=== PATIENT | male | born 1955 | race Caucasian/White ===

== ENCOUNTER → 2016-10-31 | Outpatient (CLI) | payer BC ==
--- NOTE | 2016-10-31 18:45 | MR ---
MRI of the brain with and without contrast EXAM DATE: 10/31/2016 HISTORY: Headaches. TECHNIQUE: T1-weighted sagittal, T2, FLAIR, and diffusion axial, postcontrast T1 axial and coronal vi ews of the brain are submitted. CONTRAST: 15 mL MultiHance FINDINGS: There is no evidence of acute ischemia. The ventricles, basal cisterns, and sulci overlying the co nvexities are consistent with the patient's age. There is no mass effect or enhancing mass. Craniocervical junction maintained. Sella turcica has a normal appearance. No evidence of cerebellopo ntine angle mass. Changes of chronic sinusitis noted. Prominent pacchionian granulations are seen superiorly. WHITE MATTER: There are 7 focal areas of abnormal signal within the white matter seen within the right frontal and parietal lobe with the largest in the right parietal lobe measuring 5 mm. A single focus of abnormal signal in the left parietal white matter is seen. No callosal lesions. No enhancing lesions. No lesions perpendicular to the ventricular system. IMPRESSION: 1. No acute intracranial process. 2. Very mild nonspecific white matter changes. Differential include hypertension, migraine headaches or remote microvascular ischemia. Demyelinating disease not entirely excluded.
== END | disposition home or self-care (01) ==
LOC: RADMRIMAIN 16:56
PROVIDERS: ATTEND Psychiatry & Neurology Neurology
DX: R90.82 White matter disease, unspecified (principal); S09.90XA Unspecified injury of head, initial encounter; A69.20 Lyme disease, unspecified; D33.2 Benign neoplasm of brain, unspecified
CPT/HCPCS: 70553; A9577

== ENCOUNTER 2017-09-12 08:53 | Emergency (ER) | payer BC, OTHER ==
[2017-09-12 09:04] VITALS: RESP 18; TEMP 97.9
--- NOTE | 2017-09-12 09:43 | ED ---
General Adult HPI - General Chief complaint: Extremity Injury, Lower Stated complaint: Swollen Right Leg Time Seen by Provider: 09/12/17 09:14 Source: patient, RN notes reviewed Mode of arrival: ambulatory Limitations: no limitations - History of Present Illness Initial comments: Patient 61-year-old male presenting to the emergency room today with a chief complaint of pain and swelling to the right calf. Patient states that he noticed this starting 2 days ago. Since some redness that he saw yesterday which somewhat improved today. Patient does admit [facility] but when he called seldom about it he was advised come to the hospital have ultrasound to rule out DVT. Patient denies any history of DVT. Denies any injury or trauma. States worse the pain is down to the medial posterior aspect just above the right ankle. Denies any other complaints at this time. Patient denies any recent fever, chills, shortness of breath, chest pain, back pain, abdominal pain, numbness or tingling, dysuria or hematuria, constipation or diarrhea, headaches or visual changes, or any other complaints. - Related Data Home Medications Medication Instructions Recorded Confirmed Ascorbic Acid [Vitamin C] 1 tab PO DAILY 01/06/14 09/12/17 Cholecalciferol (Vitamin D3) 2,000 unit PO BID 01/06/14 09/12/17 [Decara] Fish Oil/Dha/Epa [Fish Oil 1,200 1 tab PO BID 01/06/14 09/12/17 mg Fish Oil] Multivitamins, Thera [Multivitamin] 1 tab PO BID 01/06/14 09/12/17 Vitamin B Complex 1 tab PO BID 01/06/14 09/12/17 Magnesium 200 mg PO DAILY 05/03/15 09/12/17 Ubidecarenone [Co Q-10] 100 mg PO DAILY 09/12/17 09/12/17 Allergies Allergy/AdvReac Type Severity Reaction Status Date / Time No Known Allergies Allergy Verified 09/12/17 09:12 Review of Systems ROS Statement: Those systems with pertinent positive or pertinent negative responses have been documented in the HPI. ROS Other: All systems not noted in ROS Statement are negative. Past Medical History Past Medical History: Sleep Apnea/CPAP/BIPAP Additional Past Medical History / Comment(s): hx. gout, hx. colon polyps, uses CPAP History of Any Multi-Drug Resistant Organisms: None Reported Past Surgical History: Appendectomy Additional Past Surgical History / Comment(s): EGD, colonoscopy Past Anesthesia/Blood Transfusion Reactions: No Reported Reaction Past Psychological History: Depression Smoking Status: Never smoker Past Alcohol Use History: None Reported Past Drug Use History: None Reported - Past Family History Mother Family Medical History: CVA/TIA Additional Family Medical History / Comment(s): mom of massive cva 2012 General Exam - General Exam Comments Initial Comments: General: The patient is awake and alert, in no distress, and does not appear acutely ill. Eye: Pupils are equal, round and reactive to light, extra-ocular movements are intact. No nystagmus. There is normal conjunctiva bilaterally. No signs of icterus. Ears, nose, mouth and throat: There are moist mucous membranes and no oral lesions. Neck: The neck is supple, there is no tenderness or JVD. Cardiovascular: There is a regular rate and rhythm. No murmur, rub or gallop is appreciated. Respiratory: Lungs are clear to auscultation, respirations are non-labored, breath sounds are equal. No wheezes, stridor, rales, or rhonchi. Musculoskeletal: Full range of motion. No bony tenderness on exam. Mild swelling to the right calf. Strength 5/5. Sensation intact. Pulses equal bilaterally 2+. Neurological: A&O x 3. CN II-XII intact, There are no obvious motor or sensory deficits. Coordination appears grossly intact. Speech is normal. Skin: Skin is warm and dry and no rashes or lesions are noted. Psychiatric: Cooperative, appropriate mood & affect, normal judgment. Limitations: no limitations Course Vital Signs 09/12/17 09:02 Temperature 97.9 F Pulse Rate 87 Respiratory 18 Rate Blood Pressure 184/77 O2 Sat by Pulse 97 Oximetry Medical Decision Making - Medical Decision Making Patient's blood work at this time has been reviewed. A PT INR still pending at this time. Patient does not want to wait for the results. The flow to did not have enough blood needed to be redrawn. Patient does have an appointment with his doctor [facility] the [facility] later today. They can be discharged. Patient advised that he should follow back up about the numbers. - Lab Data Result diagrams: 09/12/17 10:55 09/12/17 10:55 Lab Results 09/12/17 09/12/17 Range/Units 10:55 10:55 WBC 5.2 (3.8-10.6) k/uL RBC 5.10 (4.30-5.90) m/uL Hgb 15.2 (13.0-17.5) gm/dL Hct 43.6 (39.0-53.0) % MCV 85.4 (80.0-100.0) fL MCH 29.8 (25.0-35.0) pg MCHC 34.8 (31.0-37.0) g/dL RDW 14.5 (11.5-15.5) % Plt Count 177 (150-450) k/uL Neutrophils % 58 % Lymphocytes % 23 % Monocytes % 9 % Eosinophils % 8 % Basophils % 0 % Neutrophils # 3.0 (1.3-7.7) k/uL Lymphocytes # 1.2 (1.0-4.8) k/uL Monocytes # 0.5 (0-1.0) k/uL Eosinophils # 0.4 (0-0.7) k/uL Basophils # 0.0 (0-0.2) k/uL Sodium 142 (137-145) mmol/L Potassium 4.4 (3.5-5.1) mmol/L Chloride 105 (98-107) mmol/L Carbon Dioxide 26 (22-30) mmol/L Anion Gap 11 mmol/L BUN 23 H (9-20) mg/dL Creatinine 0.67 (0.66-1.25) mg/dL Est GFR (CKD-EPI)AfAm >90 (>60 ml/min/1.73 sqM) Est GFR (CKD-EPI)NonAf >90 (>60 ml/min/1.73 sqM) Glucose 101 H (74-99) mg/dL Calcium 9.4 (8.4-10.2) mg/dL Total Bilirubin 0.7 (0.2-1.3) mg/dL AST 54 (17-59) U/L ALT 53 (21-72) U/L Alkaline Phosphatase 71 (38-126) U/L Total Protein 6.8 (6.3-8.2) g/dL Albumin 4.0 (3.5-5.0) g/dL Disposition Clinical Impression: Leg pain Disposition: HOME SELF-CARE Condition: Good Instructions: Leg Pain (ED) Additional Instructions: [facility] Please discuss your lab work. Please return to emergency room for any other concerns. Referrals: Ortega Roberts MD [STAFF PHYSICIAN] - 1-2 days Time of Disposition: 12:04
--- NOTE | 2017-09-12 10:08 | US ---
EXAMINATION TYPE: US venous doppler duplex LE RT DATE OF EXAM: 09/12/2017 9:21 AM COMPARISON: NONE CLINICAL HISTORY: Pain. Right leg swelling and discoloration SIDE PERFORMED: Right TECHNIQUE: The lower extremity deep venous system is examined utilizing real time linear array sonog malika with graded compression, doppler sonography and color-flow sonography. VESSELS IMAGED: External Iliac Vein (EIV) Common Femoral Vein Deep Femoral Vein Greater Saphenous Vein * Femoral Vein Popliteal Vein Small Saphenous Vein * Proximal Calf Veins (* superficial vessels) Right Leg: Negative for DVT IMPRESSION: 1. Right lower extremity ultrasound negative for deep venous thrombosis.
[2017-09-12 11:07] LABS: Basophils % (A) 0 %; Eosinophils # (A) 0.4 k/uL (0-0.7); Eosinophils % (A) 8 %; HCT 43.6 % (39.0-53.0); HGB 15.2 gm/dL (13.0-17.5); Lymphocytes # (A) 1.2 k/uL (1.0-4.8); Lymphocytes % (A) 23 %; MCH 29.8 pg (25.0-35.0); MCHC 34.8 g/dL (31.0-37.0); MCV 85.4 fL (80.0-100.0); Mean Platelet Volume 7.2; Monocytes # (A) 0.5 k/uL (0-1.0); Monocytes % (A) 9 %; Neutrophils % (A) 58 %; Platelet Count 177 k/uL (150-450); RDW 14.5 % (11.5-15.5); WBC 5.2 k/uL (3.8-10.6)
[2017-09-12 11:17] LABS: ALT 53 U/L (21-72); AST 54 U/L (17-59); Alkaline Phosphatase 71 U/L (38-126); Anion Gap 11 mmol/L; Blood Urea Nitrogen 23 mg/dL (9-20); Calcium 9.4 mg/dL (8.4-10.2); Carbon Dioxide 26 mmol/L (22-30); Chloride 105 mmol/L (98-107); Glucose 101 mg/dL (74-99); Potassium 4.4 mmol/L (3.5-5.1); Sodium 142 mmol/L (137-145); Total Bilirubin 0.7 mg/dL (0.2-1.3); Total Protein 6.8 g/dL (6.3-8.2)
[2017-09-12 12:26] LABS: INR 1.1 (<1.2); Prothrombin Time 10.7 sec (9.0-12.0)
[2017-09-12 12:33] VITALS: BP 154/90; PULSE 68
== END 2017-09-12 12:25 | disposition home or self-care (01) ==
LOC: EC 08:53
DX: M79.661 Pain in right lower leg (principal); M79.89 Other specified soft tissue disorders; G47.30 Sleep apnea, unspecified; Z79.899 Other long term (current) drug therapy; Z99.89 Dependence on other enabling machines and devices
CPT/HCPCS: 36415; 80053; 85025; 85610; 85730; 99284

== ENCOUNTER → 2018-02-18 | Outpatient (CLI) | payer OTHER ==
[2018-02-17 15:09] VITALS: BMI 41.5
[2018-02-18 13:27] VITALS: BP 149/69; PULSE 67; RESP 20
--- NOTE | 2018-02-18 14:18 | P.PAINCN ---
History of Present Illness - Reason for Consult Consult date: 02/18/18 - History of Present Illness This is an initial consultation visit for this 62 years old male with a chronic history of severe low back pain, he was started 2 years ago, denies any initiating factor, and he reported that he had lumbar epidural steroid injection done 2 years ago a different institution, and he had a good result after the injection, recently started complaining of severe low back pain with radiation to the lower extremity bilaterally, associated with numbness and tingling sensation, he denies any motor or sensory deficits, denies any change in bowel movement or urination, no fever or night sweats, tried physical therapy without any significant improvement, and currently is on NSAIDs without any significant improvement Past Medical History Past Medical History: Hypertension, Sleep Apnea/CPAP/BIPAP Additional Past Medical History / Comment(s): chronic back pain, hx. gout, hx. colon polyps, uses CPAP History of Any Multi-Drug Resistant Organisms: None Reported Past Surgical History: Appendectomy Additional Past Surgical History / Comment(s): EGD, colonoscopy Past Anesthesia/Blood Transfusion Reactions: No Reported Reaction Additional Past Anesthesia/Blood Transfusion Reaction / Comm: unknown family hx Past Psychological History: No Psychological Hx Reported Smoking Status: Never smoker Past Alcohol Use History: None Reported Past Drug Use History: None Reported - Past Family History Mother Family Medical History: CVA/TIA Additional Family Medical History / Comment(s): mom of massive cva 2012 Medications and Allergies Home Medications Medication Instructions Recorded Confirmed Type Ascorbic Acid [Vitamin C] 500 mg PO DAILY 01/06/14 02/17/18 History Cholecalciferol (Vitamin D3) 2,000 unit PO BID 01/06/14 02/17/18 History [Decara] Fish Oil/Dha/Epa [Fish Oil 1,200 1 tab PO BID 01/06/14 02/17/18 History mg Fish Oil] Multivitamins, Thera [Multivitamin] 1 tab PO BID 01/06/14 02/17/18 History Vitamin B Complex 1 tab PO BID 01/06/14 02/17/18 History Magnesium 200 mg PO DAILY 05/03/15 02/17/18 History Ubidecarenone [Co Q-10] 100 mg PO DAILY 09/12/17 02/17/18 History Hydrochlorothiazide 12.5 mg PO DAILY 02/18/18 02/18/18 History Losartan Potassium 50 mg PO DAILY 02/18/18 02/18/18 History Naproxen [Naprosyn] 500 mg pe PO DIRECTED PRN 02/18/18 02/18/18 History Allergies Allergy/AdvReac Type Severity Reaction Status Date / Time No Known Allergies Allergy Verified 02/18/18 13:15 Physical Exam Vitals: Vital Signs Pulse Resp BP Pulse Ox 02/18/18 13:19 67 20 149/69 96 Intake and Output 02/17/18 02/18/18 02/18/18 22:59 06:59 14:59 Other: Weight 163.293 kg Social history :not smoker , NO ETOH , NO Illegal drugs use . Review of Systems : 1- Constitutional : no chills , no fever , no night sweats , 2- Ears : no ear discharge , no change in hearing 3-Nose, Mouth ,Throat ; no bleeding gums, no sore throat , no epistaxis , 4-Cardiovascular : Denies chest pain, , no orthopnea , no palpitation 5-Respiratory : Denies cough , no dyspnea , no hemoptysis 6-Gastrointestinal :, no change in bowel habits , no coffee- ground emesis . 7-Genitourinary : No hematuria , no discharge , no incontinence, 8-Musculoskeletal : gait dysfunction(ambulate using cane ) , report low back pain , 9- Neurological : no ataxia , no tremor , no sezure , 10-Psychatric , no suicidal ideation no hallucination 11- Endocrine : no cold intolerence , no polyuria , no polydypsia , 12-Hematologic : no easy bleeding , no easy brusing , 13-Allergic / immunology : no angioedema , no wheezing ,no allergic rhinitis 14-Integumentary : no brttle nails , no change hair / nails , no foot/leg ulcers . Physical Examinations : 1-Constitutional : Cooperative , not in acute distress . 2-HEENT : nech ; supple , no Lymphadenopathy , no Thyromegaly , :eyes , no icterus, no photophobia . ENT : , normal oropharynx , no Thrush 3- Respiratory : Chest clear to auscultations Bilaterally , no wheezing . 4- Cardiovascular : regular rate and rhythem , S1 , S2 , no S3 , no S4. 5- Gastrointestinal: abdomen soft no tenderness , no organomegally . 6- Genitourinary : Defferred . 7-Integumentary : No cellulitis , no ulcers , normal skin turgor , no cyanotic . 8- neurologic : Cranial nerve II to XII intact , no focal neurological deffecit 9-psychatric : alert , oriented X 3 , appropriate affect , intact judgment and insight . 10-Lymphatic : no Lymphadenopathy. 11- musculoskeltal: abnormal gait (ambulate using cane ) . Lumber spine moter stegnth lower extremities ,thigh and legs 5/5 Right side , 5/5 Left side deep tendon reflexes : normal Knee Jerk , normal ankle Jerk positive lumber facet Loading Test Range of motion of the lumbar spine Flexion 30 degrees, extension 10 degrees strait leg raising test , positive at 30 degree side ,Positive at 60 on the right side Fabere test positive RT and positive LT . Sever tenderness over the Sacroiliac joint on the R and L sides Results Comments: MRI of the lumbar spine done at the shoulder. MRI 01/27/2016= L2-3 bulging disc and facet arthropathy L3 4 bulging disc and facet arthropathy L4 5 anterolisthesis and bulging disc and severe facet arthropathy L5-S1 mild retrolisthesis and central disc protrusion Assessment and Plan Plan: Assessment and plan= chronic severe low back pain secondary to lumbar degenerative disc disease and lumbar spondylosis with lumbar facet arthropathy Scheduled patient to have lumbar epidural steroid injections under fluoroscopy guidance 2 If patient continues to have pain after the epidural steroid injection then we have to schedule patient for diagnostic medial branch block lumbar area , L2 to S1 , treatment plan discussed with the patient and he agreed with proceeding Time with Patient: Greater than 30 PQRS Measure Charge Sheet Measure #130: Documentation of Current Meds in Medical Chart: Patient's medications documented in chart Measure #226: Tobacco Use: Screen & Cessation Intervention: Pt not a tobacco user Measure #111: Pneumonia Vaccination: Pneumococcal vaccine NOT administered or previously given Measure #47: Advance Care Plan: Advance care planning discussed & documented, pt chose/unable to give Measure #412: Opioid Treatment Agreement: No documentation of signed opioid treatment agreement Measure #408: Opioid Therapy Follow-up Evaluation: Patient had NO f/u eval minimum every 3 months during opioid therapy Measure #317: Preventitive Care & Scrn High Bld Press & F/U: Pre-hypertensive or hypertensive BP documented, pt will f/u with PCP Measure #128: Body Mass Index (BMI) Screening & Follow-up: BMI documented ABOVE normal parameters - f/u documented Measure #131: Pain Assessment & Follow-up: Pain positive & plan documented, Follow-up scheduled Measure #431: Unhealthy Alcohol Use Preventative Care & Scrn: Patient not identified as an unhealthy alcohol user PQRS Narrative: Smoking Status Never smoker Do You Want the Pneumonia No Vaccine AT THIS TIME? Blood Pressure 149/69 Pain Intensity [Lower Back] 8 Scale Used Numeric (1 - 10) Hx Alcohol Use (MH) No Home Medications: Ambulatory Orders Ascorbic Acid [Vitamin C] 500 mg PO DAILY 01/06/14 Cholecalciferol (Vitamin D3) [Decara] 2,000 unit PO BID 01/06/14 Fish Oil/Dha/Epa [Fish Oil 1,200 mg Fish Oil] 1 tab PO BID 01/06/14 Multivitamins, Thera [Multivitamin] 1 tab PO BID 01/06/14 Vitamin B Complex 1 tab PO BID 01/06/14 Magnesium 200 mg PO DAILY 05/03/15 Ubidecarenone [Co Q-10] 100 mg PO DAILY 09/12/17 Hydrochlorothiazide 12.5 mg PO DAILY 02/18/18 Losartan Potassium 50 mg PO DAILY 02/18/18 Naproxen [Naprosyn] 500 mg pe PO DIRECTED PRN 02/18/18
== END ==
LOC: PNWHC3 12:48
PROVIDERS: ATTEND Specialist
DX: G89.29 Other chronic pain (principal); M51.36 Other intervertebral disc degeneration, lumbar region; M47.816 Spondylosis without myelopathy or radiculopathy, lumbar region; M46.96 Unspecified inflammatory spondylopathy, lumbar region; Z79.899 Other long term (current) drug therapy; Z79.2 Long term (current) use of antibiotics
CPT/HCPCS: 99211

== ENCOUNTER 2018-02-23 07:26 | Day surgery (SDC) | payer OTHER ==
[2018-02-19 12:01] VITALS: BMI 41.5
[~2018-02-23 07:26] MED LIST: LACTATED RINGERS 1,000 ML IV SCH
[2018-02-23 07:50] VITALS: RESP 18; TEMP 97.6
[2018-02-23] MEDS ORDERED: LIDOCAINE 1% 20 ML VIAL (10MG/ML) FOR IV START INTRADERMA ONE (07:52)
[2018-02-23] MEDS ORDERED: LACTATED RINGERS 1,000 ML IV ONE (07:52)
--- NOTE | 2018-02-23 09:23 | P.PCN ---
Date of Procedure: 02/23/18 Surgeon: Melody Zheng Pathology: none sent Condition: stable Disposition: PACU Description of Procedure: PREOPERATIVE DIAGNOSIS: 1-Lumbar radiculopathy 2- Lumber Degenerative Disc Diseases. 3- POSTOPERATIVE DIAGNOSIS: 1-Lumbar radiculopathy. 2-Lumber Degenerative Disc Diseases PROCEDURE 1. Lumbar epidural steroid injection under fluoroscopic guidance at the L5-S1 level in the right paramedian approach. 2. Lumbar epidurogram. ANESTHESIA: Local with 1% lidocaine; IV sedation with Versed --2-mg ,and 100 mcg fentanyl EBL: Minimal PROCEDURE INDICATION: The patient with low back pain and radiculitis symptoms unresponsive to conservative treatment. Fluoroscopy was used to optimize visualization of the needle placement and to maximize safety. PROCEDURE DESCRIPTION / TECHNIQUE: The patient was seen and identified in the preoperative area. Risks, benefits , complications including but not limited to infections ,bleeding ,allergic reaction to the medications ,nerve damage and not complete pain relief , and alternatives were discussed with the patient. The patient agreed to proceed with the procedure and signed the consent. IV was started, and vital signs were stable. Patient was taken to the OR and time out was completed. The patient was placed in the prone position on procedure table and a pillow was placed under the abdomen to reduce lumbar lordosis. The lumbosacral area was prepped and draped in the usual sterile fashion with ChloraPrep.Patient was closely monitored during the procedure. Conscious sedation was used during the procedure to decrease patients anxiety. Vital signs were monitered during the entire procedure. Using anterior-posterior fluoroscopy, the L5-S1 interlaminar space was identified and the skin over this site was marked and then infiltrated with 1% lidocaine subcutaneously. Subsequently, a 18-gauge 6" Tuohy epidural needle was inserted and advanced toward the epidural space using the Loss of resistance to air technique and guided by AP and lateral fluoroscopy. The epidural space was found at about 11 cm from skin. The correct needle position in the epidural space was verified with the injection of 1 mL of the water soluble contrast dye Omnipaque 180 contrast and observing an excellent epidurogram with the epidural spread of the dye, after negative aspiration for blood and CSF and in the absence of paresthesias. Again after negative aspiration, a 8 ml mixture containing 80 mg of Kenalog and 5 ml of preservative free Normal Saline , and 2 ml of preservative free ropivacaine 0.5% solution was injected and a washout of epidurogram was seen. Needle was withdrawn intact, skin was cleansed , and bandages were applied. patient tolerated procedure well and was transferred to PACU in stable condition. COMPLICATIONS: None
[2018-02-23] MEDS ORDERED: IV FLUID CONTINUATION 1,000 ML IV ONE (09:25)
--- NOTE | 2018-02-23 09:26 | FL ---
EXAMINATION TYPE: FL guided pain mgmt statistic DATE OF EXAM: 02/23/2018 HISTORY: Flouroscopy time 13 seconds of fluoroscopy provided. IMPRESSION: 1. Fluoroscopy time.
[2018-02-23 09:56] VITALS: BP 106/70; PULSE 61
== END 2018-02-23 10:17 | disposition home or self-care (01) ==
LOC: ORPAIN 07:26
PROVIDERS: ATTEND Anesthesiology
DX: M51.16 Intervertebral disc disorders with radiculopathy, lumbar region (principal); I10 Essential (primary) hypertension; E66.01 Morbid (severe) obesity due to excess calories; Z68.41 Body mass index [BMI] 40.0-44.9, adult; G47.30 Sleep apnea, unspecified
CPT/HCPCS: 62323; J2250; J3301; J3010; 99152

== ENCOUNTER 2018-03-09 07:44 | Day surgery (SDC) | payer OTHER ==
[2018-03-03 09:58] VITALS: BMI 41.5
[2018-03-09 08:32] VITALS: TEMP 98.6
[2018-03-09] MEDS ORDERED: LIDOCAINE 1% 20 ML VIAL (10MG/ML) FOR IV START INTRADERMA ONE (08:42)
--- NOTE | 2018-03-09 09:21 | P.PCN ---
Date of Procedure: 03/09/18 Description of Procedure: Surgeon: Melody Zheng Pathology: none sent Condition: stable Disposition: PACU Description of Procedure: PREOPERATIVE DIAGNOSIS: 1-Lumbar radiculopathy 2- Lumber Degenerative Disc Diseases. 3- POSTOPERATIVE DIAGNOSIS: 1-Lumbar radiculopathy. 2-Lumber Degenerative Disc Diseases PROCEDURE 1. Lumbar epidural steroid injection under fluoroscopic guidance at the L5-S1 level in the right paramedian approach. 2. Lumbar epidurogram. ANESTHESIA: Local with 1% lidocaine; IV sedation with Versed --2-mg ,and 100 mcg fentanyl EBL: Minimal PROCEDURE INDICATION: The patient with low back pain and radiculitis symptoms unresponsive to conservative treatment. Fluoroscopy was used to optimize visualization of the needle placement and to maximize safety. PROCEDURE DESCRIPTION / TECHNIQUE: The patient was seen and identified in the preoperative area. Risks, benefits , complications including but not limited to infections ,bleeding ,allergic reaction to the medications ,nerve damage and not complete pain relief , and alternatives were discussed with the patient. The patient agreed to proceed with the procedure and signed the consent. IV was started, and vital signs were stable. Patient was taken to the OR and time out was completed. The patient was placed in the prone position on procedure table and a pillow was placed under the abdomen to reduce lumbar lordosis. The lumbosacral area was prepped and draped in the usual sterile fashion with ChloraPrep.Patient was closely monitored during the procedure. Conscious sedation was used during the procedure to decrease patients anxiety. Vital signs were monitered during the entire procedure. Using anterior-posterior fluoroscopy, the L5-S1 interlaminar space was identified and the skin over this site was marked and then infiltrated with 1% lidocaine subcutaneously. Subsequently, a 18-gauge 6" Tuohy epidural needle was inserted and advanced toward the epidural space using the Loss of resistance to air technique and guided by AP and lateral fluoroscopy. The epidural space was found at about 10.5 cm from skin. The correct needle position in the epidural space was verified with the injection of 1 mL of the water soluble contrast dye Omnipaque 180 contrast and observing an excellent epidurogram with the epidural spread of the dye, after negative aspiration for blood and CSF and in the absence of paresthesias. Again after negative aspiration, a 8 ml mixture containing 40 mg of Kenalog and 5 ml of preservative free Normal Saline , and 2 ml of preservative free ropivacaine 0.5% solution was injected and a washout of epidurogram was seen. Needle was withdrawn intact, skin was cleansed , and bandages were applied. patient tolerated procedure well and was transferred to PACU in stable condition. COMPLICATIONS: None
[2018-03-09] MEDS ORDERED: IV FLUID CONTINUATION 1,000 ML IV ONE ×2 (09:27)
[2018-03-09 09:33] VITALS: RESP 18
--- NOTE | 2018-03-09 09:40 | FL ---
Fluoroscopy INDICATION: Pain FINDINGS: Fluoroscopy time: 9 seconds. Images obtained: 2. IMPRESSIONS: 1. Documentation of fluoroscopy.
[2018-03-09 09:47] VITALS: BP 119/61; PULSE 61
== END 2018-03-09 10:09 | disposition home or self-care (01) ==
LOC: ORPAIN 07:44
PROVIDERS: ATTEND Anesthesiology
DX: G89.29 Other chronic pain (principal); M51.36 Other intervertebral disc degeneration, lumbar region; M51.16 Intervertebral disc disorders with radiculopathy, lumbar region; M51.17 Intervertebral disc disorders with radiculopathy, lumbosacral region; M47.26 Other spondylosis with radiculopathy, lumbar region; I10 Essential (primary) hypertension; G47.30 Sleep apnea, unspecified; M10.9 Gout, unspecified; Z99.89 Dependence on other enabling machines and devices; Z79.899 Other long term (current) drug therapy; Z86.010 Personal history of colon polyps
CPT/HCPCS: 62323; J2250; J3301; J3010; Q9966

== ENCOUNTER → 2018-04-01 | Outpatient (CLI) | payer OTHER ==
[2018-04-01 12:48] VITALS: BP 159/82; PULSE 83; RESP 18
--- NOTE | 2018-04-01 13:08 | P.PN ---
Subjective Progress Note Date: 04/01/18 This is a 62-year-old gentleman with history of lower back pain with radiation to the lower extremities when he walks for long distances. He has lumbar spondylosis without myelopathy and lumbar stenosis. He states that his right thigh goes numb when he walks for long time. He had 2 lumbar epidural steroid injection previously which gave him only short period of pain relief. Objective - Vital Signs Vital signs: Vital Signs Temp Pulse 83 04/01/18 12:40 Resp 18 04/01/18 12:40 BP 159/82 04/01/18 12:40 Pulse Ox 96 04/01/18 12:40 Intake & Output 03/31/18 04/01/18 04/01/18 18:59 06:59 18:59 Weight 172.365 kg - Constitutional General appearance: Present: morbidly obese - EENT Eyes: Present: PERRLA - Respiratory Respiratory: bilateral: CTA - Cardiovascular Rhythm: regular - Peripheral pulses dorsalis pedis Peripheral Pulses Comment(s): He has decreased dorsalis pedis pulse on the right foot compared to the left side. - Neurologic Neurologic Comment(s): He has normal muscle strength in the lower extremities however he has no deep tendon reflexes. Neurologic: Present: CNII-XII intact Assessment and Plan Plan: This is a 60-year-old morbidly obese gentleman with chronic lower back pain with occasional radiation to the lower extremities with prolonged activity. The patient had decreased dorsalis pedis pulse in the right foot compared to the left one and that's why I'm going to refer him to see a vascular surgeon to rule out vascular claudication. I will also schedule him to have lumbar bilateral diagnostic medial branch block under fluoroscopic guidance.If he gets more than 50% of pain relief that we can schedule him to have lumbar medial branch RFA in the future.
== END | disposition home or self-care (01) ==
LOC: PNWHC3 12:13
PROVIDERS: ATTEND Anesthesiology
DX: G89.29 Other chronic pain (principal); M54.5 Low back pain; M48.061 Spinal stenosis, lumbar region without neurogenic claudication; M47.816 Spondylosis without myelopathy or radiculopathy, lumbar region; E66.01 Morbid (severe) obesity due to excess calories; Z68.41 Body mass index [BMI] 40.0-44.9, adult
CPT/HCPCS: 99211

== ENCOUNTER 2018-05-06 07:25 | Day surgery (SDC) | payer OTHER ==
[2018-04-30 10:05] VITALS: BMI 43.9
[~2018-05-06 07:25] MED LIST changes: +LIDOCAINE 1% 20 ML VIAL (10MG/ML) FOR IV START INTRADERMA PRN
[2018-05-06] MEDS ORDERED: LACTATED RINGERS 1,000 ML IV ONE (07:34)
[2018-05-06 07:47] VITALS: RESP 16; TEMP 97.8
[2018-05-06 07:49] LABS: Glucose,Whole Blood 109 mg/dL (75-99)
[2018-05-06] MEDS ORDERED: PROPOFOL 10 MG/ML 20 ML VIAL IV ONE (08:01)
--- NOTE | 2018-05-06 08:15 | P.GSHP ---
History of Present Illness H&P Date: 05/06/18 CHIEF COMPLAINT: GERD and colon screen HISTORY OF PRESENT ILLNESS: The patient is a 62-year-old male who presents with gastroesophageal reflux disease and need for colon screen. Upper and lower endoscopy were offered for further evaluation and management. PAST MEDICAL HISTORY: Please see list. PAST SURGICAL HISTORY: Please see list. MEDICATIONS: Please see list. ALLERGIES: Please see list. SOCIAL HISTORY: No illicit drug use FAMILY HISTORY: No reports of Crohn disease or ulcerative colitis. REVIEW OF ORGAN SYSTEMS: CONSTITUTIONAL: No reports of fevers or chills. GI: Denies any blood in stools or constipation. PHYSICAL EXAM: VITAL SIGNS: Stable GENERAL: Well-developed pleasant in no acute distress. HEENT: No scleral icterus. Extraocular movements grossly intact. Moist buccal mucosa. NECK: Supple without lymphadenopathy. CHEST: Unlabored respirations. Equal bilateral excursions. CARDIOVASCULAR: Regular rate and rhythm. Distal 2+ pulses. ABDOMEN: Soft, nondistended. MUSCULOSKELETAL: No clubbing, cyanosis, or edema. ASSESSMENT: 1. Gastroesophageal reflux disease 2. Colon screen. PLAN: 1. Recommend proceeding with an upper and lower endoscopy Past Medical History Past Medical History: Hypertension, Sleep Apnea/CPAP/BIPAP Additional Past Medical History / Comment(s): chronic back pain-pinched nerve, hx. gout, hx. colon polyps, uses CPAP,steroid injection Mar 2018 History of Any Multi-Drug Resistant Organisms: None Reported Past Surgical History: Appendectomy Additional Past Surgical History / Comment(s): EGD, colonoscopy,pain clinic procedures Past Anesthesia/Blood Transfusion Reactions: No Reported Reaction Smoking Status: Never smoker - Past Family History Mother Family Medical History: CVA/TIA Additional Family Medical History / Comment(s): mom of massive cva 2012 Medications and Allergies Home Medications Medication Instructions Recorded Confirmed Type Ascorbic Acid [Vitamin C] 500 mg PO DAILY 01/06/14 04/30/18 History Cholecalciferol (Vitamin D3) 2,000 unit PO BID 01/06/14 04/30/18 History [Decara] Multivitamins, Thera [Multivitamin] 1 tab PO BID 01/06/14 04/30/18 History Vitamin B Complex 1 tab PO BID 01/06/14 04/30/18 History Ubidecarenone [Co Q-10] 100 mg PO DAILY 09/12/17 04/30/18 History Hydrochlorothiazide 12.5 mg PO DAILY 02/18/18 05/06/18 History Meloxicam [Mobic] 7.5 mg PO DAILY 04/30/18 05/06/18 History Losartan Potassium 50 mg PO DAILY 05/06/18 05/06/18 History Allergies Allergy/AdvReac Type Severity Reaction Status Date / Time No Known Allergies Allergy Verified 05/06/18 07:40 Surgical - Exam Vital Signs Temp Pulse Resp BP Pulse Ox 97.8 F 66 16 157/79 99 05/06/18 07:43 05/06/18 07:43 05/06/18 07:43 05/06/18 07:43 05/06/18 07:43 Results - Labs Abnormal Lab Results - Last 24 Hours (Table) 05/06/18 Range/Units 07:45 POC Glucose (mg/dL) 109 H (75-99) mg/dL
--- NOTE | 2018-05-06 08:39 | P.PCN ---
Date of Procedure: 05/06/18 Description of Procedure: PREOPERATIVE DIAGNOSIS: History of malignant colon polyp POSTOPERATIVE DIAGNOSIS: History of malignant colon polyp Multiple tubular adenomas throughout the colon. Sigmoid diverticulosis with focal diverticulitis OPERATION: Colonoscopy to the ileocecal valve and appendiceal orifice. Colonoscopy with multiple cold forceps biopsies. SURGEON: Karena Winters MD. ANESTHESIA: MAC. INDICATIONS: The patient is a 62-year-old male who presents for colonoscopy screening. Last colonoscopy was 5 years ago. enefits and risks were described and informed consent was obtained. DESCRIPTION OF PROCEDURE: The patient had undergone Gatorade, MiraLAX and Dulcolax prep. He had been brought into the operating room and laid in the left lateral decubitus position. After adequate intravenous sedation, the rectum was examined with 2% lidocaine jelly. No external hemorrhoids were encountered. The rectal tone was within normal limits. No lesions were palpated in the rectal vault. An Olympus colonoscope was advanced until the ileocecal valve and appendiceal orifice were clearly viewed. The prep was fair with visualization of the mucosal folds. The scope was removed with visualization of each mucosal fold. Scattered diverticulosis with mild focal diverticulitis was encountered between 20-30 cm. Multiple colonic polyps were found and cold forcep biopsy. Retroflexion of the scope demonstrated no internal hemorrhoids without active bleeding or inflammation. The colon was desufflated. The patient had tolerated the procedure well. Withdrawal time was over 6 minutes. FINDINGS: No internal hemorrhoids No external hemorrhoids No arteriovenous malformations. Removal of 4 polyps: - Cold forceps biopsy at 30 cm x 2 from the anal verge, 4 mm polyp. - Cold forceps biopsy at 40 cm from the anal verge, 5 mm polyp. - Cold forceps biopsy at hepatic flexure, 4 mm polyp. - Cold forceps biopsy at the cecum, 3 mm polyp. Scattered diverticulosis with mild focal diverticulitis was encountered between 20-30 cm. RECOMMENDATIONS: Given severity of tubular adenomas, recommend repeat colonoscopy 3 years, 2020
--- NOTE | 2018-05-06 08:41 | P.PCN ---
Date of Procedure: 05/06/18 Description of Procedure: PREOPERATIVE DIAGNOSIS: Gastroesophageal reflux disease. Morbid obesity. POSTOPERATIVE DIAGNOSIS: Morbid obesity. Gastritis. Gastroesophageal reflux disease. Diaphragmatic hiatal hernia, sliding type OPERATION: Esophagogastroduodenoscopy with biopsies along antrum. SURGEON: Karena Winters MD ANESTHESIA: MAC. INDICATIONS: The patient is a 62-year-old male who presents with a history of reflux disease. Benefits and risks of the procedure were described. Informed consent was obtained. DESCRIPTION: The patient was brought into the endoscopy suite and laid in the left lateral decubitus position. An Olympus gastroscope was passed along the posterior oropharynx down to the distal esophagus where the squamocolumnar junction was encountered at 45 cm from the incisors. The stomach was entered and no bile reflux was found. Additional findings are listed below. Biopsies with cold forceps were obtained of the antrum. The first through third portion of the duodenum was examined and unremarkable. Retroflexion of the scope confirmed Hill grade 2 lower esophageal valve. The squamocolumnar junction demonstrated LA grade A erosive esophagitis. The stomach was desufflated. The patient tolerated the procedure well. FINDINGS: Squamocolumnar junction 44 cm from the incisors. Diaphragmatic hiatus at 45 cm. Hiatal hernia, 1 cm Hill grade 2 lower esophageal valve. LA grade A erosive esophagitis. No active duodenitis. Chronic gastritis RECOMMENDATIONS: Upper endoscopy as needed. Plan - Discharge Summary New Discharge Prescriptions: No Action Multivitamins, Thera [Multivitamin] 1 tab PO BID Cholecalciferol (Vitamin D3) [Decara] 2,000 unit PO BID Ascorbic Acid [Vitamin C] 500 mg PO DAILY Vitamin B Complex 1 tab PO BID Ubidecarenone [Co Q-10] 100 mg PO DAILY Hydrochlorothiazide 12.5 mg PO DAILY Meloxicam [Mobic] 7.5 mg PO DAILY Losartan Potassium 50 mg PO DAILY Discharge Medication List Ascorbic Acid [Vitamin C] 500 mg PO DAILY 01/06/14 [History] Cholecalciferol (Vitamin D3) [Decara] 2,000 unit PO BID 01/06/14 [History] Multivitamins, Thera [Multivitamin] 1 tab PO BID 01/06/14 [History] Vitamin B Complex 1 tab PO BID 01/06/14 [History] Ubidecarenone [Co Q-10] 100 mg PO DAILY 09/12/17 [History] Hydrochlorothiazide 12.5 mg PO DAILY 02/18/18 [History] Meloxicam [Mobic] 7.5 mg PO DAILY 04/30/18 [History] Losartan Potassium 50 mg PO DAILY 05/06/18 [History] Follow up Appointment(s)/Referral(s): Karena Winters MD [STAFF PHYSICIAN] - As Needed Patient Instructions/Handouts: Colorectal Polyps (DC) Activity/Diet/Wound Care/Special Instructions: Repeat colonoscopy, 3 years, 2020 Discharge Disposition: HOME SELF-CARE
[2018-05-06 08:49] VITALS: PULSE 63
[2018-05-06 09:02] VITALS: BP 112/69
== END 2018-05-06 09:24 | disposition home or self-care (01) ==
LOC: ORWHC2ENDO 07:25
PROVIDERS: ATTEND Surgery Plastic and Reconstructive Surgery
DX: Z12.11 Encounter for screening for malignant neoplasm of colon (principal); D12.0 Benign neoplasm of cecum; K63.5 Polyp of colon; K29.50 Unspecified chronic gastritis without bleeding; K21.0 Gastro-esophageal reflux disease with esophagitis; K22.10 Ulcer of esophagus without bleeding; K44.9 Diaphragmatic hernia without obstruction or gangrene; K57.30 Diverticulosis of large intestine without perforation or abscess without bleeding; K57.32 Diverticulitis of large intestine without perforation or abscess without bleeding; Z86.010 Personal history of colon polyps; E66.01 Morbid (severe) obesity due to excess calories; Z68.41 Body mass index [BMI] 40.0-44.9, adult; I10 Essential (primary) hypertension; G58.9 Mononeuropathy, unspecified; G89.29 Other chronic pain; M10.9 Gout, unspecified; F32.9 Major depressive disorder, single episode, unspecified; G47.33 Obstructive sleep apnea (adult) (pediatric); Z99.89 Dependence on other enabling machines and devices; Z79.1 Long term (current) use of non-steroidal anti-inflammatories (NSAID); Z79.899 Other long term (current) drug therapy
CPT/HCPCS: 88305; 45380; 43239; J2704

== ENCOUNTER 2018-05-06 20:55 | Inpatient (IN) | payer OTHER ==
--- NOTE | 2018-05-06 21:25 | ED ---
SOB HPI - General Chief Complaint: Shortness of Breath Stated Complaint: CARROLL, post op Time Seen by Provider: 05/06/18 21:10 Source: patient Mode of arrival: wheelchair Limitations: physical limitation - History of Present Illness Initial Comments: This patient is 62-year-old man presenting to have evaluation for constellation of symptoms that includes cough, shortness of breath, chills, that all came on about 6 PM tonight while he was sitting watching television. The patient relates that he did have a colonoscopy this morning at 0730, but states that he was told that went well and he was not having any symptoms following that. MD Complaint: shortness of breath, cough Onset/Timin -: hour(s) Severity: moderate Consistency: constant Improves With: nothing Worsens With: nothing Associated Symptoms: fever, cough, other (Right leg swelling) Treatments Prior to Arrival: none - Related Data Home Oxygen Therapy: No Home Medications Medication Instructions Recorded Confirmed Ascorbic Acid [Vitamin C] 500 mg PO DAILY 01/06/14 05/06/18 Cholecalciferol (Vitamin D3) 2,000 unit PO BID 01/06/14 05/06/18 [Decara] Multivitamins, Thera [Multivitamin] 1 tab PO BID 01/06/14 05/06/18 Vitamin B Complex 1 tab PO BID 01/06/14 05/06/18 Ubidecarenone [Co Q-10] 100 mg PO DAILY 09/12/17 05/06/18 Hydrochlorothiazide 12.5 mg PO DAILY 02/18/18 05/06/18 Meloxicam [Mobic] 7.5 mg PO DAILY 04/30/18 05/06/18 Losartan Potassium 50 mg PO DAILY 05/06/18 05/06/18 Allergies Allergy/AdvReac Type Severity Reaction Status Date / Time No Known Allergies Allergy Verified 05/06/18 21:06 Review of Systems ROS Statement: Those systems with pertinent positive or pertinent negative responses have been documented in the HPI. ROS Other: All systems not noted in ROS Statement are negative. Constitutional: Reports: chills, weakness. Denies: fever Respiratory: Reports: cough, dyspnea. Denies: hemoptysis Cardiovascular: Reports: palpitations, edema (Complains of right leg edema for weeks). Denies: chest pain, orthopnea, syncope Gastrointestinal: Denies: abdominal pain, nausea, vomiting, diarrhea, constipation Genitourinary: Denies: dysuria, hematuria Musculoskeletal: Reports: back pain (Chronic, seeing pain management) Skin: Denies: rash, lesions Neurological: Denies: headache, weakness, numbness, paresthesias Past Medical History Past Medical History: Hypertension, Sleep Apnea/CPAP/BIPAP Additional Past Medical History / Comment(s): back pain, hx. gout, hx. colon polyps, uses CPAP History of Any Multi-Drug Resistant Organisms: None Reported Past Surgical History: Appendectomy Additional Past Surgical History / Comment(s): EGD, colonoscopy, pain clinic procedure Past Anesthesia/Blood Transfusion Reactions: No Reported Reaction Past Psychological History: Depression Smoking Status: Never smoker Past Alcohol Use History: None Reported Past Drug Use History: None Reported - Past Family History Mother Family Medical History: CVA/TIA Additional Family Medical History / Comment(s): mom of massive cva 2012 General Exam Limitations: physical limitation General appearance: alert, in no apparent distress, obese Head exam: Present: atraumatic, normocephalic Eye exam: Present: normal appearance. Absent: scleral icterus, conjunctival injection ENT exam: Present: mucous membranes dry Respiratory exam: Present: respiratory distress (Mild tachypnea). Absent: wheezes, rales, rhonchi, stridor, accessory muscle use, decreased breath sounds , prolonged expiratory Cardiovascular Exam: Present: normal rhythm, tachycardia, normal heart sounds. Absent: systolic murmur, diastolic murmur, rubs, gallop GI/Abdominal exam: Present: soft, normal bowel sounds. Absent: distended, tenderness, guarding, rebound, rigid, hernia Extremities exam: Present: normal inspection, normal capillary refill. Absent: pedal edema, calf tenderness Back exam: Present: normal inspection. Absent: CVA tenderness (R), CVA tenderness (L) Neurological exam: Present: alert Skin exam: Present: warm, dry, intact, normal color. Absent: rash Course Vital Signs 05/06/18 05/06/18 05/06/18 21:02 21:50 22:10 Temperature 100.3 F H Pulse Rate 113 H 114 H 122 H Respiratory 23 18 19 Rate Blood Pressure 134/62 120/61 120/84 O2 Sat by Pulse 97 96 95 Oximetry 05/06/18 05/06/18 05/06/18 22:16 22:50 23:10 Temperature Pulse Rate 141 H Respiratory 19 18 Rate Blood Pressure 120/84 126/23 124/77 O2 Sat by Pulse 94 L 100 97 Oximetry 05/06/18 05/06/18 05/06/18 23:20 23:30 23:40 Temperature Pulse Rate Respiratory Rate Blood Pressure 106/30 118/56 134/68 O2 Sat by Pulse 95 94 L 94 L Oximetry 05/06/18 05/07/18 05/07/18 23:50 00:00 00:10 Temperature Pulse Rate Respiratory Rate Blood Pressure 126/83 126/83 118/77 O2 Sat by Pulse 94 L 93 L 97 Oximetry 05/07/18 05/07/18 05/07/18 01:00 01:21 01:25 Temperature 99.0 F Pulse Rate 57 L 103 H Respiratory 18 17 Rate Blood Pressure 155/74 119/84 O2 Sat by Pulse 97 96 96 Oximetry - Reevaluation(s) Reevaluation #1: 05/06/18 22:12 Sepsis bolus based on ideal body weight. Medical Decision Making - Lab Data Result diagrams: 05/06/18 21:20 05/06/18 21:20 Lab Results 05/06/18 05/06/18 05/06/18 Range/Units 21:20 21:20 21:20 WBC 11.5 H (3.8-10.6) k/uL RBC 5.27 (4.30-5.90) m/uL Hgb 15.0 (13.0-17.5) gm/dL Hct 45.1 (39.0-53.0) % MCV 85.5 (80.0-100.0) fL MCH 28.4 (25.0-35.0) pg MCHC 33.3 (31.0-37.0) g/dL RDW 14.6 (11.5-15.5) % Plt Count 179 (150-450) k/uL Neutrophils % 90 % Lymphocytes % 3 % Monocytes % 4 % Eosinophils % 1 % Basophils % 0 % Neutrophils # 10.4 H (1.3-7.7) k/uL Lymphocytes # 0.4 L (1.0-4.8) k/uL Monocytes # 0.5 (0-1.0) k/uL Eosinophils # 0.2 (0-0.7) k/uL Basophils # 0.0 (0-0.2) k/uL PT (9.0-12.0) sec INR (<1.2) APTT (22.0-30.0) sec D-Dimer (<0.60) mg/L FEU Sodium 139 (137-145) mmol/L Potassium 4.3 (3.5-5.1) mmol/L Chloride 102 (98-107) mmol/L Carbon Dioxide 26 (22-30) mmol/L Anion Gap 11 mmol/L BUN 19 (9-20) mg/dL Creatinine 0.84 (0.66-1.25) mg/dL Est GFR (CKD-EPI)AfAm >90 (>60 ml/min/1.73 sqM) Est GFR (CKD-EPI)NonAf >90 (>60 ml/min/1.73 sqM) Glucose 145 H (74-99) mg/dL Lactic Ac Sepsis Rflx Plasma Lactic Acid Last (0.7-2.0) mmol/L Calcium 9.4 (8.4-10.2) mg/dL Total Bilirubin 1.1 (0.2-1.3) mg/dL AST 45 (17-59) U/L ALT 43 (21-72) U/L Alkaline Phosphatase 60 (38-126) U/L Total Creatine Kinase 124 (55-170) U/L CK-MB (CK-2) 1.3 (0.0-2.4) ng/mL CK-MB (CK-2) Rel Index 1.0 Troponin I <0.012 (0.000-0.034) ng/mL Total Protein 7.6 (6.3-8.2) g/dL Albumin 4.5 (3.5-5.0) g/dL 05/06/18 05/06/18 05/06/18 Range/Units 21:20 21:20 22:08 WBC (3.8-10.6) k/uL RBC (4.30-5.90) m/uL Hgb (13.0-17.5) gm/dL Hct (39.0-53.0) % MCV (80.0-100.0) fL MCH (25.0-35.0) pg MCHC (31.0-37.0) g/dL RDW (11.5-15.5) % Plt Count (150-450) k/uL Neutrophils % % Lymphocytes % % Monocytes % % Eosinophils % % Basophils % % Neutrophils # (1.3-7.7) k/uL Lymphocytes # (1.0-4.8) k/uL Monocytes # (0-1.0) k/uL Eosinophils # (0-0.7) k/uL Basophils # (0-0.2) k/uL PT 10.8 (9.0-12.0) sec INR 1.0 (<1.2) APTT 23.2 (22.0-30.0) sec D-Dimer 0.72 H (<0.60) mg/L FEU Sodium (137-145) mmol/L Potassium (3.5-5.1) mmol/L Chloride (98-107) mmol/L Carbon Dioxide (22-30) mmol/L Anion Gap mmol/L BUN (9-20) mg/dL Creatinine (0.66-1.25) mg/dL Est GFR (CKD-EPI)AfAm (>60 ml/min/1.73 sqM) Est GFR (CKD-EPI)NonAf (>60 ml/min/1.73 sqM) Glucose (74-99) mg/dL Lactic Ac Sepsis Rflx Y Plasma Lactic Acid Last 3.4 H* (0.7-2.0) mmol/L Calcium (8.4-10.2) mg/dL Total Bilirubin (0.2-1.3) mg/dL AST (17-59) U/L ALT (21-72) U/L Alkaline Phosphatase (38-126) U/L Total Creatine Kinase (55-170) U/L CK-MB (CK-2) (0.0-2.4) ng/mL CK-MB (CK-2) Rel Index Troponin I (0.000-0.034) ng/mL Total Protein (6.3-8.2) g/dL Albumin (3.5-5.0) g/dL - EKG Data -: EKG Interpreted by Nm EKG shows normal: sinus rhythm (With multiple PVCs.), axis (Normal), intervals ( Normal), QRS complexes (Q waves in lead 3.), ST-T waves (Normal) Rate: tachycardia (Rate 118 bpm) Disposition Clinical Impression: Pneumonia, Lactic acidosis Disposition: ADMITTED IP TO THIS HOSP Condition: Fair Is patient prescribed a controlled substance at d/c from ED?: No
[2018-05-06] MEDS ORDERED: LEVOFLOXACIN 750MG-D5W PMX 750 MG in DEXTROSE/WATER 1 150ML.BAG IVPB STA (21:34)
[2018-05-06] MEDS ORDERED: SODIUM CHLORIDE 0.9% 500 ML 500 ML IV STA (21:34)
[2018-05-06 21:52] LABS: Basophils % (A) 0 %; Eosinophils # (A) 0.2 k/uL (0-0.7); Eosinophils % (A) 1 %; HCT 45.1 % (39.0-53.0); Lymphocytes # (A) 0.4 k/uL (1.0-4.8); Lymphocytes % (A) 3 %; MCH 28.4 pg (25.0-35.0); MCHC 33.3 g/dL (31.0-37.0); MCV 85.5 fL (80.0-100.0); Mean Platelet Volume 6.7; Monocytes # (A) 0.5 k/uL (0-1.0); Monocytes % (A) 4 %; Neutrophils # (A) 10.4 k/uL (1.3-7.7); Neutrophils % (A) 90 %; Platelet Count 179 k/uL (150-450); RBC 5.27 m/uL (4.30-5.90); RDW 14.6 % (11.5-15.5); WBC 11.5 k/uL (3.8-10.6)
[2018-05-06] MEDS ORDERED: MORPHINE SULFATE 4 MG/ML SYRINGE IV STA (21:52)
--- NOTE | 2018-05-06 21:56 | XR ---
EXAMINATION TYPE: XR chest 2V DATE OF EXAM: 05/06/2018 COMPARISON: NONE HISTORY: Difficulty breathing and weakness TECHNIQUE: Frontal and lateral views of the chest are obtained. FINDINGS: There is no heart failure nor confluent pneumonic infiltrate. There is coarsening of the l juju markings. Bony thorax is intact. There is no pleural effusion. IMPRESSION: Increased interstitial markings could relate to interstitial pneumonia. No heart failure seen. No pulmonary consolidation.
[2018-05-06 22:03] LABS: Albumin 4.5 g/dL (3.5-5.0); Anion Gap 11 mmol/L; Calcium 9.4 mg/dL (8.4-10.2); Carbon Dioxide 26 mmol/L (22-30); Chloride 102 mmol/L (98-107); Glucose 145 mg/dL (74-99); Sodium 139 mmol/L (137-145); Total Bilirubin 1.1 mg/dL (0.2-1.3); Total Protein 7.6 g/dL (6.3-8.2)
[2018-05-06 22:04] LABS: Creatine Kinase 124 U/L (55-170)
[2018-05-06 22:05] LABS: Partial Thromboplastin Time 23.2 sec (22.0-30.0); Prothrombin Time 10.8 sec (9.0-12.0)
[2018-05-06 22:07] LABS: ALT 43 U/L (21-72); AST 45 U/L (17-59); Alkaline Phosphatase 60 U/L (38-126); Blood Urea Nitrogen 19 mg/dL (9-20); Potassium 4.3 mmol/L (3.5-5.1)
[2018-05-06] MEDS ORDERED: SODIUM CHLORIDE 0.9% 3,000 ML IV ONE (22:10)
[2018-05-06 22:14] LABS: D-Dimer 0.72 mg/L FEU (<0.60)
[2018-05-06 22:18] LABS: Creatine Kinase MB 1.3 ng/mL (0.0-2.4); Troponin I <0.012 ng/mL (0.000-0.034)
--- NOTE | 2018-05-06 23:13 | US ---
EXAMINATION TYPE: US venous doppler duplex LE RT DATE OF EXAM: 05/06/2018 10:48 PM COMPARISON: NONE CLINICAL HISTORY: R leg swelling. Right leg pain and swelling. Patient unable to tolerate compression mid to distal Femoral Vein SIDE PERFORMED: Left TECHNIQUE: The lower extremity deep venous system is examined utilizing real time linear array sonog malika with graded compression, doppler sonography and color-flow sonography. VESSELS IMAGED: External Iliac Vein (EIV) Common Femoral Vein Deep Femoral Vein Greater Saphenous Vein * Femoral Vein Popliteal Vein Small Saphenous Vein Proximal Calf Veins (* superficial vessels) IMPRESSION: *no evidence of deep venous thrombosis in the right leg. Normal augmentation.
--- NOTE | 2018-05-07 00:54 | CT ---
EXAMINATION TYPE: CT chest angio for PE DATE OF EXAM: 05/07/2018 COMPARISON: None HISTORY: chest pain and SOB CT DLP: 882.3 mGycm Automated exposure control for dose reduction was used. CONTRAST: CT Chest for pulmonary embolism performed with with IV Contrast, patient injected with 90mL mL of Iso joshua 370. FINDINGS: There are 3-D post processed images. The lungs are clear of consolidation. There is coarsening of the pulmonary interstitial markings. Hea rt is slightly enlarged. There is no pericardial effusion. There is no pleural effusion. There is small hiatal hernia. I see no filling defects in the pulmonary arteries. There is no mediastinal adenopathy. There are no hilar masses. The bony thorax is intact. There is spurring in the thoracic spine. IMPRESSION: No evidence of pulmonary embolism. Cardiomegaly. Interstitial infiltrates in both lungs.
[2018-05-07] MEDS ORDERED: ALBUTEROL NEBULIZED 2.5 MG/3 ML INHALATION PRN (00:56)
[2018-05-07] MEDS ORDERED: PNEUMONIA PROTOCOL UTILIZED 1 EACH MISC PO PRN (00:56)
[2018-05-07] MEDS ORDERED: LEVOFLOXACIN 750MG-D5W PMX 750 MG in DEXTROSE/WATER 1 150ML.BAG IVPB STA (00:56)
[2018-05-07] MEDS: SODIUM CHLORIDE 0.9% 1,000 ML IV SCH ×3 (02:45→20:15)
[2018-05-07] MEDS: CHOLECALCIFEROL 1,000 UNIT TAB PO SCH ×2 (08:17→20:14)
[2018-05-07] MEDS: HYDROCHLOROTHIAZIDE 12.5 MG CAP PO SCH ×2 (08:18→08:37)
[2018-05-07] MEDS: LOSARTAN 50 MG TAB PO SCH ×2 (08:18→08:37)
[2018-05-07] MEDS: MULTIVITAMINS, THERA 1 EACH TAB PO SCH ×2 (08:18→20:14)
[2018-05-07] MEDS: MELOXICAM 7.5 MG TAB PO SCH (08:18)
[2018-05-07] MEDS: ASCORBIC ACID 500 MG TAB PO SCH (08:20)
[2018-05-07] MEDS: Ubidecarenone [Co Q-10] 100 MG PO SCH (08:20)
[2018-05-07 08:42] LABS: Appearance,Urine Clear (Clear); Bilirubin,Urine Negative (Negative); Blood,Urine Negative (Negative); Color,Urine Yellow; Glucose,Urine (UA) Negative (Negative); Ketones,Urine Negative (Negative); Leukocyte Esterase,Urine Negative (Negative); Nitrite,Urine Negative (Negative); PH, Urine 5.5 (5.0-8.0); Protein,Urine Negative (Negative); Specific Gravity,Urine 1.021 (1.001-1.035); Urobilinogen,Urine <2.0 mg/dL (<2.0)
[2018-05-07] MEDS ORDERED: NON-FORMULARY DRUG (Vitamin B Complex [Vitamin B Complex] 1 TAB) PO SCH (09:00)
[2018-05-07] MEDS ORDERED: VANCOMYCIN IV PER PHARMACY 1 EACH MISC MISCELLANE PRN (11:43)
[2018-05-07] MEDS: ENOXAPARIN 40 MG/0.4 ML SYRINGE SQ SCH (12:10)
[2018-05-07] MEDS: ACETAMINOPHEN TAB 325 MG TAB PO PRN ×2 (12:10→23:25)
[2018-05-07] MEDS: VANCOMYCIN 2,500 MG in SODIUM CHLORIDE 0.9% 500 ML 500 ML IVPB SCH ×2 (12:42→20:14)
--- NOTE | 2018-05-07 15:05 | US ---
EXAMINATION TYPE: US venous doppler duplex LE LT DATE OF EXAM: 05/07/2018 2:48 PM COMPARISON: NONE CLINICAL HISTORY: cellulitis, sore, red, swollen. SIDE PERFORMED: Left TECHNIQUE: The lower extremity deep venous system is examined utilizing real time linear array sonog malika with graded compression, doppler sonography and color-flow sonography. VESSELS IMAGED: External Iliac Vein (EIV)-not seen due to large abdomen Common Femoral Vein Deep Femoral Vein Greater Saphenous Vein * Femoral Vein Popliteal Vein Small Saphenous Vein * Proximal Calf Veins (* superficial vessels) Patient of very large body habitus. Technically difficult study. Left Leg: Negative for DVT as visualized, unable to do compressions from groin to distal femoral vei n due to patient pain. Grayscale, color doppler, spectral doppler imaging performed of the deep veins of the left lower extr emity. There is normal flow, compressibility, vascular waveforms. IMPRESSION: No gross evidence of sonographic evidence of deep venous thrombosis of the left lower ex tremity however focal compression wasn't able to be performed secondary to patient pain.
--- NOTE | 2018-05-07 22:17 | HP ---
HISTORY AND PHYSICAL DATE OF ADMISSION: 05/07/2018 DATE OF SERVICE: 05/07/2018 PRESENTING COMPLAINT: Chills. 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 Patient underwent colonoscopy and EGD by Dr. Winters yesterday and then went home. When he went home, he started feeling cold and chills, put on double pants and sweaters. He had a dry cough and started developing fevers. Denied any urinary symptoms. He presented to the ER. Patient has chronic swelling of the right lower extremity; did undergo ultrasound that was negative for DVT. He also noticed some swelling of the left lower extremity and there is some redness. Patient was started on vancomycin, given IV Levaquin and admitted for the same. He is having fever and chills. REVIEW OF SYSTEMS: CONSTITUTIONAL: Weak, tired, fever, chills. HEENT: None. RESPIRATORY: Cough. CARDIOVASCULAR: None. GASTROINTESTINAL: As above. GENITOURINARY: None. MUSCULOSKELETAL: Chronic low back pain. DERMATOLOGICAL: Some redness of the left lower extremity. HEMATOLOGICAL: None. LYMPHATICS: None. PSYCHIATRY: Depression, controlled. NEUROLOGICAL: None. PAST MEDICAL HISTORY: 1. Hypertension. 2. Obstructive sleep apnea. 3. Chronic low back pain. 4. Depression. 5. Chronic right lower extremity edema. 6. Gout. PAST SURGICAL HISTORY: 1. Appendectomy. 2. EGD. 3. Colonoscopy. 4. Pain clinic procedures. SOCIAL HISTORY: Lives alone. Does not smoke or drink alcohol. FAMILY HISTORY: Mother of a stroke. HOME MEDICATIONS: 1. Vitamin B complex 1 tablet p.o. b.i.d. 2. Co-Q-10 100 mg p.o. daily. 3. Multivitamin 1 tablet p.o. b.i.d. 4. Mobic 7.5 p.o. daily. 5. Losartan 50 mg p.o. daily. 6. Hydrochlorothiazide 12.5 p.o. daily. 7. Vitamin D3 2000 units p.o. b.i.d. 8. Vitamin C 500 mg p.o. daily. ALLERGIES: NONE. PHYSICAL EXAMINATION: VITAL SIGNS ON PRESENTATION: Temperature 100.3, pulse up to 120, respiration 23, blood pressure 134/62, pulse ox 97% on room air. GENERAL APPEARANCE: Well built; BMI 45.2. Lying in bed, awake, tired. EYES: Pupils equal. Conjunctivae normal. HEENT: External appearance of nose and ears normal. Oral cavity normal. NECK: JVD not raised. Mass not palpable. RESPIRATORY: Effort increased. LUNGS: Distant breath sounds. CARDIOVASCULAR: First and second sounds normal. Some redness of the left lower extremity below the knee, some edema. ABDOMEN: Distended, soft. Liver and spleen not palpable. LYMPHATICS: No lymph node palpable in neck, axillae or groin. PSYCHIATRY: Alert and oriented x3. Mood and affect normal. EXTREMITIES: Swelling of both lower extremities. Some redness of the left lower extremity. INVESTIGATIONS: White count 11.5, hemoglobin 15, potassium 4.3. Lactic acid 3.4. UA negative. Venous Doppler of both lower extremities negative. EKG tracing, personally reviewed by me, shows sinus tachycardia and PVCs. Chest x-ray film, personally reviewed by me, shows bilateral infiltrates. ASSESSMENT: 1. Bilateral pneumonia. Suspect gram-negative organism causing sepsis. 2. Acute left lower extremity cellulitis. 3. Essential hypertension. 4. Obstructive sleep apnea. 5. Chronic low back pain, probably from arthritis. 6. Depression not otherwise specified. 7. Morbid obesity with body mass index of 45.2. PLAN: Patient did receive IV Levaquin and vancomycin in the ER. I will switch the patient to IV Zosyn. He is also getting Zithromax. Home medications are resumed. Patient is also getting IV fluids. Care was discussed with the patient. Questions were answered. Will also send off blood cultures. MMODL / IJN: [id number] /
[2018-05-07] MEDS: PIPERACILLIN-TAZOBACTAM 3.375 GM in SODIUM CHLORIDE 0.9% 100 ML IVPB SCH (23:25)
[2018-05-08] MEDS: PIPERACILLIN-TAZOBACTAM 3.375 GM in SODIUM CHLORIDE 0.9% 100 ML IVPB SCH ×3 (04:47→23:31)
[2018-05-08] MEDS: ENOXAPARIN 40 MG/0.4 ML SYRINGE SQ SCH (08:05)
[2018-05-08] MEDS: CHOLECALCIFEROL 1,000 UNIT TAB PO SCH ×2 (08:07→20:31)
[2018-05-08] MEDS: HYDROCHLOROTHIAZIDE 12.5 MG CAP PO SCH (08:08)
[2018-05-08] MEDS: AZITHROMYCIN 500 MG TAB PO SCH (08:08)
[2018-05-08] MEDS: ASCORBIC ACID 500 MG TAB PO SCH (08:08)
[2018-05-08] MEDS: MULTIVITAMINS, THERA 1 EACH TAB PO SCH ×2 (08:08→21:39)
[2018-05-08] MEDS: MELOXICAM 7.5 MG TAB PO SCH (08:08)
[2018-05-08] MEDS: LOSARTAN 50 MG TAB PO SCH (08:08)
[2018-05-08] MEDS: Ubidecarenone [Co Q-10] 100 MG PO SCH (08:09)
[2018-05-08] MEDS: SODIUM CHLORIDE 0.9% 1,000 ML IV SCH (08:15)
[2018-05-08 08:47] LABS: Basophils % (A) 0 %; Eosinophils % (A) 0 %; HCT 40.1 % (39.0-53.0); HGB 13.1 gm/dL (13.0-17.5); Lymphocytes # (A) 0.5 k/uL (1.0-4.8); Lymphocytes % (A) 5 %; MCH 28.5 pg (25.0-35.0); MCHC 32.8 g/dL (31.0-37.0); MCV 86.8 fL (80.0-100.0); Mean Platelet Volume 6.8; Monocytes # (A) 0.4 k/uL (0-1.0); Monocytes % (A) 4 %; Neutrophils # (A) 8.4 k/uL (1.3-7.7); Neutrophils % (A) 90 %; Platelet Count 131 k/uL (150-450); RBC 4.62 m/uL (4.30-5.90); RDW 14.9 % (11.5-15.5); WBC 9.4 k/uL (3.8-10.6)
[2018-05-08 08:57] LABS: Anion Gap 8 mmol/L; Blood Urea Nitrogen 12 mg/dL (9-20); Calcium 8.8 mg/dL (8.4-10.2); Carbon Dioxide 27 mmol/L (22-30); Chloride 106 mmol/L (98-107); Glucose 129 mg/dL (74-99); Potassium 3.7 mmol/L (3.5-5.1); Sodium 141 mmol/L (137-145)
[2018-05-08] MEDS: VANCOMYCIN 2,500 MG in SODIUM CHLORIDE 0.9% 500 ML 500 ML IVPB SCH ×2 (09:38→20:25)
--- NOTE | 2018-05-09 00:35 | PN ---
PROGRESS NOTE DATE OF SERVICE: 05/08/2018 PRESENTING COMPLAINT: Tired. INTERVAL HISTORY: This is a patient who had a colonoscopy and EGD by Dr. Winters, went home, started having chills, fever, rigors. Patient also found to have bilateral pneumonia and also recently was found to have cellulitis left lower extremity. The patient started on broad-spectrum antibiotics. Patient seen by me this morning. Patient greatly improved. Minimal cough, redness and pain in the left lower extremity still gone down. DVT was ruled out. Did tolerate a diet. REVIEW OF SYSTEMS: Done for constitutional, cardiovascular, GI, pulmonary, dermatological; relevant findings as above. CURRENT MEDICATIONS: Reviewed that include IV vancomycin, IV Zosyn, Zithromax. PHYSICAL EXAMINATION: VITAL SIGNS: T-max last night was 101.9, this morning fever has come down. Afebrile, pulse 77, respiratory 18, blood pressure 114/62, pulse ox 97% on 2 L. GENERAL APPEARANCE: Sitting up in a chair, looking much better. EYES: Pupils equal. Conjunctivae normal. NECK JVD not raised. Mass not palpable. RESPIRATORY: Effort normal. LUNGS: Decreased breath sounds. CARDIOVASCULAR: 1st and 2nd sounds normal. Some lower extremity edema. ABDOMEN: Distended, soft. Liver and spleen not palpable. PSYCHIATRY: Alert and oriented times three. Mood and affect normal. EXTREMITIES: Left lower extremity decreased redness. INVESTIGATIONS: White count 9.4, hemoglobin 13.1, platelets 131, potassium 3.7. BUN and creatinine is normal. Blood cultures negative till now. Urine culture negative. ASSESSMENT: 1. Bilateral pneumonia suspect gram-negative organism causing sepsis on admission with good clinical response. 2. Acute left lower extremity cellulitis also responding. 3. Essential hypertension. 4. Obstructive sleep apnea. 5. Chronic low back pain probably from arthritis. 6. Depression, not otherwise specified. 7. Morbid obesity BMI 45.2. Discussed with the patient. The patient has clinically responded well. Continue current medication and treatment plan. We will at this point, we will discontinue the Zithromax. Keep the patient on vancomycin and Zosyn. Overall doing better. We will use an Ovidio wrap on the lower extremity. Blood cultures are negative for right now. MMODL / IJN: [id number] /
[2018-05-09] MEDS: PIPERACILLIN-TAZOBACTAM 3.375 GM in SODIUM CHLORIDE 0.9% 100 ML IVPB SCH ×3 (05:58→22:36)
[2018-05-09] MEDS ORDERED: VANCOMYCIN TROUGH DUE 1 EACH MISC MISCELLANE ONE (08:00)
[2018-05-09 09:00] LABS: Basophils % (A) 0 %; Eosinophils # (A) 0.2 k/uL (0-0.7); Eosinophils % (A) 3 %; HCT 38.4 % (39.0-53.0); HGB 12.5 gm/dL (13.0-17.5); Lymphocytes # (A) 0.6 k/uL (1.0-4.8); Lymphocytes % (A) 11 %; MCHC 32.6 g/dL (31.0-37.0); MCV 85.9 fL (80.0-100.0); Mean Platelet Volume 6.8; Monocytes # (A) 0.3 k/uL (0-1.0); Monocytes % (A) 6 %; Neutrophils # (A) 4.3 k/uL (1.3-7.7); Neutrophils % (A) 78 %; Platelet Count 143 k/uL (150-450); RBC 4.47 m/uL (4.30-5.90); RDW 14.8 % (11.5-15.5); WBC 5.6 k/uL (3.8-10.6)
[2018-05-09 09:14] LABS: Anion Gap 10 mmol/L; Blood Urea Nitrogen 9 mg/dL (9-20); Calcium 8.8 mg/dL (8.4-10.2); Carbon Dioxide 26 mmol/L (22-30); Chloride 106 mmol/L (98-107); Glucose 119 mg/dL (74-99); Sodium 142 mmol/L (137-145)
[2018-05-09] MEDS: MULTIVITAMINS, THERA 1 EACH TAB PO SCH ×2 (09:20→22:38)
[2018-05-09] MEDS: AZITHROMYCIN 500 MG TAB PO SCH (09:21)
[2018-05-09] MEDS: ASCORBIC ACID 500 MG TAB PO SCH (09:21)
[2018-05-09] MEDS: HYDROCHLOROTHIAZIDE 12.5 MG CAP PO SCH (09:21)
[2018-05-09] MEDS: MELOXICAM 7.5 MG TAB PO SCH (09:21)
[2018-05-09] MEDS: LOSARTAN 50 MG TAB PO SCH (09:21)
[2018-05-09] MEDS: ENOXAPARIN 40 MG/0.4 ML SYRINGE SQ SCH (09:22)
[2018-05-09] MEDS: VANCOMYCIN 2,500 MG in SODIUM CHLORIDE 0.9% 500 ML 500 ML IVPB SCH ×2 (09:22→17:41)
[2018-05-09] MEDS: CHOLECALCIFEROL 1,000 UNIT TAB PO SCH ×2 (09:22→22:38)
[2018-05-09] MEDS: Ubidecarenone [Co Q-10] 100 MG PO SCH (09:23)
--- NOTE | 2018-05-09 13:46 | P.PN ---
Subjective Progress Note Date: 05/09/18 Principal diagnosis: Bilateral pneumonia and left lower extremity cellulitis Mr. Hung is a 62-year-old male with a past medical history of hypertension, obstructive sleep apnea, chronic low back pain, depression, morbid obesity admitted to the hospital with a chief complaint of being tired for the past couple of days. Patient had a chest x-ray and found to have bilateral pneumonia and also was having a left lower extremity cellulitis and is being treated with broad-spectrum antibiotics currently. Today the patient is sitting up in a chair by the bedside appears to be no acute distress. Patient states that his left lower extremity redness and swelling improved much compared to couple of days back. Patient still has minimal cough and denies having any difficulty in breathing. Patient denies having any chest pain or palpitations. No abdominal pain nausea vomiting or diarrhea. No dysuria or hematuria. No active events reported as per nursing staff. Patient's medications have been reviewed. Objective - Vital Signs Vital signs: Vital Signs Temp 98.5 F 05/09/18 05:44 Pulse 78 05/09/18 05:44 Resp 22 05/09/18 05:44 BP 118/62 05/09/18 05:44 Pulse Ox 98 05/09/18 05:44 Intake & Output 05/08/18 05/09/18 05/09/18 18:59 06:59 18:59 Other: Voiding Method Toilet # Voids 3 6 # Bowel Movements 1 - Exam Gen. appearance-sitting up in a chair by the bedside in no acute distress HEENT-pupils round and reactive. No pallor or icterus. Neck-no JVD no thyromegaly Respiratory-coarse breath sounds in bilateral lung garcia. No wheezes or crackles. Cardiovascular S1 and S2 heard. No additional sounds. Abdomen-soft, distended. No tenderness. Organomegaly difficult to appreciate due to huge body habitus. Extremities-left lower extremity positive for erythema and and warmth. Mild tenderness on deep palpation. Neurological-no focal neurological deficits. Alert awake oriented 3. - Labs CBC & Chem 7: 05/09/18 07:58 05/09/18 07:58 Labs: Abnormal Lab Results - Last 24 Hours (Table) 05/09/18 05/09/18 Range/Units 07:58 07:58 Hgb 12.5 L (13.0-17.5) gm/dL Hct 38.4 L (39.0-53.0) % Plt Count 143 L (150-450) k/uL Lymphocytes # 0.6 L (1.0-4.8) k/uL Glucose 119 H (74-99) mg/dL Microbiology - Last 24 Hours (Table) 05/07/18 01:36 Blood Culture - Preliminary Blood No Growth after 48 hours 05/06/18 21:20 Blood Culture - Preliminary Blood No Growth after 48 hours 05/07/18 08:00 Urine Culture - Final Urine,Clean Catch Assessment and Plan Assessment: ASSESSMENT Sepsis secondary to Bilateral pneumonia suspected gram-negative organisms Left lower extremity cellulitis Essential hypertension Chronic low back pain Obstructive sleep apnea Morbid obesity with BMI of 45.2 Depression not otherwise specified Plan: Patient is responding to vancomycin and Zosyn which will be continued. Overall he is doing much better. Continue with Ovidio wrap for his lower extremity swelling. Blood cultures negative. Anticipate discharge in the next 24 hours.
[2018-05-10] MEDS: PIPERACILLIN-TAZOBACTAM 3.375 GM in SODIUM CHLORIDE 0.9% 100 ML IVPB SCH ×2 (03:15→14:21)
[2018-05-10] MEDS: VANCOMYCIN 2,500 MG in SODIUM CHLORIDE 0.9% 500 ML 500 ML IVPB SCH ×2 (03:15→10:05)
[2018-05-10 07:54] VITALS: BP 125/72; PULSE 70; RESP 16; TEMP 97.2
[2018-05-10 08:22] LABS: Basophils % (A) 0 %; Eosinophils # (A) 0.2 k/uL (0-0.7); Eosinophils % (A) 4 %; HCT 36.2 % (39.0-53.0); HGB 12.1 gm/dL (13.0-17.5); Lymphocytes # (A) 0.6 k/uL (1.0-4.8); Lymphocytes % (A) 11 %; MCH 28.7 pg (25.0-35.0); MCHC 33.4 g/dL (31.0-37.0); Mean Platelet Volume 7.2; Monocytes # (A) 0.3 k/uL (0-1.0); Monocytes % (A) 6 %; Neutrophils # (A) 3.9 k/uL (1.3-7.7); Neutrophils % (A) 76 %; Platelet Count 143 k/uL (150-450); RBC 4.21 m/uL (4.30-5.90); RDW 14.7 % (11.5-15.5); WBC 5.1 k/uL (3.8-10.6)
[2018-05-10 08:35] LABS: Anion Gap 6 mmol/L; Blood Urea Nitrogen 8 mg/dL (9-20); Calcium 8.8 mg/dL (8.4-10.2); Carbon Dioxide 28 mmol/L (22-30); Chloride 107 mmol/L (98-107); Glucose 117 mg/dL (74-99); Potassium 3.9 mmol/L (3.5-5.1); Sodium 141 mmol/L (137-145)
[2018-05-10] MEDS: ENOXAPARIN 40 MG/0.4 ML SYRINGE SQ SCH (10:06)
[2018-05-10] MEDS: ASCORBIC ACID 500 MG TAB PO SCH (10:06)
[2018-05-10] MEDS: AZITHROMYCIN 500 MG TAB PO SCH (10:06)
[2018-05-10] MEDS: CHOLECALCIFEROL 1,000 UNIT TAB PO SCH (10:06)
[2018-05-10] MEDS: LOSARTAN 50 MG TAB PO SCH (10:06)
[2018-05-10] MEDS: MULTIVITAMINS, THERA 1 EACH TAB PO SCH (10:06)
[2018-05-10] MEDS: MELOXICAM 7.5 MG TAB PO SCH (10:07)
[2018-05-10] MEDS: HYDROCHLOROTHIAZIDE 12.5 MG CAP PO SCH (10:15)
--- NOTE | 2018-05-10 11:56 | P.DS ---
Providers Date of admission: 05/07/18 00:57 Expected date of discharge: 05/10/18 Attending physician: Jace Nascimento [facility] Course: Mr. Hung is a 62-year-old male with a past medical history of hypertension, obstructive sleep apnea, chronic low back pain, depression, morbid obesity admitted to the hospital with a chief complaint of being tired for the past couple of days. Patient underwent colonoscopy and EGD by Dr. Winters couple of days back and sent home. At home patient started to have chills and cold along with dry cough and started to have fever. Patient also has chronic swelling of the right lower extremity and he noticed some increased swelling and redness. In the ER patient was found to have a temperature and elevated white count so was started on Levaquin and vancomycin and admitted. Patient had a lower extremity Doppler of the left lower extremity that was negative for DVT. He had a CT for PE that was negative for PE but was showing bilateral interstitial infiltrates. During the hospital stay patient was given azithromycin. He was also given IV vancomycin and Zosyn for his lower estimates cellulitis. Patient showed significant improvement in and his symptoms of lower extremity redness and pain. Today patient is sitting up in a chair beside bedside appears to be no acute distress. He insists that he wants to go home as he is feeling much better. On review of systems-patient denies having any fevers chills or rigors. No cough or difficulty in breathing. No abdominal pain nausea vomiting or diarrhea. No dysuria or hematuria. No chest pain or palpitations. Patient's vitals. Vital Signs - 24 hr 05/09/18 05/09/18 05/10/18 14:55 23:00 00:00 Temperature 97.5 F L 96.7 F L Pulse Rate [ 70 65 70 Pulse Oximetery ] Respiratory 16 24 16 Rate Blood Pressure 110/68 137/68 [Right Arm] O2 Sat by Pulse 96 99 Oximetry 05/10/18 07:20 Temperature 97.2 F L Pulse Rate [ 70 Pulse Oximetery ] Respiratory 16 Rate Blood Pressure 125/72 [Right Arm] O2 Sat by Pulse 96 Oximetry On physical examination Gen. appearance-sitting up in a chair by the bedside in no acute distress HEENT-pupils round and reactive. No pallor or icterus. Neck-no JVD no thyromegaly Respiratory-coarse breath sounds in bilateral lung garcia. No wheezes or crackles. Cardiovascular S1 and S2 heard. No additional sounds. Abdomen-soft, distended. No tenderness. Organomegaly difficult to appreciate due to huge body habitus. Extremities-left lower extremity positive for erythema and and warmth. Mild tenderness on deep palpation. Neurological-no focal neurological deficits. Alert awake oriented 3. Laboratory Last Values WBC 5.1 k/uL (3.8-10.6) 05/10/18 07:45 RBC 4.21 m/uL (4.30-5.90) L 05/10/18 07:45 Hgb 12.1 gm/dL (13.0-17.5) L 05/10/18 07:45 Hct 36.2 % (39.0-53.0) L 05/10/18 07:45 MCV 86.0 fL (80.0-100.0) 05/10/18 07:45 MCH 28.7 pg (25.0-35.0) 05/10/18 07:45 MCHC 33.4 g/dL (31.0-37.0) 05/10/18 07:45 RDW 14.7 % (11.5-15.5) 05/10/18 07:45 Plt Count 143 k/uL (150-450) L 05/10/18 07:45 Neutrophils % 76 % 05/10/18 07:45 Lymphocytes % 11 % 05/10/18 07:45 Monocytes % 6 % 05/10/18 07:45 Eosinophils % 4 % 05/10/18 07:45 Basophils % 0 % 05/10/18 07:45 Neutrophils # 3.9 k/uL (1.3-7.7) 05/10/18 07:45 Lymphocytes # 0.6 k/uL (1.0-4.8) L 05/10/18 07:45 Monocytes # 0.3 k/uL (0-1.0) 05/10/18 07:45 Eosinophils # 0.2 k/uL (0-0.7) 05/10/18 07:45 Basophils # 0.0 k/uL (0-0.2) 05/10/18 07:45 PT 10.8 sec (9.0-12.0) 05/06/18 21:20 INR 1.0 (<1.2) 05/06/18 21:20 APTT 23.2 sec (22.0-30.0) 05/06/18 21:20 D-Dimer 0.72 mg/L FEU (<0.60) H 05/06/18 21:20 Sodium 141 mmol/L (137-145) 05/10/18 07:45 Potassium 3.9 mmol/L (3.5-5.1) 05/10/18 07:45 Chloride 107 mmol/L (98-107) 05/10/18 07:45 Carbon Dioxide 28 mmol/L (22-30) 05/10/18 07:45 Anion Gap 6 mmol/L 05/10/18 07:45 BUN 8 mg/dL (9-20) L 05/10/18 07:45 Creatinine 0.80 mg/dL (0.66-1.25) 05/10/18 07:45 Est GFR (CKD-EPI)AfAm >90 (>60 ml/min/1.73 sqM) 05/10/18 07:45 Est GFR (CKD-EPI)NonAf >90 (>60 ml/min/1.73 sqM) 05/10/18 07:45 Glucose 117 mg/dL (74-99) H 05/10/18 07:45 Lactic Ac Sepsis Rflx Y 05/06/18 22:08 Plasma Lactic Acid Last 2.4 mmol/L (0.7-2.0) H* 05/07/18 01:36 Calcium 8.8 mg/dL (8.4-10.2) 05/10/18 07:45 Total Bilirubin 1.1 mg/dL (0.2-1.3) 05/06/18 21:20 AST 45 U/L (17-59) 05/06/18 21:20 ALT 43 U/L (21-72) 05/06/18 21:20 Alkaline Phosphatase 60 U/L (38-126) 05/06/18 21:20 Total Creatine Kinase 124 U/L (55-170) 05/06/18 21:20 CK-MB (CK-2) 1.3 ng/mL (0.0-2.4) 05/06/18 21:20 CK-MB (CK-2) Rel Index 1.0 05/06/18 21:20 Troponin I <0.012 ng/mL (0.000-0.034) 05/06/18 21:20 Total Protein 7.6 g/dL (6.3-8.2) 05/06/18 21:20 Albumin 4.5 g/dL (3.5-5.0) 05/06/18 21:20 Urine Color Yellow 05/07/18 08:00 Urine Appearance Clear (Clear) 05/07/18 08:00 Urine pH 5.5 (5.0-8.0) 05/07/18 08:00 Ur Specific [place] 1.021 (1.001-1.035) 05/07/18 08:00 Urine Protein Negative (Negative) 05/07/18 08:00 Urine Glucose (UA) Negative (Negative) 05/07/18 08:00 Urine Ketones Negative (Negative) 05/07/18 08:00 Urine Blood Negative (Negative) 05/07/18 08:00 Urine Nitrite Negative (Negative) 05/07/18 08:00 Urine Bilirubin Negative (Negative) 05/07/18 08:00 Urine Urobilinogen <2.0 mg/dL (<2.0) 05/07/18 08:00 Ur Leukocyte Esterase Negative (Negative) 05/07/18 08:00 Vancomycin Trough 9.8 ug/mL 05/09/18 07:58 DISCHARGE DIAGNOSIS Sepsis secondary to Bilateral pneumonia suspected gram-negative organisms Left lower extremity cellulitis Essential hypertension Chronic low back pain Obstructive sleep apnea Morbid obesity with BMI of 45.2 Depression not otherwise specified Plan: Patient responded well to IV antibiotics and his lower left lower extremity cellulitis improved. Patient has a follow-up visit with vascular surgery Dr. Valdez for chronic lower extremity swelling. Patient is being discharged on antibiotics- ceftin for 5 days - for his left lower extremity cellulitis. More than 30 minutes spent towards the discharge of the patient. Patient Condition at Discharge: Fair Plan - Discharge Summary New Discharge Prescriptions: New Cefuroxime Axetil [Ceftin] 500 mg PO BID #10 tab No Action Multivitamins, Thera [Multivitamin] 1 tab PO BID Cholecalciferol (Vitamin D3) [Decara] 2,000 unit PO BID Ascorbic Acid [Vitamin C] 500 mg PO DAILY Vitamin B Complex 1 tab PO BID Ubidecarenone [Co Q-10] 100 mg PO DAILY Hydrochlorothiazide 12.5 mg PO DAILY Meloxicam [Mobic] 7.5 mg PO DAILY Losartan Potassium 50 mg PO DAILY Discharge Medication List Ascorbic Acid [Vitamin C] 500 mg PO DAILY 01/06/14 [History] Cholecalciferol (Vitamin D3) [Decara] 2,000 unit PO BID 01/06/14 [History] Multivitamins, Thera [Multivitamin] 1 tab PO BID 01/06/14 [History] Vitamin B Complex 1 tab PO BID 01/06/14 [History] Ubidecarenone [Co Q-10] 100 mg PO DAILY 09/12/17 [History] Hydrochlorothiazide 12.5 mg PO DAILY 02/18/18 [History] Meloxicam [Mobic] 7.5 mg PO DAILY 04/30/18 [History] Losartan Potassium 50 mg PO DAILY 05/06/18 [History] Cefuroxime Axetil [Ceftin] 500 mg PO BID #10 tab 05/10/18 [Rx] Follow up Appointment(s)/Referral(s): Ortega Roberts MD [Primary Care Provider] - 1-2 days Discharge Disposition: HOME SELF-CARE
[2018-05-11] MEDS ORDERED: VANCOMYCIN TROUGH DUE 1 EACH MISC MISCELLANE ONE (07:00)
== END 2018-05-10 15:28 | disposition home or self-care (01) | DRG 871 ==
LOC: EC 20:55 → 4MS4W 05-07 00:57
PROVIDERS: ADMIT Hospitalist; ATTEND Hospitalist
DX: A41.50 Gram-negative sepsis, unspecified (principal); J15.6 Pneumonia due to other Gram-negative bacteria; E87.2 Acidosis; L03.116 Cellulitis of left lower limb; Z68.42 Body mass index [BMI] 45.0-49.9, adult; E66.01 Morbid (severe) obesity due to excess calories; F32.9 Major depressive disorder, single episode, unspecified; G47.33 Obstructive sleep apnea (adult) (pediatric); G89.29 Other chronic pain; I10 Essential (primary) hypertension; M19.90 Unspecified osteoarthritis, unspecified site; Z82.3 Family history of stroke; Z86.010 Personal history of colon polyps; Z79.1 Long term (current) use of non-steroidal anti-inflammatories (NSAID); Z79.899 Other long term (current) drug therapy
CPT/HCPCS: 36415; 71046; 71275; 80048; 80053; 80202; 81003; 82550; 82553; 83605; 84484; 85025; 85379; 85610; 85730; 87040; 87086; 93005; 96360; 96361; 96365; 96366; 96374; 99285

== ENCOUNTER → 2018-09-02 | Outpatient (CLI) | payer OTHER ==
--- NOTE | 2018-09-02 15:44 | P.HPBAR ---
Bariatric H&P - History & Physicial H&P Date: 09/02/18 History & Physicial: Visit/CC: Patient initial contact: Initial weight: 167.149 kg Initial weight in pounds: Height: Initial BMI: Last weight: Current weight: Current weight in pounds: Current BMI: [place] body weight (based on NIH guidelines): Excess body weight loss: The patient is a 62 year-old M who presents for Bariatric Assessment. DATE OF SERVICE: 09/02/2018 REASON FOR CONSULTATION: Bariatric evaluation. HISTORY OF PRESENT ILLNESS: Navjot Kunz is a 62-year-old male who comes with lifelong morbid obesity. He reports gastroesophageal reflux controlled with diet. He has undergone medical supervised weight loss and has lost over 20 pounds in 4 months since his hospitalization. He has family history of morbid obesity. As a result of his obesity, he has developed sleep apnea, gastroesophageal reflux disease, hypertensive heart disease. He has family history of malignancy. He has been able to lose weight on his own over 50+ pounds. At height of 6 feet 6 inches, his ideal body weight is 214 pounds. He comes in 368 pounds. His body mass index is 45.2. She is 154 pounds overweight. PAST MEDICAL HISTORY: 1. Morbid obesity due to excess calories 2. Body mass index of 45.2 3. Osteoarthritis of the knees. 4. Osteoarthritis of the lower back. 5. Hypertensive heart disease. 6. Gastroesophageal reflux disease 7. Hyperlipidemia 8. Obstructive sleep apnea 9. Gout 10. Colon polyps 11. Depression 12. Sciatica PAST SURGICAL HISTORY: 1. Colonoscopy 2. EGD 3. Appendectomy HOME MEDICATIONS: ALLERGIES: Medications and Allergies Home Medications Medication Instructions Recorded Confirmed Type Ascorbic Acid [Vitamin C] 500 mg PO DAILY 01/06/14 09/10/18 History Cholecalciferol (Vitamin D3) 2,000 unit PO BID 01/06/14 09/10/18 History [Decara] Multivitamins, Thera [Multivitamin] 1 tab PO BID 01/06/14 09/10/18 History Vitamin B Complex 1 tab PO BID 01/06/14 09/10/18 History Ubidecarenone [Co Q-10] 100 mg PO DAILY 09/12/17 09/10/18 History Hydrochlorothiazide 12.5 mg PO DAILY 09/19/18 04/11/19 History Meloxicam [Mobic] 15 mg PO DAILY 04/30/18 09/10/18 History Losartan Potassium 50 mg PO DAILY 05/06/18 09/10/18 History Allergies Allergy/AdvReac Type Severity Reaction Status Date / Time No Known Allergies Allergy Verified 09/10/18 16:15 SOCIAL HISTORY: No past tobacco use. FAMILY HISTORY: No family history of ulcerative colitis disease or Crohn's disease. Family history of morbid obesity. No lupus in the family. No reports of stomach or esophageal cancer. REVIEW OF ORGAN SYSTEMS: CONSTITUTIONAL: At height of 6 feet 6 inches, his ideal body weight is 214 pounds. He comes in 368 pounds. His body mass index is 45.2. She is 154 pounds overweight. HEENT: Denies any active troubles with vision or hearing. ENDOCRINE: No diabetes. No hypothyroidism. CARDIOVASCULAR: Past reports of palpitations or heart attacks or chest pain. RESPIRATORY: Has daytime somnolence. GASTROINTESTINAL: Denies any bright red blood per rectum. No diarrhea. No constipation. Has GERD. MUSCULOSKELETAL: Has lower back pain and joint pain. Has osteoarthritis of the knees. History of bilateral lower extremity edema. NEURO: No headaches. No seizure disorders. PSYCH: Has depression. No suicidal ideation. RHEUMATOLOGIC: No lupus. No rheumatoid arthritis. HEMATOLOGIC: Denies any abnormal bleeding or bruising. No personal history of DVTs. SKIN: No rash. No skin cancer. PHYSICAL EXAM: VITAL SIGNS: Height 6 foot 6 inches, weight 368 pounds. BMI 42.6 GENERAL: Well-developed in no acute distress. HEENT: No scleral icterus. Extraocular movements grossly intact. Hears conversational speech. No nasal drainage. Wears glasses. NECK: Supple without lymphadenopathy. CHEST: Nonlabored respirations with equal bilateral excursions. CARDIOVASCULAR: Regular rate and regular rhythm. Distal 2+ pulses. ABDOMEN: Obese, soft, nontender, nondistended. MUSCULOSKELETAL: No clubbing, cyanosis. Gross strength 5/5 distal lower extremities. NEURO: No focal or lateralizing signs. Cranial nerves 2 through 12 grossly within normal limits. PSYCH: Appropriate affect. Alert and oriented to person, place and time. SKIN: Good skin turgor. Well perfused. ASSESSMENT: 1. Morbid obesity due to excess calories 2. Body mass index of 45.2 3. Osteoarthritis of the knees. 4. Osteoarthritis of the lower back. 5. Hypertensive heart disease. 6. Gastroesophageal reflux disease 7. Hyperlipidemia 8. Obstructive sleep apnea 9. Gout 10. Colon polyps 11. Depression 12. Sciatica PLAN: 1. Surgical options including a band, gastric bypass, sleeve gastrectomy were described in detail. Alternatives such as gastric balloon including duodenal switch were described. He is looking into the gastric bypass. 2. The [place] bariatric surgical collaborative data and outcomes calculator were described with surgical options. 3. Recommend a bariatric metabolic panel to evaluate for micro- including macronutrient deficiencies. 4. For history of daytime somnolence, recommend evaluation and treatment for sleep apnea. 5. Dietary surveillance and counseling was reviewed. Increased protein intake over 65 grams daily advised. Recommend my Fitness plan diet and exercise naren. 6. Will need cardiac risk assessment. 7. Recommend medical risk assessment. 8. Psych assessment per insurance guidelines. 9. Recommend upper endoscopy. 10. Recommend 12-lead EKG. 11. Recommend ultrasound of gallbladder for gallstones 12. Follow through per insurance requirements to be reviewed. Thank you for this consultation. Laboratory Last Values WBC 7.0 k/uL (3.8-10.6) 09/02/18 16:25 RBC 5.30 m/uL (4.30-5.90) 09/02/18 16:25 Hgb 15.1 gm/dL (13.0-17.5) 09/02/18 16:25 Hct 43.3 % (39.0-53.0) 09/02/18 16:25 MCV 81.7 fL (80.0-100.0) 09/02/18 16:25 MCH 28.5 pg (25.0-35.0) 09/02/18 16:25 MCHC 35.0 g/dL (31.0-37.0) 09/02/18 16:25 RDW 15.0 % (11.5-15.5) 09/02/18 16:25 Plt Count 196 k/uL (150-450) 09/02/18 16:25 PT 11.2 sec (9.0-12.0) 09/02/18 16:25 INR 1.1 (<1.2) 09/02/18 16:25 APTT 24.1 sec (22.0-30.0) 09/02/18 16:25 Sodium 139 mmol/L (135-145) 09/02/18 16:25 Potassium 4.3 mmol/L (3.5-5.5) 09/02/18 16:25 Chloride 100 mmol/L (96-109) 09/02/18 16:25 Carbon Dioxide 29.8 mmol/L (21.6-31.8) 09/02/18 16:25 Anion Gap 9.20 mmol/L (4.00-12.00) 09/02/18 16:25 BUN 16.0 mg/dL (9.0-27.0) 09/02/18 16:25 Creatinine 0.9 mg/dL (0.6-1.5) 09/02/18 16:25 Est GFR (CKD-EPI)AfAm 105.7 (60.0-200.0) 09/02/18 16:25 Est GFR (CKD-EPI)NonAf 91.2 (60.0-200.0) 09/02/18 16:25 BUN/Creatinine Ratio 17.78 Ratio (12.00-20.00) 09/02/18 16:25 Glucose 103 mg/dL (70-110) 09/02/18 16:[address] Glu mg/dL 114 09/02/18 16:25 Hemoglobin A1c 5.6 % (4.0-6.0) 09/02/18 16:25 Calcium 10.6 mg/dL (8.7-10.3) H 09/02/18 16:25 Phosphorus 3.9 mg/dL (2.4-5.1) 09/02/18 16:25 Magnesium 2.0 mg/dL (1.5-2.4) 09/02/18 16:25 Iron 68 ug/dL (65-175) 09/02/18 16:25 TIBC 355 ug/dL (228-460) 09/02/18 16:25 Iron Saturation 19.15 (15.00-50.00) 09/02/18 16:25 Ferritin 87.6 ng/mL (22.0-322.0) 09/02/18 16:25 Total Bilirubin 1.1 mg/dL (0.3-1.2) 09/02/18 16:25 AST 47 U/L (14-35) H 09/02/18 16:25 ALT 61 U/L (10-49) H 09/02/18 16:25 Alkaline Phosphatase 60 U/L (41-126) 09/02/18 16:25 Total Protein 7.7 g/dL (6.2-8.2) 09/02/18 16:25 Albumin 4.90 g/dL (3.80-4.90) 09/02/18 16:25 Globulin 2.8 g/dL (1.6-3.3) 09/02/18 16:25 Albumin/Globulin Ratio 1.75 g/dL (1.60-3.17) 09/02/18 16:25 Prealbumin 25.0 mg/dL (18.0-42.0) 09/02/18 16:25 Triglycerides 162.0 mg/dL (0.0-149.0) H 09/02/18 16:25 Cholesterol 137 mg/dL (0-200) 09/02/18 16:25 LDL Cholesterol, Calc 69.6 mg/dL (0.0-131.0) 09/02/18 16:25 VLDL Cholesterol, Calc 32.40 mg/dL (5.00-40.00) 09/02/18 16:25 HDL Cholesterol 35.0 mg/dL (40.0-60.0) L 09/02/18 16:25 Cholesterol/HDL Ratio 3.91 09/02/18 16:25 Vitamin A 57 ug/dL (38-106) 09/02/18 16:25 Vitamin B1 157 ug/L (38-122) H 09/02/18 16:25 Vitamin B12 1422.0 pg/mL (200.0-944.0) H 09/02/18 16:25 Vitamin D 25-Hydroxy 56.9 ng/mL (30.0-100.0) 09/02/18 16:25 Folate 22.3 ng/mL 09/02/18 16:25 TSH 3.350 uIU/mL (0.350-5.500) 09/02/18 16:25 PTH Intact 18.5 pg/mL (14.0-72.0) 09/02/18 16:25 Copper 1188 ug/L (665-1480) 09/02/18 16:25 Selenium 139 mcg/L (63-160) 09/02/18 16:25 Zinc 68 ug/dL (60-130) 09/02/18 16:25 EKG EKG PERFORMED 09/02/18 16:25 Past Medical History Past Medical History: Hypertension, Sleep Apnea/CPAP/BIPAP Additional Past Medical History / Comment(s): back pain, hx. gout, hx. colon p olyps, uses CPAP, bilateral leg swelling, sciatica Right, patient states he has pinched nerves in L4-L5 History of Any Multi-Drug Resistant Organisms: None Reported Past Surgical History: Appendectomy Additional Past Surgical History / Comment(s): EGD, colonoscopy, pain clinic procedure for pinched nerves in back Past Anesthesia/Blood Transfusion Reactions: No Reported Reaction Past Psychological History: Depression Smoking Status: Never smoker Past Alcohol Use History: None Reported Past Drug Use History: None Reported - Past Family History Mother Family Medical History: CVA/TIA Additional Family Medical History / Comment(s): mom of massive cva 2012 Results - Labs 09/02/18 16:25 09/02/18 16:25 Bariatric Checklist Checklist: Plan: Checklist: EGD: 1. Hiatal hernia: 2. H. Pylori: HgbA1c: Vitamin D: Smoking: Never smoker Primary care physician referral: ghulam Psychiatry clearance: Cardiology clearance: Sleep study: Diet journal: VTE risk score: VTE risk level: Rehab needs at discharge:
[2018-09-02 15:52] VITALS: BP 165/77; PULSE 67; TEMP 98.6
[2018-09-02 16:55] LABS: HCT 43.3 % (39.0-53.0); HGB 15.1 gm/dL (13.0-17.5); MCH 28.5 pg (25.0-35.0); MCV 81.7 fL (80.0-100.0); Mean Platelet Volume 6.9; Platelet Count 196 k/uL (150-450)
[2018-09-02 17:00] LABS: INR 1.1 (<1.2); Partial Thromboplastin Time 24.1 sec (22.0-30.0); Prothrombin Time 11.2 sec (9.0-12.0)
[2018-09-03 01:01] LABS: Hemoglobin A1C 5.6 % (4.0-6.0)
[2018-09-03 01:40] LABS: Parathyroid Hormone Intact 18.5 pg/mL (14.0-72.0)
[2018-09-03 01:50] LABS: Iron Saturation 19.15 (15.00-50.00)
[2018-09-03 01:57] LABS: Albumin 4.9 g/dL (3.80-4.90); Albumin/Globulin Ratio 1.75 (1.60-3.17); Anion Gap 9.2 mmol/L (4.00-12.00); Calcium 10.6 mg/dL (8.7-10.3); Carbon Dioxide 29.8 mmol/L (21.6-31.8); Globulin 2.8 g/dL (1.6-3.3); LDL Cholesterol,Calculated 69.6 mg/dL (0.0-131.0); Phosphorus 3.9 mg/dL (2.4-5.1); Potassium 4.3 mmol/L (3.5-5.5); Total Bilirubin 1.1 mg/dL (0.3-1.2); Total Protein 7.7 g/dL (6.2-8.2); VLDL Calculation 32.4 mg/dL (5.00-40.00)
[2018-09-03 01:59] LABS: Vitamin D 25 Hydroxy 56.9 ng/mL (30.0-100.0)
[2018-09-03 02:03] LABS: Folate, Serum 22.3 ng/mL
[2018-09-03 13:43] LABS: Zinc, Serum 68 ug/dL (60-130)
[2018-09-04 06:32] LABS: Vit B1(Thiamine) 157 ug/L (38-122)
[2018-09-04 06:46] LABS: Vitamin A 57 ug/dL (38-106)
[2018-09-05 12:12] LABS: Selenium 139 mcg/L (63-160)
== END | disposition home or self-care (01) ==
LOC: BARWHC3 13:50
PROVIDERS: ATTEND Surgery Plastic and Reconstructive Surgery
DX: E66.01 Morbid (severe) obesity due to excess calories (principal); M17.0 Bilateral primary osteoarthritis of knee; M47.816 Spondylosis without myelopathy or radiculopathy, lumbar region; I11.9 Hypertensive heart disease without heart failure; K21.9 Gastro-esophageal reflux disease without esophagitis; E78.5 Hyperlipidemia, unspecified; G47.33 Obstructive sleep apnea (adult) (pediatric); M10.9 Gout, unspecified; K63.5 Polyp of colon; F32.9 Major depressive disorder, single episode, unspecified; M54.30 Sciatica, unspecified side; E21.1 Secondary hyperparathyroidism, not elsewhere classified; E89.1 Postprocedural hypoinsulinemia; D50.9 Iron deficiency anemia, unspecified; K90.9 Intestinal malabsorption, unspecified; E55.9 Vitamin D deficiency, unspecified; K76.9 Liver disease, unspecified; N19 Unspecified kidney failure; K50.90 Crohn's disease, unspecified, without complications; Z68.42 Body mass index [BMI] 45.0-49.9, adult; Z90.49 Acquired absence of other specified parts of digestive tract; Z79.899 Other long term (current) drug therapy
CPT/HCPCS: 84255; 84134; 84425; 80061; 80053; 82607; 82728; 82525; 82746; 83540; 83550; 83735; 84100; 84443; 84590; 84630; 85027; 85610; 85730; 82306; 83970; 83036; 93005; 36415; G0463; 99211

== ENCOUNTER → 2018-09-16 | Outpatient (CLI) | payer OTHER ==
--- NOTE | 2018-09-16 14:45 | US ---
EXAMINATION TYPE: US gallbladder DATE OF EXAM: 09/16/2018 COMPARISON: NONE CLINICAL HISTORY: R10.11 right upper quadrant abdominal pain. GERD, pt morbidly obese, scheduled to h ave gastric surgery EXAM MEASUREMENTS: Liver Length: 19.6 cm Gallbladder Wall: 0.3 cm CBD: 0.5 cm Right Kidney: 12.7 x 6.7 x 6.6 cm Pancreas: Limited due to bowel gas. Visualized portions within normal limits. Proximal body wnl, head and tail obscured by overlying bowel gas Liver: Enlarged, difficult to penetrate . Findings are compatible with mild to moderate fatty infil tration. Gallbladder: wnl Evidence for sonographic Singleton's sign: No CBD: wnl Right Kidney: wnl IMPRESSION: 1. Moderate fatty infiltration liver. 2. Limited exam due to bowel gas
== END | disposition home or self-care (01) ==
LOC: RADUSWWP 06:31
PROVIDERS: ATTEND Surgery Plastic and Reconstructive Surgery
DX: K76.0 Fatty (change of) liver, not elsewhere classified (principal); R14.3 Flatulence
CPT/HCPCS: 76705

== ENCOUNTER → 2018-11-02 | Outpatient (CLI) | payer OTHER ==
[2018-11-02 13:11] VITALS: BMI 48.2
== END ==
LOC: BARWHC3 08:12
PROVIDERS: ATTEND Surgery Plastic and Reconstructive Surgery
DX: E66.01 Morbid (severe) obesity due to excess calories (principal); Z68.42 Body mass index [BMI] 45.0-49.9, adult; Z71.3 Dietary counseling and surveillance
CPT/HCPCS: 97804

== ENCOUNTER → 2018-11-18 | Outpatient (CLI) | payer OTHER ==
[2018-11-18 14:19] VITALS: BP 144/85; PULSE 70; RESP 18
--- NOTE | 2018-11-18 14:39 | P.PN ---
Subjective Progress Note Date: 11/18/18 This is a pleasant 62-year-old gentleman with history of chronic lower back pain with radiation to the knees bilaterally occasionally. He also occasionally feels numbness in the right side however this is not a constant complaint. The patient had lumbar epidural steroid injection which did not give him enough pain relief last time we saw him at the end of 2018. Since then he had varicose vein surgery on the right leg which helped him with the leg pain. His low back pain gets worse after he cut his grass and with any prolonged activities. Today, pt denies new-onset weakness, bowel/bladder incontinence, or any other signs or symptoms of cauda equina syndrome. There are no signs of acute intoxication, and no indications of medication diversion or overuse. In addition to above, 13-point review of systems is also negative for chest pain, shortness of breath, changes in vision, changes in hearing, new onset weakness, abdominal pain, diarrhea, extreme fatigue, malaise, fever, skin changes, homicidal or suicidal ideation, or bowel or bladder incontinence. Vital Signs: Reviewed in EMR Gen: AAOx3, NAD HEENT: PERRLA,hearing grossly normal Pulm: resp unlabored Heart: Regular Neck: supple, trachea midline Neuro exam of the lower extremities: Decreased but symmetrical knee reflexes and absent ankle reflexes. Decreased muscle strength for knee flexion to 4 out of 5 and normal muscle strength for knee extension 5 out of 5 and normal ankle flexion and extension. Increased pain in the back area with right hip flexion. Positive tenderness in the lumbar paravertebral musculature bilaterally and also in the trapezius muscle on the left side and in the cervical paravertebral musculature. Neuro: CN II-XII grossly intact, Imaging: Reviewed in EMR/chart Assessment: Lumbar spondylosis without myelopathy Lumbar radiculopathy Morbid obesity No history of anticoagulation or diabetes Plan: 1. Explanation: Opioid and psychological risk scores were reviewed. Diagnoses, prognoses, and multiple treatment options including but not limited to physical therapy, interventional therapies, adjuvant medical therapies, narcotic medication therapies, and surgery were discussed with the patient and all questions were answered to the patient's satisfaction. 2. Opioid agreement: Signed with the patient and the patient is warned not to use opioids while driving or before driving and not to combine opioids with benzodiazepines or alcohol. 3. Counseling: The patient was counseled extensively on SMOKING CESSATION, BODY MASS INDEX, EXERCISE. Specifically, the patient was instructed regarding the importance of smoking cessation, obesity, and exercise in the context of both chronic pain and overall health. 4. Procedures: Scheduled for diagnostic lumbar medial branch block bilaterally and the trigger point injection in the left shoulder and left neck musculature 5. Consultations: None 6. Investigations: None 7. Medications: None 8. Disposition: Return to the above-mentioned procedure as soon as possible Objective - Vital Signs Vital signs: Vital Signs Temp Pulse 70 11/18/18 14:11 Resp 18 11/18/18 14:11 BP 144/85 11/18/18 14:11 Pulse Ox 97 11/18/18 14:11 Intake & Output 11/17/18 11/18/18 11/18/18 18:59 06:59 18:59 Weight 171.458 kg
== END | disposition home or self-care (01) ==
LOC: PNWHC3 13:34
PROVIDERS: ATTEND Anesthesiology
DX: M47.26 Other spondylosis with radiculopathy, lumbar region (principal); E66.01 Morbid (severe) obesity due to excess calories
CPT/HCPCS: 99211

== ENCOUNTER 2018-11-30 06:04 | Day surgery (SDC) | payer OTHER ==
[~2018-11-30 06:04] MED LIST changes: -LIDOCAINE 1% 20 ML VIAL (10MG/ML) FOR IV START INTRADERMA PRN
[2018-11-30] MEDS ORDERED: LIDOCAINE 1% 20 ML VIAL (10MG/ML) FOR IV START INTRADERMA ONE (06:28)
[2018-11-30 06:38] VITALS: PULSE 68; TEMP 98.2
[2018-11-30] MEDS ORDERED: IV FLUID CONTINUATION 1,000 ML IV ONE (07:38)
--- NOTE | 2018-11-30 07:38 | P.PCN ---
Date of Procedure: 11/30/18 Procedure(s) Performed: PREOPERATIVE DIAGNOSIS : 1- Lumbar spondylosis with Facet Arthropathy without myelopathy . 2-myofascial pain syndrome left side trapezius muscle POSTOPERATIVE DIAGNOSIS: 1- Lumbar spondylosis with Facet Arthropathy without myelopathy . 2- myofascial pain syndrome left side trapezius muscle PROCEDURE: 1-Diagnostic bilateral L3 -4 , L4 -5 , and L5-S1 medial branch block under fluoroscopy. 2-trigger point injection left side trapezius muscle ( 2 trigger point injected ) ANESTHESIA: moderate sedation with intravenous Versed 2 mg and Fentanyl 50 mcg. EBL: Minimal COMPLICATION: None. IV FLUIDS: 100 mL of normal saline. PROCEDURE INDICATION: Chronic low back pain secondary to Facet arthropathy unresponsive to conservative treatment. PROCEDURE DESCRIPTION: the patient was seen and identified in the preop holding area , risks and benefits and possible complications of the procedure and alternative were discussed with the patient, and the patient agreed to proceed with the procedure and signed the consent IV was started and vital signs monitored during the procedure and fluoroscopy was used to maximize the benefit and accuracy of the needle placement, and sedation was given to decrease patient anxiety, patient was taken to the procedure room and placed in prone position vital signs monitored in the back prepped with chlorhexidine X3 then under strict sterile technique using a right oblique fluoroscopy ,the junction of the transverse process and the superior articulating process of the right L3- 4 , L4- 5, and L5-S1 vertebra which corresponding to the fluoroscopy image of the eye of the Durga dog on the block side for the medial branches and subsequently , after local infiltration of skin and subcu tissuies with Ropivacaine 0.5 % , one mL at each level ,then 22-gauge 5 inches long Quincke-type needles , 3 needle was used , each one of them placed at the junction of the base of the transverse process and the superior articular process at the appropriate level, and the needle was advanced until the periosteum contacted, needle placement confirmed with AP oblique and lateral view and after appropriate needle placement confirmed, and after negative aspiration for heme and CSF and there was no paresthesia 1-1/2 mL of Ropivacaine 0.5% mixed with 20 mg Depo-Medrol , then half mL injected at each level after negative aspiration the needle subsequently removed and the same procedure repeated for the left side at left side at L3-4, L4- 5 and L5-S1 levels. then the trigger point injections done in sterile technique ,the left side neck ,and shoulder area prepped with chlorhexidine 3, then using 25-gauge needle each of the trigger point injected with ropivacaine 0.5% 2 ml injected at each trigger point , the injection done after negative aspiration, and there was no paresthesia during the injection At the end of the procedure and the needles removed and a bandage applied after the skin was cleaned the cleaning solution patient taken to recovery room in stable condition and monitors in the recovery room for 20-30 minutes and discharged home in stable condition after discharge criteria met and patient will follow up with the pain clinic in 2-4 weeks
[2018-11-30 07:59] VITALS: BP 114/68; RESP 18
--- NOTE | 2018-11-30 08:05 | FL ---
EXAMINATION TYPE: FL guided pain mgmt statistic DATE OF EXAM: 11/30/2018 HISTORY: Flouroscopy time 13 seconds of fluoroscopy provided. IMPRESSION: 1. Fluoroscopy time.
== END 2018-11-30 08:19 | disposition home or self-care (01) ==
LOC: ORPAIN 06:04
PROVIDERS: ATTEND Anesthesiology
DX: M47.816 Spondylosis without myelopathy or radiculopathy, lumbar region (principal); M51.36 Other intervertebral disc degeneration, lumbar region; M79.18 Myalgia, other site; I10 Essential (primary) hypertension
CPT/HCPCS: 20552; 64493; 64494; 64495; J2250; J1030; J3010; 99152

== ENCOUNTER 2018-12-14 06:04 | Day surgery (SDC) | payer OTHER ==
[2018-12-11 10:30] VITALS: BMI 44.7
[2018-12-14 06:28] VITALS: RESP 16; TEMP 98.2
[2018-12-14] MEDS ORDERED: LIDOCAINE 1% 20 ML VIAL (10MG/ML) FOR IV START INTRADERMA ONE (06:35)
[2018-12-14] MEDS ORDERED: IV FLUID CONTINUATION 1,000 ML IV ONE (07:23)
--- NOTE | 2018-12-14 07:29 | P.PCN ---
Date of Procedure: 12/14/18 Procedure(s) Performed: PREOPERATIVE DIAGNOSIS : Lumbar spondylosis with Facet Arthropathy without myelopathy POSTOPERATIVE DIAGNOSIS: same PROCEDURE: Diagnostic lumbar medial branch block with fluoroscopy at L3, L4, L5 bilateral ANESTHESIA: Local anesthetic; Versed 1 mg Surgeon: Patric Vigil MD PROCEDURE INDICATION: Lumbar back pain without radiculopathy, not responsive to conservative management. PROCEDURE DESCRIPTION: the patient was seen and identified in the preop holding area , risks and benefits and possible complications of the procedure and alternatives were discussed with the patient, and the patient agreed to proceed with the procedure and signed the consent . IV was started and vital signs monitored during the procedure and fluoroscopy was used to maximize the benefit and accuracy of the needle placement, and sedation was given to decrease patient anxiety, patient was taken to the procedure room and placed in prone position vital signs monitored and the back was prepped. Under strict sterile technique using AP fluoroscopy the bilateral sacral ala were identified and using oblique fluoroscopy ,the junction of the transverse process and the superior articulating process of the L4, L5 vertebra which corresponds to the fluoroscopy image of the eye of the Durga dog for the medial branches were identified. Subsequently, after local infiltration of skin with lidocaine 1% 0.2 mL at each level ,then one 22-gauge 5" Quincke-type needle was placed at the junction of the base of the transverse process and the superior articular process at the appropriate level as well as the sacral ala, and the needle was advanced until the periosteum contacted, needle placement confirmed with oblique fluoroscopy, 0.2 mL of Isovue 200 per level was injected which revealed no vascular uptake and after negative aspiration, 0.5 mL of ropivacaine 0.5% was injected at each level and the needle subsequently removed . At the end of the procedure and the needles removed and a bandage applied after the skin was cleaned. The patient was taken to recovery room in stable condition and monitors in the recovery room for 20-30 minutes and discharged home in stable condition after discharge criteria met and patient will follow up in clinic in 2 weeks EBL: Minimal COMPLICATION: None.
[2018-12-14 07:41] VITALS: BP 115/71; PULSE 60
--- NOTE | 2018-12-14 09:08 | FL ---
Fluoroscopy INDICATION: Pain FINDINGS: Fluoroscopy time: 14 seconds. Images obtained: 3. IMPRESSIONS: 1. Documentation of fluoroscopy.
== END 2018-12-14 07:53 | disposition home or self-care (01) ==
LOC: ORPAIN 06:04
PROVIDERS: ATTEND Anesthesiology
DX: M47.816 Spondylosis without myelopathy or radiculopathy, lumbar region (principal); I10 Essential (primary) hypertension; M79.18 Myalgia, other site
CPT/HCPCS: 99152

== ENCOUNTER → 2018-12-16 | Outpatient (CLI) | payer OTHER ==
[2018-12-16 14:19] VITALS: BP 171/88; PULSE 71; RESP 22
--- NOTE | 2018-12-16 16:44 | P.PAINPG ---
Subjective Progress Note Date: 12/16/18 This is a follow-up visit for this 63 years old male with a chronic history of severe low back pain, diagnosed with lumbar spondylosis with lumbar facet arthropathy, and lumbar degenerative disc disease, recently we have done diagnostic medial branch block lumbar area at L3 4, L4 5, L5-S1, patient had more than 50% improvement of his low back pain after the diagnostic medial branch block, he denies any motor or sensory deficits, he reports that the pain intensity interfere with the quality of life, he denies any fever or night sweats, and no change in bowel movement or urination Objective - Vital Signs Vital signs: Vital Signs Temp Pulse 71 12/16/18 14:08 Resp 22 12/16/18 14:08 BP 171/88 12/16/18 14:08 Pulse Ox 96 12/16/18 14:08 Intake & Output 12/15/18 12/16/18 12/16/18 18:59 06:59 18:59 Weight 175.54 kg - Exam Physical Examinations : -Constitutiona : Cooperative , not in acute distress . -HEENT : nech : supple , no Lymphadenopathy , normal thyroid size . eyes : no ptosis , no icterus, no photophobia . - neurologic : Cranial nerve II to XII intact , no focal neurological deffecit . -psychatric : alert , oriented X 3 , appropriate affect , intact judgment and insight . -Lymphatic : no Lymphadenopathy . - musculoskeltal : Lumber spine moter stegnth lower extremities ,thigh and legs 5/5 Right side , 5/5 Left side deep tendon reflexes : normal Knee Jerk , normal ankle Jerk positive lumber facet Loading Test Range of motion of the lumbar spine Flexion 30 degrees, extension 10 degrees strait leg raising test , positive at 45 degree Fabere test positive RT and positive LT . MRI of the lumbar spine done at [facility] diagnostic= multilevel lumbar degenerative disc disease and multilevel severe lumbar facet arthropathy Assessment and Plan Plan: Assessment and plan=1-severe and chronic low back pain secondary to lumbar spondylosis and lumbar facet arthropathy, and lumbar degenerative disc disease Patient had a positive result after the diagnostic medial branch block lumbar area, he will be good candidate for radiofrequency ablation of the medial branch lumbar area, at L3 4 , L4 -5 , L5-S1 we will do the right side first and left-sided later on Time with Patient: Less than 30 PQRS Measure Charge Sheet Measure #130: Documentation of Current Meds in Medical Chart: Patient's medications documented in chart Measure #226: Tobacco Use: Screen & Cessation Intervention: Pt not a tobacco user Measure #111: Pneumonia Vaccination: Pneumococcal vaccine NOT administered or previously given Measure #47: Advance Care Plan: Advance care planning discussed & documented, pt chose/unable to give Measure #412: Opioid Treatment Agreement: No documentation of signed opioid treatment agreement Measure #408: Opioid Therapy Follow-up Evaluation: Patient had NO f/u eval minimum every 3 months during opioid therapy Measure #317: Preventitive Care & Scrn High Bld Press & F/U: Pre-hypertensive or hypertensive BP documented, pt will f/u with PCP Measure #128: Body Mass Index (BMI) Screening & Follow-up: BMI documented ABOVE normal parameters - f/u documented Measure #131: Pain Assessment & Follow-up: Pain positive & plan documented, Follow-up scheduled Measure #431: Unhealthy Alcohol Use Preventative Care & Scrn: Patient not identified as an unhealthy alcohol user PQRS Narrative: Smoking Status Never smoker Blood Pressure 171/88 Pain Intensity [Bilateral Back 4 ] Hx Alcohol Use (MH) No Home Medications: Ambulatory Orders Cholecalciferol (Vitamin D3) [Decara] 2,000 unit PO BID 01/06/14 Multivitamins, Thera [Multivitamin] 1 tab PO BID 01/06/14 Ubidecarenone [Co Q-10] 100 mg PO DAILY 09/12/17 Hydrochlorothiazide 12.5 mg PO DAILY 02/18/18 Meloxicam [Mobic] 15 mg PO DAILY 04/30/18 Losartan Potassium 50 mg PO DAILY 05/06/18 Cyanocobalamin (Vitamin B-12) [Vitamin B-12] 1,000 mcg PO DAILY 11/24/18 Gilbert-3 Fatty Acids/Fish Oil [Fish Oil 1,000 mg Softgel] 1 each PO DAILY 11/24/18 Controlled Substance Measures - Controlled Substance Measures Is patient prescribed a controlled substance at discharge?: No
== END | disposition home or self-care (01) ==
LOC: PNWHC3 13:12
PROVIDERS: ATTEND Specialist
DX: G89.29 Other chronic pain (principal); M51.36 Other intervertebral disc degeneration, lumbar region; M47.816 Spondylosis without myelopathy or radiculopathy, lumbar region; M46.96 Unspecified inflammatory spondylopathy, lumbar region; Z79.1 Long term (current) use of non-steroidal anti-inflammatories (NSAID); Z79.899 Other long term (current) drug therapy
CPT/HCPCS: 99211

== ENCOUNTER 2019-01-12 06:19 | Day surgery (SDC) | payer OTHER ==
[2019-01-06 16:05] VITALS: BMI 43.7
[2019-01-12 07:04] VITALS: RESP 18; TEMP 98.2
[2019-01-12] MEDS ORDERED: LIDOCAINE 1% 20 ML VIAL (10MG/ML) FOR IV START INTRADERMA ONE (07:04)
--- NOTE | 2019-01-12 07:50 | P.PCN ---
Date of Procedure: 01/12/19 Procedure(s) Performed: PREOPERATIVE DIAGNOSIS: 1-Lumbar Spondylosis with Facet Arthropathy without myelopathy. POSTOPERATIVE DIAGNOSIS: 1- Lumbar Spondylosis with Facet Arthropathy without myelopathy. PROCEDURES : Right Radiofrequency thermocoagulation, L3-L4, L4-L5, and L5-S1 medial branch, with fluoroscopic guidance (fluoroscopy images available in the radiology department) ANESTHESIA: Moderate sedation with intravenous versed 2 mg and fentaneyl 100 mcg, and local infiltration with Ropivacaine 0.5 % . EBL: Minimal PROCEDURE INDICATION: The patient with low back pain secondary to lumbar facet arthropathy who had more than 50% relief of her pain with previous diagnostic lumbar medial branch block with bupivacaine. PROCEDURE DESCRIPTION / TECHNIQUE: The patient was seen and identified in the preoperative area. Risks, benefits, complications, including but not limited to risk of infection ,bleeding , allergic reactions to the medications and no complete pain releife , and alternatives were discussed with the patient, the patient agreed to proceed with the procedure and signed the consent. IV was started. Vital signs remained stable throughout the procedure. Patient was taken to the OR and time out was completed. The patient was placed in the prone position on the procedure table. The lumber area was prepped and draped in the usual sterile fashion. . Vital signs were closely monitored during the procedure .IV sedation was used during the procedure to decrease patients anxiety. Using AP and then oblique fluoroscopy, the ``eye of the Durga dog corresponding to the connection between the superior and transverse articular processes of right L3, L4, and L5 were identified, marked, and localized with 1% lidocaine. Subsequently, a 18 [id number] radiofrequency cannula with a 10- mm active tip was advanced guided by fluoroscopy to each of the``eyes of the Durga dog at right L3, L4, and L5. Each site then underwent sensory testing at 50 Hz and 0 to 1 volt and motor testing at 2.5 Hz and 0 to 3 volt with local stimulation, but no radicular symptoms down the legs. Thereafter the right L3-4, L4-5, and L5-S1 sites underwent radiofrequency thermocoagulation at 80 degrees celsius for 90 seconds after injecting 0.5 ml of PF Ropivacaine 1ml, then after the thermocoagulation done , 1 ml of the block solution containing Depo-Medrol 80 mg and 3 ml of Ropivacaine 0.5% was injected at the right L3-4 , L4-5 , and L5-S1, levels after negative aspiration of CSF and blood and with no paresthesias. Cannulas were retracted while injecting lidocaine 1% until the needle is out. At the end of the procedure, the skin was cleansed and bandages were applied. COMPLICATIONS: No acute complications. DISPOSITION / PLANS: The patient was placed in a supine position and transferred to the recovery area in a stable condition for observation and was discharged from the recovery room after meeting discharge criteria. Home discharge instructions given to the patient by the staff. The patient was reexamined prior to discharge. The patient will schedule a follow up in the clinic in 2-4 weeks.
[2019-01-12] MEDS ORDERED: IV FLUID CONTINUATION 1,000 ML IV ONE (07:54)
[2019-01-12 08:13] VITALS: BP 111/70; PULSE 72
--- NOTE | 2019-01-12 08:51 | FL ---
Fluoroscopy HISTORY: Pain 21 seconds fluoroscopy time supplied to the referring clinician. 3 intraoperative C-arm images docum ent the procedure. See dictated report from anesthesia.
== END 2019-01-12 08:28 | disposition home or self-care (01) ==
LOC: ORPAIN 06:19
PROVIDERS: ATTEND Specialist
DX: M47.816 Spondylosis without myelopathy or radiculopathy, lumbar region (principal); I10 Essential (primary) hypertension; G47.30 Sleep apnea, unspecified
CPT/HCPCS: 64635; 64636 ×2; J2250; J1030; J3010; 99152

== ENCOUNTER → 2019-01-20 | Outpatient (CLI) | payer OTHER ==
[2019-01-20 14:42] VITALS: BP 134/79; PULSE 72; RESP 16; TEMP 98; BMI 47.0
--- NOTE | 2019-01-20 15:22 | P.PN ---
Subjective Progress Note Date: 01/20/19 DATE OF CONSULTATION: 01/20/2019 CHIEF COMPLAINT: Morbid obesity HISTORY OF PRESENT ILLNESS: Mr. Navjot Kunz is a pleasant 63-year-old gentleman who presents with lifelong history of morbid obesity. He first presented to the bariatric center over 5 years ago seeking weight loss options. He reports at one point being 560 pounds. On his own he has been able to lose approximately 110 pounds over 10 years. He had gone down in weight to between 335 to 350 pounds. He undergoes pain clinic treatments. No abdominal pain. No fevers or chills. He reports history of diabetes. He has heartburn. He does report trouble with fatty food. He does have his gallbladder and reports bloating after eating. He denies any family history of irritable bowel syndrome. He denies a history of Crohn disease. He does have a family history of colonic polyps and personal history of colon polyps. As a result of his obesity, he has developed diabetes, sleep apnea, and hypertension. At his height of 6 feet 4 inches, his ideal body weight is 204 pounds. His highest lifetime weight was 560 pounds, BMI 68.3. Today he comes in 385 pounds from PAST MEDICAL HISTORY: 1. Diabetes type 2, non-insulin dependent, diet controlled 2. Obstructive sleep apnea. 3. Morbid obesity due to excess calories, BMI 68.3 initial 4. History of polyps 6. Sciatica 7. Osteoarthritis knees 8. Osteoarthritis hips 9. Osteoarthritis lower back PAST SURGICAL HISTORY: 1. Appendectomy. 2. Colonoscopy 3. Upper endoscopy Home medications: Home Medications Medication Instructions Recorded Confirmed Cholecalciferol (Vitamin D3) 2,000 unit PO BID 01/06/14 02/15/19 [Decara] Multivitamins, Thera [Multivitamin] 1 tab PO BID 01/06/14 02/15/19 Ubidecarenone [Co Q-10] 100 mg PO DAILY 09/12/17 02/15/19 Losartan Potassium 50 mg PO DAILY 05/06/18 02/15/19 Cyanocobalamin (Vitamin B-12) 1,000 mcg PO DAILY 11/24/18 02/15/19 [Vitamin B-12] ALLERGIES: Allergies Allergy/AdvReac Type Severity Reaction Status Date / Time strawberry AdvReac Itching Verified 02/15/19 11:12 SOCIAL HISTORY: Lifelong nontobacco user. Denies any alcohol use. FAMILY HISTORY: Pertinent for colon polyps. Denies any esophageal or stomach cancer. REVIEW OF SYSTEMS: CONSTITUTIONAL: Lifetime weight loss of 110 pounds. Denies any fevers or chills. At his height of 6 feet 4 inches, his ideal body weight is 204 pounds. His highest lifetime weight was 560 pounds, BMI 68.3. HEENT: Denies any troubles with hearing. Wears glasses. ENDOCRINE: Denies any history of thyroid disorders. His diabetes is controlled with diet. RESPIRATORY: Denies any asthma. Hast history of obstructive sleep apnea. Has past pneumonia. CARDIOVASCULAR: Denies any heart attack or chest pain. GI: Has fatty food intolerance including gastroesophageal reflux disease with vegetables. Denies any blood in stools. MUSCULOSKELETAL: Has occasional osteoarthritis of the lower back and joint. NEURO: No reports of headaches or seizure disorders. PSYCH: No reports of depression or suicidal ideation. HEMATOLOGIC: Denies any easy bruising or bleeding. GENITOURINARY: Denies any blood in urine or increased urinary frequency. SKIN: No current skin cancer. No rash. ALLERGY/IMMUNOLOGY: No immunoglobulin therapy. No immune deficiencies. BREAST: Denies current breast lumps, pain or nipple discharge. PHYSICAL EXAM: VITAL SIGNS: 6 feet 4 inches, 369 pounds. Body mass index of 47.0 Vital Signs Temp 98 F 01/20/19 14:38 Pulse 72 01/20/19 14:38 Resp 16 01/20/19 14:38 BP 134/79 01/20/19 14:38 Pulse Ox VITALS: Reviewed CONSTITUTIONAL: Well developed and in no acute distress. EYES: Conjuctivae without sclera icterus. Pupils are equally round and reactive to light. Extraocular movements grossly intact. HEAD, EARS, NOSE, THROAT: Moist buccal mucosa. Head is atraumatic, normocephalic. Hears conversational speech. No nasal drainage. Good dentition. NECK: Supple. No JV distention. No thyroidomegaly. RESPIRATORY: Non-labored respirations and equal bilateral excursions. No gross wheezes. CARDIOVASCULAR: Regular rate and rhythm. Extremities without moderate edema. Palpable 2+ radial pulses. ABDOMEN: Soft. Non-tender. Nondistended. LYMPH: No neck lymphadenopathy. No axillary lymphadenopathy. MUSCULOSKELETAL: Range of motion bilateral upper extremities within normal limits. Nail and fingers with good capillary refill. SKIN: Warm and well perfused with good skin turgor. NEUROLOGIC: Cranial nerves I through XII grossly intact. Sensation upper and extremities intact. No focal or lateralizing signs. PSYCH: Appropriate affect. Alert and oriented to person, place and time. Displays appropriate insight. LABS: Calcium elevated 10.6, AST and ALT is elevated, Hgb A1c 5.6 and normal. Triglycerides elevated. Thiamine is elevated. EKG: Premature atrial contractions otherwise normal COLON FINDINGS: No internal hemorrhoids No external hemorrhoids No arteriovenous malformations. Removal of 4 polyps: - Cold forceps biopsy at 30 cm x 2 from the anal verge, 4 mm polyp. - Cold forceps biopsy at 40 cm from the anal verge, 5 mm polyp. - Cold forceps biopsy at hepatic flexure, 4 mm polyp. - Cold forceps biopsy at the cecum, 3 mm polyp. Scattered diverticulosis with mild focal diverticulitis was encountered between 20-30 cm. EGD FINDINGS: Squamocolumnar junction 44 cm from the incisors. Diaphragmatic hiatus at 45 cm. Hiatal hernia, 1 cm Hill grade 2 lower esophageal valve. LA grade A erosive esophagitis. No active duodenitis. Chronic gastritis Final Pathologic Diagnosis A. COLON, CECUM, BIOPSY: Tubular adenoma. B. COLON, HEPATIC FLEXURE, BIOPSY: Serrated polyp consistent with sessile serrated adenoma. C. COLON, 40 CM, BIOPSY: Mature colonic mucosa without histopathologic changes. D. COLON, 30 CM, BIOPSY: Hyperplastic polyp. E. GASTRIC ANTRUM, BIOPSY: Mild chronic gastritis. Helicobacter pylori organisms are not identified on routine H+E sections. ASSESSMENT: 1. Morbid obesity due to excess calories, BMI 68.3 to 47.0 2. Gastroesophageal reflux disease. 3. Colon polyps 4. Family history of colon polyps. 5. Diabetes type 2, non-insulin dependent, diet controlled 6. Obstructive sleep apnea. 7. Osteoarthritis knees 8. Osteoarthritis hips 9. Osteoarthritis lower back 10. Sciatica PLAN: 1. Bariatric options between a sleeve, band and a Ana Cristina-en-Y gastric bypass were reviewed in detail. The patient elected for a gastric bypass. Robotic assisted approach described. 2. The [place] [facility] Data was also reviewed with benefits and risks as described. 3. An 8 page second-generation bariatric consent form was reviewed in detail including potential of bleeding, infection, leaks, adequate weight loss, nutritional deficiencies which the patient demonstrated understanding of the risks. 4. A 2 week high-protein low caloric 800 kcal diet described to address hepatomegaly. 5. Preoperative labs including complete metabolic panel and CBC with type and screen recommended. 6. DVT prophylaxis per [place] [facility]. 7. Antibiotic prophylaxis. 8. Inpatient hospitalization anticipated for more than 2 nights. 9. All questions and concerns were addressed with the patient. Objective - Vital Signs Vital signs: Vital Signs Temp 98 F 01/20/19 14:38 Pulse 72 01/20/19 14:38 Resp 16 01/20/19 14:38 BP 134/79 01/20/19 14:38 Pulse Ox Intake & Output 01/19/19 01/20/19 01/20/19 18:59 06:59 18:59 Weight 175.087 kg
== END | disposition home or self-care (01) ==
LOC: BARWHC3 14:18
PROVIDERS: ATTEND Surgery Plastic and Reconstructive Surgery
DX: E66.01 Morbid (severe) obesity due to excess calories (principal); K21.9 Gastro-esophageal reflux disease without esophagitis; K63.5 Polyp of colon; E11.9 Type 2 diabetes mellitus without complications; G47.33 Obstructive sleep apnea (adult) (pediatric); M17.0 Bilateral primary osteoarthritis of knee; M16.0 Bilateral primary osteoarthritis of hip; M47.816 Spondylosis without myelopathy or radiculopathy, lumbar region; M54.30 Sciatica, unspecified side; Z68.42 Body mass index [BMI] 45.0-49.9, adult; Z90.49 Acquired absence of other specified parts of digestive tract; Z79.899 Other long term (current) drug therapy
CPT/HCPCS: 99211

== ENCOUNTER 2019-01-26 06:22 | Day surgery (SDC) | payer OTHER ==
[2019-01-20 09:03] VITALS: BMI 43.4
[2019-01-26 06:55] VITALS: RESP 16; TEMP 97.6
[2019-01-26] MEDS ORDERED: LIDOCAINE 1% 20 ML VIAL (10MG/ML) FOR IV START INTRADERMA ONE (07:05)
[2019-01-26] MEDS ORDERED: IV FLUID CONTINUATION 1,000 ML IV ONE (08:03)
--- NOTE | 2019-01-26 08:06 | P.PCN ---
Date of Procedure: 01/26/19 Procedure(s) Performed: OPERATION: Radiofrequency ablation of the medial branch lumbar area at left side, L3 medial branch, L4 medial branch, and dorsal rami of 5 levels under fluoroscopic guidance. PREOPERATIVE DIAGNOSES: 1. Lumbar facet arthropathy. 2. Lumbar degenerative disc disease. POSTOPERATIVE DIAGNOSES: 1. Lumbar facet arthropathy. 2. Lumbar degenerative disc disease. COMPLICATIONS: None. PHYSICIAN: Aye Valdez MD ANESTHESIA: moderate sedation 2mg of versed and 200 mcg of fentanyl with local infiltration. CONDITION: Stable. INDICATION FOR THE PROCEDURE: This is 63-year-old male with a history of low back pain. Procedure, risks and benefits discussed with the patient who agreed with proceeding. Patient taken to the operating room, placed in prone position. All standard monitors applied to the patient. Then after induction of anesthesia, back prepped with Betadine 3 times. Then under fluoroscopic guidance we used 1% lidocaine 5 mL for skin and subcutaneous tissue infiltrations, Then after that, 20-gauge radiofrequency active-tip needles, 3 needles used, each one of them placed at the junction of the base of the transverse process and the superior articulating process of the left side at, L3-4, L4-5 and L5-S1 levels. Needle placement confirmed with AP and oblique and lateral views. Then after appropriate needle placement confirmed, we checked for the motor stimulation at 2.5 v, which was positive for localized contractions in the lumbar area and th ere were no contractions in the lower extremities. Then 1 cc of .5% ropivicaine was injected into each needle. Then after that, the radiofrequency done at 80 degrees Centigrade for 90 seconds at each level. The needles were subsequently removed. Patient tolerated the procedure well without any complication and will follow up with the pain clinic in few weeks.
--- NOTE | 2019-01-26 08:21 | FL ---
EXAMINATION TYPE: FL guided pain mgmt statistic DATE OF EXAM: 01/26/2019 CLINICAL HISTORY: Low back pain. TECHNIQUE: Fluoroscopy. COMPARISON: None. FINDINGS: Fluoroscopic guidance was provided during pain relief procedure performed by Dr. Valdez . A total of 39 seconds of fluoroscopic time was utilized during the procedure and four spot images a re acquired. Images acquired shows needle localization at several levels involving the lower lumbar spine. IMPRESSION: As Above.
[2019-01-26 08:23] VITALS: BP 151/97; PULSE 57
== END 2019-01-26 08:47 | disposition home or self-care (01) ==
LOC: ORPAIN 06:22
PROVIDERS: ATTEND Student in an Organized Health Care Education/Training Program
DX: M51.36 Other intervertebral disc degeneration, lumbar region (principal)
CPT/HCPCS: 64635; 64636 ×2; J2250; J2001; J3010; 99152; 99153

== ENCOUNTER → 2019-02-13 | Outpatient (CLI) | payer OTHER ==
[2019-02-13 08:28] LABS: Basophils # (A) 0.1 k/uL (0-0.2); Basophils % (A) 1 %; Eosinophils # (A) 0.2 k/uL (0-0.7); Eosinophils % (A) 4 %; HCT 42.6 % (39.0-53.0); Lymphocytes # (A) 0.8 k/uL (1.0-4.8); Lymphocytes % (A) 15 %; MCH 29.3 pg (25.0-35.0); MCHC 35.3 g/dL (31.0-37.0); MCV 82.8 fL (80.0-100.0); Mean Platelet Volume 7.5; Monocytes # (A) 0.4 k/uL (0-1.0); Monocytes % (A) 7 %; Neutrophils # (A) 3.8 k/uL (1.3-7.7); Neutrophils % (A) 71 %; Platelet Count 166 k/uL (150-450); RBC 5.14 m/uL (4.30-5.90); RDW 15.1 % (11.5-15.5); WBC 5.3 k/uL (3.8-10.6)
[2019-02-13 08:41] LABS: ALT 61 U/L (21-72); AST 49 U/L (17-59); African American GFR (CKD) >90 (>60 ml/min/1.73 sqM); Albumin 4.7 g/dL (3.5-5.0); Alkaline Phosphatase 63 U/L (38-126); Anion Gap 10 mmol/L; Blood Urea Nitrogen 16 mg/dL (9-20); Calcium 9.6 mg/dL (8.4-10.2); Carbon Dioxide 28 mmol/L (22-30); Chloride 103 mmol/L (98-107); Glucose 109 mg/dL (74-99); Potassium 4.4 mmol/L (3.5-5.1); Sodium 141 mmol/L (137-145); Total Bilirubin 1.3 mg/dL (0.2-1.3); Total Protein 8.1 g/dL (6.3-8.2)
== END | disposition home or self-care (01) ==
LOC: LABPAT 08:01
PROVIDERS: ATTEND Surgery Plastic and Reconstructive Surgery
DX: Z01.812 Encounter for preprocedural laboratory examination (principal)
CPT/HCPCS: 80053; 85025

== ENCOUNTER 2019-02-22 06:05 | Inpatient (IN) | payer OTHER ==
--- NOTE | 2019-02-22 01:59 | P.GSHP ---
History of Present Illness H&P Date: 02/22/19 DATE OF CONSULTATION: 02/22/2019 CHIEF COMPLAINT: Morbid obesity HISTORY OF PRESENT ILLNESS: Mr. Navjot Kunz is a pleasant 63-year-old gentleman who presents with lifelong history of morbid obesity. He first presented to the bariatric center over 5 years ago seeking weight loss options. He reports at one point being 560 pounds. On his own he has been able to lose approximately 110 pounds over 10 years. He had gone down in weight to between 335 to 350 pounds. He undergoes pain clinic treatments. No abdominal pain. No fevers or chills. He reports history of diabetes. He has heartburn. He does report trouble with fatty food. He does have his gallbladder and reports bloating after eating. He denies any family history of irritable bowel syndrome. He denies a history of Crohn disease. He does have a family history of colonic polyps and personal history of colon polyps. As a result of his obesity, he has developed diabetes, sleep apnea, and hypertension. At his height of 6 feet 4 inches, his ideal body weight is 204 pounds. His highest lifetime weight was 560 pounds, BMI 68.3. Today he comes in 385 pounds. His BMI is 43.5. He is 165 pounds overweight. PAST MEDICAL HISTORY: 1. Diabetes type 2, non-insulin dependent, diet controlled 2. Obstructive sleep apnea. 3. Morbid obesity due to excess calories, BMI 68.3 initial 4. History of polyps 6. Sciatica 7. Osteoarthritis knees 8. Osteoarthritis hips 9. Osteoarthritis lower back PAST SURGICAL HISTORY: 1. Appendectomy. 2. Colonoscopy 3. Upper endoscopy Home medications: Home Medications Medication Instructions Recorded Confirmed Cholecalciferol (Vitamin D3) 2,000 unit PO BID 01/06/14 02/15/19 [Decara] Multivitamins, Thera [Multivitamin] 1 tab PO BID 01/06/14 02/15/19 Ubidecarenone [Co Q-10] 100 mg PO DAILY 09/12/17 02/15/19 Losartan Potassium 50 mg PO DAILY 05/06/18 02/15/19 Cyanocobalamin (Vitamin B-12) 1,000 mcg PO DAILY 11/24/18 02/15/19 [Vitamin B-12] ALLERGIES: Allergies Allergy/AdvReac Type Severity Reaction Status Date / Time strawberry AdvReac Itching Verified 02/15/19 11:12 SOCIAL HISTORY: Lifelong nontobacco user. Denies any alcohol use. FAMILY HISTORY: Pertinent for colon polyps. Denies any esophageal or stomach cancer. REVIEW OF SYSTEMS: CONSTITUTIONAL: Lifetime weight loss of 110 pounds. Denies any fevers or chills. At his height of 6 feet 4 inches, his ideal body weight is 204 pounds. His highest lifetime weight was 560 pounds, BMI 68.3. HEENT: Denies any troubles with hearing. Wears glasses. ENDOCRINE: Denies any history of thyroid disorders. His diabetes is controlled with diet. RESPIRATORY: Denies any asthma. Hast history of obstructive sleep apnea. Has past pneumonia. CARDIOVASCULAR: Denies any heart attack or chest pain. GI: Has fatty food intolerance including gastroesophageal reflux disease with vegetables. Denies any blood in stools. MUSCULOSKELETAL: Has occasional osteoarthritis of the lower back and joint. NEURO: No reports of headaches or seizure disorders. PSYCH: No reports of depression or suicidal ideation. HEMATOLOGIC: Denies any easy bruising or bleeding. GENITOURINARY: Denies any blood in urine or increased urinary frequency. SKIN: No current skin cancer. No rash. ALLERGY/IMMUNOLOGY: No immunoglobulin therapy. No immune deficiencies. BREAST: Denies current breast lumps, pain or nipple discharge. PHYSICAL EXAM: VITAL SIGNS: 6 feet 4 inches, 369 pounds. Body mass index of 47.0 Vital Signs Temp 98 F 01/20/19 14:38 Pulse 72 01/20/19 14:38 Resp 16 01/20/19 14:38 BP 134/79 01/20/19 14:38 Pulse Ox VITALS: Reviewed CONSTITUTIONAL: Well developed and in no acute distress. EYES: Conjuctivae without sclera icterus. Pupils are equally round and reactive to light. Extraocular movements grossly intact. HEAD, EARS, NOSE, THROAT: Moist buccal mucosa. Head is atraumatic, normocephalic. Hears conversational speech. No nasal drainage. Good dentition. NECK: Supple. No JV distention. No thyroidomegaly. RESPIRATORY: Non-labored respirations and equal bilateral excursions. No gross wheezes. CARDIOVASCULAR: Regular rate and rhythm. Extremities without moderate edema. Palpable 2+ radial pulses. ABDOMEN: Soft. Non-tender. Nondistended. LYMPH: No neck lymphadenopathy. No axillary lymphadenopathy. MUSCULOSKELETAL: Range of motion bilateral upper extremities within normal limits. Nail and fingers with good capillary refill. SKIN: Warm and well perfused with good skin turgor. NEUROLOGIC: Cranial nerves I through XII grossly intact. Sensation upper and extremities intact. No focal or lateralizing signs. PSYCH: Appropriate affect. Alert and oriented to person, place and time. Displays appropriate insight. ASSESSMENT: 1. Morbid obesity due to excess calories, BMI 68.3 to 47.0 2. Gastroesophageal reflux disease. 3. Colon polyps 4. Family history of colon polyps. 5. Diabetes type 2, non-insulin dependent, diet controlled 6. Obstructive sleep apnea. 7. Osteoarthritis knees 8. Osteoarthritis hips 9. Osteoarthritis lower back 10. Sciatica PLAN: 1. Bariatric options between a sleeve, band and a Ana Cristina-en-Y gastric bypass were reviewed in detail. The patient elected for a gastric bypass. Robotic assisted approach described. 2. The [place] [facility] Data was also reviewed with benefits and risks as described. 3. An 8 page second-generation bariatric consent form was reviewed in detail including potential of bleeding, infection, leaks, adequate weight loss, nutritional deficiencies which the patient demonstrated understanding of the risks. 4. A 2 week high-protein low caloric 800 kcal diet described to address hep atomegaly. 5. Preoperative labs including complete metabolic panel and CBC with type and screen recommended. 6. DVT prophylaxis per [place] [facility]. 7. Antibiotic prophylaxis. 8. Inpatient hospitalization anticipated for more than 2 nights. 9. All questions and concerns were addressed with the patient. Past Medical History Past Medical History: Hypertension, Sleep Apnea/CPAP/BIPAP Additional Past Medical History / Comment(s): back pain, hx. gout, hx. colon polyps, uses CPAP, bilateral leg swelling, sciatica Right, patient states he has pinched nerves in L4-L5 History of Any Multi-Drug Resistant Organisms: None Reported Past Surgical History: Appendectomy Additional Past Surgical History / Comment(s): EGD, colonoscopy, pain clinic procedure for pinched nerves in back Past Anesthesia/Blood Transfusion Reactions: No Reported Reaction Smoking Status: Never smoker - Past Family History Mother Family Medical History: CVA/TIA Additional Family Medical History / Comment(s): mom of massive cva 2012 Medications and Allergies Home Medications Medication Instructions Recorded Confirmed Type Cholecalciferol (Vitamin D3) 2,000 unit PO BID 01/06/14 02/15/19 History [Decara] Multivitamins, Thera [Multivitamin] 1 tab PO BID 01/06/14 02/15/19 History Ubidecarenone [Co Q-10] 100 mg PO DAILY 09/12/17 02/15/19 History Losartan Potassium 50 mg PO DAILY 05/06/18 02/15/19 History Cyanocobalamin (Vitamin B-12) 1,000 mcg PO DAILY 11/24/18 02/15/19 History [Vitamin B-12] Allergies Allergy/AdvReac Type Severity Reaction Status Date / Time strawberry AdvReac Itching Verified 02/15/19 11:12
[~2019-02-22 06:05] MED LIST changes: +CHLORHEXIDINE GLUCONATE 15 ML CUP MUCOUS MEM ONE; +ENOXAPARIN 40 MG/0.4 ML SYRINGE SQ ONE; -LACTATED RINGERS 1,000 ML IV SCH; +PANTOPRAZOLE 40 MG/10 ML VIAL IV ONE
[2019-02-22] MEDS ORDERED: DEXAMETHASONE SOD PHOSPHATE 10 MG/ML 1 ML VIAL IV ONE (06:13)
[2019-02-22] MEDS ORDERED: fentaNYL (PF) 50 MCG/ML 2 ML AMP IV PRN (06:13)
[2019-02-22] MEDS ORDERED: MIDAZOLAM 2 MG/2 ML VIAL IV PRN (06:13)
[2019-02-22] MEDS ORDERED: LIDOCAINE 1% 20 ML VIAL (10MG/ML) FOR IV START INTRADERMA PRN (06:13)
[2019-02-22] MEDS: LACTATED RINGERS 1,000 ML IV SCH ×2 (06:40→13:21)
[2019-02-22] MEDS ORDERED: ONDANSETRON 4 MG/2 ML VIAL IVP ONE (07:00)
--- NOTE | 2019-02-22 07:45 | P.HPADDEND ---
H&P Addendum H&P Addendum Date: 02/22/19 Notified by the Hospital ta equipment to perform gastric bypasses is not available. Patient offered alternative of gastric sleeve. Patient chose to proceed with sleeve gastrectomy rather than be rescheduled for gastric bypass. Benefits and risks of sleeve gastrectomy described including possible increased risk for reflux disease also described. Patient still wished to proceed with sleeve gastrectomy.
[2019-02-22] MEDS ORDERED: GLYCOPYRROLATE 0.2 MG/ML 2 ML VIAL ONE (07:59)
[2019-02-22] MEDS ORDERED: HYDROmorphone (PF) 1 MG/ML ONE (07:59)
[2019-02-22] MEDS ORDERED: PROPOFOL 10 MG/ML 20 ML VIAL IV ONE (07:59)
[2019-02-22] MEDS ORDERED: SUCCINYLCHOLINE CHLORIDE 100 MG/5 ML SYR IV ONE (07:59)
[2019-02-22] MEDS ORDERED: MIDAZOLAM 2 MG/2 ML VIAL ONE (07:59)
[2019-02-22] MEDS ORDERED: LIDOCAINE 1% INJ 10MG/ML (20 ML MDV) ONE (07:59)
[2019-02-22] MEDS ORDERED: ROCURONIUM BROMIDE 10 MG/ML 10 ML VIAL IV ONE (07:59)
[2019-02-22] MEDS ORDERED: NEOSTIGMINE 1 MG/ML 10 ML VIAL ONE (07:59)
[2019-02-22] MEDS ORDERED: fentaNYL (PF) 50 MCG/ML 2 ML AMP ONE (07:59)
[2019-02-22] MEDS: ceFAZolin 3 GM in SODIUM CHLORIDE 0.9% 100 ML IVPB ONE ×2 (08:04→08:05)
[2019-02-22] MEDS ORDERED: LIDOCAINE 1%-EPI 1:100,000 30 ML VIAL SQ ONE (08:34)
[2019-02-22] MEDS ORDERED: LACTATED RINGERS 1,000 ML IV ONE (08:47)
--- NOTE | 2019-02-22 10:28 | P.OP ---
Date of Procedure: 02/22/19 Description of Procedure: SURGEON: MARYURI BAGLEY MD PREOPERATIVE DIAGNOSES: 1. Morbid obesity. 2. Body mass index of 47.6 to 41.1 3. Osteoarthritis of the knees. 4. Osteoarthritis of the hips. 5. Osteoarthritis of the lower back. 6. Obstructive sleep apnea. 7. Hypertensive heart disease. 8. Osteoarthritis of the ankles. 9. Gastroesophageal reflux disease. 10. Post-operative chronic bone pain POSTOPERATIVE DIAGNOSES: 1. Morbid obesity. 2. Body mass index of 47.6 to 41.1 3. Osteoarthritis of the knees. 4. Osteoarthritis of the hips. 5. Osteoarthritis of the lower back. 6. Obstructive sleep apnea. 7. Hypertensive heart disease. 8. Osteoarthritis of the ankles. 9. Gastroesophageal reflux disease. 10. Post-operative chronic bone pain OPERATION: 1. Robotic assisted daVinci Xi laparoscopic sleeve gastrectomy with 40-Northern Irish bougie, multiport. 2. Intraoperative esophagogastroduodenoscopy. ANESTHESIA: Gen. local anesthetic ESTIMATED BLOOD LOSS: 5 mL SPECIMENS REMOVED: Sleeve gastrectomy COMPLICATIONS: None. INDICATIONS: Mr. Navjot Kunz is a pleasant 63-year-old gentleman who presents with lifelong history of morbid obesity. He had completed medical including cardiac and psychological clearances. He completed medical supervised weight loss. Initially, patient presented for gastric bypass however secondary to limited tools to proceed with gastric bypass, patient had elected for sleeve gastrectomy. At his height of 6 feet 4 inches, his ideal body weight is 204 pounds. His highest lifetime weight was 560 pounds, BMI 68.3. Today he comes in 364 pounds from 385 pounds 1 month ago. He has lost 21 pounds in 1 month. His BMI is 43.5. He is 160 pounds overweight. All surgical options for morbid obesity had been described using the [place] bariatric surgery collaborative comorbidity resolution including complication risk score. A second-generation bariatric consent form was described in detail including the possibility of protein malnutrition, leaks, gastric stricture, venous thrombosis, gastroesophageal reflux disease, need for further surgery for which he demonstrated understanding. Benefits and risks of the procedure were described at length. Informed consent was obtained. DESCRIPTION: The patient was brought into the operating room theater. Preoperatively he had received Lovenox subcutaneously for DVT prophylaxis. Additionally he had Peridex oral solution as an oral decontaminant. After general induction, the abdomen was prepped and draped in standard sterile fashion. An Ioban draping was placed along the abdomen. Stevenson catheter was placed. A robotic da Michael Xi system was prepped and primed. At 15 cm from the xiphoid, proposed port sites were marked with indelible marker along the anterior axillary line bilaterally, mid axillary line bilaterally with each ports were marked 10 to 15 cm from each other. The clerical dentist assistant port was marked along the left lateral abdominal wall. The robotic stapler port was marked for the right midclavicular line. A 5 mm 0 degrees laparoscopic trocar entry was performed along the left upper quadrant. The abdomen was insufflated to 15 mmHg pressure he tolerated well. Diagnostic laparoscopy demonstrated no injury to bowel, viscera, or mesentery. The liver surface was unremarkable without evidence of hepatomegaly or fatty liver disease. No injury had occurred to the small bowel or viscera. Along the hiatus no recurrent hiatal hernia was found. A 8 mm port was placed along the right upper abdominal wall after exchanging the 5 mm port. A separate 8 mm port was placed along the left lateral abdominal wall. Please note that the ports were placed at least 20 cm away from the target anatomy. Care was taken to check each robotic arms were safely away from collision with the bed or the patient. At the epigastrium, a medium sized Magnolia liver retractor was placed under direct visualization with the Iron Manager Culinary placed under the right shoulder of the patient. Next, 12-mm robot stapler port was placed along the right upper quadrant. The camera 8-mm port was maintained along the epigastrium. The patient was repositioned in reverse Trendelenburg position at 20-degrees after lowering the bed. The robot was docked along the left side of the patient. Using a grasper for arm 4, a veseel sealer for arm 3, including grasper for arm 1, the robotic system was docked and primed as described. Instruments were interchanged by the clerical dentist assistant for stapler loads. The camera was placed at 30-degrees down. I had sat at the console. The pylorus was identified and 6 cm proximally along the greater curvature of the stomach, the short gastrics were mobilized upwards to the angle of His using a vessel sealer. Hemostasis was excellent during this portion of the procedure. Next, the upper pole of the stomach was adherent to the left carlos, which was gently dissected free using atraumatic grasper. The nursing strawhat sizer placed a 40-Northern Irish blunted tip bougie into the stomach. Robotic stapler green loads 60 mm x 2 followed by blue 60 mm x 4 were used to create the sleeve. Initial firing was across the antrum of the stomach towards the angle of His. The staple line was completely hemostatic and linear without corkscrewing. Hemostasis was excellent. The space from the angularis incisura of the sleeve was approximately 4 cm. I then went to the head of the bed to perform the intraoperative esophagogastroduodenoscopy leak test. The upper pole of the stomach was bathed using normal saline solution. The scope was withdrawn with careful inspection along the staple line for which no leaks were found along the entire length. Additionally, the sleeve was completely hemostatic without any encroachment along the angularis incisura. Its topology was a soft "J". No stricture was encountered upon placement of the scope. The GI tract was desufflated. The patient tolerated this portion of the procedure well. The scope was completely withdrawn. The robot was undocked. I then rescrubbed into case, whereby the irrigation fluid was aspirated from the abdominal cavity. Tisseel fibrin sealant was placed along the entire staple length. Once dried the Magnolia liver retractor was removed. Attention was now brought to removal of the specimen. The distal end of the sleeve gastrectomy specimen was brought out through the 12 mm port at the left upper quadrant. The specimen was gently removed en total, corresponding to 30cm x 5 cm sleeve gastrectomy specimen. No contamination had occurred during this process. All instruments and pneumoperitoneum including irrigation fluid was removed from the abdominal cavity. The 12 mm port site was irrigated with warm normal saline solution and diluted hydron peroxide. The 12-mm port site was reapproximated using 0 Vicryl and Yordy-Jaime of the left upper quadrant. The final incisions were closed using subcuticular interrupted suture of 4-0 Monocryl. Dermabond was applied to the skin once the skin had been cleansed. OptiFoam dressing was placed along the stomach extraction site. At the end of the procedure, needle, sponge, and instrument count was verified correct by the surgical supervisor. The patient was taken to the postanesthesia care unit in stable condition. He had tolerated the procedure well. Intraoperative films and findings were reviewed with the patient's family. FINDINGS: 1. Negative intraoperative esophagogastrojejunoscopy leak test. 2. No large hiatus hernia. 3. Total of 6 staplers used including 2 - 60 mm green and 4 - 60 mm blue robot michele used to create the gastric sleeve. 4. Sleeve gastrectomy 30 x 5 cm 5. Console time 43 minutes
[2019-02-22] MEDS ORDERED: NALOXONE 0.4 MG/ML 1 ML VIAL IV PRN (10:29)
[2019-02-22] MEDS ORDERED: HYDROmorphone 1 MG/ML 1 ML SYRINGE IVP PRN (10:29)
[2019-02-22] MEDS ORDERED: HYOSCYAMINE ORAL DROPS 1.875 MG/15 ML BOTTLE PO PRN (10:29)
[2019-02-22] MEDS ORDERED: diphenhydrAMINE 50 MG/ML 1 ML VIAL IVP PRN (10:29)
[2019-02-22] MEDS ORDERED: HYDROcodone/APAP 15 ML SOLUTION PO PRN (10:29)
[2019-02-22] MEDS: HYDROmorphone 1 MG/ML 1 ML SYRINGE IVP ONE ×4 (10:30→11:54)
[2019-02-22] MEDS ORDERED: PROMETHAZINE INJ 25 MG/ML 1 ML VIAL IVPB ONE ×2 (11:24)
[2019-02-22] MEDS: ALBUTEROL NEBULIZED 2.5 MG/3 ML INHALATION SCH ×3 (12:51→19:55)
[2019-02-22] MEDS: METOCLOPRAMIDE 5 MG/ML 2 ML VIAL IVP SCH ×3 (13:16→23:26)
[2019-02-22] MEDS: DEXAMETHASONE SOD PHOSPHATE 4 MG/ML 1 ML VIAL IV SCH ×3 (13:16→23:26)
[2019-02-22] MEDS: ONDANSETRON 4 MG/2 ML VIAL IVP SCH ×3 (13:16→23:24)
[2019-02-22] MEDS: SIMETHICONE 40 MG/0.6 ML DROPS 2,000 MG/30 ML BOTTLE PO SCH ×3 (13:17→23:31)
[2019-02-22] MEDS: 0.9% NACL WITH KCL 20 MEQ/L 1,000 ML IV SCH ×2 (13:28→21:36)
[2019-02-22] MEDS: ceFAZolin 3 GM in SODIUM CHLORIDE 0.9% 100 ML IVPB SCH ×2 (15:36→23:32)
--- NOTE | 2019-02-22 19:32 | FL ---
SINGLE CONTRAST UPPER GI EXAMINATION: CLINICAL HISTORY: 63-year-old male rule out leak/obstruction status post sleeve gastrectomy. TECHNIQUE: Single contrast exam performed with 50 ml Isovue-370 contrast. Total fluoroscopy time: 1 minute 1 second. Coronal images: 23. FINDINGS: The patient swallowed oral contrast without difficulty or delay. Esophageal peristalsis and motility are within normal limits. There is good flow of contrast from esophagus into the stomach with post s urgical changes of sleeve gastrectomy demonstrated. There is no evidence of contrast extravasation to suggest leak. Satisfactory passage of contrast into the duodenum. Trace post surgical free air below the right hemidiaphragm. IMPRESSION: No evidence of leak or significant obstruction status post sleeve gastrectomy. Trace postsurgical grayson e air on right.
[2019-02-22] MEDS ORDERED: TAMSULOSIN 0.4 MG CAP.ER.24H PO STA (20:48)
[2019-02-23 02:44] VITALS: PULSE 52
[2019-02-23] MEDS: 0.9% NACL WITH KCL 20 MEQ/L 1,000 ML IV SCH ×2 (04:00→08:28)
[2019-02-23] MEDS: DEXAMETHASONE SOD PHOSPHATE 4 MG/ML 1 ML VIAL IV SCH (05:36)
[2019-02-23] MEDS: SIMETHICONE 40 MG/0.6 ML DROPS 2,000 MG/30 ML BOTTLE PO SCH (05:37)
[2019-02-23] MEDS: ENOXAPARIN 40 MG/0.4 ML SYRINGE SQ SCH ×2 (05:37→08:34)
[2019-02-23] MEDS: METOCLOPRAMIDE 5 MG/ML 2 ML VIAL IVP SCH (05:37)
[2019-02-23] MEDS: ONDANSETRON 4 MG/2 ML VIAL IVP SCH (05:40)
[2019-02-23 07:30] LABS: Basophils % (A) 0 %; Eosinophils % (A) 0 %; HCT 43.9 % (39.0-53.0); HGB 14.5 gm/dL (13.0-17.5); Lymphocytes # (A) 0.5 k/uL (1.0-4.8); Lymphocytes % (A) 5 %; MCH 27.9 pg (25.0-35.0); MCHC 32.9 g/dL (31.0-37.0); MCV 84.8 fL (80.0-100.0); Mean Platelet Volume 6.7; Monocytes # (A) 0.4 k/uL (0-1.0); Monocytes % (A) 5 %; Neutrophils # (A) 7.6 k/uL (1.3-7.7); Neutrophils % (A) 89 %; Platelet Count 190 k/uL (150-450); RBC 5.18 m/uL (4.30-5.90); RDW 15.3 % (11.5-15.5); WBC 8.5 k/uL (3.8-10.6)
[2019-02-23] MEDS: ALBUTEROL NEBULIZED 2.5 MG/3 ML INHALATION SCH (07:36)
[2019-02-23 07:46] LABS: African American GFR (CKD) >90 (>60 ml/min/1.73 sqM); Anion Gap 13 mmol/L; Blood Urea Nitrogen 11 mg/dL (9-20); Calcium 9.3 mg/dL (8.4-10.2); Carbon Dioxide 22 mmol/L (22-30); Chloride 106 mmol/L (98-107); Magnesium 2.1 mg/dL (1.6-2.3); Phosphorus 3.3 mg/dL (2.5-4.5); Potassium 4.6 mmol/L (3.5-5.1); Sodium 141 mmol/L (137-145)
--- NOTE | 2019-02-23 08:23 | P.DS ---
Providers Date of admission: 02/22/19 06:05 Expected date of discharge: 02/23/19 Attending physician: Karena Winters Primary care physician: Ortega Roberts - Discharge Diagnosis(es) (1) Morbid obesity with BMI of 45.0-49.9, adult Status: Acute (2) Hypertensive heart disease Status: Acute (3) Chronic pain Status: Acute (4) Sciatica Status: Acute (5) Obstructive sleep apnea hypopnea, moderate Status: Acute Hospital Course: Vital Signs Temp 97.6 F 02/23/19 01:29 Pulse 52 L 02/23/19 01:29 Resp 18 02/23/19 01:29 BP 149/81 02/23/19 01:29 Pulse Ox 97 02/23/19 07:36 Intake & Output 02/22/19 02/23/19 02/23/19 18:59 06:59 18:59 Intake Total 1520 1720 Output Total 105 800 Balance 1415 920 Intake: IV 1400 Intake, IV Titration 1600 Amount 0.9% NaCl with KCl 20 Meq 1500 /l 1,000 ml @ 150 mls/hr IV .[id number] [facility] Rx#: [id number] ceFAZolin 3 gm In Sodium 100 Chloride 0.9% 100 ml @ 200 mls/hr IVPB Q8HR [facility] Rx#:[id number] Oral 120 120 Output: Urine 100 800 Estimated Blood Loss 5 Other: Voiding Method Toilet # Voids 2 Laboratory Last Values WBC 8.5 k/uL (3.8-10.6) 02/23/19 06:31 RBC 5.18 m/uL (4.30-5.90) 02/23/19 06:31 Hgb 14.5 gm/dL (13.0-17.5) 02/23/19 06:31 Hct 43.9 % (39.0-53.0) 02/23/19 06:31 MCV 84.8 fL (80.0-100.0) 02/23/19 06:31 MCH 27.9 pg (25.0-35.0) 02/23/19 06:31 MCHC 32.9 g/dL (31.0-37.0) 02/23/19 06:31 RDW 15.3 % (11.5-15.5) 02/23/19 06:31 Plt Count 190 k/uL (150-450) 02/23/19 06:31 Neutrophils % 89 % 02/23/19 06:31 Lymphocytes % 5 % 02/23/19 06:31 Monocytes % 5 % 02/23/19 06:31 Eosinophils % 0 % 02/23/19 06:31 Basophils % 0 % 02/23/19 06:31 Neutrophils # 7.6 k/uL (1.3-7.7) 02/23/19 06:31 Lymphocytes # 0.5 k/uL (1.0-4.8) L 02/23/19 06:31 Monocytes # 0.4 k/uL (0-1.0) 02/23/19 06:31 Eosinophils # 0.0 k/uL (0-0.7) 02/23/19 06:31 Basophils # 0.0 k/uL (0-0.2) 02/23/19 06:31 Sodium 141 mmol/L (137-145) 02/23/19 06:31 Potassium 4.6 mmol/L (3.5-5.1) 02/23/19 06:31 Chloride 106 mmol/L (98-107) 02/23/19 06:31 Carbon Dioxide 22 mmol/L (22-30) 02/23/19 06:31 Anion Gap 13 mmol/L 02/23/19 06:31 BUN 11 mg/dL (9-20) 02/23/19 06:31 Creatinine 0.72 mg/dL (0.66-1.25) 02/23/19 06:31 Est GFR (CKD-EPI)AfAm >90 (>60 ml/min/1.73 sqM) 02/23/19 06:31 Est GFR (CKD-EPI)NonAf >90 (>60 ml/min/1.73 sqM) 02/23/19 06:31 Calcium 9.3 mg/dL (8.4-10.2) 02/23/19 06:31 Phosphorus 3.3 mg/dL (2.5-4.5) 02/23/19 06:31 Magnesium 2.1 mg/dL (1.6-2.3) 02/23/19 06:31 Blood Type O Positive 02/13/19 08:05 Blood Type Confirm O Positive 02/22/19 06:40 Blood Type Recheck No Previous Record 02/13/19 08:05 Bld Type Recheck Status CABO Indicated 02/13/19 08:05 Antibody Screen NEGATIVE 02/13/19 08:05 Spec Expiration Date 02/24/2019230402/13/19 08:05 POSTOPERATIVE DIAGNOSES: 1. Morbid obesity due to excess calories, BMI 68.3 to 43.5 2. Gastroesophageal reflux disease. 3. Colon polyps 4. Family history of colon polyps. 5. Diabetes type 2, non-insulin dependent, diet controlled 6. Obstructive sleep apnea. 7. Osteoarthritis knees 8. Osteoarthritis hips 9. Osteoarthritis lower back 10. Sciatica COURSE: Mr. Navjot Kunz is a pleasant 63-year-old gentleman who presents with lifelong history of morbid obesity. He had completed medical including cardiac and psychological clearances. He completed medical supervised weight loss. Initially, patient presented for gastric bypass however secondary to limited tools to proceed with gastric bypass, patient had elected for sleeve gastrectomy. Post procedure, he had done well. No reports of nausea and vomiting. He tolerated all of his diet. He was voiding well. Esophagram demonstrated no leaks or obstruction. Bariatric discharge instructions were reviewed in detail. Patient demonstrated understanding of the bariatric perioperative care including immediate follow-up within 3 days post discharge. Patient was stable for discharge. CHIEF COMPLAINT: Morbid obesity HISTORY OF PRESENT ILLNESS: The patient is a 63-year-old male postop day 1 status post robotic sleeve gastrectomy. ROS: No reports of nausea and vomiting. No fevers or chills. No new chest pain. No productive sputum PHYSICAL EXAM: VITAL SIGNS: Reviewed CONSTITUTIONAL: Well developed and in no acute distress. EYES: Conjuctivae without sclera icterus. Extraocular movements grossly intact. HEAD, EARS, NOSE, THROAT: Moist buccal mucosa. Head is atraumatic, normocephalic. Hears conversational speech. No nasal drainage. NECK: Supple. No thyroidomegaly. RESPIRATORY: Non-labored respirations and equal bilateral excursions. CARDIOVASCULAR: Palpable 2+ radial pulses. Regular rate. Regular rhythm. ABDOMEN: Incisions clean dry and intact. Soft. No peritonitis. Minimal tenderness left upper quadrant. Abdominal binder present. MUSCULOSKELETAL: No gross deformity of the lower extremities noted. No clubbing. No cyanosis. SKIN: Good skin turgor. Well perfused. NEUROLOGIC: Cranial nerves I through XII grossly intact. No focal or lateralizing signs. PSYCH: Appropriate affect. Alert and oriented to person, place and time. CLINCAL LABS: White blood cell count normal ASSESSMENT: 1. Status post sleeve gastrectomy PLAN: 1. Discharged today Patient Condition at Discharge: Good Plan - Discharge Summary Discharge Rx Participant: Yes New Discharge Prescriptions: New Bisacodyl [Dulcolax] 5 mg PO DAILY PRN #10 tablet. PRN Reason: Constipation Simethicone 40 mg/0.6 ml Drops [Mylicon Drops] 40 mg PO PCHS PRN #30 ml PRN Reason: Gas Acetaminophen Tab [Tylenol Tab] 500 mg PO Q6H PRN #30 tablet PRN Reason: Pain Ondansetron Odt [Zofran Odt] 4 mg PO Q8HR PRN #9 tab PRN Reason: Nausea Omeprazole 40 mg PO DAILY #30 capsule.dr [place] Losartan Potassium 50 mg PO DAILY Discontinued Multivitamins, Thera [Multivitamin] 1 tab PO BID Cholecalciferol (Vitamin D3) [Decara] 2,000 unit PO BID Ubidecarenone [Co Q-10] 100 mg PO DAILY Cyanocobalamin (Vitamin B-12) [Vitamin B-12] 1,000 mcg PO DAILY Discharge Medication List Losartan Potassium 50 mg PO DAILY 05/06/18 [History] Acetaminophen Tab [Tylenol Tab] 500 mg PO Q6H PRN #30 tablet 02/23/19 [Rx] Bisacodyl [Dulcolax] 5 mg PO DAILY PRN #10 tablet. 02/23/19 [Rx] Omeprazole 40 mg PO DAILY #30 capsule. 02/23/19 [Rx] Ondansetron Odt [Zofran Odt] 4 mg PO Q8HR PRN #9 tab 02/23/19 [Rx] Simethicone 40 mg/0.6 ml Drops [Mylicon Drops] 40 mg PO PCHS PRN #30 ml 02/23/19 [Rx] Follow up Appointment(s)/Referral(s): [facility] [place], [place] [NON-STAFF] - 02/25/19 10:00 am Patient Instructions/Handouts: Abdominal Binder (DC), Nutrition after Bariatric Surgery (GEN), Laparoscopic Sleeve Gastrectomy (DC) Activity/Diet/Wound Care/Special Instructions: NO lifting over 4 pounds in 4 weeks, March 24. September shower. No bathtub soaks. Dressings to be removed by your doctor in the office. Notify bariatric center for temp over 101.0, increased pain, drainage from incisions. No straws or carbonated beverages. Liquid diet only. Sugar content should be less than 6 g to avoid dumping syndrome. Take MOM for constipation. CRUSH, OPEN, OR CUT TABLETS LARGER THAN A SIZE OF A TIC TAC Discharge Disposition: HOME SELF-CARE
[2019-02-23] MEDS ORDERED: TAMSULOSIN 0.4 MG CAP.ER.24H PO SCH (08:30)
[2019-02-23 08:45] VITALS: BP 148/76; RESP 16; TEMP 97.8
[2019-02-23] MEDS ORDERED: PANTOPRAZOLE 40 MG/10 ML VIAL IV SCH (09:00)
[2019-02-23] MEDS ORDERED: LOSARTAN 50 MG TAB PO SCH (09:00)
[2019-02-23 10:50] VITALS: BMI 42.1
[2019-02-23] MEDS ORDERED: 0.9% NACL WITH KCL 20 MEQ/L 1,000 ML IV SCH (14:00)
[2019-02-24] MEDS ORDERED: BISACODYL 5 MG TABLET.DR PO PRN (08:00)
== END 2019-02-23 10:36 | disposition home or self-care (01) | DRG 621 ==
LOC: 2ORMAIN 06:05 → EDSTATUS 07:30 → 4SSUR 12:38
PROVIDERS: ADMIT Surgery Plastic and Reconstructive Surgery; ATTEND Surgery Plastic and Reconstructive Surgery
PROC: 0DJ08ZZ Inspection of Upper Intestinal Tract, Via Natural or Artificial Opening Endoscopic (ICD-10-PCS; 2019-02-22)
PROC: 8E0W4CZ Robotic Assisted Procedure of Trunk Region, Percutaneous Endoscopic Approach (ICD-10-PCS; 2019-02-22)
PROC: 0DB64Z3 Excision of Stomach, Percutaneous Endoscopic Approach, Vertical (ICD-10-PCS; principal; 2019-02-22 07:45)
DX: E66.01 Morbid (severe) obesity due to excess calories (principal); Z68.41 Body mass index [BMI] 40.0-44.9, adult; I11.9 Hypertensive heart disease without heart failure; E11.9 Type 2 diabetes mellitus without complications; G47.33 Obstructive sleep apnea (adult) (pediatric); G89.29 Other chronic pain; K21.9 Gastro-esophageal reflux disease without esophagitis; M16.0 Bilateral primary osteoarthritis of hip; M17.0 Bilateral primary osteoarthritis of knee; M47.9 Spondylosis, unspecified; M54.30 Sciatica, unspecified side; M19.072 Primary osteoarthritis, left ankle and foot; M19.071 Primary osteoarthritis, right ankle and foot; M10.9 Gout, unspecified; E78.5 Hyperlipidemia, unspecified; Z86.010 Personal history of colon polyps; Z79.899 Other long term (current) drug therapy; Z90.49 Acquired absence of other specified parts of digestive tract; Z82.3 Family history of stroke; Z83.71 Family history of colonic polyps
CPT/HCPCS: 74210; 80051; 82310; 82565; 83735; 84100; 84520; 85025; 86850; 86900; 86901; 88307; 94640; 94760

== ENCOUNTER → 2019-02-25 | Outpatient (CLI) | payer OTHER ==
[2019-02-25 10:41] VITALS: BP 114/61; PULSE 62; RESP 16; TEMP 98.1; BMI 44.4
--- NOTE | 2019-02-25 11:05 | P.PN ---
Subjective Progress Note Date: 02/25/19 DATE OF SERVICE: 02/25/2019 CHIEF COMPLAINT: Morbid obesity HISTORY OF PRESENT ILLNESS: Mr. Navjot Kunz is a pleasant 63-year-old status post sleeve gastrectomy 02/22/19. He is POD 3. He is doing well. His blood pressure is doing very well. No fevers or chills. No nausea or vomiting. Pain is controlled. At his height of 6 feet 4 inches, his ideal body weight is 204 pounds. His highest lifetime weight was 560 pounds, BMI 68.3. Today he comes in 364 pounds from 385 pounds, 1 month ago. He has lost 21 pounds in 1 month. Lifetime weight loss of 196 pounds. Percent excess weight loss of 55%. PHYSICAL EXAM: VITAL SIGNS: 6 feet 4 inches, 364 pounds. Body mass index of 44.4 Vital Signs Temp 98.1 F 02/25/19 10:38 Pulse 62 02/25/19 10:38 Resp 16 02/25/19 10:38 BP 114/61 02/25/19 10:38 Pulse Ox VITALS: Reviewed CONSTITUTIONAL: Well developed and in no acute distress. EYES: Conjuctivae without sclera icterus. Pupils are equally round and reactive to light. Extraocular movements grossly intact. HEAD, EARS, NOSE, THROAT: Moist buccal mucosa. Head is atraumatic, normocephalic. Hears conversational speech. No nasal drainage. RESPIRATORY: Non-labored respirations and equal bilateral excursions. No gross wheezes. CARDIOVASCULAR: Regular rate and rhythm. Palpable 2+ radial pulses. ABDOMEN: Soft. Non-tender. Nondistended. No infection MUSCULOSKELETAL: Nail and fingers with good capillary refill. SKIN: Warm and well perfused with good skin turgor. NEUROLOGIC: Cranial nerves I through XII grossly intact. Sensation upper and extremities intact. No focal or lateralizing signs. PSYCH: Appropriate affect. Alert and oriented to person, place and time. Displays appropriate insight. ASSESSMENT: 1. Morbid obesity due to excess calories, BMI 68.3 to 44.4 2. Gastroesophageal reflux disease. 3. Colon polyps 4. Family history of colon polyps. 5. Diabetes type 2, non-insulin dependent, diet controlled 6. Obstructive sleep apnea. 7. Osteoarthritis knees 8. Osteoarthritis hips 9. Osteoarthritis lower back 10. Sciatica 11. Status post sleeve gastrectomy PLAN: 1. Follow up in 1 week 2. Fluid intake over 64 ounces daily reviewed 3. Protein intake over 90 grams daily Objective - Vital Signs Vital signs: Vital Signs Temp 98.1 F 02/25/19 10:38 Pulse 62 02/25/19 10:38 Resp 16 02/25/19 10:38 BP 114/61 02/25/19 10:38 Pulse Ox Intake & Output 02/24/19 02/25/19 02/25/19 18:59 06:59 18:59 Weight 165.561 kg
== END | disposition home or self-care (01) ==
LOC: BARWHC3 09:36
PROVIDERS: ATTEND Surgery Plastic and Reconstructive Surgery
DX: E66.01 Morbid (severe) obesity due to excess calories (principal); K21.9 Gastro-esophageal reflux disease without esophagitis; K63.5 Polyp of colon; E11.9 Type 2 diabetes mellitus without complications; G47.33 Obstructive sleep apnea (adult) (pediatric); M17.0 Bilateral primary osteoarthritis of knee; M54.30 Sciatica, unspecified side; M16.0 Bilateral primary osteoarthritis of hip; Z83.71 Family history of colonic polyps; Z79.84 Long term (current) use of oral hypoglycemic drugs; Z68.44 Body mass index [BMI] 60.0-69.9, adult; Z98.84 Bariatric surgery status
CPT/HCPCS: 99211

== ENCOUNTER → 2019-03-03 | Outpatient (CLI) | payer OTHER ==
[2019-03-03 15:16] VITALS: BP 136/71; PULSE 66; TEMP 98.1; BMI 43.0
--- NOTE | 2019-03-03 15:21 | P.PN ---
Subjective Progress Note Date: 03/03/19 DATE OF SERVICE: 03/03/2019 CHIEF COMPLAINT: Morbid obesity HISTORY OF PRESENT ILLNESS: Mr. Navjot Kunz is a pleasant 63-year-old status post sleeve gastrectomy 02/22/19. He is 2 weeks out. His blood pressure is improved. He feels good. He reports trouble with his blood pressure as it is low. He is taking Omeprazole. He is drinking over 90 ounces daily. He is taking more than 90 grams of protein. At his height of 6 feet 4 inches, his ideal body weight is 204 pounds. His highest lifetime weight was 560 pounds, BMI 68.3. Today he comes in 353 pounds from 364 pounds, 2 weeks ago. He has lost 11 pounds in 2 weeks. Lifetime weight loss of 207 pounds. Percent excess weight loss of 58%. PHYSICAL EXAM: VITAL SIGNS: 6 feet 4 inches, 353 pounds. Body mass index of 43.1 Vital Signs Temp 98.1 F 03/03/19 15:11 Pulse 66 03/03/19 15:11 Resp BP 136/71 03/03/19 15:11 Pulse Ox VITALS: Reviewed CONSTITUTIONAL: Well developed and in no acute distress. EYES: Conjuctivae without sclera icterus. Pupils are equally round and reactive to light. Extraocular movements grossly intact. HEAD, EARS, NOSE, THROAT: Moist buccal mucosa. Head is atraumatic, normocephalic. Hears conversational speech. No nasal drainage. RESPIRATORY: Non-labored respirations and equal bilateral excursions. No gross wheezes. CARDIOVASCULAR: Regular rate and rhythm. Palpable 2+ radial pulses. ABDOMEN: Soft. Non-tender. Nondistended. No infection. Incisions are granulating. MUSCULOSKELETAL: Nail and fingers with good capillary refill. SKIN: Warm and well perfused with good skin turgor. NEUROLOGIC: Cranial nerves I through XII grossly intact. Sensation upper and extremities intact. No focal or lateralizing signs. PSYCH: Appropriate affect. Alert and oriented to person, place and time. Displays appropriate insight. ASSESSMENT: 1. Morbid obesity due to excess calories, BMI 68.3 to 43.1 2. Gastroesophageal reflux disease. 3. Colon polyps 4. Family history of colon polyps. 5. Diabetes type 2, non-insulin dependent, diet controlled 6. Obstructive sleep apnea. 7. Osteoarthritis knees 8. Osteoarthritis hips 9. Osteoarthritis lower back 10. Sciatica 11. Status post sleeve gastrectomy PLAN: 1. Follow up in 1 week 2. Fluid intake over 64 ounces daily reviewed 3. Protein intake over 90 grams daily Objective - Vital Signs Vital signs: Vital Signs Temp 98.1 F 03/03/19 15:11 Pulse 66 03/03/19 15:11 Resp BP 136/71 03/03/19 15:11 Pulse Ox Intake & Output 03/02/19 03/03/19 03/03/19 18:59 06:59 18:59 Weight 160.572 kg
== END | disposition home or self-care (01) ==
LOC: BARWHC3 13:16
PROVIDERS: ATTEND Surgery Plastic and Reconstructive Surgery
DX: E66.01 Morbid (severe) obesity due to excess calories (principal); Z68.41 Body mass index [BMI] 40.0-44.9, adult; K21.9 Gastro-esophageal reflux disease without esophagitis; K63.5 Polyp of colon; E11.9 Type 2 diabetes mellitus without complications; G47.33 Obstructive sleep apnea (adult) (pediatric); M17.9 Osteoarthritis of knee, unspecified; M16.9 Osteoarthritis of hip, unspecified; M19.90 Unspecified osteoarthritis, unspecified site; M54.30 Sciatica, unspecified side; Z98.84 Bariatric surgery status
CPT/HCPCS: 97803; G0463; 99211

== ENCOUNTER → 2019-03-23 | Outpatient (CLI) | payer OTHER ==
[2019-03-23 12:04] VITALS: BP 144/74; PULSE 60; RESP 18
--- NOTE | 2019-03-23 12:30 | P.PAINPG ---
Subjective Progress Note Date: 03/23/19 This is a follow-up visit for this 63 years old male with a chronic history of severe low back pain, diagnosed with lumbar spondylosis with lumbar facet arthropathy, and lumbar degenerative disc disease, recently we have done radiofrequency ablation of the medial branch lumbar area, patient reported that his pain improved significantly since then, he continued to have some pain in the lateral aspect of the right hip, he denies any motor or sensory deficits, he reports that the pain intensity interfere with the quality of life, he denies any fever or night sweats, and no change in bowel movement or urination Objective - Vital Signs Vital signs: Vital Signs Temp Pulse 60 03/23/19 11:55 Resp 18 03/23/19 11:55 BP 144/74 03/23/19 11:55 Pulse Ox 97 03/23/19 11:55 - Exam Physical Examinations : -Constitutiona : Cooperative , not in acute distress . -HEENT : nech : supple , no Lymphadenopathy , normal thyroid size . eyes : no ptosis , no icterus, no photophobia . - neurologic : Cranial nerve II to XII intact , no focal neurological deffecit . -psychatric : alert , oriented X 3 , appropriate affect , intact judgment and insight . -Lymphatic : no Lymphadenopathy . - musculoskeltal : Lumber spine moter stegnth lower extremities ,thigh and legs 5/5 Right side , 5/5 Left side deep tendon reflexes : normal Knee Jerk , normal ankle Jerk positive tenderness over the right trochanteric bursa Assessment and Plan Plan: Assessment and plan=1-lumbar spondylosis with lumbar facet arthropathy. 2-lumbar degenerative disease. 3-right trochanteric bursitis Pain improved significantly after radiofrequency ablation of the median branch lumbar area. The patient complaining of minimal pain seco ndary to right trochanteric bursitis, patient would continue to use Tylenol 650 PRN He will follow up with the pain clinic when necessary Time with Patient: Less than 30 PQRS Measure Charge Sheet Measure #130: Documentation of Current Meds in Medical Chart: Patient's medications documented in chart Measure #226: Tobacco Use: Screen & Cessation Intervention: Pt not a tobacco user Measure #111: Pneumonia Vaccination: Pneumococcal vaccine administered or previously received Measure #47: Advance Care Plan: Advance care planning discussed & documented, pt chose/unable to give Measure #412: Opioid Treatment Agreement: No documentation of signed opioid treatment agreement Measure #408: Opioid Therapy Follow-up Evaluation: Patient had NO f/u eval minimum every 3 months during opioid therapy Measure #317: Preventitive Care & Scrn High Bld Press & F/U: Pre-hypertensive or hypertensive BP documented, pt will f/u with PCP Measure #128: Body Mass Index (BMI) Screening & Follow-up: BMI documented ABOVE normal parameters - f/u documented Measure #131: Pain Assessment & Follow-up: Pain positive & plan documented, Follow-up PRN Measure #431: Unhealthy Alcohol Use Preventative Care & Scrn: Patient not identified as an unhealthy alcohol user PQRS Narrative: Smoking Status Never smoker Blood Pressure 144/74 Pain Intensity [Lower Back] 0 Pain Intensity [Right Leg] 2 Scale Used Numeric (1 - 10) Hx Alcohol Use (MH) No Home Medications: Ambulatory Orders Acetaminophen [Tylenol] 325 mg PO DAILY PRN 03/17/19 Controlled Substance Measures - Controlled Substance Measures Is patient prescribed a controlled substance at discharge?: No
== END ==
LOC: PNWHC3 11:23
PROVIDERS: ATTEND Specialist
DX: G89.29 Other chronic pain (principal); M47.816 Spondylosis without myelopathy or radiculopathy, lumbar region; M46.96 Unspecified inflammatory spondylopathy, lumbar region; M51.36 Other intervertebral disc degeneration, lumbar region; M70.61 Trochanteric bursitis, right hip; Z79.899 Other long term (current) drug therapy
CPT/HCPCS: 99211

== ENCOUNTER → 2019-03-31 | Outpatient (CLI) | payer OTHER ==
[2019-03-31 16:35] VITALS: BP 134/82; PULSE 50; RESP 16; TEMP 97.6; BMI 41.1
--- NOTE | 2019-03-31 16:54 | P.PN ---
Subjective Progress Note Date: 03/31/19 DATE OF SERVICE: 03/31/2019 CHIEF COMPLAINT: Morbid obesity HISTORY OF PRESENT ILLNESS: Mr. Navjot Kunz is a pleasant 63-year-old status post sleeve gastrectomy 02/22/19. He is 1 month out. He has weight loss of 40 pounds. His goal is to get to 240 pounds. His protein intake is 100 grams daily. No reports of gastroesophageal reflux disease. He is off CPAP machine. His sleep apnea is resolved. He is sleeping much better. He has more energy. No reports of abdominal pain. No further back pain. He is active with stack weights. He was 406 pounds in June 2018. At his height of 6 feet 4 inches, his ideal body weight is 204 pounds. His highest lifetime weight was 560 pounds in 2002, BMI 68.3. Today he comes in 337 pounds from 353 pounds, 4 weeks ago. He has lost 16 pounds in 4 weeks. Lifetime weight loss of 223 pounds. Percent excess weight loss of 63 %. PHYSICAL EXAM: VITAL SIGNS: 6 feet 4 inches, 337 pounds. Body mass index of 43.1 Vital Signs Temp 97.6 F 03/31/19 16:32 Pulse 50 L 03/31/19 16:32 Resp 16 03/31/19 16:32 BP 134/82 03/31/19 16:32 Pulse Ox CONSTITUTIONAL: Well developed and in no acute distress. EYES: Conjuctivae without sclera icterus. Pupils are equally round and reactive to light. Extraocular movements grossly intact. HEAD, EARS, NOSE, THROAT: Moist buccal mucosa. Head is atraumatic, normocephalic. Hears conversational speech. No nasal drainage. RESPIRATORY: Non-labored respirations and equal bilateral excursions. No gross wheezes. CARDIOVASCULAR: Regular rate and rhythm. Palpable 2+ radial pulses. ABDOMEN: Soft. Non-tender. Nondistended. No infection. Incisions are granulating. MUSCULOSKELETAL: Nail and fingers with good capillary refill. SKIN: Warm and well perfused with good skin turgor. NEUROLOGIC: Cranial nerves I through XII grossly intact. Sensation upper and extremities intact. No focal or lateralizing signs. PSYCH: Appropriate affect. Alert and oriented to person, place and time. Displays appropriate insight. ASSESSMENT: 1. Morbid obesity due to excess calories, BMI 68.3 to 41.1 2. Gastroesophageal reflux disease. 3. Colon polyps 4. Family history of colon polyps. 5. Diabetes type 2, non-insulin dependent, diet controlled 6. Obstructive sleep apnea, resolved 7. Osteoarthritis knees 8. Osteoarthritis hips 9. Osteoarthritis lower back 10. Sciatica 11. Status post sleeve gastrectomy PLAN: 1. He is 1 month out and has done very well 2. Continue Omeprazole for pouch protection. 3. Recommend bariatric labs. Laboratory Last Values WBC 4.5 k/uL (3.8-10.6) 03/31/19 17:32 RBC 5.41 m/uL (4.30-5.90) 03/31/19 17:32 Hgb 15.2 gm/dL (13.0-17.5) 03/31/19 17:32 Hct 46.2 % (39.0-53.0) 03/31/19 17:32 MCV 85.3 fL (80.0-100.0) 03/31/19 17:32 MCH 28.1 pg (25.0-35.0) 03/31/19 17:32 MCHC 33.0 g/dL (31.0-37.0) 03/31/19 17:32 RDW 15.5 % (11.5-15.5) 03/31/19 17:32 Plt Count 158 k/uL (150-450) 03/31/19 17:32 PT 11.8 sec (9.0-12.0) 03/31/19 17:32 INR 1.1 (<1.2) 03/31/19 17:32 APTT 25.2 sec (22.0-30.0) 03/31/19 17:32 Sodium 140 mmol/L (135-145) 03/31/19 17:32 Potassium 4.6 mmol/L (3.5-5.5) 03/31/19 17:32 Chloride 104 mmol/L (96-109) 03/31/19 17:32 Carbon Dioxide 27.0 mmol/L (21.6-31.8) 03/31/19 17:32 Anion Gap 9.00 mmol/L (4.00-12.00) 03/31/19 17:32 BUN 24.0 mg/dL (9.0-27.0) 03/31/19 17:32 Creatinine 0.7 mg/dL (0.6-1.5) 03/31/19 17:32 Est GFR (CKD-EPI)AfAm 116.4 (60.0-200.0) 03/31/19 17:32 Est GFR (CKD-EPI)NonAf 100.4 (60.0-200.0) 03/31/19 17:32 BUN/Creatinine Ratio 34.29 Ratio (12.00-20.00) H 03/31/19 17:32 Glucose 93 mg/dL (70-110) 03/31/19 17:[address] Glu mg/dL 82 03/31/19 17:32 Hemoglobin A1c 4.5 % (4.0-6.0) 03/31/19 17:32 Calcium 10.3 mg/dL (8.7-10.3) 03/31/19 17:32 Phosphorus 2.9 mg/dL (2.4-5.1) 03/31/19 17:32 Magnesium 2.0 mg/dL (1.5-2.4) 03/31/19 17:32 Iron 60 ug/dL (65-175) L 03/31/19 17:32 TIBC 293 ug/dL (228-460) 03/31/19 17:32 % Saturation 20.48 (15.00-50.00) 03/31/19 17:32 Ferritin 140.2 ng/mL (22.0-322.0) 03/31/19 17:32 Total Bilirubin 1.4 mg/dL (0.3-1.2) H 03/31/19 17:32 AST 31 U/L (14-35) 03/31/19 17:32 ALT 36 U/L (10-49) 03/31/19 17:32 Alkaline Phosphatase 71 U/L (41-126) 03/31/19 17:32 Total Protein 7.3 g/dL (6.2-8.2) 03/31/19 17:32 Albumin 4.90 g/dL (3.80-4.90) 03/31/19 17:32 Globulin 2.4 g/dL (1.6-3.3) 03/31/19 17:32 Albumin/Globulin Ratio 2.04 g/dL (1.60-3.17) 03/31/19 17:32 Prealbumin 21.0 mg/dL (18.0-42.0) 03/31/19 17:32 Triglycerides 86.0 mg/dL (0.0-149.0) 03/31/19 17:32 Cholesterol 131 mg/dL (0-200) 03/31/19 17:32 LDL Cholesterol, Calc 75.8 mg/dL (0.0-131.0) 03/31/19 17:32 VLDL Cholesterol, Calc 17.20 mg/dL (5.00-40.00) 03/31/19 17:32 HDL Cholesterol 38.0 mg/dL (40.0-60.0) L 03/31/19 17:32 Cholesterol/HDL Ratio 3.45 03/31/19 17:32 Vitamin A 48 ug/dL (38-106) 03/31/19 17:32 Vitamin B1 52 ug/L (38-122) 03/31/19 17:32 Vitamin B12 778.0 pg/mL (200.0-944.0) 03/31/19 17:32 Vitamin D 25-Hydroxy 51.9 ng/mL (30.0-100.0) 03/31/19 17:32 Folate 10.7 ng/mL 03/31/19 17:32 TSH 1.950 uIU/mL (0.350-5.500) 03/31/19 17:32 PTH Intact 46.3 pg/mL (14.0-72.0) 03/31/19 17:32 Copper 1122 ug/L (665-1480) 03/31/19 17:32 Selenium 127 mcg/L (63-160) 03/31/19 17:32 Zinc 62 ug/dL (60-130) 03/31/19 17:32 Objective - Vital Signs Vital signs: Vital Signs Temp 97.6 F 03/31/19 16:32 Pulse 50 L 03/31/19 16:32 Resp 16 03/31/19 16:32 BP 134/82 03/31/19 16:32 Pulse Ox Intake & Output 03/30/19 03/31/19 03/31/19 18:59 06:59 18:59 Weight 153.314 kg - Labs CBC & Chem 7: 03/31/19 17:32 03/31/19 17:32
[2019-03-31 17:56] LABS: HCT 46.2 % (39.0-53.0); HGB 15.2 gm/dL (13.0-17.5); MCH 28.1 pg (25.0-35.0); MCV 85.3 fL (80.0-100.0); Mean Platelet Volume 7.3; Platelet Count 158 k/uL (150-450); RBC 5.41 m/uL (4.30-5.90); RDW 15.5 % (11.5-15.5); WBC 4.5 k/uL (3.8-10.6)
[2019-03-31 18:12] LABS: INR 1.1 (<1.2); Partial Thromboplastin Time 25.2 sec (22.0-30.0); Prothrombin Time 11.8 sec (9.0-12.0)
[2019-03-31 23:39] LABS: % Iron Saturation 20.48 (15.00-50.00); African American GFR (CKD) 116.4 (60.0-200.0); Albumin 4.9 g/dL (3.80-4.90); Albumin/Globulin Ratio 2.04 (1.60-3.17); BUN/Creat Ratio 34.29 Ratio (12.00-20.00); Calcium 10.3 mg/dL (8.7-10.3); Chol/HDL Ratio 3.45; Globulin 2.4 g/dL (1.6-3.3); LDL Cholesterol,Calculated 75.8 mg/dL (0.0-131.0); Non-African American GFR(CKD) 100.4 (60.0-200.0); Phosphorus 2.9 mg/dL (2.4-5.1); Potassium 4.6 mmol/L (3.5-5.5); Total Bilirubin 1.4 mg/dL (0.3-1.2); Total Protein 7.3 g/dL (6.2-8.2); VLDL Calculation 17.2 mg/dL (5.00-40.00)
[2019-03-31 23:47] LABS: Ferritin 140.2 ng/mL (22.0-322.0)
[2019-03-31 23:53] LABS: Folate, Serum 10.7 ng/mL
[2019-04-01 00:42] LABS: Hemoglobin A1C 4.5 % (4.0-6.0)
[2019-04-01 12:02] LABS: Zinc, Serum 62 ug/dL (60-130)
[2019-04-03 12:37] LABS: Vit B1(Thiamine) 52 ug/L (38-122)
[2019-04-03 20:01] LABS: Selenium 127 mcg/L (63-160)
[2019-04-05 07:19] LABS: Vitamin A 48 ug/dL (38-106)
== END | disposition home or self-care (01) ==
LOC: BARWHC3 15:02
PROVIDERS: ATTEND Surgery Plastic and Reconstructive Surgery
DX: E66.01 Morbid (severe) obesity due to excess calories (principal); Z68.41 Body mass index [BMI] 40.0-44.9, adult; K21.9 Gastro-esophageal reflux disease without esophagitis; K63.5 Polyp of colon; E11.9 Type 2 diabetes mellitus without complications; M54.30 Sciatica, unspecified side; M17.10 Unilateral primary osteoarthritis, unspecified knee; M16.10 Unilateral primary osteoarthritis, unspecified hip; M47.816 Spondylosis without myelopathy or radiculopathy, lumbar region; E21.1 Secondary hyperparathyroidism, not elsewhere classified; D50.9 Iron deficiency anemia, unspecified; E89.1 Postprocedural hypoinsulinemia; K90.9 Intestinal malabsorption, unspecified; E55.9 Vitamin D deficiency, unspecified; K74.1 Hepatic sclerosis; N19 Unspecified kidney failure; K50.90 Crohn's disease, unspecified, without complications; Z98.84 Bariatric surgery status
CPT/HCPCS: 84255; 84134; 84425; 80061; 80053; 82607; 82728; 82525; 82746; 83540; 83550; 83735; 84100; 84443; 84590; 84630; 85027; 85610; 85730; 82306; 83970; 83036; 97803; 36415; G0463; 99211

== ENCOUNTER → 2019-06-16 | Outpatient (CLI) | payer OTHER ==
--- NOTE | 2019-06-16 16:13 | P.PN ---
Subjective Progress Note Date: 06/16/19 DATE OF SERVICE: 06/16/2019 CHIEF COMPLAINT: Sleeve gastrectomy HISTORY OF PRESENT ILLNESS: Navjot Kunz is a pleasant 63-year-old status post sleeve gastrectomy 02/22/19. He is over 3 months out. He is down to 305 pounds. He has lost 90 pounds. Highest weight 560 pounds. He denies gastroesophageal reflux disease. He denies any abdominal pain. He is currently on an appetite suppressants. His protein intake is 98 to 125 grams. His primary doctor is weaning him off appetite suppressants. At his height of 6 feet 4 inches, his ideal body weight is 204 pounds. His highest lifetime weight was 560 pounds in 2002, BMI 68.3. Today he comes in 304 pounds from 337 pounds, 2 months ago. He has lost 33 pounds in 2 months. Lifetime weight loss of 256 pounds. Percent excess weight loss of 72 %. PHYSICAL EXAM: VITAL SIGNS: 6 feet 4 inches, 337 pounds. Body mass index of 43.1 Vital Signs Temp 98.0 F 06/16/19 16:09 Pulse 71 06/16/19 16:09 Resp BP 162/94 06/16/19 16:09 Pulse Ox CONSTITUTIONAL: Well developed and in no acute distress. EYES: Conjuctivae without sclera icterus. Pupils are equally round and reactive to light. Extraocular movements grossly intact. HEAD, EARS, NOSE, THROAT: Moist buccal mucosa. Head is atraumatic, normocephalic. Hears conversational speech. No nasal drainage. RESPIRATORY: Non-labored respirations and equal bilateral excursions. No gross wheezes. CARDIOVASCULAR: Regular rate and rhythm. Palpable 2+ radial pulses. ABDOMEN: Non-tender. Nondistended. No hernia. MUSCULOSKELETAL: Nail and fingers with good capillary refill. SKIN: Warm and well perfused with good skin turgor. NEUROLOGIC: Cranial nerves I through XII grossly intact. Sensation upper and extremities intact. No focal or lateralizing signs. PSYCH: Appropriate affect. Alert and oriented to person, place and time. Displays appropriate insight. ASSESSMENT: 1. Morbid obesity due to excess calories, BMI 68.3 to 37.1 2. Gastroesophageal reflux disease. 3. Colon polyps 4. Family history of colon polyps. 5. Diabetes type 2, non-insulin dependent, diet controlled 6. Obstructive sleep apnea, resolved 7. Osteoarthritis knees 8. Osteoarthritis hips 9. Osteoarthritis lower back 10. Sciatica 11. Status post sleeve gastrectomy 12. Panniculitis PLAN: 1. Recommend bariatric labs Needs labs 2. Recommend Nystatin powder for panniculitis
[2019-06-16 16:16] VITALS: BP 162/94; PULSE 71; TEMP 98; BMI 37.1
== END | disposition home or self-care (01) ==
LOC: BARWHC3 14:07
PROVIDERS: ATTEND Surgery Plastic and Reconstructive Surgery
DX: Z48.815 Encounter for surgical aftercare following surgery on the digestive system (principal); E66.01 Morbid (severe) obesity due to excess calories; K21.9 Gastro-esophageal reflux disease without esophagitis; K63.5 Polyp of colon; E11.9 Type 2 diabetes mellitus without complications; M17.0 Bilateral primary osteoarthritis of knee; M16.0 Bilateral primary osteoarthritis of hip; M54.30 Sciatica, unspecified side; M79.3 Panniculitis, unspecified; Z98.84 Bariatric surgery status; Z83.71 Family history of colonic polyps; Z68.37 Body mass index [BMI] 37.0-37.9, adult
CPT/HCPCS: 99211

== ENCOUNTER → 2019-06-17 | Outpatient (CLI) | payer OTHER ==
[2019-06-17 08:16] LABS: HCT 45.6 % (39.0-53.0); HGB 15.4 gm/dL (13.0-17.5); MCH 29.2 pg (25.0-35.0); MCHC 33.9 g/dL (31.0-37.0); Mean Platelet Volume 7.4; Platelet Count 175 k/uL (150-450); RDW 14.6 % (11.5-15.5); WBC 4.7 k/uL (3.8-10.6)
[2019-06-17 08:18] LABS: INR 1.2 (<1.2); Partial Thromboplastin Time 24.2 sec (22.0-30.0); Prothrombin Time 11.8 sec (9.0-12.0)
[2019-06-17 12:05] LABS: % Iron Saturation 20.62 (15.00-50.00); Albumin 4.6 g/dL (3.80-4.90); Albumin/Globulin Ratio 2.09 (1.60-3.17); Calcium 9.7 mg/dL (8.7-10.3); Chol/HDL Ratio 2.45; Globulin 2.2 g/dL (1.6-3.3); LDL Cholesterol,Calculated 59.2 mg/dL (0.0-131.0); Magnesium 2.1 mg/dL (1.5-2.4); Non-African American GFR(CKD) 90.6 (60.0-200.0); Phosphorus 3.3 mg/dL (2.4-5.1); Potassium 4.5 mmol/L (3.5-5.5); Total Bilirubin 1.1 mg/dL (0.3-1.2); Total Protein 6.8 g/dL (6.2-8.2); VLDL Calculation 11.8 mg/dL (5.00-40.00)
[2019-06-17 12:13] LABS: Ferritin 82.1 ng/mL (22.0-322.0)
[2019-06-17 12:50] LABS: Folate, Serum 18.7 ng/mL
[2019-06-17 16:07] LABS: Hemoglobin A1C 5.4 % (4.0-6.0)
[2019-06-18 14:09] LABS: Zinc, Serum 92 ug/dL (60-130)
[2019-06-20 00:05] LABS: Selenium 152 mcg/L (63-160)
[2019-06-21 08:28] LABS: Vitamin A 43 ug/dL (38-106)
[2019-06-21 13:40] LABS: Vit B1(Thiamine) 107 ug/L (38-122)
== END | disposition home or self-care (01) ==
LOC: LABWHC1 07:36
PROVIDERS: ATTEND Surgery Plastic and Reconstructive Surgery
DX: E21.1 Secondary hyperparathyroidism, not elsewhere classified (principal); E89.1 Postprocedural hypoinsulinemia; E44.0 Moderate protein-calorie malnutrition; E55.9 Vitamin D deficiency, unspecified; K74.1 Hepatic sclerosis; N19 Unspecified kidney failure; K50.90 Crohn's disease, unspecified, without complications
CPT/HCPCS: 36415; 80053; 80061; 82306; 82525; 82607; 82728; 82746; 83036; 83540; 83550; 83735; 83970; 84100; 84134; 84255; 84425; 84443; 84590; 84630; 85027; 85610; 85730

== ENCOUNTER → 2019-09-01 | Outpatient (CLI) | payer OTHER ==
[2019-09-01 13:17] VITALS: RESP 16
[2019-09-01 13:54] VITALS: BMI 37.5
[2019-09-01 14:16] VITALS: BP 127/76; PULSE 68; TEMP 98.2
--- NOTE | 2019-09-01 14:41 | P.PN ---
Subjective Progress Note Date: 09/01/19 DATE OF SERVICE: 09/01/2019 CHIEF COMPLAINT: Sleeve gastrectomy HISTORY OF PRESENT ILLNESS: Navjot Kunz is a pleasant 63-year-old status post sleeve gastrectomy 02/22/19. He is 6 months out. He denies gastroesophageal reflux disease. He denies any abdominal pain. His protein intake is between 100 to 120 g daily. He reports secondary to COVID-19 pandemic, he is in house. As a result he sad about weight gain recently. Separately, he reports intolerance to CPAP machine mask. He reports pressures are too high with his recent weight loss. He is off all medications related to blood pressure. He is only taking medications for his back. At his height of 6 feet 4 inches, his ideal body weight is 204 pounds. His highest lifetime weight was 560 pounds in 2002, BMI 68.3. Today he comes in 307 pounds from 304 pound, 2 months ago. He has gained 3 pounds in 2 months. Lifetime weight loss of 253 pounds. Percent excess weight loss of 71 %. PHYSICAL EXAM: VITAL SIGNS: 6 feet 4 inches, 307 pounds. Body mass index of 37.5 Vital Signs Temp 98.2 F 09/01/19 13:15 Pulse 68 09/01/19 13:15 Resp 16 09/01/19 13:15 BP 127/76 09/01/19 13:15 Pulse Ox CONSTITUTIONAL: Well developed and in no acute distress. EYES: Conjuctivae without sclera icterus. Pupils are equally round and reactive to light. Extraocular movements grossly intact. HEAD, EARS, NOSE, THROAT: Moist buccal mucosa. Head is atraumatic, normocephalic. Hears conversational speech. No nasal drainage. RESPIRATORY: Non-labored respirations and equal bilateral excursions. No gross wheezes. CARDIOVASCULAR: Regular rate and rhythm. Palpable 2+ radial pulses. ABDOMEN: Non-tender. Nondistended. No hernia. MUSCULOSKELETAL: Nail and fingers with good capillary refill. SKIN: Warm and well perfused with good skin turgor. NEUROLOGIC: Cranial nerves I through XII grossly intact. Sensation upper and ex tremities intact. No focal or lateralizing signs. PSYCH: Appropriate affect. Alert and oriented to person, place and time. Displays appropriate insight. LABS: Bariatric labs reviewed demonstrating low iron. Rest of bariatric labs within normal limits. ASSESSMENT: 1. Morbid obesity due to excess calories, BMI 68.3 to 37.5 2. Gastroesophageal reflux disease. 3. Colon polyps 4. Family history of colon polyps. 5. Diabetes type 2, non-insulin dependent, diet controlled 6. Obstructive sleep apnea, resolved 7. Osteoarthritis knees 8. Osteoarthritis hips 9. Osteoarthritis lower back 10. Sciatica 11. Status post sleeve gastrectomy 12. Panniculitis PLAN: 1. Recommend bariatric labs 2. He will need adjustment of his CPAP machine as he lost almost 100 pounds recently. 3. Follow-up in 3 months, November 2019 Objective - Vital Signs Vital signs: Vital Signs Temp 98.2 F 09/01/19 13:15 Pulse 68 09/01/19 13:15 Resp 16 09/01/19 13:15 BP 127/76 09/01/19 13:15 Pulse Ox Intake & Output 08/31/19 09/01/19 09/01/19 18:59 06:59 18:59 Weight 139.706 kg
== END | disposition home or self-care (01) ==
LOC: BARWHC3 12:45
PROVIDERS: ATTEND Surgery Plastic and Reconstructive Surgery
DX: Z48.815 Encounter for surgical aftercare following surgery on the digestive system (principal); E66.01 Morbid (severe) obesity due to excess calories; K21.9 Gastro-esophageal reflux disease without esophagitis; K63.5 Polyp of colon; E11.9 Type 2 diabetes mellitus without complications; M17.0 Bilateral primary osteoarthritis of knee; M16.0 Bilateral primary osteoarthritis of hip; M54.30 Sciatica, unspecified side; M79.3 Panniculitis, unspecified; Z99.89 Dependence on other enabling machines and devices; Z68.37 Body mass index [BMI] 37.0-37.9, adult; Z98.84 Bariatric surgery status; Z83.71 Family history of colonic polyps
CPT/HCPCS: 97803; G0463; 99211

== ENCOUNTER → 2019-09-02 | Outpatient (CLI) | payer OTHER ==
[2019-09-02 08:55] LABS: HCT 46.2 % (39.0-53.0); HGB 15.4 gm/dL (13.0-17.5); MCH 28.7 pg (25.0-35.0); MCHC 33.2 g/dL (31.0-37.0); MCV 86.4 fL (80.0-100.0); Mean Platelet Volume 7.8; Platelet Count 195 k/uL (150-450); RBC 5.35 m/uL (4.30-5.90); WBC 5.2 k/uL (3.8-10.6)
[2019-09-02 09:01] LABS: INR 1.1 (<1.2); Partial Thromboplastin Time 23.9 sec (22.0-30.0); Prothrombin Time 10.8 sec (9.0-12.0)
[2019-09-02 17:18] LABS: African American GFR (CKD) 110.2 (60.0-200.0); Albumin 4.6 g/dL (3.80-4.90); Albumin/Globulin Ratio 1.92 (1.60-3.17); Anion Gap 8.8 mmol/L (4.00-12.00); BUN/Creat Ratio 17.5 Ratio (12.00-20.00); Calcium 9.4 mg/dL (8.7-10.3); Carbon Dioxide 27.2 mmol/L (21.6-31.8); Chol/HDL Ratio 2.92; Globulin 2.4 g/dL (1.6-3.3); LDL Cholesterol,Calculated 82.8 mg/dL (0.0-131.0); Non-African American GFR(CKD) 95.1 (60.0-200.0); Phosphorus 3.6 mg/dL (2.4-5.1); Potassium 4.5 mmol/L (3.5-5.5); VLDL Calculation 17.2 mg/dL (5.00-40.00)
[2019-09-02 17:27] LABS: Ferritin 75.2 ng/mL (22.0-322.0)
[2019-09-02 17:29] LABS: Folate, Serum 20.8 ng/mL
[2019-09-02 19:42] LABS: Hemoglobin A1C 5.4 % (4.0-6.0)
[2019-09-03 11:04] LABS: Vit B1(Thiamine) 105 ug/L (38-122)
[2019-09-03 11:12] LABS: Vitamin A 53 ug/dL (38-106)
[2019-09-03 14:43] LABS: Zinc, Serum 86 ug/dL (60-130)
== END | disposition home or self-care (01) ==
LOC: LABWHC1 08:01
PROVIDERS: ATTEND Surgery Plastic and Reconstructive Surgery
DX: E21.1 Secondary hyperparathyroidism, not elsewhere classified (principal); D50.9 Iron deficiency anemia, unspecified; K90.9 Intestinal malabsorption, unspecified; E89.1 Postprocedural hypoinsulinemia; E55.9 Vitamin D deficiency, unspecified; K74.1 Hepatic sclerosis; K50.90 Crohn's disease, unspecified, without complications; N19 Unspecified kidney failure
CPT/HCPCS: 36415; 80053; 80061; 82306; 82525; 82607; 82728; 82746; 83036; 83540; 83550; 83735; 83970; 84100; 84134; 84255; 84425; 84443; 84590; 84630; 85027; 85610; 85730

== ENCOUNTER → 2019-09-15 | Outpatient (CLI) | payer OTHER ==
[2019-09-15 14:11] VITALS: BP 129/69; PULSE 64; RESP 16; TEMP 97.9; BMI 37.7
--- NOTE | 2019-09-15 14:13 | P.PN ---
Subjective Progress Note Date: 09/15/19 DATE OF SERVICE: 09/15/2019 CHIEF COMPLAINT: Sleeve gastrectomy HISTORY OF PRESENT ILLNESS: Navjot Kunz is a pleasant 63-year-old status post sleeve gastrectomy 02/22/19. He comes in with new complaints of new epigastric pain. In the last three days, he reports indigestion with eating roast beef. He reports upset stomach. He is not on Prilosec. He reports new mild dysphagia. He reports no alleviating factors. No vomiting but he has nausea. At his height of 6 feet 4 inches, his ideal body weight is 204 pounds. His highest lifetime weight was 560 pounds in 2002, BMI 68.3. Today he comes in 309 pounds from 307 pounds, 2 weeks ago. He has gained 2 pounds in 2 weeks. Lifetime weight loss of 251 pounds. Percent excess weight loss of 70 %. PAST MEDICAL HISTORY: 1. Diabetes type 2, non-insulin dependent, diet controlled 2. Obstructive sleep apnea. 3. Morbid obesity due to excess calories, BMI 68.3 initial 4. History of polyps 6. Sciatica 7. Osteoarthritis knees 8. Osteoarthritis hips 9. Osteoarthritis lower back PAST SURGICAL HISTORY: 1. Appendectomy. 2. Colonoscopy 3. Upper endoscopy 4. Sleeve gastrectomy Home medications: Home Medications Medication Instructions Recorded Confirmed Cholecalciferol (Vitamin D3) 2,000 unit PO BID 01/06/14 02/15/19 [Decara] Multivitamins, Thera [Multivitamin] 1 tab PO BID 01/06/14 02/15/19 Ubidecarenone [Co Q-10] 100 mg PO DAILY 09/12/17 02/15/19 Losartan Potassium 50 mg PO DAILY 05/06/18 02/15/19 Cyanocobalamin (Vitamin B-12) 1,000 mcg PO DAILY 11/24/18 02/15/19 [Vitamin B-12] ALLERGIES: Allergies Allergy/AdvReac Type Severity Reaction Status Date / Time strawberry AdvReac Itching Verified 02/15/19 11:12 SOCIAL HISTORY: Lifelong nontobacco user. Denies any alcohol use. FAMILY HISTORY: Pertinent for colon polyps. Denies any esophageal or stomach cancer. REVIEW OF SYSTEMS: CONSTITUTIONAL: At his height of 6 feet 4 inches, his ideal body weight is 204 pounds. His highest lifetime weight was 560 pounds, BMI 68.3. HEENT: Denies any troubles with hearing. Wears glasses. ENDOCRINE: Denies any history of thyroid disorders. His diabetes is controlled with diet. RESPIRATORY: Denies any asthma. Hast history of obstructive sleep apnea. Has past pneumonia. CARDIOVASCULAR: Denies any heart attack or chest pain. GI: Denies any blood in stools. Has gastroesophageal reflux disease. MUSCULOSKELETAL: Has occasional osteoarthritis of the lower back and joint. NEURO: No reports of headaches or seizure disorders. PSYCH: No reports of depression or suicidal ideation. HEMATOLOGIC: Denies any easy bruising or bleeding. GENITOURINARY: Denies any blood in urine or increased urinary frequency. SKIN: No current skin cancer. No rash. ALLERGY/IMMUNOLOGY: No immunoglobulin therapy. No immune deficiencies. BREAST: Denies current breast lumps, pain or nipple discharge. PHYSICAL EXAM: VITAL SIGNS: 6 feet 4 inches, 309 pounds. Body mass index of 37.7 Vital Signs Temp 97.9 F 09/15/19 14:08 Pulse 64 09/15/19 14:08 Resp 16 09/15/19 14:08 BP 129/69 09/15/19 14:08 Pulse Ox Intake & Output 09/15/19 09/16/19 09/16/19 18:59 06:59 18:59 Weight 140.614 kg CONSTITUTIONAL: Well developed and in no acute distress. EYES: Conjuctivae without sclera icterus. Pupils are equally round and reactive to light. Extraocular movements grossly intact. HEAD, EARS, NOSE, THROAT: Moist buccal mucosa. Head is atraumatic, normocephalic. Hears conversational speech. No nasal drainage. RESPIRATORY: Non-labored respirations and equal bilateral excursions. No gross wheezes. CARDIOVASCULAR: Regular rate and rhythm. Palpable 2+ radial pulses. ABDOMEN: Non-tender. Nondistended. No hernia. MUSCULOSKELETAL: No clubbing or cyanosis. SKIN: Warm and well perfused with good skin turgor. NEUROLOGIC: No focal or lateralizing signs. PSYCH: Appropriate affect. Alert and oriented to person, place and time. Displays appropriate insight. ASSESSMENT: 1. Morbid obesity due to excess calories, BMI 68.3 to 37.7 2. Gastroesophageal reflux disease. 3. Colon polyps 4. Family history of colon polyps. 5. Diabetes type 2, non-insulin dependent, diet controlled 6. Obstructive sleep apnea, resolved 7. Osteoarthritis knees 8. Osteoarthritis hips 9. Osteoarthritis lower back 10. Sciatica 11. Status post sleeve gastrectomy 12. Epigastric pain PLAN: 1. Recommend Omprazole 2. Recommend upper endoscopy
== END | disposition home or self-care (01) ==
LOC: BARWHC3 13:26
PROVIDERS: ATTEND Surgery Plastic and Reconstructive Surgery
DX: E66.01 Morbid (severe) obesity due to excess calories (principal); Z68.37 Body mass index [BMI] 37.0-37.9, adult; K21.9 Gastro-esophageal reflux disease without esophagitis; K63.5 Polyp of colon; E11.9 Type 2 diabetes mellitus without complications; M17.9 Osteoarthritis of knee, unspecified; M16.9 Osteoarthritis of hip, unspecified; M47.816 Spondylosis without myelopathy or radiculopathy, lumbar region; M54.30 Sciatica, unspecified side; R10.13 Epigastric pain; Z83.71 Family history of colonic polyps; F17.200 Nicotine dependence, unspecified, uncomplicated; Z98.84 Bariatric surgery status; Z98.890 Other specified postprocedural states; Z79.899 Other long term (current) drug therapy; Z91.018 Allergy to other foods
CPT/HCPCS: 99211

== ENCOUNTER → 2020-01-17 | Outpatient (CLI) | payer OTHER | END | disposition home or self-care (01) | LOC: LABWHC1 07:06 | PROVIDERS: ATTEND Specialist | DX: M43.16 Spondylolisthesis, lumbar region (principal); M48.061 Spinal stenosis, lumbar region without neurogenic claudication; M48.062 Spinal stenosis, lumbar region with neurogenic claudication; M51.26 Other intervertebral disc displacement, lumbar region; M54.16 Radiculopathy, lumbar region | CPT/HCPCS: 86900; 86901; 86850; U0003; C9803 ==

== ENCOUNTER → 2020-03-29 | Outpatient (CLI) | payer OTHER ==
--- NOTE | 2020-03-29 07:50 | CT ---
EXAMINATION TYPE: CT lumbar spine wo con DATE OF EXAM: 03/29/2020 7:16 AM COMPARISON: Lumbar spine x-ray April 24, 2014 HISTORY: Spondylolisthesis, history of lumbar fusion surgery January 20, 2020. CT DLP: 2085.5 mGycm Automated exposure control for dose reduction was used. Unenhanced CT of the lumbar spine was performed. Bone and soft tissue window settings are submitted as well as coronal and sagittal reconstructions. There are 5 lumbar type vertebra identified. Lumbar spine shows posterior interpedicular rods and scr ews transfixing the L4-S1 levels bilaterally. There is metallic disc material at these levels. There is slight grade 1 anterolisthesis of L4 on L5 seen for reference sagittal image 35 along the posterio r vertebral body margin. There is mild/moderate multilevel anterior and lateral spurring. Vertebral b ryan heights and disc space heights above L4 level are satisfactory. Spinal canal is grossly preserved . Posterior laminectomy defects and spinous process resection noted in the lower lumbar spine. Axial images at T12-L1 level show mild calcified disc bulge mildly effaces the anterior thecal sac. P atent Bilateral neural foramina. Axial images at L1-L2 level are within normal limits. Axial images at L2-L3 level show [id number] broad disc bulge effacing the anterior thecal sac a nd causing mild bilateral inferior neural foraminal narrowing. Axial images at the L3-L4 level and [id number] broad disc bulge and mild facet arthropathy bila terally with some effacement of the anterior and the posterior lateral thecal sac. There is mild-to-m oderate bilateral anterior inferior neural foraminal narrowing. Axial images at the L4-L5 level with metallic disc material. There are bilateral laminectomy defects and spinous process resection. Artifact from metallic hardware noted. No abnormal soft tissue surroun ds spinal canal likely scar tissue extending posteriorly. Neural foramina are grossly patent. Moderat e to advanced bilateral facet arthropathy is present. Axial images at the L5-S1 level show artifact from surgical hardware. Posterior resection. Moderate f acet arthropathy. Posterior scar tissue suspected. Suspect mild right and moderate left-sided neural foraminal narrowing due to marginal spurring. Mild to moderate calcified plaque of distal abdominal aorta extends into iliac branch vessels. Some p rominence of fecal material in the visualized right colon. IMPRESSION: Postsurgical change lower lumbar spine. Slight spondylolisthesis L4 on L5. Positioning of surgical hardware satisfactory. Successful posterior decompression. Mild to moderate degenerative ch anges in the mid lumbar spine as detailed above.
== END | disposition home or self-care (01) ==
LOC: RADCTMAIN 06:43
PROVIDERS: ATTEND Specialist
DX: M43.16 Spondylolisthesis, lumbar region (principal); M47.816 Spondylosis without myelopathy or radiculopathy, lumbar region; M47.817 Spondylosis without myelopathy or radiculopathy, lumbosacral region; Z98.890 Other specified postprocedural states
CPT/HCPCS: 72131

== ENCOUNTER → 2020-04-10 | Outpatient (CLI) | payer MEDICARE, OTHER ==
[2020-04-10 08:20] LABS: HCT 45.8 % (39.0-53.0); HGB 15.4 gm/dL (13.0-17.5); MCH 28.7 pg (25.0-35.0); MCHC 33.7 g/dL (31.0-37.0); MCV 85.2 fL (80.0-100.0); Mean Platelet Volume 7.4; Platelet Count 183 k/uL (150-450); RBC 5.37 m/uL (4.30-5.90); RDW 14.5 % (11.5-15.5); WBC 5.6 k/uL (3.8-10.6)
[2020-04-10 10:47] LABS: Ferritin 30.1 ng/mL (22.0-322.0)
[2020-04-10 11:18] LABS: % Iron Saturation 19.21 (15.00-50.00); African American GFR (CKD) 104.2 (60.0-200.0); Albumin 4.6 g/dL (3.80-4.90); Albumin/Globulin Ratio 1.77 (1.60-3.17); Anion Gap 6.4 mmol/L (4.00-12.00); BUN/Creat Ratio 15.56 Ratio (12.00-20.00); Calcium 9.7 mg/dL (8.7-10.3); Carbon Dioxide 32.6 mmol/L (21.6-31.8); Chol/HDL Ratio 3.21; Folate, Serum 23.3 ng/mL; Globulin 2.6 g/dL (1.6-3.3); LDL Cholesterol,Calculated 68.4 mg/dL (0.0-131.0); Magnesium 1.9 mg/dL (1.5-2.4); Non-African American GFR(CKD) 89.9 (60.0-200.0); Phosphorus 3.8 mg/dL (2.4-5.1); Potassium 4.5 mmol/L (3.5-5.5); Total Bilirubin 0.8 mg/dL (0.3-1.2); Total Protein 7.2 g/dL (6.2-8.2); VLDL Calculation 35.6 mg/dL (5.00-40.00)
[2020-04-10 14:59] LABS: Hemoglobin A1C 5.5 % (4.0-6.0)
[2020-04-10 17:48] LABS: INR 1.03 (0.90-1.11); Partial Thromboplastin Time 26.7 sec (23.5-31.0); Prothrombin Time 11.3 sec (9.9-11.9)
[2020-04-11 14:22] LABS: Zinc, Serum 76 ug/dL (60-130)
[2020-04-12 07:11] LABS: Vitamin A 79 ug/dL (38-106)
== END | disposition home or self-care (01) ==
LOC: LABWHC1 07:38
PROVIDERS: ATTEND Surgery Plastic and Reconstructive Surgery
DX: E66.01 Morbid (severe) obesity due to excess calories (principal); E89.1 Postprocedural hypoinsulinemia; D50.8 Other iron deficiency anemias; K90.89 Other intestinal malabsorption; E55.9 Vitamin D deficiency, unspecified; K74.1 Hepatic sclerosis; N19 Unspecified kidney failure; K50.90 Crohn's disease, unspecified, without complications
CPT/HCPCS: 36415; 80053; 80061; 82306; 82525; 82607; 82728; 82746; 83036; 83540; 83550; 83735; 83970; 84100; 84134; 84255; 84425; 84443; 84590; 84630; 85027; 85610; 85730

== ENCOUNTER → 2020-07-10 | Outpatient (CLI) | payer MEDICARE, OTHER ==
[2020-07-10 10:36] LABS: Amorphous Sediment,Urine Many /hpf; Appearance,Urine Turbid (Clear); Bilirubin,Urine Negative (Negative); Blood,Urine Negative (Negative); Color,Urine Yellow; Glucose,Urine (UA) Negative (Negative); Ketones,Urine Negative (Negative); Leukocyte Esterase,Urine Small (Negative); Mucus,Urine Rare /hpf; Nitrite,Urine Negative (Negative); PH, Urine 8.5 (5.0-8.0); Protein,Urine 1+ (Negative); RBC,Urine 3 /hpf (0-5); Specific Gravity,Urine 1.028 (1.001-1.035); Urobilinogen,Urine <2.0 mg/dL (<2.0); WBC,Urine 5 /hpf (0-5)
[2020-07-10 15:03] LABS: Basophils # (A) 0.03 X 10*3/uL (0.00-0.10); Basophils % (A) 0.7 %; Eosinophils # (A) 0.23 X 10*3/uL (0.04-0.35); HCT 47.7 % (39.6-50.0); Lymphocytes # (A) 0.97 X 10*3/uL (0.90-5.00); Lymphocytes % (A) 21.2 %; MCHC 33.5 g/dL (32.0-37.0); MCV 86.4 fL (80.0-97.0); Mean Platelet Volume 9.7 fL (9.5-12.2); Monocytes # (A) 0.46 X 10*3/uL (0.20-1.00); Neutrophils # (A) 2.88 X 10*3/uL (1.80-7.70); Neutrophils % (A) 62.9 %; Platelet Count 154 X 10*3/uL (140-440); RBC 5.52 X 10*6/uL (4.40-5.60); RDW 14.7 % (11.5-14.5); WBC 4.58 X 10*3/uL (4.50-10.00)
[2020-07-10 15:42] LABS: African American GFR (CKD) 91.8 (60.0-200.0); Albumin 4.8 g/dL (3.80-4.90); Albumin/Globulin Ratio 2.4 (1.60-3.17); Anion Gap 5.7 mmol/L (4.00-12.00); Calcium 9.9 mg/dL (8.7-10.3); Carbon Dioxide 30.3 mmol/L (21.6-31.8); Chol/HDL Ratio 2.92; LDL Cholesterol,Calculated 80.2 mg/dL (0.0-131.0); Non-African American GFR(CKD) 79.2 (60.0-200.0); Total Protein 6.8 g/dL (6.2-8.2); Uric Acid 5.6 mg/dL (3.7-8.7); VLDL Calculation 11.8 mg/dL (5.00-40.00)
[2020-07-10 15:50] LABS: PSA Annual Screen 0.7 ng/mL (0.0-4.0)
[2020-07-10 17:50] LABS: Hemoglobin A1C 5.5 % (4.0-6.0)
== END | disposition home or self-care (01) ==
LOC: LABWHC1 09:08
PROVIDERS: ATTEND Internal Medicine
DX: E55.9 Vitamin D deficiency, unspecified (principal); R73.03 Prediabetes; I10 Essential (primary) hypertension; M10.9 Gout, unspecified; Z12.5 Encounter for screening for malignant neoplasm of prostate
CPT/HCPCS: 80061; 80053; 84550; 85025; 81001; 82306; 83036; 36415; G0103

== ENCOUNTER 2021-03-14 08:31 | Day surgery (SDC) | payer MEDICARE, OTHER ==
[2021-03-09 10:13] VITALS: BMI 40.6
--- NOTE | 2021-03-14 08:05 | P.GSHP ---
History of Present Illness H&P Date: 03/14/21 CHIEF COMPLAINT: Colon screen HISTORY OF PRESENT ILLNESS: The patient is a 65-year-old male who presents for colon screen. Lower endoscopy was offered for further evaluation and management. PAST MEDICAL HISTORY: Please see list. PAST SURGICAL HISTORY: Please see list. MEDICATIONS: Please see list. ALLERGIES: Please see list. SOCIAL HISTORY: No illicit drug use FAMILY HISTORY: No reports of Crohn disease or ulcerative colitis. REVIEW OF ORGAN SYSTEMS: CONSTITUTIONAL: No reports of fevers or chills. PHYSICAL EXAM: VITAL SIGNS: Stable GENERAL: Well-developed pleasant in no acute distress. HEENT: No scleral icterus. Extraocular movements grossly intact. Moist buccal mucosa. NECK: Supple without lymphadenopathy. CHEST: Unlabored respirations. Equal bilateral excursions. CARDIOVASCULAR: Regular rate and rhythm. Distal 2+ pulses. ABDOMEN: Soft, nontender, nondistended. MUSCULOSKELETAL: No clubbing, cyanosis, or edema. ASSESSMENT: 1. Colon screen. PLAN: 1. Recommend proceeding with a lower endoscopy Past Medical History Past Medical History: Hearing Disorder / Deafness, Hypertension, Osteoarthritis (OA), Sleep Apnea/CPAP/BIPAP Additional Past Medical History / Comment(s): back pain, hx. gout, bilateral leg swelling, C PAP MACHENE History of Any Multi-Drug Resistant Organisms: None Reported Past Surgical History: Appendectomy, Back Surgery, Bariatric Surgery Additional Past Surgical History / Comment(s): EGD, colonoscopy, pain clinic procedure for pinched nerves in back; Gastric sleeve 02/22/19 Past Anesthesia/Blood Transfusion Reactions: No Reported Reaction Smoking Status: Never smoker - Past Family History Mother Family Medical History: CVA/TIA Additional Family Medical History / Comment(s): mom of massive cva 2012 Medications and Allergies Home Medications Medication Instructions Recorded Confirmed Type Acetaminophen [Tylenol] 325 mg PO DAILY PRN 03/17/19 03/09/21 History Ferrous Sulfate [Iron (65 MG 325 mg PO DAILY 09/16/19 03/09/21 History Elemental)] Magnesium 400 mg PO DAILY 09/16/19 03/09/21 History Multivitamins, Thera [Multivitamin 1 tab PO DAILY 09/16/19 03/09/21 History (formulary)] Evart-3 Fatty Acids [Evart-3] 1,000 mg PO DAILY 09/16/19 03/09/21 History Ubidecarenone [Co Q-10] 100 mg PO DAILY 09/16/19 03/09/21 History Vitamin E (Dl,Tocopheryl Acet) 400 unit PO DAILY 09/16/19 03/09/21 History [Vitamin E] methocarbamoL [Robaxin] 750 mg PO DAILY 09/16/19 03/09/21 History Omeprazole [PriLOSEC] 40 mg PO DAILY #90 cap 12/08/19 03/09/21 Rx Gabapentin 300 mg PO BID 03/08/20 03/09/21 History Meloxicam [Mobic] 15 mg PO DAILY 03/09/21 03/09/21 History traMADol HCL [Ultram ER] 100 mg PO Q6H PRN 03/09/21 03/09/21 History Allergies Allergy/AdvReac Type Severity Reaction Status Date / Time strawberry AdvReac Itching Verified 03/09/21 09:31
[~2021-03-14 08:31] MED LIST changes: -CHLORHEXIDINE GLUCONATE 15 ML CUP MUCOUS MEM ONE; -ENOXAPARIN 40 MG/0.4 ML SYRINGE SQ ONE; +LACTATED RINGERS 1,000 ML IV SCH; +LIDOCAINE 1% (10MG/ML) FOR IV START INTRADERMA PRN; -PANTOPRAZOLE 40 MG/10 ML VIAL IV ONE
[2021-03-14 09:21] VITALS: TEMP 97.3
[2021-03-14] MEDS ORDERED: PROPOFOL 10 MG/ML 20 ML VIAL IV ONE (09:44)
[2021-03-14 10:15] VITALS: RESP 16
--- NOTE | 2021-03-14 10:21 | P.PCN ---
Date of Procedure: 03/14/21 Description of Procedure: PREOPERATIVE DIAGNOSIS: Personal history of colon polyps Family history malignant colon polyps Colonoscopy screening POSTOPERATIVE DIAGNOSIS: Personal history of colon polyps Family history malignant colon polyps Colonoscopy screening Tubular adenoma transverse colon Sigmoid diverticulosis OPERATION: Colonoscopy to the ileocecal valve and appendiceal orifice, cecum Colonoscopy with hot snare polypectomy SURGEON: Karena Winters MD. ANESTHESIA: MAC. INDICATIONS: The patient is an 65-year-old male who presents family history of malignant colon polyps and personal history of colon polyps. Last colonoscopy 5 years. Benefits and risks were described and informed consent was obtained. DESCRIPTION OF PROCEDURE: The patient had undergone Sutab prep. The patient had been brought into the operating room and laid in the left lateral decubitus position. After adequate intravenous sedation, the rectum was examined with 2% lidocaine jelly. The prostate was unremarkable. External hemorrhoids were encountered. The rectal tone was within normal limits. No lesions were palpated in the rectal vault. An Olympus colonoscope was advanced until the cecum, ileocecal valve and appendiceal orifice were clearly viewed. The prep was fair. Sigmoid diverticulosis was encountered. Colonic polyps were found and removed. No evidence of focal colitis was found. Retroflexion of the scope demonstrated grade 2 internal hemorrhoids without active bleeding or inflammation. The colon was desufflated. The patient had tolerated the procedure well. Withdrawal time was over 6 minutes. FINDINGS: Aronchick preparation quality scale 3 (1-5) Internal hemorrhoids, grade 2 External hemorrhoids, grade 2. No arteriovenous malformations. Sigmoid diverticulosis Removal of 1 polyps: - Snare polypectomy of mid transverse colon, 5 mm tubulovillous adenoma polyp. No focal colitis. RECOMMENDATIONS: 1. Repeat colonoscopy in 3 years, 2023 2. Recommend colonoscopy prep at least 3 days for adequate assessment Plan - Discharge Summary Discharge Rx Participant: No New Discharge Prescriptions: Continue Acetaminophen [Tylenol] 325 mg PO DAILY PRN PRN Reason: Pain methocarbamoL [Robaxin] 750 mg PO DAILY Multivitamins, Thera [Multivitamin (formulary)] 1 tab PO DAILY Ubidecarenone [Co Q-10] 100 mg PO DAILY Ferrous Sulfate [Iron (65 MG Elemental)] 325 mg PO DAILY Sewickley-3 Fatty Acids [Sewickley-3] 1,000 mg PO DAILY Vitamin E (Dl,Tocopheryl Acet) [Vitamin E] 400 unit PO DAILY Magnesium 400 mg PO DAILY Omeprazole [PriLOSEC] 40 mg PO DAILY #90 cap Gabapentin 300 mg PO BID traMADol HCL [Ultram ER] 100 mg PO Q6H PRN PRN Reason: Pain Control Meloxicam [Mobic] 15 mg PO DAILY Discharge Medication List Acetaminophen [Tylenol] 325 mg PO DAILY PRN 03/17/19 [History] Ferrous Sulfate [Iron (65 MG Elemental)] 325 mg PO DAILY 09/16/19 [History] Magnesium 400 mg PO DAILY 09/16/19 [History] Multivitamins, Thera [Multivitamin (formulary)] 1 tab PO DAILY 09/16/19 [History] Sewickley-3 Fatty Acids [Sewickley-3] 1,000 mg PO DAILY 09/16/19 [History] Ubidecarenone [Co Q-10] 100 mg PO DAILY 09/16/19 [History] Vitamin E (Dl,Tocopheryl Acet) [Vitamin E] 400 unit PO DAILY 09/16/19 [History] methocarbamoL [Robaxin] 750 mg PO DAILY 09/16/19 [History] Omeprazole [PriLOSEC] 40 mg PO DAILY #90 cap 12/08/19 [Rx] Gabapentin 300 mg PO BID 03/08/20 [History] Meloxicam [Mobic] 15 mg PO DAILY 03/09/21 [History] traMADol HCL [Ultram ER] 100 mg PO Q6H PRN 03/09/21 [History] Follow up Appointment(s)/Referral(s): Karena Winters MD [STAFF PHYSICIAN] - As Needed Patient Instructions/Handouts: Colorectal Polyps (GEN) Activity/Diet/Wound Care/Special Instructions: Repeat colonoscopy 3 years, 2023. RECOMMEND 3-DAY COLON PREP Discharge Disposition: HOME SELF-CARE
[2021-03-14 10:32] VITALS: BP 111/71; PULSE 67
== END 2021-03-14 10:42 | disposition home or self-care (01) ==
LOC: ORWHC2ENDO 08:31
PROVIDERS: ATTEND Surgery Plastic and Reconstructive Surgery
DX: Z12.11 Encounter for screening for malignant neoplasm of colon (principal); K63.5 Polyp of colon; K57.30 Diverticulosis of large intestine without perforation or abscess without bleeding; K64.1 Second degree hemorrhoids; Z80.0 Family history of malignant neoplasm of digestive organs; Z86.010 Personal history of colon polyps; I10 Essential (primary) hypertension; M19.90 Unspecified osteoarthritis, unspecified site; G47.30 Sleep apnea, unspecified; M54.9 Dorsalgia, unspecified; M79.89 Other specified soft tissue disorders; H91.90 Unspecified hearing loss, unspecified ear; Z98.84 Bariatric surgery status; Z98.890 Other specified postprocedural states; Z82.3 Family history of stroke; Z79.1 Long term (current) use of non-steroidal anti-inflammatories (NSAID); Z79.899 Other long term (current) drug therapy; Z91.018 Allergy to other foods
CPT/HCPCS: 88305; 45385; J2704

== ENCOUNTER → 2021-03-17 | Outpatient (CLI) | payer OTHER ==
--- NOTE | 2021-03-17 10:12 | CT ---
EXAMINATION TYPE: CT lumbar spine wo con DATE OF EXAM: 03/17/2021 9:07 AM COMPARISON: 03/29/2020 HISTORY: low back pain CT DLP: 2972.2 mGycm Automated exposure control for dose reduction was used. Unenhanced CT of the lumbar spine was performed. Bone and soft tissue window settings are submitted as well as coronal and sagittal reconstructions. Findings: There are postsurgical changes of laminectomy and posterior and interdisc fusion at the L4-5 and L5-S 1 levels. The lumbar vertebral segments are normal in height and alignment and there is no fracture or subluxat ion. There is mild disc space narrowing at the L1-2, L2-3 and L3-4 level indicating mild degenerative disc disease secondary to disc bulge there is mild spinal stenosis L2-3 and L3-4 levels. The paraspinal soft tissues are unremarkable. Compared to the prior study reveals no significant interval change. IMPRESSION: 1. Postsurgical changes in the lower lumbar spine as described above. 2. Mild degenerative disc disease at the L1-2, L2-3 and L3-4 levels. 3. Mild spinal stenosis at the L2-3 and L3-4 levels. 4. No significant interval change since the prior study.
== END | disposition home or self-care (01) ==
LOC: RADCTMAIN 08:38
PROVIDERS: ATTEND Specialist
DX: M48.061 Spinal stenosis, lumbar region without neurogenic claudication (principal); M51.36 Other intervertebral disc degeneration, lumbar region; Z98.1 Arthrodesis status
CPT/HCPCS: 72131

== ENCOUNTER 2021-07-16 10:17 | Emergency (ER) | payer OTHER ==
[2021-07-16 10:52] VITALS: BP 145/78; PULSE 71; RESP 18; TEMP 97.1
--- NOTE | 2021-07-16 13:02 | ED ---
General Adult HPI - General Chief complaint: Extremity Injury, Lower Stated complaint: Leg pain/sent by [facility] Time Seen by Provider: 07/16/21 12:50 Source: patient Mode of arrival: wheelchair Limitations: no limitations - History of Present Illness Initial comments: This 65-year-old obese male with a past medical history of venous insufficiency, hypertension and sleep apnea presents to the emergency department right lower extremity pain 2 weeks. Patient states he saw his primary care doctor today who sent him here for possible DVT. Patient states she has been experiencing right calf pain for the last couple weeks, however the last couple of days and is started to get more tender and started to spread up his leg. Patient states he did trip in June and noticed his leg did start hurt around that time, however it has been waxing and waning since, worsening over the last 2 days which led him to see his primary care provider. Patient recently diagnosed with sciatica right leg and given steroids. Patient denies being on any blood thinners. Patient states he has had darker color pigmentation to his lower legs/shins and feet for the last year and he does see [place] doctor [place] [facility] [place] [facility] [place]. Patient denies any chest pain, shortness of breath, abdominal pain, nausea, vomiting, change in bowel or bladder, back pain, change in vision, headache, dizziness, lightheadedness. - Related Data Home Medications Medication Instructions Recorded Confirmed Acetaminophen [Tylenol] 325 mg PO DAILY PRN 03/17/19 03/14/21 Ferrous Sulfate [Iron (65 MG 325 mg PO DAILY 09/16/19 03/14/21 Elemental)] Magnesium 400 mg PO DAILY 09/16/19 03/14/21 Multivitamins, Thera [Multivitamin 1 tab PO DAILY 09/16/19 03/14/21 (formulary)] Kelso-3 Fatty Acids [Kelso-3] 1,000 mg PO DAILY 09/16/19 03/14/21 Ubidecarenone [Co Q-10] 100 mg PO DAILY 09/16/19 03/14/21 Vitamin E (Dl,Tocopheryl Acet) 400 unit PO DAILY 09/16/19 03/14/21 [Vitamin E] methocarbamoL [Robaxin] 750 mg PO DAILY 09/16/19 03/14/21 Gabapentin 300 mg PO BID 03/08/20 03/14/21 Meloxicam [Mobic] 15 mg PO DAILY 03/09/21 03/14/21 traMADol HCL [Ultram ER] 100 mg PO Q6H PRN 03/09/21 03/14/21 Previous Rx's Medication Instructions Recorded Omeprazole [PriLOSEC] 40 mg PO DAILY #90 cap 12/08/19 Cyclobenzaprine [Flexeril] 10 mg PO TID #12 tab 07/16/21 Allergies Allergy/AdvReac Type Severity Reaction Status Date / Time strawberry AdvReac Itching Verified 07/16/21 10:52 Review of Systems ROS Statement: Those systems with pertinent positive or pertinent negative responses have been documented in the HPI. ROS Other: All systems not noted in ROS Statement are negative. Past Medical History Past Medical History: Hypertension, Sleep Apnea/CPAP/BIPAP Additional Past Medical History / Comment(s): back pain, hx. gout, bilateral leg swelling, sciatica Right, patient states he has pinched nerves in L4-L5 History of Any Multi-Drug Resistant Organisms: None Reported Past Surgical History: Appendectomy, Back Surgery, Bariatric Surgery Additional Past Surgical History / Comment(s): EGD, colonoscopy, pain clinic procedure for pinched nerves in back; Gastric sleeve 02/22/19 Past Anesthesia/Blood Transfusion Reactions: No Reported Reaction Past Psychological History: Depression Smoking Status: Never smoker - Past Family History Mother Family Medical History: CVA/TIA Additional Family Medical History / Comment(s): mom of massive cva 2012 General Exam Limitations: no limitations General appearance: alert, in no apparent distress Head exam: Present: atraumatic, normocephalic, normal inspection Eye exam: Present: normal appearance, PERRL, EOMI ENT exam: Present: mucous membranes moist Neck exam: Present: full ROM Respiratory exam: Present: normal lung sounds bilaterally. Absent: respiratory distress, wheezes, rales, rhonchi, stridor Cardiovascular Exam: Present: regular rate, normal rhythm, normal heart sounds. Absent: systolic murmur, diastolic murmur, rubs, gallop, clicks GI/Abdominal exam: Present: soft, normal bowel sounds. Absent: distended, tenderness, guarding, rebound, rigid Extremities exam: Present: full ROM (No erythema or swelling to right calf or right leg noted. Pain to palpation when right calf is squeezed. Dorsalis pedis and posterior tibial arteries palpable.), normal capillary refill (Refill slightly decreased in bilateral feet. Dull touch patient states he only felt little bit, however sharp touch patient was able to feel bilateral lower extremities and feet and toes), calf tenderness (Calf tenderness of right calf. Venous insufficiency of bilateral lower extremities, brown pigmentation and decreased sensation in bilateral feet and toes. Patient states he has had this for the last year and does follow up with his primary care [place] [facility] Absent: joint swelling Back exam: Present: normal inspection, full ROM. Absent: tenderness, CVA tenderness (R), CVA tenderness (L), paraspinal tenderness, vertebral tenderness Neurological exam: Present: alert, oriented X3, CN II-XII intact Psychiatric exam: Present: normal affect, normal mood Skin exam: Present: warm, dry, intact, normal color. Absent: rash Course Vital Signs 07/16/21 10:45 Temperature 97.1 F L Pulse Rate 71 Respiratory 18 Rate Blood Pressure 145/78 O2 Sat by Pulse 97 Oximetry Medical Decision Making - Medical Decision Making This 65-year-old male presents emergency Department with right lower extremity pain 2 weeks, worsening over the last couple days. Patient with visible bilateral venous insufficiency. Pulses palpable. Ultrasound venous Doppler right lower extremity impression no ultrasound evidence for acute DVT of right lower extremity. Patient instructed to follow up with his vascular surgeon in next 24-48 hours. Strict return precautions were discussed. Patient verbally agreed to plan. Patient sent home in stable condition. Case discussed with my attending, Dr. Barrett. Disposition Clinical Impression: Right leg pain Disposition: HOME SELF-CARE Condition: Stable Instructions (If sedation given, give patient instructions): Leg Pain (ED), Venous Insufficiency (DC) Additional Instructions: Please return to the emergency department with any new, concerning, or worsening symptoms. Please follow up with your vascular surgeon next 24-48 hours. Take medication as directed. Is patient prescribed a controlled substance at d/c from ED?: No Referrals: [facility],Clinic [Primary Care Provider] - 1-2 days Time of Disposition: :22
--- NOTE | 2021-07-16 14:05 | US ---
EXAMINATION TYPE: US venous doppler duplex LE RT DATE OF EXAM: 07/16/2021 1:45 PM COMPARISON: Right lower extremity venous ultrasound May 06, 2018 CLINICAL HISTORY: pain. sciatic nerve pain, no h/o dvt, no swelling SIDE PERFORMED: Right TECHNIQUE: The lower extremity deep venous system is examined utilizing real time linear array sonog malika with graded compression, doppler sonography and color-flow sonography. VESSELS IMAGED: Common Femoral Vein Deep Femoral Vein Greater Saphenous Vein * Femoral Vein Popliteal Vein Small Saphenous Vein * Proximal Calf Veins (* superficial vessels) Right Leg: Negative for DVT Grayscale, color doppler, spectral doppler imaging performed of the deep veins of the right lower ext remity. There is normal flow, compressibility, vascular waveforms. IMPRESSION: No ultrasound evidence for acute DVT in the right lower extremity.
[2021-07-16] MEDS ORDERED: KETOROLAC 15 MG/ML 1 ML VIAL IM STA (14:18)
== END 2021-07-16 14:54 | disposition home or self-care (01) ==
LOC: EC 10:17
DX: M79.604 Pain in right leg (principal); I10 Essential (primary) hypertension; F32.A Depression, unspecified; Z90.49 Acquired absence of other specified parts of digestive tract; Z98.84 Bariatric surgery status
CPT/HCPCS: 99283; 96372; 93971; J1885

== ENCOUNTER → 2021-07-19 | Outpatient (CLI) | payer OTHER ==
--- NOTE | 2021-07-19 10:46 | CT ---
EXAMINATION TYPE: CT cervical spine wo con DATE OF EXAM: 07/19/2021 COMPARISON: CT dated 04/24/2014 HISTORY: Spinal stenosis CT DLP: 959.90 mGycm Automated exposure control for dose reduction was used. TECHNIQUE: Multiplanar CT scan of the cervical spine is obtained without contrast, axial images are obtained, sagittal and coronal reformatted images are also reviewed. FINDINGS: Artifactual images. Interval anterior insertion of C5-6 disc prosthesis with fixation of C5 and C6 ve rtebral bodies. Good vertebral alignment without significant anterolisthesis or retrolisthesis. No de finite vertebral body collapse or acute displaced fracture. Tiny multilevel opposing endplate osteoph ytosis. At C2-3 level: Posterior disc osteophyte complex, causing no significant central spinal canal stenosi s and mild bilateral neuroforaminal stenosis. At C3-4 level: Posterior disc stripe complex more inclined to the right side, causing moderate centra l spinal canal stenosis, severe right and moderate left neural foraminal stenosis. At C4-5 level: No significant central spinal canal stenosis or neuroforaminal stenosis. At C5-6 level: Posterior disc osteophyte complex, causing mild central spinal canal stenosis and catrina re bilateral neuroforaminal stenosis. At C6-7 level: Posterior disc osteophyte complex, causing mild right neural foraminal stenosis withou t significant bony spinal canal stenosis. No paraspinal lesion. Scattered arterial atherosclerotic calcifications. IMPRESSION: 1. Postsurgical changes as described above. 2. Multilevel cervical DDD with severe bilateral C5-6 neural foraminal stenosis as detailed above. Further MRI assessment can be considered if clinically required.
== END | disposition home or self-care (01) ==
LOC: RADCTMAIN 09:40
PROVIDERS: ATTEND Nurse Practitioner
DX: M48.02 Spinal stenosis, cervical region (principal); M50.322 Other cervical disc degeneration at C5-C6 level; M99.71 Connective tissue and disc stenosis of intervertebral foramina of cervical region
CPT/HCPCS: 72125

== ENCOUNTER → 2021-08-09 | Outpatient (CLI) | payer OTHER ==
--- NOTE | 2021-08-09 09:15 | CT ---
EXAMINATION TYPE: CT lumbar spine wo con DATE OF EXAM: 08/09/2021 8:46 AM COMPARISON: CT dated 03/17/2021 HISTORY: PAIN AFTER FALL, HX OF FUSION CT DLP: 3217.50 mGycm Automated exposure control for dose reduction was used. TECHNIQUE: Unenhanced CT of the lumbar spine was performed. Bone and soft tissue window settings are submitted as well as coronal and sagittal reconstructions. FINDINGS: Previous spinal canal decompression at L4 and L5 levels with L4, L5 and S1 fixation using 2 rods and 6 screws. L4-5 and L5-S1 disc spaces is also noted. No evidence of prosthesis break or displacement. Mild anterolisthesis of L4 over L5. Marked degenerative changes of the lower thoracic spine with mild er degenerative changes of the upper lumbar spine. Severe degenerative changes at L4-5 and L5-S1. Subchondral cyst formation/Schmorl's node is seen at t he inferior endplate of L4. No definite acute vertebral body collapse or acute displaced fracture. Dangelo btle nondisplaced fracture adjacent to the metallic prosthesis cannot be excluded due to artifacts. At T11-12: Small left paracentral disc osteophyte complex, causing no significant central spinal sunil l stenosis or neuroforaminal stenosis. L1-L2: Mild diffuse posterior disc bulge more inclined to the left side with mild congenital neurofor aminal stenosis. No significant central spinal canal stenosis. L2-L3: Diffuse posterior disc bulge with posterior osteophytosis and small right focal foraminal prot rusion, causing no significant central spinal canal stenosis. Associated mild congenital neuroforamin al stenosis. L3-L4: Diffuse posterior disc bulge with posterior osteophytosis and ligamentum flavum hypertrophy, c ausing severe central spinal canal stenosis and moderate to severe bilateral neuroforaminal stenosis compressing the corresponding L3 nerve root. L4-L5: Operative level with suboptimal assessment of the disc disease, spinal canal stenosis and neur oforaminal stenosis. L5-S1: Operative level with suboptimal assessment for disc disease and central spinal canal stenosis. Suspected moderate to severe bilateral neuroforaminal stenosis. Scattered arterial atherosclerotic calcifications. Previous gastric surgery with small sliding hiatal hernia. No paraspinal lesion. Degenerative changes of the sacroiliac joints. IMPRESSION: No evidence of acute traumatic bony injury of the lumbar spine. Postsurgical and degenerative changes with multilevel DDD as described above. Further MRI assessment can be considered if clinically requi red.
== END | disposition home or self-care (01) ==
LOC: RADCTMAIN 08:19
PROVIDERS: ATTEND Specialist
DX: M47.816 Spondylosis without myelopathy or radiculopathy, lumbar region (principal); M51.36 Other intervertebral disc degeneration, lumbar region
CPT/HCPCS: 72131

== ENCOUNTER → 2021-11-06 | Outpatient (CLI) | payer OTHER ==
--- NOTE | 2021-11-07 05:18 | MR ---
EXAMINATION TYPE: MR lumbar spine wo/w con DATE OF EXAM: 11/06/2021 COMPARISON: None HISTORY: Low back pain into cheikh lower extremities CONTRAST: Standard multiplanar, multisequence MRI departmental protocol images were obtained without contrast a nd with 15 mL intravenous Gadavist gadolinium contrast. The lumbar vertebrae have normal alignment. There is metal artifact from posterior fusion surgery fro m L4 to S1. The sacroiliac joints appear intact. No lumbar compression fracture. This spaces are fair ly normal. No evidence for spinal stenosis. Detail limited slightly by the metal artifact. I see no f ocal bone destruction. IMPRESSION: Posterior fusion surgery. No spinal stenosis. Small posterior disc bulging is probably present at L5- S1. Small posterior disc bulges without stenosis present at L3-4 and L2-3.
== END | disposition home or self-care (01) ==
LOC: RADMRIMAIN 12:21
PROVIDERS: ATTEND Specialist
DX: M51.26 Other intervertebral disc displacement, lumbar region (principal)
CPT/HCPCS: 72158; A9585

== ENCOUNTER → 2021-12-24 | Outpatient (CLI) | payer OTHER ==
[2021-12-24 08:19] VITALS: BP 114/67; PULSE 60; RESP 18; TEMP 98.4
--- NOTE | 2021-12-24 08:22 | P.PAINPG ---
Objective - Vital Signs Vital signs: Vital Signs Temp 98.4 F 12/24/21 08:11 Pulse 60 12/24/21 08:11 Resp 18 12/24/21 08:11 BP 114/67 12/24/21 08:11 Pulse Ox 96 12/24/21 08:11 FiO2 PQRS Measure Charge Sheet Mode of Arrival: Ambulatory, Cane Comment: A 66 yr old male with a history of severe and chronic low back pain secondary to lumbar degenerative disc diseases and lumbar spondylosis with facet arthropathy presents today for L sided hip pain. Pain level is currently at 8/10 in intensity, constant, sore in the left lower aspect of his lumbar spine with radiation of pain towards his L hips and L groin. Pain is provoked by weight bearing activity. Pain is alleviated with medications (Tylenol, Robaxin), topicals, heat, physical therapy to start on 12/26/21, use of a cane and lumbar support brace for ambulation, reclining and rest. Patient is currently on Tylenol, Robaxin. Patient denies any side effects of the medication(s), denies excessive drowsiness or sleepiness, denies suicidal ideation and reports that the current pain medication is helping to control the pain and improve activities of daily living. Patient denies any motor or sensory deficits. Patient denies any fever or night sweats, denies any change in the bowel movements or urination. Physical Examination: -Constitutional: Cooperative. Not in acute distress . - Neurologic: Cranial nerve II to XII intact. No focal neurological defic its. - Psychatric: Alert & oriented x 3. Matching mood & appropriate affect. Judgment and insight intact. - Musculoskeletal: Cervical spine: Muscle bulk/ tone/ strength in the bilateral upper extremities normal Vertebral body tenderness to palpation over Spurling test positive Distraction test positive Facet loading test positive Thoracic spine Muscle bulk / tone/ strength in the bilateral paraspinal muscles normal Vertebral body tender to palpation over Facet loading test positive Lumbar spine: Motor bulk/ tone/ strength lower extremities , thigh and legs : 5/5 Deep tendon reflexes : Normal Knee Jerk. Normal Ankle Jerk . Vertebral body tenderness to palpation over Lumbar Facet Loading Test positive Straight Leg Raise: positive at 30 degrees right side/ left side Gaenslen's Test positive Sacral spine : Severe tenderness over the Sacroiliac joint: right side / left side Range of motion: Flexion of the lumbar spine <60 degrees Range of motion: Extension of the lumbar spine <20 degrees Gaenslen's Test positive on the L Gonzalo test: positive right side / left side + L Thigh Thrust Test Sacral Thrust Test- L side Assessment and plan: Chronic low back pain secondary to lumbar degenerative disc disease , lumbar spondylosis with facet arthropathy without myelopathy Recommendation of L SI joint injection. May need a series, up to ever 3 mo , for optimal pain relief. Risks, benefits of procedure discussed and pt verbalized understanding. Denies anticoagulant use or medical history of diabe felix. All patient questions answered MAPS reviewed and it was appropriate. I have spent less than 30 minutes on patient care today. Dr Tobar was available by phone for the evaluation of this patient. The time was used to review the medical records including relevant urine studies and Prescription history (MAPs), review of the available imaging, evaluation and examination of the patient, coordination of care with the medical staff and if applicable referring physicians, as well as creation of the medical record - Pain Location Left Lower Back Non-Pharmacological Interventions: Heat, Inactivity, Position/Reposition Pharmacological Interventions: PRN Medication, Topical Medication PQRS Narrative: Smoking Status Never smoker Blood Pressure 114/67 Pain Intensity [Left Lower 8 Back] Scale Used Numeric (1 - 10) Hx Alcohol Use (MH) No Home Medications: Ambulatory Orders Acetaminophen [Tylenol] 325 mg PO DAILY PRN 03/17/19 Ferrous Sulfate [Iron (65 MG Elemental)] 325 mg PO DAILY 09/16/19 Magnesium 400 mg PO DAILY 09/16/19 Multivitamins, Thera [Multivitamin (formulary)] 1 tab PO DAILY 09/16/19 [place]-3 Fatty Acids [[place]-3] 1,000 mg PO DAILY 09/16/19 Ubidecarenone [Co Q-10] 100 mg PO DAILY 09/16/19 Vitamin E (Dl,Tocopheryl Acet) [Vitamin E] 400 unit PO DAILY 09/16/19 methocarbamoL [Robaxin-750] 750 mg PO DAILY 09/16/19 Omeprazole [PriLOSEC] 40 mg PO DAILY #90 cap 12/08/19 Gabapentin 300 mg PO BID 03/08/20 Meloxicam [Mobic] 15 mg PO DAILY 03/09/21 traMADol HCL [Ultram ER] 100 mg PO Q6H PRN 03/09/21 Cyclobenzaprine [Flexeril] 10 mg PO TID #12 tab 07/16/21 Controlled Substance Measures - Controlled Substance Measures Is patient prescribed a controlled substance at discharge?: No
== END ==
LOC: PNWHC3 07:29
PROVIDERS: ATTEND Specialist
DX: G89.29 Other chronic pain (principal); M51.36 Other intervertebral disc degeneration, lumbar region; M47.816 Spondylosis without myelopathy or radiculopathy, lumbar region; Z91.018 Allergy to other foods
CPT/HCPCS: 99211

== ENCOUNTER → 2022-02-05 | Day surgery (SDC) | payer OTHER ==
[~2022-02-05] MED LIST changes: +IOPAMIDOL M200 10 ML VIAL ONE; +LACTATED RINGERS 1,000 ML IV ONE; -LIDOCAINE 1% (10MG/ML) FOR IV START INTRADERMA PRN; +MIDAZOLAM 2 MG/2 ML VIAL ONE; +fentaNYL (PF) 50 MCG/ML 2 ML AMP ONE; +methylPREDNISolone ACETATE 80 MG/ML 1 ML VIAL ONE
[2022-02-05 12:00] VITALS: BP 111/62; PULSE 73; RESP 16; TEMP 98.4
--- NOTE | 2022-02-05 23:02 | P.PCN ---
Date of Procedure: 02/05/22 Description of Procedure: PREOPERATIVE DIAGNOSIS: Lumbar post laminectomy syndrome, and lumbar ra diculopathy. POSTOPERATIVE DIAGNOSIS: Lumbar post laminectomy syndrome, and lumbar radiculopathy. PROCEDURE: 1. Attempted caudal epidural with lysis of adhesions 1. Caudal epidural steroid injection under fluoroscopic guidance #1. 2. Caudal epidurogram. SURGEON: Rico Schmitt ANESTHESIA: Local with 1% lidocaine; IV sedation : Versed 2 MG and fentanyl 100 g Sedation supervision start time: 1252 Sedation supervision ended time: 1327 EBL: None. Specimens removed: None Complications: None Fluoroscopic image: saved to electronic medical records PROCEDURE INDICATION: Patient had a history of lumbar postlaminectomy syndrome, failed with conservative therapy. pain radiating distally returns for caudal epidural steroid injection. PROCEDURE DESCRIPTION: The patient was seen and identified in the preoperative area. Risks, benefits, complications, and alternatives were discussed with the patient. The patient agreed to proceed with the procedure and signed the consent. IV was started, and vital signs were stable. Patient was taken to the OR and time out was completed. The patient was placed in the prone position on procedure table and a pillow was placed under the abd omen to reduce lumbar lordosis. The lumbosacral area was prepped and draped in the usual sterile fashion. Critical pause was taken. Vital signs were closely monitored during the procedure. Using lateral fluoroscopy the anterior-posterior plates of the sacrum were identified and the skin and deeper tissues corresponding into sacrococcygeal ligament were anesthetized using approximately 5 mL of 1% lidocaine. Then under fluoroscopy, A 17 gauge RK epidural needle was used to advance through the sacral hiatus , unable to advance the needle . So procedure done using a 20 G Tuohy epidural needle was guided through the sacrococcygeal ligament, and into the epidural space. After negative aspiration, a 2 mL of Isovue contrast dye was injected with epidurogram. Again after negative aspiration for CSF, blood, and with no paresthesias, Depo-Medrol 80mg, with 9 ml of preservative free normal saline(total of 10ml) solution was injected with washout of epidurogram. Needle was withdrawn intact. Skin was cleansed, and bandage was applied. DISPOSITION / PLANS: The patient was placed in a supine position and transferred to the recovery area in a stable condition for observation and was discharged from the recovery room after meeting discharge criteria. Home discharge instructions given to the patient by the staff. The patient was reexamined prior to discharge. The patient will schedule a follow up in the clinic in 4 weeks.
--- NOTE | 2022-02-07 13:06 | FL ---
Fluoroscopy HISTORY: Pain 1.35 minutes fluoroscopy time supplied to the referring clinician. 4 intraoperative C-arm images doc ument the procedure. See dictated report from anesthesia.
== END ==
LOC: ORPAIN 10:42
DX: M54.16 Radiculopathy, lumbar region (principal); M96.1 Postlaminectomy syndrome, not elsewhere classified; G47.33 Obstructive sleep apnea (adult) (pediatric); M19.90 Unspecified osteoarthritis, unspecified site; Z91.018 Allergy to other foods; Z79.1 Long term (current) use of non-steroidal anti-inflammatories (NSAID); Z79.899 Other long term (current) drug therapy; Z82.3 Family history of stroke
CPT/HCPCS: 62264; 62323; J2250; J1040; J3010; Q9966

== ENCOUNTER → 2022-02-20 | Outpatient (CLI) | payer OTHER ==
[2022-02-20 15:29] VITALS: BP 150/78; PULSE 60; RESP 18; TEMP 98
--- NOTE | 2022-02-20 15:37 | P.PAINPG ---
PQRS Measure Charge Sheet Comment: A 66 yr old male with a history of severe and chronic low back pain secondary to post laminectomy syndrome x 4 mo presents today for evaluation s/p Caudal ANGEL. Pt states he experienced 0 % pain relief x 2 wks s/p procedure. Pain level is currently at 9/10 in intensity, constant, localized in the center of the lower lumbar spine, sharp, burning in character w shooting towards the LLE and L ankle. Pain is provoked by walking for periods of 10 min or more, sitting for periods of 1 hr or more. Pain is alleviated with PT x 6 wks which ended this mo, massage integrated w PT, home exercise regimen, heat, ice, medications (Tylenol + Ibuprofen), repositioning and rest. Interventional pain procedures completed include Caudal ANGEL x1, L SI injection. Patient is currently on Ibuprofen Patient denies any side effects of the medication(s), denies excessive drowsiness or sleepiness, denies suicidal ideation and reports that the current pain medication is helping to control the pain and improve activities of daily living. Patient denies any motor or sensory deficits. Patient denies any fever or night sweats, denies any change in the bowel movements or urination. Physical Examination: -Constitutional: Cooperative. Not in acute distress . - Neurologic: Cranial nerve II to XII intact. No focal neurological deficits. - Psychatric: Alert & oriented x 3. Matching mood & appropriate affect. Judgment and insight intact. - Musculoskeletal: Cervical spine: Muscle bulk/ tone/ strength in the bilateral upper extremities normal Vertebral body tenderness to palpation over Spurling test positive Distraction test positive Facet loading test positive Thoracic spine Muscle bulk / tone/ strength in the bilateral paraspinal muscles normal Vertebral body tender to palpation over Facet loading test positive Lumbar spine: Motor bulk/ tone/ strength lower extremities , thigh and legs : 5/5 Deep tendon reflexes : Normal Knee Jerk. Normal Ankle Jerk . Vertebral body tenderness to palpation over Lumbar Facet Loading Test positive on L w TTP over L L4-L5, L5-S1 facets Straight Leg Raise: positive at 30 degrees right side/ left side Gaenslen's Test positive Sacral spine : Severe tenderness over the Sacroiliac joint: right side / left side Range of motion: Flexion of the lumbar spine <60 degrees Range of motion: Extension of the lumbar spine <20 degrees Gaenslen's Test positive Nico's Test positive Gonzalo test: positive right side / left side Thigh Thrust Test Sacral Thrust Test Assessment and plan: Chronic low back pain secondary to post laminectomy syndrome Recommendation of L MBB L4-L5, L5-S1 #1. May need a series of injections, up until RFA, for optimal pain relief. Risks, benefits of procedure discussed and pt verbalized understanding. Denies anticoagulant use or medical history of diabetes. All patient questions answered MAPS reviewed and it was appropriate. Narcotic agreement signed today 02/20/22. Use, side effects and adverse reactions discussed. Safe storage discussed. [place] 7.5/325mg #60 w 1 RF I have spent less than 30 minutes on patient care today. Dr Tboar was available by phone for the evaluation of this patient. The time was used to review the medical records including relevant urine studies and Prescription history (MAPs), review of the available imaging, evaluation and examination of the patient, coordination of care with the medical staff and if applicable referring physicians, as well as creation of the medical record PQRS Narrative: Smoking Status Never smoker Hx Alcohol Use (MH) No Home Medications: Ambulatory Orders Ferrous Sulfate [Iron (65 MG Elemental)] 325 mg PO DAILY 09/16/19 Magnesium 400 mg PO DAILY 09/16/19 Multivitamins, Thera [Multivitamin (formulary)] 1 tab PO DAILY 09/16/19 [place]-3 Fatty Acids [[place]-3] 1,000 mg PO DAILY 09/16/19 Ubidecarenone [Co Q-10] 100 mg PO DAILY 09/16/19 Vitamin E (Dl,Tocopheryl Acet) [Vitamin E] 400 unit PO DAILY 09/16/19 methocarbamoL [Robaxin-750] 750 mg PO DAILY 09/16/19 Gabapentin 300 mg PO BID 03/08/20 Meloxicam [Mobic] 15 mg PO DAILY 03/09/21 Ibuprofen [Motrin] 400 mg PO Q8HR PRN 01/14/22 HYDROcodone/APAP 7.5-325MG [[place] 7.5-325] 1 tab PO Q4H PRN 3 Days #18 tab 01/24/22 Controlled Substance Measures - Controlled Substance Measures Is patient prescribed a controlled substance at discharge?: Yes When asked, does pt state using other controlled substances?: No If prescribed controlled substance>3 days was MAPS reviewed?: Yes If Rx opioid, was Start Talking consent form obtained?: Yes Was information provided regarding opioid addiction?: Yes
== END ==
LOC: PNWHC3 13:46
PROVIDERS: ATTEND Specialist
DX: M96.1 Postlaminectomy syndrome, not elsewhere classified (principal); G89.29 Other chronic pain; Z91.018 Allergy to other foods
CPT/HCPCS: 99211

== ENCOUNTER 2022-03-01 11:04 | Day surgery (SDC) | payer OTHER ==
[2022-03-01 11:47] VITALS: RESP 16; TEMP 97.4
[2022-03-01] MEDS ORDERED: ROPIVACAINE 5 MG/ML 20 ML AMPULE ONE (12:22)
[2022-03-01] MEDS ORDERED: methylPREDNISolone ACETATE 40 MG/ML 1 ML VIAL ONE (12:22)
--- NOTE | 2022-03-01 12:40 | P.PCN ---
Date of Procedure: 03/01/22 Procedure(s) Performed: PREOPERATIVE DIAGNOSIS : 1- Lumbar spondylosis with Facet Arthropathy without myelopathy . 2- Lumber degenerative disc disease POSTOPERATIVE DIAGNOSIS: 1- Lumbar spondylosis with Facet Arthropathy without myelopathy . 2- Lumber degenerative disc disease PROCEDURE: Diagnostic Left L1 , L2, and P5spxoya branch block under fluoroscopy guidance(fluoroscopy images available in the radiology Department ) ( To target the facet joint between Left L2-3 , and L3-4 ) # 1st ANESTHESIA:,Local anesthesia with ropivacaine 0.5% 3 ml only EBL: Minimal COMPLICATION: None PROCEDURE INDICATION: Chronic low back pain secondary to Facet arthropathy unresponsive to conservative treatment. PROCEDURE DESCRIPTION: the patient was seen and identified in the preop holding area , risks and benefits and possible complications of the procedure and alternative were discussed with the patient, and the patient agreed to proceed with the procedure and signed the consent and vital signs monitored during the procedure and fluoroscopy was used to maximize the benefit and accuracy of the needle placement, and sedation was given to decrease patient anxiety, patient was taken to the procedure room and placed in prone position vital signs monitored in the back prepped with chlorhexidine X3 then under strict sterile technique using a right oblique fluoroscopy ,the junction of the transverse process and the superior articulating process of the Left L1 , L2, and L3 vertebra which corresponding to the fluoroscopy image of the eye of the Durga dog on the block side for the medial branches and subsequently , after local infiltration of skin and subcu tissuies with Ropivacaine 0.5 % , one mL at each level ,then 22-gauge Quincke-type needles , 3 needle was used , each one of them placed at the junction of the base of the transverse process and the superior articular process at the appropriate level, and the needle was advanced until the periosteum contacted, needle placement confirmed with AP oblique and lateral view and after appropriate needle placement confirmed, and after negative aspiration for heme and CSF and there was no paresthesia 1-1/2 mL of R opivacaine 0.5% mixed with 40 mg Depo-Medrol , then half mL injected at each level after negative aspiration the needle subsequently removed . At the end of the procedure and the needles removed and a bandage applied after the skin was cleaned the cleaning solution patient taken to recovery room in stable condition and monitors in the recovery room for 20-30 minutes and discharged home in stable condition after discharge criteria met and patient will follow up with the pain clinic in 2-4 weeks
[2022-03-01 12:49] VITALS: BP 126/71; PULSE 69
--- NOTE | 2022-03-01 12:55 | FL ---
EXAMINATION TYPE: FL guided pain mgmt statistic DATE OF EXAM: 03/01/2022 CLINICAL HISTORY: Low back pain. TECHNIQUE: Fluoroscopy. COMPARISON: None. FINDINGS: Fluoroscopic guidance was provided during pain relief procedure performed by Dr. Tobar . A total of 6 seconds of fluoroscopic time was utilized during the procedure and two spot images ar e acquired. Images acquired shows needle localization at several levels in the lumbar spine. IMPRESSION: As Above.
== END 2022-03-01 13:02 | disposition home or self-care (01) ==
LOC: ORPAIN 11:04
PROVIDERS: ATTEND Anesthesiology
DX: M51.36 Other intervertebral disc degeneration, lumbar region (principal); M47.816 Spondylosis without myelopathy or radiculopathy, lumbar region; G89.29 Other chronic pain
CPT/HCPCS: 64493; 64494; J1030; J2795

== ENCOUNTER → 2022-03-18 | Outpatient (CLI) | payer OTHER ==
[2022-03-18 09:07] VITALS: BP 144/75; PULSE 95; RESP 18; TEMP 98.2
--- NOTE | 2022-03-18 14:46 | P.PAINPG ---
PQRS Measure Charge Sheet Comment: A 66 yr old male with a history of severe and chronic low back pain secondary to lumbar degenerative disc diseases and lumbar spondylosis with facet arthropathy without myelopathy presents today for evaluation s/p L L2-L4 MBB & medication refills. Pt states he experienced 100% pain relief x 2 hrs s/p proced ure.. Pain level is currently at 6/10 in intensity, constant, localized in L lumbar spine, achy in character w shooting towards the buttocks. Pain is provoked by . Pain is alleviated with use of walker, PT x 15 visits which ended Jan 2022, heat, ice, medications (MS, [place], Neurontin), topicals, home exercise regimen, sitting, repositioning and rest. Interventional pain procedures completed include L SI injection, L MBB L2-L4 x1 Patient is currently on [place], [place] ER, Neurontin Patient denies any side effects of the medication(s), denies excessive drowsiness or sleepiness, denies suicidal ideation and reports that the current pain medication is helping to control the pain and improve activities of daily living. Patient denies any motor or sensory deficits. Patient denies any fever or night sweats, denies any change in the bowel movements or urination. Physical Examination: -Constitutional: Cooperative. Not in acute distress . - Neurologic: Cranial nerve II to XII intact. No focal neurological deficits. - Psychatric: Alert & oriented x 3. Matching mood & appropriate affect. Judgment and insight intact. - Musculoskeletal: Cervical spine: Muscle bulk/ tone/ strength in the bilateral upper extremities normal Vertebral body tenderness to palpation over Spurling test positive Distraction test positive Facet loading test positive Thoracic spine Muscle bulk / tone/ strength in the bilateral paraspinal muscles normal Vertebral body tender to palpation over Facet loading test positive Lumbar spine: Motor bulk/ tone/ strength lower extremities , thigh and legs : 5/5 Deep tendon reflexes : Normal Knee Jerk. Normal Ankle Jerk . Vertebral body tenderness to palpation over Lumbar Facet Loading Test positive w L lateral flexion over L2-L3, L3-L4 Straight Leg Raise: positive at 30 degrees right side/ left side Gaenslen's Test positive Sacral spine : Severe tenderness over the Sacroiliac joint: right side / left side Range of motion: Flexion of the lumbar spine <60 degrees Range of motion: Extension of the lumbar spine <20 degrees Gaenslen's Test positive Nico's Test positive Gonzalo test: positive right side / left side Thigh Thrust Test Sacral Thrust Test Assessment and plan: Chronic low back pain secondary to lumbar degenerative disc disease , lumbar spondylosis with facet arthropathy without myelopathy Recommendation of L L2-L3, L4-L4 #2. May need a series of injections, up until RFA, for optimal pain relief. Risks, benefits of procedure discussed and pt verbalized understanding. Denies anticoagulant use or medical history of diabetes. Chronic and current use of high-risk medication (Opioids). The patient was counseled about risk of opioid use, psychological risk associated with opioids and was orally counseled to not overuse , divert or sell medications. Pt is to store medication in a safe location. The patient is counseled against driving while using narcotic medications and also not to use alcohol or any illicit recreational drugs. Patient verbalized understanding that the lack of compliance will result in failure to renew narcotic prescription(s) as well as possible discharge from the clinic Diagnoses, prognosis and treatment options including but not limited to physical therapy, surgical interventions, interventional therapies and medication management including narcotics and adjuvant medication were discussed. All patient questions answered MAPS reviewed and it was appropriate. Narcotic agreement signed today 03/18/22 Prescription refill for [place] 7.5/325mg #90 to be picked up 03/19/22. MS ER 15mg #60 03/20/22. I have spent less than 30 minutes on patient care today. Dr Tobar was available by phone for the evaluation of this patient. The time was used to review the medical records including relevant urine studies and Prescription history (MAPs), review of the available imaging, evaluation and examination of the patient, coordination of care with the medical staff and if applicable referring physicians, as well as creation of the medical record - Pain Location Left Lower Back Non-Pharmacological Interventions: Heat, Home Exercise, Ice, Massage, Physical Therapy, Position/Reposition, Sitting, Stretching Pharmacological Interventions: Scheduled Medication, Topical Medication PQRS Narrative: Smoking Status Never smoker Hx Alcohol Use (MH) No Home Medications: Ambulatory Orders Ferrous Sulfate [Iron (65 MG Elemental)] 325 mg PO DAILY 09/16/19 Magnesium 400 mg PO DAILY 09/16/19 Multivitamins, Thera [Multivitamin (formulary)] 1 tab PO DAILY 09/16/19 [place]-3 Fatty Acids [[place]-3] 1,000 mg PO DAILY 09/16/19 Ubidecarenone [Co Q-10] 100 mg PO DAILY 09/16/19 Vitamin E (Dl,Tocopheryl Acet) [Vitamin E] 400 unit PO DAILY 09/16/19 methocarbamoL [Robaxin-750] 750 mg PO AC-TID 09/16/19 Gabapentin 300 mg PO AC-TID 03/08/20 Meloxicam [Mobic] 15 mg PO DAILY 03/09/21 Morphine Sulfate ER [Ms Contin] 15 mg PO Q12HR 30 Days #60 tab 02/21/22 HYDROcodone/APAP 7.5-325MG [[place] 7.5-325] 1 tab PO Q8HR PRN 03/01/22 Controlled Substance Measures - Controlled Substance Measures Is patient prescribed a controlled substance at discharge?: Yes When asked, does pt state using other controlled substances?: No If prescribed controlled substance>3 days was MAPS reviewed?: Yes If Rx opioid, was Start Talking consent form obtained?: Yes Was information provided regarding opioid addiction?: Yes
== END ==
LOC: PNWHC3 08:23
PROVIDERS: ATTEND Specialist
DX: M47.816 Spondylosis without myelopathy or radiculopathy, lumbar region (principal); M51.36 Other intervertebral disc degeneration, lumbar region; G89.29 Other chronic pain; Z79.891 Long term (current) use of opiate analgesic; Z91.018 Allergy to other foods; E66.9 Obesity, unspecified; Z68.30 Body mass index [BMI] 30.0-30.9, adult
CPT/HCPCS: 99211

== ENCOUNTER 2022-04-19 07:49 | Day surgery (SDC) | payer OTHER ==
[2022-04-18 09:11] VITALS: BMI 30.9
[~2022-04-19 07:49] MED LIST changes: -IOPAMIDOL M200 10 ML VIAL ONE; -LACTATED RINGERS 1,000 ML IV ONE; +LIDOCAINE 1% (10MG/ML) FOR IV START INTRADERMA PRN; -MIDAZOLAM 2 MG/2 ML VIAL ONE; -fentaNYL (PF) 50 MCG/ML 2 ML AMP ONE; -methylPREDNISolone ACETATE 80 MG/ML 1 ML VIAL ONE
[2022-04-19 08:13] VITALS: TEMP 97.2
[2022-04-19] MEDS ORDERED: MIDAZOLAM 2 MG/2 ML VIAL ONE (08:31)
[2022-04-19] MEDS ORDERED: ROPIVACAINE 5 MG/ML 20 ML AMPULE ONE (08:31)
[2022-04-19] MEDS ORDERED: methylPREDNISolone ACETATE 40 MG/ML 1 ML VIAL ONE (08:31)
[2022-04-19] MEDS ORDERED: fentaNYL (PF) 50 MCG/ML 2 ML AMP ONE (08:31)
[2022-04-19] MEDS ORDERED: IV FLUID CONTINUATION 1,000 ML IV ONE (08:46)
--- NOTE | 2022-04-19 08:46 | P.PCN ---
Date of Procedure: 04/19/22 Procedure(s) Performed: PREOPERATIVE DIAGNOSIS : 1- Lumbar spondylosis with Facet Arthropathy without myelopathy . 2- Lumber degenerative disc disease POSTOPERATIVE DIAGNOSIS: 1- Lumbar spondylosis with Facet Arthropathy without myelopathy . 2- Lumber degenerative disc disease PROCEDURE: Diagnostic Left L1 , L2, and L1rdtxmd branch block under fluoroscopy guidance(fluoroscopy images available in the radiology Department ) ( To target the facet joint between Left L2-3 , and L3-4 ) # 2nd ANESTHESIA:, Monitored anesthesia care as per anesthesia department. EBL: Minimal COMPLICATION: None PROCEDURE INDICATION: Chronic low back pain secondary to Facet arthropathy unresponsive to conservative treatment. PROCEDURE DESCRIPTION: the patient was seen and identified in the preop holding area , risks and benefits and possible complications of the procedure and alternative were discussed with the patient, and the patient agreed to proceed with the procedure and signed the consent and vital signs monitored during the procedure and fluoroscopy was used to maximize the benefit and accuracy of the needle placement, and sedation was given to decrease patient anxiety, patient was taken to the procedure room and placed in prone position vital signs monitored in the back prepped with chlorhexidine X3 then under strict sterile technique using a right oblique fluoroscopy ,the junction of the transverse process and the superior articulating process of the Left L1 , L2 , and L3 vertebra which corresponding to the fluoroscopy image of the eye of the Durga dog on the block side for the medial branches and subsequently , after local infiltration of skin and subcu tissuies with Ropivacaine 0.5 % , one mL at each level ,then 22-gauge 5 inhes long Quincke-type needles , 3 needle was used , each one of them placed at the junction of the base of the transverse process and the superior articular process at the appropriate level, and the needle was advanced until the periosteum contacted, needle placement confirmed with AP oblique and lateral view and after appropriate needle placement confirmed, and after negative aspiration for heme and CSF and there was no paresthesia 1-1/2 mL of Ropivacaine 0.5% mixed with 20 mg Depo-Medrol , then half mL injected at each level after negative aspiration the needle subsequently removed . At the end of the procedure and the needles removed and a bandage applied after the skin was cleaned the cleaning solution patient taken to recovery room in stable condition and monitors in the recovery room for 20-30 minutes and discharged home in stable condition after discharge criteria met and patient will follow up with the pain clinic in 2-4 weeks
[2022-04-19 09:04] VITALS: BP 118/64; PULSE 74; RESP 16
--- NOTE | 2022-04-19 09:05 | FL ---
Fluoroscopy History: Lumbar Facet 5 secs fl time. done by GARETH barrett. Lumbar Facet block.
== END 2022-04-19 09:24 | disposition home or self-care (01) ==
LOC: ORPAIN 07:49
PROVIDERS: ATTEND Specialist
DX: M47.816 Spondylosis without myelopathy or radiculopathy, lumbar region (principal); M51.36 Other intervertebral disc degeneration, lumbar region; G47.33 Obstructive sleep apnea (adult) (pediatric); Z79.899 Other long term (current) drug therapy
CPT/HCPCS: 64493; 64494; J2250; J1030; J3010; J2795

== ENCOUNTER → 2022-05-01 | Outpatient (CLI) | payer OTHER ==
[2022-05-02 15:00] LABS: Serum Amphetamine Negative; Serum Barbiturates Negative; Serum Benzodiazepine Negative; Serum Cocaine Negative; Serum Methadone Negative; Serum Opiates Positive; Serum Phencyclidine Negative; Serum Propoxyphene Negative; Serum THC (Cannabis) Negative
== END | disposition home or self-care (01) ==
LOC: LABWHC1 08:44
PROVIDERS: ATTEND Physician Assistant Medical
DX: Z02.83 Encounter for blood-alcohol and blood-drug test (principal)
CPT/HCPCS: 36415; 80307

== ENCOUNTER → 2022-05-01 | Outpatient (CLI) | payer OTHER ==
[2022-05-01 08:54] VITALS: BP 141/73; PULSE 72; RESP 18; TEMP 98.7
--- NOTE | 2022-05-01 14:41 | P.PAINPG ---
PQRS Measure Charge Sheet Comment: A 66 yr old male with a history of severe and chronic low back pain secondary to lumbar DDD and spondylosis with facet arthropathy without myelopathy presents today for evaluation s/p L facet block of the medial branches L2-L3, L3-L4 #2 and medication refills. Pt states he experienced 100 % pain relief x 12 hrs s/p procedure. Pain level is currently at 6/10 in intensity, constant, localized in the mid L lumbar spine, sharp in characerr w shooting towards the L hip, L knee and L groin. Pain is provoked by lifting and sitting for periods of 30 min or more. Pain is alleviated with PT integrated w massage x 6 wks in Dec 2021, heat, ice, use of a walker for ambulation, medications, topicals, repositioning and rest. Interventional pain procedures completed include L MBB L2-L4 x2 Patient is currently on Morphine ER, [place], Neurontin, Mobic, Robaxin Patient denies any side effects of the medication(s), denies excessive drowsiness or sleepiness, denies suicidal ideation and reports that the current pain medication is helping to control the pain and improve activities of daily living. Patient denies any motor or sensory deficits. Patient denies any fever or night sweats, denies any change in the bowel movements or urination. Physical Examination: -Constitutional: Cooperative. Not in acute distress . - Neurologic: Cranial nerve II to XII intact. No focal neurological deficits. - Psychatric: Alert & oriented x 3. Matching mood & appropriate affect. Judgment and insight intact. - Musculoskeletal: Cervical spine: Muscle bulk/ tone/ strength in the bilateral upper extremities normal Vertebral body tenderness to palpation over Spurling test positive Distraction test positive Facet loading test positive Thoracic spine Muscle bulk / tone/ strength in the bilateral paraspinal muscles normal Vertebral body tender to palpation over Facet loading test positive Lumbar spine: Motor bulk/ tone/ strength lower extremities , thigh and legs : 5/5 Deep tendon reflexes : Normal Knee Jerk. Normal Ankle Jerk . Vertebral body tenderness to palpation over Lumbar Facet Loading Test positive jump reflex over L L2-L3, L3-L4 facets Straight Leg Raise: positive at 30 degrees right side/ left side Gaenslen's Test positive Sacral spine : Severe tenderness over the Sacroiliac joint: right side / left side Range of motion: Flexion of the lumbar spine <60 degrees Range of motion: Extension of the lumbar spine <20 degrees Gaenslen's Test positive Gonzalo test: positive right side / left side Thigh Thrust Test Sacral Thrust Test Assessment and plan: Chronic low back pain secondary to lumbar degenerative disc disease, spondylosis with facet arthropathy without myelopathy Recommendation of L RFA L2-L3, L3-L4. Pt exhibited sufficient pain relief w prior facet blocks of the medial branches. Risks, benefits of procedure discussed and pt verbalized understanding. Admits to anticoagulant use or medical history of diabetes. Protocol for discontinuation/ continuation of medications cherise procedure discussed. Chronic and current use of high-risk medication (Opioids). The patient was counseled about risk of opioid use, psychological risk associated with opioids and was orally counseled to not overuse , divert or sell medications. Pt is to store medication in a safe location. The patient is counseled against driving while using narcotic medications and also not to use alcohol or any illicit recreational drugs. Patient verbalized understanding that the lack of compliance will result in failure to renew narcotic prescription(s) as well as possible discharge from the clinic Diagnoses, prognosis and treatment options including but not limited to physical therapy, surgical interventions, interventional therapies and medication management including narcotics and adjuvant medication were discussed. All patient questions answered MAPS reviewed and it was appropriate. UDS collected today 05/01/22 Prescription refill for Morphine Sulfate ER # , [place] /325mg # w 1 RF. I have spent less than 30 minutes on patient care today. Dr Tobar was available by phone for the evaluation of this patient. The time was used to review the medical records including relevant urine studies and Prescription history (MAPs), review of the available imaging, evaluation and examination of the patient, coordination of care with the medical staff and if applicable referring physicians, as well as creation of the medical record PQRS Narrative: Smoking Status Never smoker Hx Alcohol Use (MH) No Home Medications: Ambulatory Orders Magnesium 400 mg PO DAILY 09/16/19 Multivitamins, Thera [Multivitamin (formulary)] 1 tab PO DAILY 09/16/19 [place]-3 Fatty Acids [[place]-3] 1,000 mg PO DAILY 09/16/19 Ubidecarenone [Co Q-10] 100 mg PO DAILY 09/16/19 methocarbamoL [Robaxin-750] 750 mg PO TID 09/16/19 Gabapentin 300 mg PO TID 03/08/20 Meloxicam [Mobic] 15 mg PO DAILY 03/09/21 Vitamin E (Dl,Tocopheryl Acet) [Vitamin E (400 Iu = 180 mg)] 400 unit PO DAILY 04/18/22 HYDROcodone/APAP 7.5-325MG [[place] 7.5-325] 1 tab PO Q8HR PRN 30 Days #90 tab 05/01/22 Morphine Sulfate ER [Ms Contin] 15 mg PO Q12HR 30 Days #60 tab 05/01/22 Controlled Substance Measures - Controlled Substance Measures Is patient prescribed a controlled substance at discharge?: Yes When asked, does pt state using other controlled substances?: Yes If prescribed controlled substance>3 days was MAPS reviewed?: Yes If Rx opioid, was Start Talking consent form obtained?: Yes Was information provided regarding opioid addiction?: Yes
== END ==
LOC: PNWHC3 07:46
PROVIDERS: ATTEND Specialist
DX: M47.816 Spondylosis without myelopathy or radiculopathy, lumbar region (principal); M51.36 Other intervertebral disc degeneration, lumbar region; G89.29 Other chronic pain; Z79.01 Long term (current) use of anticoagulants; E11.9 Type 2 diabetes mellitus without complications; Z91.018 Allergy to other foods
CPT/HCPCS: 99211

== ENCOUNTER 2022-05-31 06:36 | Day surgery (SDC) | payer OTHER ==
[~2022-05-31 06:36] MED LIST changes: -LIDOCAINE 1% (10MG/ML) FOR IV START INTRADERMA PRN
[2022-05-31 07:11] VITALS: RESP 16; TEMP 97
[2022-05-31] MEDS ORDERED: fentaNYL (PF) 50 MCG/ML 2 ML AMP ONE (07:56)
[2022-05-31] MEDS ORDERED: ROPIVACAINE 5 MG/ML 20 ML AMPULE ONE (07:56)
[2022-05-31] MEDS ORDERED: TRIAMCINOLONE ACETONIDE 40 MG/ML 1 ML VIAL ONE (07:56)
[2022-05-31] MEDS ORDERED: MIDAZOLAM 2 MG/2 ML VIAL ONE (07:56)
--- NOTE | 2022-05-31 08:22 | P.PCN ---
Date of Procedure: 05/31/22 Surgeon: Melody Zheng Pathology: none sent Condition: stable Disposition: PACU Description of Procedure: PREOPERATIVE DIAGNOSIS: Lumbar spondylosis without myelopathy, morbid obesity POSTOPERATIVE DIAGNOSIS: Lumbar spondylosis without myelopathy,morbid obesity PROCEDURES : Left Radiofrequency thermocoagulation L1,L2,L3 medial branch, with fluoroscopic guidance ANESTHESIA: IV moderate conscious sedation with versed and fentanyl and local infiltration with lidocaine 1% 5 ml Physician:Melody Zheng MD EBL: Minimal PROCEDURE INDICATION: The patient with low back pain secondary to lumbar facet arthropathy who had significant relief of pain with previous diagnostic lumbar medial branch block with Ropivacaine0.5%. PROCEDURE DESCRIPTION / TECHNIQUE: The patient was seen and identified in the preoperative area. Risks, benefits, complications, including but not limited to risk of infection ,bleeding , allergic reactions to the medications and no complete pain relief , and alternatives were discussed with the patient, the patient agreed to proceed with the procedure and signed the consent. IV was started. Vital signs remained stable throughout the procedure. Patient was taken to the OR and time out was completed. The patient was placed in the prone position on the procedure table. The lumber area was prepped and draped in the usual sterile fashion. . Vital signs were closely monitored during the procedure .IV sedation was used during the procedure to decrease patients anxiety. The target points were identified as follows: The L1, L2, and L3 medial branches were targeted at the eye of the Durga back between the transverse process and the superior to go process of the corresponding vertebra to the innervate the L2-3 and L3 4 facet joints on the left side.. skin was marked, and localized with 1% lidocaineat these points. Subsequently, an 18 [id number] radiofrequency needles with a 10-mm curved active tips were advanced guided by fluoroscopy to each of the target points mentioned above in a superior medial direction to get the active tips as parallel as possible to the medial branches tracks. AP, oblique, and lateral views of fluoroscopy were used to verify needle tips position. Each level then underwent motor testing at 2.5 Hz and 0 to 3 volt with local stimulation, but no radicular symptoms down the legs. I then injected 1 mL of lidocaine 1% in each needle before starting radiofrequency thermocoagulation at 80 degrees celsius for 90 seconds. After that I injected 1 ml of PF Ropivacaine 0.5%(3 mls) with 40 mg of Kenalog, 1 mL of this mixture was given in each needle before taking the needles out intact. At the end of the procedure, the skin was cleansed and bandages were applied. A copy of needle placement fluoroscopy was saved on the C-arm machine. COMPLICATIONS: No acute complications. DISPOSITION / PLANS: The patient was placed in a supine position and transferred to the recovery area in a stable condition for observation and was discharged from the recovery room after meeting discharge criteria. Home discharge instructions given to the patient by the staff. The patient was reexamined prior to discharge. The patient will schedule a follow up in the clinic in 2-4 weeks. Sedation time: Sedation was provided by the anesthesia Department
[2022-05-31] MEDS ORDERED: IV FLUID CONTINUATION 1,000 ML IV ONE (08:32)
[2022-05-31 08:46] VITALS: BP 130/60; PULSE 63
--- NOTE | 2022-05-31 09:25 | FL ---
Intraoperative/procedural fluoroscopic services were provided for lumbar facet block. Total fluorosco py time is 24 seconds with a total of 3 submitted images to PACS. Please see the operative note for f urther details.
== END 2022-05-31 08:51 | disposition home or self-care (01) ==
LOC: ORPAIN 06:36
PROVIDERS: ATTEND Anesthesiology
DX: M47.816 Spondylosis without myelopathy or radiculopathy, lumbar region (principal); E66.01 Morbid (severe) obesity due to excess calories; Z68.37 Body mass index [BMI] 37.0-37.9, adult; G47.33 Obstructive sleep apnea (adult) (pediatric); Z79.891 Long term (current) use of opiate analgesic; Z79.899 Other long term (current) drug therapy; Z98.890 Other specified postprocedural states
CPT/HCPCS: 64635; 64636; J2250; J3301; J2001; J3010; J2795

== ENCOUNTER → 2022-06-12 | Outpatient (CLI) | payer OTHER ==
[2022-06-12 08:51] VITALS: BP 133/62; PULSE 84; RESP 18; TEMP 98
--- NOTE | 2022-06-12 08:55 | P.PAINPG ---
PQRS Measure Charge Sheet Comment: A 66 yr old male with a history of severe and chronic low back pain secondary to lumbar DDD and spondylosis with facet arthropathy without myelopathy presents today for evaluation s/p L RFA L2-L4. PT states he experienced 90% pain relief s/p procedure. Pain level is currently at 6 /10 in intensity, constant, localized in the lumbar spine, tender/ sharp in character w shooting towards the L hip and L groin. Pain is provoked by bending, lifting, twisting. Pain is alleviated with PT x 6 wks in Dec 2021, injections, to start PT for his knee later in Jun 2022, heat, medications, topical, sitting and rest. Interventional pain procedures completed include L RFA L2-L4 Patient is currently on [place], Tylenol (Pt states he no longer takes MS IR) Patient denies any side effects of the medication(s), denies excessive drowsiness or sleepiness, denies suicidal ideation and reports that the current pain medication is helping to control the pain and improve activities of daily living. Patient denies any motor or sensory deficits. Patient denies any fever or night sweats, denies any change in the bowel movements or urination. Physical Examination: -Constitutional: Cooperative. Not in acute distress . - Neurologic: Cranial nerve II to XII intact. No focal neurological deficits. - Psychatric: Alert & oriented x 3. Matching mood & appropriate affect. Judgment and insight intact. - Musculoskeletal: Cervical spine: Muscle bulk/ tone/ strength in the bilateral upper extremities normal Vertebral body tenderness to palpation over Spurling test positive Distraction test positive Facet loading test positive Thoracic spine Muscle bulk / tone/ strength in the bilateral paraspinal muscles normal Vertebral body tender to palpation over Facet loading test positive Lumbar spine: Motor bulk/ tone/ strength lower extremities , thigh and legs : 5/5 Deep tendon reflexes : Normal Knee Jerk. Normal Ankle Jerk . Vertebral body tenderness to palpation over Lumbar Facet Loading Test positive Straight Leg Raise: positive at 30 degrees right side/ left side Gaenslen's Test positive Sacral spine : Severe tenderness over the Sacroiliac joint: right side / left side Range of motion: Flexion of the lumbar spine <60 degrees Range of motion: Extension of the lumbar spine <20 degrees Gaenslen's Test positive L Gonzalo test: positive right side / left side L Thigh Thrust Test Sacral Thrust Test L side Assessment and plan: Chronic LBP secondary to lumbar DDD, spondylosis with facet arthropathy without myelopathy, L Sacroiliitis Chronic and current use of high-risk medication (Opioids). The patient was counseled about risk of opioid use, psychological risk associated with opioids and was orally counseled to not overuse , divert or sell medications. Pt is to store medication in a safe location. The patient is counseled against driving while using narcotic medications and also not to use alcohol or any illicit recreational drugs. Patient verbalized understanding that the lack of compliance will result in failure to renew narcotic prescription(s) as well as possible discharge from the clinic Diagnoses, prognosis and treatment options including but not limited to physical therapy, surgical interventions, interventional therapies and medication management including narcotics and adjuvant medication were discussed. All patient questions answered MAPS reviewed and it was appropriate. Prescription refill for [place] 7.5/325mg #60 w 1 RF. Discontinued Morphine Sulfate per pt request. I have spent less than 30 minutes on patient care today. Dr Tobar was available by phone for the evaluation of this patient. The time was used to review the medical records including relevant urine studies and Prescription history (MAPs), review of the available imaging, evaluation and examination of the patient, coordination of care with the medical staff and if applicable referring physicians, as well as creation of the medical record PQRS Narrative: Smoking Status Never smoker Narcotic Agreement Date Signed 05/01/22 Hx Alcohol Use (MH) No Home Medications: Ambulatory Orders Magnesium 400 mg PO DAILY 09/16/19 Multivitamins, Thera [Multivitamin (formulary)] 1 tab PO DAILY 09/16/19 [place]-3 Fatty Acids [[place]-3] 1,000 mg PO DAILY 09/16/19 Ubidecarenone [Co Q-10] 100 mg PO DAILY 09/16/19 methocarbamoL [Robaxin-750] 750 mg PO TID 09/16/19 Gabapentin 300 mg PO TID 03/08/20 Meloxicam [Mobic] 15 mg PO DAILY 03/09/21 Vitamin E (Dl,Tocopheryl Acet) [Vitamin E (400 Iu = 180 mg)] 400 unit PO DAILY 04/18/22 HYDROcodone/APAP 7.5-325MG [[place] 7.5-325] 1 tab PO Q12HR PRN 30 Days #60 tab 06/12/22 HYDROcodone/APAP 7.5-325MG [[place] 7.5-325] 1 tab PO Q12HR PRN 30 Days #60 tab 06/12/22 Morphine Sulfate ER [Ms Contin] 15 mg PO Q12HR 30 Days #60 tab 06/12/22 Controlled Substance Measures - Controlled Substance Measures Is patient prescribed a controlled substance at discharge?: Yes When asked, does pt state using other controlled substances?: No If prescribed controlled substance>3 days was MAPS reviewed?: Yes If Rx opioid, was Start Talking consent form obtained?: Yes Was information provided regarding opioid addiction?: Yes
== END ==
LOC: PNWHC3 08:05
PROVIDERS: ATTEND Specialist
DX: M47.816 Spondylosis without myelopathy or radiculopathy, lumbar region (principal); M51.36 Other intervertebral disc degeneration, lumbar region; G89.29 Other chronic pain; Z79.891 Long term (current) use of opiate analgesic; Z91.018 Allergy to other foods
CPT/HCPCS: 99211

== ENCOUNTER 2022-06-20 07:28 | Day surgery (SDC) | payer OTHER ==
[2022-06-18 09:50] VITALS: BMI 37.6
[2022-06-20] MEDS ORDERED: LIDOCAINE 1% (10MG/ML) FOR IV START INTRADERMA PRN (07:32)
[2022-06-20] MEDS ORDERED: LACTATED RINGERS 1,000 ML IV SCH (07:32)
[2022-06-20 07:52] VITALS: TEMP 97.3
[2022-06-20] MEDS ORDERED: fentaNYL (PF) 50 MCG/ML 2 ML AMP ONE (08:09)
[2022-06-20] MEDS ORDERED: MIDAZOLAM 2 MG/2 ML VIAL ONE (08:09)
[2022-06-20] MEDS ORDERED: methylPREDNISolone ACETATE 80 MG/ML 1 ML VIAL ONE (08:09)
[2022-06-20] MEDS ORDERED: ROPIVACAINE 5 MG/ML 20 ML AMPULE ONE (08:09)
--- NOTE | 2022-06-20 08:23 | P.PCN ---
Date of Procedure: 06/20/22 Procedure(s) Performed: Procedure= Left sacroiliac joints steroid injection under fluoroscopy guidance (fluoroscopy image stored on file in the radiology Department ) Preoperative diagnosis= 1- Left sacroiliitis 2-lumbar degenerative disc disease 3-lumbar facet arthropathy Postoperative diagnosis=Same as preop Diagnosis . Complication = none Condition= stable Anesthesia= moderate sedation with intravenous Versed 2 mg , and fentanyl 100 micrograms . Sedation start time:08:12 Sedation end time : 08:19 Indication for the procedure= patient complaining of low back pain , examination was positive for severe tenderness over the left sacroiliac joints , and patient diagnosed with left sacroiliitis, for this reason he was good candidate for left sacroiliac joint steroid injection. Description of the procedure= procedure risk and benefits discussed with the patient, including but not limited, risk of infection and bleeding, and ALLERGIC reaction to the medication and not complete pain relief and patient agreed with the preceding patient taken to the operating room, placed in prone position or standard monitors applied to the patient then after induction of anesthesia back prepped with chlorhexidine 3 times ,Then under strict sterile technique, the left sacroiliac joint steroid injection done under strict sterile technique local infiltration of the skin and subcu interstitial at the location of the left sacroiliac joint then a 22-gauge 5 inches long Quincke Needle advanced slowly under fluoroscopy time placed in the left sacroiliac joint, needle placement confirmed with AP and oblique and lateral view then after appropriate needle placement confirmed and after negative aspiration 0.5% Ropivacaine 5 mL and 60 mg of Depo-Medrol injected in the left sacroiliac joint after negative aspiration patient tolerated the procedure well that any complications and she will follow up in clinic 3 weeks
[2022-06-20] MEDS ORDERED: IV FLUID CONTINUATION 1,000 ML IV ONE (08:28)
[2022-06-20 08:32] VITALS: RESP 16
--- NOTE | 2022-06-20 08:35 | FL ---
Intraoperative/procedural fluoroscopic services were provided. Total fluoroscopy time is 2 seconds wi th a total of 1 submitted images to PACS. Please see the operative/procedural note for further detail s.
[2022-06-20 08:53] VITALS: BP 128/79; PULSE 65
== END 2022-06-20 09:07 | disposition home or self-care (01) ==
LOC: ORPAIN 07:28
PROVIDERS: ATTEND Specialist
DX: M46.1 Sacroiliitis, not elsewhere classified (principal); M47.816 Spondylosis without myelopathy or radiculopathy, lumbar region; M51.36 Other intervertebral disc degeneration, lumbar region; Z91.018 Allergy to other foods
CPT/HCPCS: 27096; J2250; J1040; J3010; J2795

== ENCOUNTER → 2022-07-04 | Outpatient (CLI) | payer OTHER ==
[2022-07-04 10:03] VITALS: BP 130/67; PULSE 57; RESP 18; TEMP 98
--- NOTE | 2022-07-04 14:59 | P.PAINPG ---
PQRS Measure Charge Sheet Comment: A 66 yr old wheelchair bound male with a history of severe and chronic LBP x yrs secondary to lumbar DDD and spondylosis with facet arthropathy without myelopathy presents today for evaluation s/p L SI injection and medication refills. Pt states he experienced 80 % pain relief x 3 days s/p procedure. Pain level is provoked at 6/10 in intensity, constant, localized in the lumbar spine, sore in character w shooting towards the L groin, L thigh. Pain is provoked by sitting/ walking/ standing for periods of 15 mi or more. Pain is alleviated with PT (15 sessions) in Dec 2021, heat, ice, medications, topicals, repositioning and rest. Pt admits to taking 2 leftover MS which were prescribed by this clinic several months back but does not want that refilled. He is in intractable pain and will receive [place] 7.5/325mg #90. Interventional pain procedures completed include L SI injection x2 Patient is currently on [place], MS IR Patient denies any side effects of the medication(s), denies excessive drowsiness or sleepiness, denies suicidal ideation and reports that the current pain medication is helping to control the pain and improve activities of daily living. Patient denies any motor or sensory deficits. Patient denies any fever or night sweats, denies any change in the bowel movements or urination. Physical Examination: -Constitutional: Cooperative. Not in acute distress . - Neurologic: Cranial nerve II to XII intact. No focal neurological deficits. - Psychatric: Alert & oriented x 3. Matching mood & appropriate affect. Judgment and insight intact. - Musculoskeletal: Cervical spine: Muscle bulk/ tone/ strength in the bilateral upper extremities normal Vertebral body tenderness to palpation over Spurling test positive Distraction test positive Facet loading test positive Thoracic spine Muscle bulk / tone/ strength in the bilateral paraspinal muscles normal Vertebral body tender to palpation over Facet loading test positive Lumbar spine: Motor bulk/ tone/ strength lower extremities , thigh and legs : 5/5 Deep tendon reflexes : Normal Knee Jerk. Normal Ankle Jerk . Vertebral body tenderness to palpation over Lumbar Facet Loading Test positive Straight Leg Raise: positive at 30 degrees right side/ left side Gaenslen's Test positive Sacral spine : Severe tenderness over the Sacroiliac joint: right side / left side Range of motion: Flexion of the lumbar spine <60 degrees Range of motion: Extension of the lumbar spine <20 degrees Gaenslen's Test positive L Gonzalo test: positive right side / left side Thigh Thrust Test L Sacral Thrust Test positive Assessment and plan: Chronic LBP secondary to lumbar DDD, spondylosis with facet arthropathy without myelopathy Pt has underwent a L SI injection on 01/21/22 and 06/20/22 with very short term relief. Will follow up w Dr Barahona re: L SI joint dysfunction to explore additional treatment options. Chronic and current use of high-risk medication (Opioids). The patient was counseled about risk of opioid use, psychological risk associated with opioids and was orally counseled to not overuse , divert or sell medications. Pt is to store medication in a safe location. The patient is counseled against driving while using narcotic medications and also not to use alcohol or any illicit recreational drugs. Patient verbalized understanding that the lack of compliance will result in failure to renew narcotic prescription(s) as well as possible discharge from the clinic Diagnoses, prognosis and treatment options including but not limited to physical therapy, surgical interventions, interventional therapies and medication management including narcotics and adjuvant medication were discussed. All patient questions answered MAPS reviewed and it was appropriate. UDS to be collected today 07/04/22. Prescription refill for [place] 7.5/325mg #90 (increased quantity) w 1 RF. I have spent less than 30 minutes on patient care today. Dr Tobar was available by phone for the evaluation of this patient. The time was used to review the medical records including relevant urine studies and Prescription history (MAPs), review of the available imaging, evaluation and examination of the patient, coordination of care with the medical staff and if applicable referring physicians, as well as creation of the medical record PQRS Narrative: Smoking Status Never smoker Narcotic Agreement Date Signed 05/01/22 Hx Alcohol Use (MH) No Home Medications: Ambulatory Orders Magnesium 400 mg PO DAILY 09/16/19 Multivitamins, Thera [Multivitamin (formulary)] 1 tab PO DAILY 09/16/19 [place]-3 Fatty Acids [[place]-3] 1,000 mg PO DAILY 09/16/19 Ubidecarenone [Co Q-10] 100 mg PO DAILY 09/16/19 methocarbamoL [Robaxin-750] 750 mg PO TID 09/16/19 Gabapentin 300 mg PO TID 10/07/20 Meloxicam [Mobic] 15 mg PO DAILY 03/09/21 Vitamin E (Dl,Tocopheryl Acet) [Vitamin E (400 Iu = 180 mg)] 400 unit PO DAILY 04/18/22 HYDROcodone/APAP 7.5-325MG [[place] 7.5-325] 1 tab PO Q12HR PRN 30 Days #60 tab 06/12/22 Controlled Substance Measures - Controlled Substance Measures Is patient prescribed a controlled substance at discharge?: Yes When asked, does pt state using other controlled substances?: Yes If prescribed controlled substance>3 days was MAPS reviewed?: No If Rx opioid, was Start Talking consent form obtained?: Yes If opioid is for acute pain is fill amount 7 days or less?: No Was information provided regarding opioid addiction?: Yes
== END ==
LOC: PNWHC3 09:13
PROVIDERS: ATTEND Specialist
DX: M48.062 Spinal stenosis, lumbar region with neurogenic claudication (principal); M47.812 Spondylosis without myelopathy or radiculopathy, cervical region; M47.817 Spondylosis without myelopathy or radiculopathy, lumbosacral region; G89.29 Other chronic pain; M51.36 Other intervertebral disc degeneration, lumbar region; M47.816 Spondylosis without myelopathy or radiculopathy, lumbar region; Z02.83 Encounter for blood-alcohol and blood-drug test; Z91.018 Allergy to other foods
CPT/HCPCS: 99211

== ENCOUNTER 2022-08-23 11:01 | Inpatient (IN) | payer OTHER, MEDICARE ==
[2022-08-23] MEDS ORDERED: NALOXONE 0.4 MG/ML 1 ML VIAL IV PRN ×2 (12:42→13:30)
--- NOTE | 2022-08-23 12:42 | ED ---
General Adult HPI - General Chief complaint: Extremity Problem,Nontraumatic Stated complaint: L hip issues Time Seen by Provider: 08/23/22 11:25 Source: patient Mode of arrival: wheelchair Limitations: no limitations - History of Present Illness Initial comments: 66 year old male presents to the emergency department status post left hip replacement on August 05. Procedure was done by Dr. Munroe. He reports that he began having redness, swelling and chills starting on Friday. He called the office to make an appointment. He was seen today by Latrell Banuelos and Dr. Munroe. He was recommended the patient come over to the hospital for IV antibiotics. He will require washout. Patient does report to increasing pain in this extremity. He has been able to ambulate with a walker. Is not currently on any antibiotics. No other alleviating, precipitating or modifying factors - Related Data Home Medications Medication Instructions Recorded Confirmed Magnesium 400 mg PO DAILY 09/16/19 08/23/22 Multivitamins, Thera [Multivitamin 1 tab PO DAILY 09/16/19 08/23/22 (formulary)] [place]-3 Fatty Acids [[place]-3] 1,000 mg PO DAILY 09/16/19 08/23/22 Ubidecarenone [Co Q-10] 100 mg PO DAILY 09/16/19 08/23/22 methocarbamoL [Robaxin-750] 750 mg PO TID 09/16/19 08/23/22 Gabapentin 300 mg PO TID 03/08/20 08/23/22 Meloxicam [Mobic] 15 mg PO DAILY 03/09/21 08/23/22 Vitamin E (Dl,Tocopheryl Acet) 400 unit PO DAILY 04/18/22 08/23/22 [Vitamin E (400 Iu = 180 mg)] Ascorbic Acid [Vitamin C] 1,000 mg PO DAILY 08/23/22 08/23/22 Cholecalciferol (Vitamin D3) 75 mcg PO DAILY 08/23/22 08/23/22 [Vitamin D3 (3000 Iu)] Previous Rx's Medication Instructions Recorded Aspirin 325 mg PO DAILY #30 tab 08/06/22 HYDROcodone/APAP 10-325MG [[place] 1 tab PO Q4HR PRN 7 Days #42 tab 08/06/22 10-325] Gabapentin 300 mg PO TID #21 cap 03/28/23 HYDROcodone/APAP 10-325MG [[place] 1 tab PO Q6HR PRN #21 tab 08/27/22 10-325] Aspirin 325 mg PO DAILY #28 tab 08/28/22 Ferrous Sulfate [Feosol] 325 mg PO DAILY #21 tab 08/28/22 Sennosides/Docusate Sodium [[place] 1 each PO DAILY #20 capsule 08/28/22 Plus 8.6-50 mg Softgel] Allergies Allergy/AdvReac Type Severity Reaction Status Date / Time strawberry Allergy Severe Rash/Hives Verified 08/23/22 12:12 Review of Systems ROS Statement: Those systems with pertinent positive or pertinent negative responses have been documented in the HPI. ROS Other: All systems not noted in ROS Statement are negative. Past Medical History Past Medical History: Osteoarthritis (OA), Sleep Apnea/CPAP/BIPAP Additional Past Medical History / Comment(s): Chronic back pain, bilateral leg swelling, sciatica pain, pinched nerves in L4-L5 no more back pain since pain procedures, uses CPAP. History of Any Multi-Drug Resistant Organisms: None Reported Past Surgical History: Appendectomy, Back Surgery, Bariatric Surgery, Joint Replacement, Orthopedic Surgery Additional Past Surgical History / Comment(s): EGD, colonoscopy, pain clinic procedure for pinched nerves in back, Gastric Sleeve 02/22/19, neck surgery, back surgery-titanium silas., THLA 08/05/22, lt hip replacement Past Anesthesia/Blood Transfusion Reactions: No Reported Reaction Past Psychological History: No Psychological Hx Reported Smoking Status: Never smoker Past Alcohol Use History: None Reported Past Drug Use History: None Reported - Past Family History Mother Family Medical History: CVA/TIA Additional Family Medical History / Comment(s): of massive CVA 2012. General Exam Limitations: no limitations Head exam: Present: atraumatic, normocephalic, normal inspection Respiratory exam: Present: normal lung sounds bilaterally. Absent: respiratory distress, wheezes, rales, rhonchi, stridor Cardiovascular Exam: Present: regular rate, normal rhythm, normal heart sounds. Absent: systolic murmur, diastolic murmur, rubs, gallop, clicks GI/Abdominal exam: Present: soft, normal bowel sounds. Absent: distended, tenderness, guarding, rebound, rigid Extremities exam: Present: other (induration and erythema over left hip. incision remains closed without drainage. 2+ DP and PT pulses. ) Course Vital Signs 08/23/22 08/23/22 08/23/22 11:22 15:59 17:29 Temperature 98.7 F 100.8 F H Pulse Rate 100 92 82 Respiratory 20 18 Rate Blood Pressure 123/57 115/74 O2 Sat by Pulse 96 95 Oximetry Medical Decision Making - Medical Decision Making Was pt. sent in by a medical professional or institution (, PA, [employer], urgent care, hospital, or long-term...) When possible be specific @ -Dr. Munroe Did you speak to anyone other than the patient for history (EMS, parent, family, police, friend...)? What history was obtained from this source @ -Latrell Banuelos Did you review nursing and triage notes (agree or disagree)? Why? @ -I reviewed and agree with nursing and triage notes Were old charts reviewed (outside hosp., previous admission, EMS record, old EKG, old radiological studies, urgent care reports/EKG's, long-term records)? Report findings @ -operative procedure reviewed Differential Diagnosis (chest pain, altered mental status, abdominal pain women, abdominal pain men, vaginal bleeding, weakness, fever, dyspnea, syncope, headache, dizziness, GI bleed, back pain, seizure, CVA, palpatations, mental health, musculoskeletal)? @ -prosthetic hip infection, prosthetic hip rejection, cellulitis, abscess, compartment syndrome, DVT EKG interpreted by me (3pts min.). @ -Not done X-rays interpreted by me (1pt min.). @ -None done CT interpreted by me (1pt min.). @ -None done U/S interpreted by me (1pt. min.). @ -None done What testing was considered but not performed or refused? (CT, X-rays, U/S, labs)? Why? @ -CT/US of left leg. Ortho PA states not needed What meds were considered but not given or refused? Why? @ -None Did you discuss the management of the patient with other professionals (professionals i.e. , PA, [employer], lab, RT, psych nurse, social science instructor, capacity planning manager, teacher, aerospace engineer officer armament, manager of case)? Give summary @ -Osvaldo [place] Was smoking cessation discussed for >3mins.? @ -No Was critical care preformed (if so, how long)? @ -No Were there social determinants of health that impacted care today? How? (Homelessness, low income, unemployed, alcoholism, drug addiction, transportation, low edu. Level, literacy, decrease access to med. care, retirement, rehab)? @ -No Was there de-escalation of care discussed even if they declined (Discuss DNR or withdrawal of care, Hospice)? DNR status @ -No What co-morbidities impacted this encounter? (DM, HTN, Smoking, COPD, CAD, Cancer, CVA, ARF, Chemo, Hep., AIDS, mental health diagnosis, sleep apnea, morbid obesity)? @ -None Was patient admitted / discharged? Hospital course, mention meds given and route, prescriptions, significant lab abnormalities, going to OR and other pert inent info. @ -Upon arrival patient was placed in room 27. A thorough history and physical exam was performed. I did call and speak with Cedric from orthopedics. Agreeable with antibiotics prior to wound culture. I will obtain blood cultures. He'll be made nothing by mouth at midnight. Dr. Jay placed on consult. Patient's awaiting a bed on the floor in stable condition Undiagnosed new problem with uncertain prognosis? @ -yes Drug Therapy requiring intensive monitoring for toxicity (Heparin, Nitro, Insulin, Cardizem)? @ -No Were any procedures done? @ -No Diagnosis/symptom? @ -acute left hip prosthetic infection Acute, or Chronic, or Acute on Chronic? @ -acute Uncomplicated (without systemic symptoms) or Complicated (systemic symptoms)? @ -complicated Side effects of treatment? @ -allergic reaction Exacerbation, Progression, or Severe Exacerbation? @ -No Poses a threat to life or bodily function? How? (Chest pain, [place], [place], pneumonia, PE, COPD, DKA, ARF, appy, cholecystitis, CVA, Diverticulitis, Homicidal, Suicidal, threat to staff... and all critical care pts) @ -yes - Lab Data Result diagrams: 08/28/22 05:20 08/28/22 05:20 Lab Results 08/23/22 08/23/22 08/23/22 Range/Units 12:40 12:40 12:40 WBC 6.7 (3.8-10.6) k/uL RBC 3.41 L (4.30-5.90) m/uL Hgb 9.9 L (13.0-17.5) gm/dL Hct 29.0 L (39.0-53.0) % MCV 85.1 (80.0-100.0) fL MCH 29.1 (25.0-35.0) pg MCHC 34.2 (31.0-37.0) g/dL RDW 14.5 (11.5-15.5) % Plt Count 269 (150-450) k/uL MPV 7.0 Neutrophils % 82 % Lymphocytes % 7 % Monocytes % 8 % Eosinophils % 1 % Basophils % 0 % Neutrophils # 5.5 (1.3-7.7) k/uL Lymphocytes # 0.5 L (1.0-4.8) k/uL Monocytes # 0.5 (0-1.0) k/uL Eosinophils # 0.0 (0-0.7) k/uL Basophils # 0.0 (0-0.2) k/uL Poikilocytosis Slight ESR 114 H (0-15) mm/hr Sodium 134 L (137-145) mmol/L Potassium 3.7 (3.5-5.1) mmol/L Chloride 100 (98-107) mmol/L Carbon Dioxide 22 (22-30) mmol/L Anion Gap 12 mmol/L BUN 18 (9-20) mg/dL Creatinine 0.53 L (0.66-1.25) mg/dL Est GFR (CKD-EPI)AfAm >90 (>60 ml/min/1.73 sqM) Est GFR (CKD-EPI)NonAf >90 (>60 ml/min/1.73 sqM) Glucose 107 H (74-99) mg/dL Plasma Lactic Acid Last 0.9 (0.7-2.0) mmol/L Calcium 8.6 (8.4-10.2) mg/dL Total Bilirubin 0.9 (0.2-1.3) mg/dL AST 33 (17-59) U/L ALT 20 (4-49) U/L Alkaline Phosphatase 80 (38-126) U/L C-Reactive Protein 23.6 H (<1.0) mg/dL Total Protein 6.2 L (6.3-8.2) g/dL Albumin 3.4 L (3.5-5.0) g/dL Disposition Clinical Impression: Left hip prosthetic joint infection Disposition: ADMITTED IP TO THIS [facility] Condition: Good Is patient prescribed a controlled substance at d/c from ED?: No Time of Disposition: 12:42 Decision to Admit Reason: Admit from EC Decision Date: 08/23/22 Decision Time: 12:42
[2022-08-23] MEDS ORDERED: VANCOMYCIN IV PER PHARMACY 1 EACH MISC MISCELLANE PRN (12:50)
[2022-08-23 12:56] LABS: Basophils % (A) 0 %; Eosinophils % (A) 1 %; HGB 9.9 gm/dL (13.0-17.5); Lymphocytes # (A) 0.5 k/uL (1.0-4.8); Lymphocytes % (A) 7 %; MCH 29.1 pg (25.0-35.0); MCHC 34.2 g/dL (31.0-37.0); MCV 85.1 fL (80.0-100.0); Monocytes # (A) 0.5 k/uL (0-1.0); Monocytes % (A) 8 %; Neutrophils # (A) 5.5 k/uL (1.3-7.7); Neutrophils % (A) 82 %; Platelet Count 269 k/uL (150-450); Poikilocytosis Slight; RBC 3.41 m/uL (4.30-5.90); RDW 14.5 % (11.5-15.5); WBC 6.7 k/uL (3.8-10.6)
[2022-08-23] MEDS ORDERED: VANCOMYCIN 2,250 MG in SODIUM CHLORIDE 0.9% 500 ML 500 ML IVPB ONE (13:15)
[2022-08-23 13:20] LABS: AST 33 U/L (17-59); African American GFR (CKD) >90 (>60 ml/min/1.73 sqM); Albumin 3.4 g/dL (3.5-5.0); Alkaline Phosphatase 80 U/L (38-126); Anion Gap 12 mmol/L; Blood Urea Nitrogen 18 mg/dL (9-20); Calcium 8.6 mg/dL (8.4-10.2); Carbon Dioxide 22 mmol/L (22-30); Chloride 100 mmol/L (98-107); Glucose 107 mg/dL (74-99); Non-African American GFR(CKD) >90 (>60 ml/min/1.73 sqM); Potassium 3.7 mmol/L (3.5-5.1); Sodium 134 mmol/L (137-145); Total Bilirubin 0.9 mg/dL (0.2-1.3); Total Protein 6.2 g/dL (6.3-8.2)
[2022-08-23] MEDS ORDERED: HYDROmorphone 0.5 MG/0.5 ML SYRINGE IVP PRN (13:30)
[2022-08-23] MEDS ORDERED: HYDROcodone/APAP 5-325MG 1 EACH TAB PO PRN (13:30)
[2022-08-23 13:35] LABS: C Reactive Protein 23.6 mg/dL (<1.0)
[2022-08-23 13:39] LABS: ALT 20 U/L (4-49)
--- NOTE | 2022-08-23 13:51 | P.HPOR ---
History of Present Illness H&P Date: 08/23/22 Chief Complaint: left hip pain Patient is a 66-year-old male who presented to the emergency department with a chief complaint of left hip pain/redness/swelling. Patient did have a left total hip arthroplasty performed on 08/05/[address] Barahona. Patient did follow up in office this morning with swelling and redness to the left hip. Patient says this began this past Friday and seems to have progressed over the past few days. Patient says he has not been on any antibiotics. Patient denies any drainage from incision. Patient does note some fevers. Patient says he has been ambulating using walker at home. Patient says home physical therapy had been going well. Patient says he is having some hip pain at this time, however it is controlled with oral pain medication. Patient denies any other complaints at this time. Patient denies radiation of pain. Patient denies chest pain, fever, shortness breath, nausea, vomiting, change in vision, loss of bowel/herber dder control. Past Medical History Past Medical History: Osteoarthritis (OA), Sleep Apnea/CPAP/BIPAP Additional Past Medical History / Comment(s): Chronic back pain, bilateral leg swelling, sciatica pain, pinched nerves in L4-L5 no more back pain since pain procedures, uses CPAP. History of Any Multi-Drug Resistant Organisms: None Reported Past Surgical History: Appendectomy, Back Surgery, Bariatric Surgery, Joint Replacement, Orthopedic Surgery Additional Past Surgical History / Comment(s): EGD, colonoscopy, pain clinic procedure for pinched nerves in back, Gastric Sleeve 02/22/19, neck surgery, back surgery-titanium silas., THLA 08/05/22, lt hip replacement Past Anesthesia/Blood Transfusion Reactions: No Reported Reaction Past Psychological History: No Psychological Hx Reported Smoking Status: Never smoker Past Alcohol Use History: None Reported Past Drug Use History: None Reported - Past Family History Mother Family Medical History: CVA/TIA Additional Family Medical History / Comment(s): of massive CVA 2012. Medications and Allergies Home Medications Medication Instructions Recorded Confirmed Type Magnesium 400 mg PO DAILY 09/16/19 08/23/22 History Multivitamins, Thera [Multivitamin 1 tab PO DAILY 09/16/19 08/23/22 History (formulary)] [place]-3 Fatty Acids [[place]-3] 1,000 mg PO DAILY 09/16/19 08/23/22 History Ubidecarenone [Co Q-10] 100 mg PO DAILY 09/16/19 08/23/22 History methocarbamoL [Robaxin-750] 750 mg PO TID 09/16/19 08/23/22 History Gabapentin 300 mg PO TID 03/08/20 08/23/22 History Meloxicam [Mobic] 15 mg PO DAILY 03/09/21 08/23/22 History Vitamin E (Dl,Tocopheryl Acet) 400 unit PO DAILY 04/18/22 08/23/22 History [Vitamin E (400 Iu = 180 mg)] Aspirin 325 mg PO DAILY #30 tab 08/06/22 08/23/22 Rx HYDROcodone/APAP 10-325MG [[place] 1 tab PO Q4HR PRN 7 Days #42 tab 08/06/22 08/23/22 Rx 10-325] Ascorbic Acid [Vitamin C] 1,000 mg PO DAILY 08/23/22 08/23/22 History Cholecalciferol (Vitamin D3) 75 mcg PO DAILY 08/23/22 08/23/22 History [Vitamin D3 (3000 Iu)] Allergies Allergy/AdvReac Type Severity Reaction Status Date / Time strawberry Allergy Severe Rash/Hives Verified 08/23/22 12:12 Physical Examination Inspection: Left hip anteriorly presents with redness and moderate/significant swelling. Negative for any active drainage. Incision appears to be well intact at this time. There is a moderate to significant amount of fluctuance around the incision. Negative for any purulence. Negative for any significant ecchymosis/ulcers/ /open fractures Sensation: Sensation is equal, symmetric, bilaterally intact throughout exam Palpation: Moderate tenderness patient anteriorly over the left hip. Nontender to palpation throughout rest of exam Range of motion: Patient has full range of motion bilateral upper extremity is in right lower extremity exam. There is some limited range of motion in left knee/left hip in flexion/extension secondary to pain/weakness from left hip. Motor: 5/5 in all major motor groups bilateral upper extremities and right lower extremity on exam. 4+/5 in resisted left hip flexion extension and left knee flexion extension. 5/5 in left ankle dorsi/plantar flexion. Neurovascular status: Radial pulse intact, 2+ bilaterally. Cap refill under 3 seconds in digits upper extremities. DP pulses palpable bilaterally Special tests: Negative Homans bilaterally. Results - Labs Labs: Abnormal Lab Results - Last 24 Hours (Table) 08/23/22 Range/Units 12:40 RBC 3.41 L (4.30-5.90) m/uL Hgb 9.9 L (13.0-17.5) gm/dL Hct 29.0 L (39.0-53.0) % Lymphocytes # 0.5 L (1.0-4.8) k/uL H & H 08/23/22 Range/Units 12:40 Hgb 9.9 L (13.0-17.5) gm/dL Hct 29.0 L (39.0-53.0) % Result Diagrams: 08/23/22 12:40 08/23/22 12:40 Assessment and Plan Assessment: 1. Left hip pain/swelling/erythema 2. Recent left total hip arthroplasty Plan: 1. Left hip erythema/swelling/pain - left total hip arthroplasty anterior approach performed by Dr. Barahona on 08/05/2022. Patient does present with erythema/fluctuance/swelling the left hip. Patient does also present with fevers. At this point we are recommending surgical intervention in the form of I&D left hip, polyethylene liner/femoral head exchange, abx bead placement. Patient to remain nothing by mouth beginning at midnight tonight. Weightbearing as tolerated with walker. Pain medication as needed. Withhold blood thinners at this time. We'll continue to follow patient during his stay in hospital 2. Appreciate infectious disease and medical management 3. Pain management - [place]; gabapentin; IV pain medication only if necessary 4. DVT prophylaxis - mechanical. Withhold blood thinners at this time 5. GI prophylaxis - senna 6. PT/OT - weightbearing as tolerated with walker 7. Encourage incentive spirometer use Time with Patient: Less than 30
[2022-08-23 15:11] LABS: Erythrocyte Sedimentation Rate 114 mm/hr (0-15)
[2022-08-23] MEDS: HYDROcodone/APAP 10-325MG 1 EACH TAB PO PRN (15:28)
[2022-08-23] MEDS ORDERED: HYDROmorphone 1 MG/ML 1 ML SYRINGE IVP STA (17:19)
[2022-08-23] MEDS ORDERED: ACETAMINOPHEN TAB 325 MG TAB PO PRN (17:59)
--- NOTE | 2022-08-23 18:09 | P.CONS ---
History of Present Illness - Reason for Consult Consult date: 08/23/22 Requesting physician: Krish Barahona - Chief Complaint Erythema, edema and pain of left lateral hip accompanied by fevers & chills - History of Present Illness History of Presenting Illness: Patient is a very pleasant 66-year-old male with a past medical history of chronic back pain status post surgeries, gastric sleeve, obstructive sleep apnea, venous insufficiency, and recent left total hip arthroplasty completed on 08/05/22. He presented to the emergency department with a chief complaint of redness, swelling, and pain to left hip surgical site accompanied by reports of fevers and chills beginning 08/18/22. Patient initially presented to orthopedic surgery office where he underwent full evaluation and imaging prior to being sent to the emergency department for admission. Currently oral temp 100.8F with heart rate of 82. Patient denies any drainage from postsurgical site or experiencing any noted bleeding, chest pain, palpitations, shortness of breath, abdominal pain, nausea, vomiting, or experiencing any groin pain or difficulties with urination. He underwent full evaluation in the emergency department. Labs were completed and reviewed. CBC revealing acute normocytic anemia with hemoglobin of 9.9. BMP revealing mild hyponatremia with sodium of 134. ESR elevated at 114 and CRP elevated at 23.6. Patient was admitted under orthopedic surgery team and is scheduled to undergo incision and drainage of left hip with polyethylene liner/femoral head exchange and antibiotic bead placement tomorrow with Dr. Barahona. We have been consulted for medical management throughout patient's hospitalization. Review of systems: Pertinent positives and negatives as discussed in HPI, a complete review of systems was performed and all other systems are negative. Physical exam: Vital signs reviewed and stable. General: Nontoxic, no distress and appears stated age. Derm: Skin warm and dry, normal coloration for ethnicity. Head: Atraumatic, normocephalic and symmetric. Eyes: EOMs intact, no lid lag, and anicteric sclera Mouth: no lip lesions, mucus membranes moist Cardiovascular: regular rate and rhythm with normal S1S2, no murmur, positive posterior tibial pulses bilaterally, and cap refill < 2 seconds. Lungs: Respirations even, regular, and unlabored on room air. Lungs CTA bilaterally, no rhonchi, no rales, no wheezing, and no accessory muscle usage. Abdominal: soft, nontender to palpation, no guarding, no appreciable organomegaly Ext: Movement and sensation intact. No gross muscle atrophy, no edema, no contractures patient with moderate erythema, firmness/swelling, and increased warmth to left lateral hip surrounding a previous surgical site advancing slightly up beneath abdominal pannus. Neuro: Speech clear, face symmetrical and CN II-XII grossly intact with no noted focal neuro deficits Psych: Alert and oriented to person, place, time, and situation. Appropriate and pleasant affect. Assessment and Plan of Care: Labs were completed and reviewed. CBC revealing acute normocytic anemia with hemoglobin of 9.9. BMP revealing mild hyponatremia with sodium of 134. ESR elevated at 114 and CRP elevated at 23.6. Patient was admitted under orthopedic surgery team and is scheduled to undergo incision and drainage of left hip with polyethylene liner/femoral head exchange and antibiotic bead placement tomorrow with Dr. Barahona. We have been consulted for medical management throughout patient's hospitalization. Erythema, edema, and pain left lateral hip Status post recent left total hip arthroplasty completed 08/05/22 Elevated inflammatory markers Pyrexia Acute normocytic anemia -Patient to be placed on IV antibiotics: Cefepime 2 g every 8 hours and vancomycin 2000 mg every 8 hours. -Orders placed for morning BMP and vancomycin trough to monitor renal function closely for any signs vancomycin associated renal toxicity. -Orders placed for repeat morning CBC to follow-up on acute anemia of unclear etiology. Patient's baseline hemoglobin is 15 with postoperative hemoglobin of 11.6. Hemoglobin currently 9.9. -Blood cultures obtained and sent to lab for analysis, we will follow up on thes e results. -Consult placed to infectious disease -Reordered patient's home medications gabapentin 300 mg 3 times daily and Robaxin 750 mg 3 times daily, -Discussed plan of care with orthopedic surgery PA and patient to undergo incision and drainage of left hip tomorrow. -DVT prophylaxis, pain management, weightbearing, wound care, and PT/OT per primary admitting orthopedic surgery team. Thank you for allowing us to participate in the care of this pleasant patient. Do not hesitate to contact us with questions. Someone can be reached from the [facility] hospitalist group all hours of the day at [phone] or via [employer]. Past Medical History Past Medical History: Osteoarthritis (OA), Sleep Apnea/CPAP/BIPAP Additional Past Medical History / Comment(s): Chronic back pain, bilateral leg swelling, sciatica pain, pinched nerves in L4-L5 no more back pain since pain procedures, uses CPAP. History of Any Multi-Drug Resistant Organisms: None Reported Past Surgical History: Appendectomy, Back Surgery, Bariatric Surgery, Joint Replacement, Orthopedic Surgery Additional Past Surgical History / Comment(s): EGD, colonoscopy, pain clinic procedure for pinched nerves in back, Gastric Sleeve 02/22/19, neck surgery, back surgery-titanium silas., THLA 08/05/22, lt hip replacement Past Anesthesia/Blood Transfusion Reactions: No Reported Reaction Past Psychological History: No Psychological Hx Reported Smoking Status: Never smoker Past Alcohol Use History: None Reported Past Drug Use History: None Reported - Past Family History Mother Family Medical History: CVA/TIA Additional Family Medical History / Comment(s): of massive CVA 2012. Medications and Allergies Home Medications Medication Instructions Recorded Confirmed Type Magnesium 400 mg PO DAILY 09/16/19 08/23/22 History Multivitamins, Thera [Multivitamin 1 tab PO DAILY 09/16/19 08/23/22 History (formulary)] [place]-3 Fatty Acids [[place]-3] 1,000 mg PO DAILY 09/16/19 08/23/22 History Ubidecarenone [Co Q-10] 100 mg PO DAILY 09/16/19 08/23/22 History methocarbamoL [Robaxin-750] 750 mg PO TID 09/16/19 08/23/22 History Gabapentin 300 mg PO TID 03/08/20 08/23/22 History Meloxicam [Mobic] 15 mg PO DAILY 03/09/21 08/23/22 History Vitamin E (Dl,Tocopheryl Acet) 400 unit PO DAILY 04/18/22 08/23/22 History [Vitamin E (400 Iu = 180 mg)] Aspirin 325 mg PO DAILY #30 tab 08/06/22 08/23/22 Rx HYDROcodone/APAP 10-325MG [[place] 1 tab PO Q4HR PRN 7 Days #42 tab 08/06/22 08/23/22 Rx 10-325] Ascorbic Acid [Vitamin C] 1,000 mg PO DAILY 08/23/22 08/23/22 History Cholecalciferol (Vitamin D3) 75 mcg PO DAILY 08/23/22 08/23/22 History [Vitamin D3 (3000 Iu)] Allergies Allergy/AdvReac Type Severity Reaction Status Date / Time strawberry Allergy Severe Rash/Hives Verified 08/23/22 12:12 Physical Exam Vitals: Vital Signs Temp Pulse Resp BP Pulse Ox 08/23/22 15:59 92 18 115/74 95 08/23/22 11:22 98.7 F 100 20 123/57 96 Intake and Output 08/23/22 08/23/22 08/23/22 06:59 14:59 22:59 Other: Weight 145.15 kg Results CBC & Chem 7: 08/23/22 12:40 08/23/22 12:40 Labs: Abnormal Lab Results - Last 24 Hours (Table) 08/23/22 08/23/22 Range/Units 12:40 12:40 RBC 3.41 L (4.30-5.90) m/uL Hgb 9.9 L (13.0-17.5) gm/dL Hct 29.0 L (39.0-53.0) % Lymphocytes # 0.5 L (1.0-4.8) k/uL ESR 114 H (0-15) mm/hr Sodium 134 L (137-145) mmol/L Creatinine 0.53 L (0.66-1.25) mg/dL Glucose 107 H (74-99) mg/dL C-Reactive Protein 23.6 H (<1.0) mg/dL Total Protein 6.2 L (6.3-8.2) g/dL Albumin 3.4 L (3.5-5.0) g/dL
[2022-08-23] MEDS: CEFEPIME 2 GM in SODIUM CHLORIDE 0.9% 100 ML IVPB SCH (18:36)
[2022-08-23] MEDS: GABAPENTIN 300 MG CAP PO SCH ×2 (18:36→21:08)
--- NOTE | 2022-08-23 20:44 | P.CONS ---
History of Present Illness - Reason for Consult Consult date: 08/23/22 - History of Present Illness Patient is a 66-year-old male with a past medical history taken for osteoarthritis sleep apnea chronic back pain in this patient who recently did have left total hip arthroplasty done on 08/05/2022 patient was subsequent discharged home in a stable condition patient is being admitted to hospital from the surgeon office concerning for cellulitis to the left hip area apparently the patient's symptoms started on Friday and that is about 5 days before presentation to hospital with the patient started having a pain some swelling redness to the left hip incision patient mention the pain to be mostly sharp in nature almost 7-8 out of 10 in severity with no radiation with associated swe lling redness but no open wound or any drainage patient did try some oral meds occasion for the pain however did not have any improvement subsequently presented to the surgeon who advised the patient to go to the ER for IV antibiotic therapy on arrival to the ER the patient was afebrile subsequently did spike a fever 100.8 F patient did have a normal white count kidney function has been normal liver exams are normal CRP was 23.6 and sed rate of 114 blood cultures were obtained which are currently pending patient was started on cefazolin and vancomycin infectious he was consulted for further management of antibiotic therapy Past Medical History Past Medical History: Osteoarthritis (OA), Sleep Apnea/CPAP/BIPAP Additional Past Medical History / Comment(s): Chronic back pain, bilateral leg swelling, sciatica pain, pinched nerves in L4-L5 no more back pain since pain procedures, uses CPAP. History of Any Multi-Drug Resistant Organisms: None Reported Past Surgical History: Appendectomy, Back Surgery, Bariatric Surgery, Joint Replacement, Orthopedic Surgery Additional Past Surgical History / Comment(s): EGD, colonoscopy, pain clinic procedure for pinched nerves in back, Gastric Sleeve 02/22/19, neck surgery, back surgery-titanium silas., THLA 08/05/22, lt hip replacement Past Anesthesia/Blood Transfusion Reactions: No Reported Reaction Past Psychological History: No Psychological Hx Reported Smoking Status: Never smoker Past Alcohol Use History: None Reported Past Drug Use History: None Reported - Past Family History Mother Family Medical History: CVA/TIA Additional Family Medical History / Comment(s): of massive CVA 2012. Medications and Allergies Home Medications Medication Instructions Recorded Confirmed Type Magnesium 400 mg PO DAILY 09/16/19 08/23/22 History Multivitamins, Thera [Multivitamin 1 tab PO DAILY 09/16/19 08/23/22 History (formulary)] [place]-3 Fatty Acids [[place]-3] 1,000 mg PO DAILY 09/16/19 08/23/22 History Ubidecarenone [Co Q-10] 100 mg PO DAILY 09/16/19 08/23/22 History methocarbamoL [Robaxin-750] 750 mg PO TID 09/16/19 08/23/22 History Gabapentin 300 mg PO TID 03/08/20 08/23/22 History Meloxicam [Mobic] 15 mg PO DAILY 03/09/21 08/23/22 History Vitamin E (Dl,Tocopheryl Acet) 400 unit PO DAILY 04/18/22 08/23/22 History [Vitamin E (400 Iu = 180 mg)] Aspirin 325 mg PO DAILY #30 tab 08/06/22 08/23/22 Rx HYDROcodone/APAP 10-325MG [[place] 1 tab PO Q4HR PRN 7 Days #42 tab 08/06/22 08/23/22 Rx 10-325] Ascorbic Acid [Vitamin C] 1,000 mg PO DAILY 08/23/22 08/23/22 History Cholecalciferol (Vitamin D3) 75 mcg PO DAILY 08/23/22 08/23/22 History [Vitamin D3 (3000 Iu)] Allergies Allergy/AdvReac Type Severity Reaction Status Date / Time strawberry Allergy Severe Rash/Hives Verified 08/23/22 12:12 Physical Exam Vitals: Vital Signs Temp Pulse Resp BP Pulse Ox 08/23/22 11:22 98.7 F 100 20 123/57 96 Intake and Output 08/22/22 08/23/22 08/23/22 22:59 06:59 14:59 Other: Weight 145.15 kg Results CBC & Chem 7: 08/23/22 12:40 08/23/22 12:40 Labs: Abnormal Lab Results - Last 24 Hours (Table) 08/23/22 Range/Units 12:40 RBC 3.41 L (4.30-5.90) m/uL Hgb 9.9 L (13.0-17.5) gm/dL Hct 29.0 L (39.0-53.0) % Lymphocytes # 0.5 L (1.0-4.8) k/uL Assessment and Plan Plan: 1patient presented to hospital with left hip pain swelling and redness fever in this patient who recently did have left hip arthroplasty concerning for left hip cellulitis possible deep infection likely from gram-positive skin sarah less likely gram-negative but not entirely excluded 2-marked area of the redness 3-await surgical debridement and deep culture that would have determine the depth of infection as well 4-continue with the vancomycin we will add cefepime to cover for the gram- negative We will follow on clinical condition and cultures to further adjust medication if needed Thank you for this consultation we will follow the patient along with you Time with Patient: Greater than 30
[2022-08-23] MEDS: SENNOSIDES-DOCUSATE SODIUM 1 EACH TAB PO SCH (21:08)
[2022-08-23] MEDS: VANCOMYCIN 2,000 MG in SODIUM CHLORIDE 0.9% 500 ML 500 ML IVPB SCH (21:09)
[2022-08-23] MEDS: methocarbamoL 750 MG TAB PO SCH (22:35)
[2022-08-24] MEDS: CEFEPIME 2 GM in SODIUM CHLORIDE 0.9% 100 ML IVPB SCH ×3 (00:49→19:54)
[2022-08-24] MEDS: VANCOMYCIN 2,000 MG in SODIUM CHLORIDE 0.9% 500 ML 500 ML IVPB SCH ×3 (05:10→22:05)
[2022-08-24] MEDS ORDERED: BUPIVACAINE (PF) 0.5% 30 ML VIAL SQ ONE (07:47)
[2022-08-24] MEDS ORDERED: HYDROmorphone (PF) 1 MG/ML ONE (07:53)
[2022-08-24] MEDS ORDERED: MIDAZOLAM 2 MG/2 ML VIAL ONE (07:53)
[2022-08-24] MEDS ORDERED: fentaNYL (PF) 50 MCG/ML 2 ML AMP ONE (07:53)
[2022-08-24] MEDS ORDERED: LABETALOL 5 MG/ML VIAL MDV ONE (07:53)
[2022-08-24] MEDS ORDERED: ONDANSETRON 4 MG/2 ML VIAL ONE (07:53)
[2022-08-24] MEDS ORDERED: SUCCINYLCHOLINE CHLORIDE 200 MG/10 ML VIAL IV ONE (07:53)
[2022-08-24] MEDS ORDERED: GLYCOPYRROLATE 0.2 MG/ML 2 ML VIAL ONE (07:53)
[2022-08-24] MEDS ORDERED: LIDOCAINE 2% INJ 20 MG/ML (2 ML VIAL) ONE (07:53)
[2022-08-24] MEDS ORDERED: ROCURONIUM 10 MG/ML (5 ML VIAL) IV ONE (07:53)
[2022-08-24] MEDS ORDERED: KETAMINE 10 MG/ML 20 ML VIAL ONE (07:53)
[2022-08-24] MEDS ORDERED: PROPOFOL 10 MG/ML 20 ML VIAL IV ONE (07:53)
[2022-08-24] MEDS ORDERED: NEOSTIGMINE 1 MG/ML 10 ML VIAL ONE (07:53)
--- NOTE | 2022-08-24 07:59 | P.PN ---
Subjective Progress Note Date: 08/24/22 Principal diagnosis: left hip infection Patient at bed in PACU this morning getting ready for surgery. Patient denies any changes overnight. Patient says he is still having swelling, redness and pain to the left hip at this time. Denies any other locations of pain. Patient denies chest pain, SOB, N/V, change in vision, loss of bowel/bladder control. Objective - Vital Signs Vital signs: Vital Signs Temp 98.7 F 08/24/22 07:10 Pulse 83 08/24/22 07:10 Resp 18 08/24/22 07:10 BP 132/68 08/24/22 07:10 Pulse Ox 95 08/24/22 07:10 FiO2 Intake & Output 08/23/22 08/24/22 08/24/22 18:59 06:59 18:59 Output Total 500 Balance -500 Weight 145.15 kg Output: Urine 500 Other: # Voids 1 3 - Exam Inspection: Left hip anteriorly presents with redness and moderate/significant swelling. Negative for any active drainage. Incision appears to be well intact at this time. There is a moderate to significant amount of fluctuance around the incision. Negative for any purulence. Negative for any significant ecchymosis/ulcers/ /open fractures Sensation: Sensation is equal, symmetric, bilaterally intact throughout exam Palpation: Moderate tenderness patient anteriorly over the left hip. Nontender to palpation throughout rest of exam Range of motion: Patient has full range of motion bilateral upper extremity is in right lower extremity exam. There is some limited range of motion in left knee/left hip in flexion/extension secondary to pain/weakness from left hip. Motor: 5/5 in all major motor groups bilateral upper extremities and right lower extremity on exam. 4+/5 in resisted left hip flexion extension and left knee flexion extension. 5/5 in left ankle dorsi/plantar flexion. Neurovascular status: Radial pulse intact, 2+ bilaterally. Cap refill under 3 seconds in digits upper extremities. DP pulses palpable bilaterally Special tests: Negative Homans bilaterally. - Labs CBC & Chem 7: 08/23/22 12:40 08/23/22 12:40 Labs: Abnormal Lab Results - Last 24 Hours (Table) 08/23/22 08/23/22 Range/Units 12:40 12:40 RBC 3.41 L (4.30-5.90) m/uL Hgb 9.9 L (13.0-17.5) gm/dL Hct 29.0 L (39.0-53.0) % Lymphocytes # 0.5 L (1.0-4.8) k/uL ESR 114 H (0-15) mm/hr Sodium 134 L (137-145) mmol/L Creatinine 0.53 L (0.66-1.25) mg/dL Glucose 107 H (74-99) mg/dL C-Reactive Protein 23.6 H (<1.0) mg/dL Total Protein 6.2 L (6.3-8.2) g/dL Albumin 3.4 L (3.5-5.0) g/dL Assessment and Plan Assessment: 1. Left hip pain/swelling/erythema 2. Recent left total hip arthroplasty Plan: 1. Left hip erythema/swelling/pain - surgery scheduled for this morning in the form of I&D left hip, polyethylene liner/femoral head exchange, abx bead placement. Patient to remain nothing by mouth for now. Weightbearing as tolerated with walker. Pain medication as needed. Withhold blood thinners at this time. We'll continue to follow patient during his stay in hospital 2. Appreciate infectious disease and medical management 3. Pain management - [place]; gabapentin; IV pain medication only if necessary 4. DVT prophylaxis - mechanical. Withhold blood thinners at this time 5. GI prophylaxis - senna 6. PT/OT - weightbearing as tolerated with walker 7. Encourage incentive spirometer use Time with Patient: Less than 30
[2022-08-24] MEDS ORDERED: LACTATED RINGERS 1,000 ML IV ONE (08:04)
[2022-08-24] MEDS ORDERED: SODIUM CHLORIDE 0.9% 100 ML with ceFAZolin 2,000 MG IV ONE ×2 (08:04)
[2022-08-24] MEDS ORDERED: VANCOMYCIN 1,000 MG VIAL MISCELLANE ONE (08:52)
[2022-08-24] MEDS ORDERED: NON FORMULARY DRUG (Omega-3 Fatty Acids [Omega-3] 1,000 MG Capsule) PO SCH (09:00)
[2022-08-24] MEDS ORDERED: ceFAZolin 3,000 MG in SODIUM CHLORIDE 0.9% IRRIGATIO 3,000 ML IRRIGATION ONE (09:08)
[2022-08-24] MEDS ORDERED: ceFAZolin 1,000 MG in SODIUM CHLORIDE 0.9% 1,000 ML IRRIGATION ONE (09:08)
[2022-08-24 09:26] LABS: Basophils # (A) 0.03 X 10*3/uL (0.00-0.10); Basophils % (A) 0.4 %; Eosinophils # (A) 0.09 X 10*3/uL (0.04-0.35); Eosinophils % (A) 1.2 %; HCT 29.1 % (39.6-50.0); HGB 9.4 g/dL (13.0-17.0); Immature Grans, Automated 0.4 %; Lymphocytes # (A) 0.53 X 10*3/uL (0.90-5.00); Lymphocytes % (A) 7.3 %; MCH 28.1 pg (27.0-32.0); MCHC 32.3 g/dL (32.0-37.0); MCV 86.9 fL (80.0-97.0); Mean Platelet Volume 8.9 fL (9.5-12.2); Monocytes # (A) 0.79 X 10*3/uL (0.20-1.00); Monocytes % (A) 10.8 %; NRBC Per 100 WBC 0 /100 WBCS (0.0-0.0); Neutrophils # (A) 5.83 X 10*3/uL (1.80-7.70); Neutrophils % (A) 79.9 %; Platelet Count 249 X 10*3/uL (140-440); RBC 3.35 X 10*6/uL (4.40-5.60); RDW 14.6 % (11.5-14.5)
[2022-08-24 09:52] LABS: Anion Gap 12.3 mmol/L (10.00-18.00); BUN/Creat Ratio 14.71 Ratio (12.00-20.00); Blood Urea Nitrogen 10.3 mg/dL (9.0-27.0); Calcium 8.6 mg/dL (8.7-10.3); Carbon Dioxide 23.7 mmol/L (20.0-27.5); Non-African American GFR(CKD) 98.3 (60.0-200.0); Potassium 3.9 mmol/L (3.5-5.5)
[2022-08-24] MEDS ORDERED: HYDROmorphone 0.5 MG/0.5 ML SYRINGE IVP PRN (09:54)
[2022-08-24] MEDS ORDERED: NALOXONE 0.4 MG/ML 1 ML VIAL IV PRN (09:54)
--- NOTE | 2022-08-24 09:54 | P.OP ---
Date of Procedure: 08/24/22 Preoperative Diagnosis: Left hip cellulitis with possible deep periprosthetic infection Postoperative Diagnosis: Left hip deep periprosthetic infection Procedure(s) Performed: 1. Left hip prosthetic polyethylene acetabular liner exchange and femoral head exchange 2. Incision with irrigation left hip periprosthetic deep infection 3. Implantation dissolvable vancomycin antibiotic beads Implants: 1. Depuy pinnacle polyethylene acetabular liner neutral 36 mm ID 62 mm OD 2. Depuy metal femoral head 36 mm +1.5 Anesthesia: JACKIEA Surgeon: Krish Barahona Motor Vehicle Escort Driver #1: Cedric Zurita Estimated Blood Loss (ml): 20 Pathology: other (Deep wound cultures) Condition: stable Disposition: PACU Indications for Procedure: 66 row gentleman presented to the office yesterday and noted some increased swelling and redness about the incision site. I discussed concern for deep periprosthetic infection recommended incision with irrigation and possible polyethylene and femoral head exchanges. Patient was agreeable. Consent was obtained. Operative Findings: See description of procedure Description of Procedure: The patient was taken to the operative suite. Patient underwent a [] anesthetic by the department of anesthesia. Patient was then transferred to the [facility] table. Patient was given preoperative IV antibiotics and TXA. Both lower extremities were placed in standard leg spars. The hip was then prepped and draped in the normal sterile orthopedic fashion. A standard anterior incision was made through the previous cicatrix sharply through skin. Once I got through subcutaneous soft tissues I noted a significant amount of purulent fluid. This was evacuated. I noted a perforation through the fascia and noted the infection went all way down to the prosthesis. I We then placed appropriate retractors I obtained deep cultures which were sent off for culture sensitivity evaluation. . We now irrigated the wound out copiously with 1 L of antibiotic irrigant. We now dislocated the hip. I placed the appropriate bone hook the proximal femur and then rotated externally the extremity to 140 it was now lowered to the floor. Appropriate retractors were now positioned along the proximal femur. I removed the ceramic femoral head. I irrigated the wound again copiously with 1000 mL antibiotic irrigant. We used aqua mantis for cauterization. I also used some Surgicel cautery. About the leg back up. I made a drill hole through the polyethylene liner and I was able to extract that without difficulty. I now irrigated the entire wound with an additional 2 L of antibiotic irrigant utilizing pulse lavage irrigation. I now placed 1000 mL of irresept in the wound and let it sit there for several minutes. This was evacuated. I now placed a little bit of vancomycin powder in the acetabulum. We now implanted the new Hari polyethylene acetabular liner major secure. We now extremely rotated the extremity and dropped back down to the floor. Retra ctors were positioned along the proximal femur. We now tapped and the new femoral head. The leg was brought back up and the hip was reduced. It appeared stable. I now irrigated the wound with irresept. We now placed dissolvable vancomycin antibiotic beads throughout the wound to include the deep. In the more superficial area. I now repaired over the left of the fascia with #1 Vicryl. The subcutaneous soft tissues were approximated with 2-0 Vicryl. We repaired the skin with interrupted nylon sutures. We applied sterile dressings. The patient was transferred to a bed and recovery stable condition. We will await cultures and further recommendations from infectious disease regarding this significant deep periprosthetic infection.
[2022-08-24] MEDS ORDERED: IV FLUID CONTINUATION 500 ML IV ONE (10:02)
[2022-08-24] MEDS: HYDROmorphone 0.5 MG/0.5 ML SYRINGE IVP PRN ×4 (10:05→10:35)
[2022-08-24] MEDS ORDERED: fentaNYL (PF) 50 MCG/1 ML VIAL IV ONE (10:50)
[2022-08-24] MEDS ORDERED: SODIUM CHLORIDE 0.9% 1,000 ML IV ONE (10:58)
[2022-08-24] MEDS: LACTATED RINGERS 1,000 ML IV SCH (11:34)
[2022-08-24] MEDS: GABAPENTIN 300 MG CAP PO SCH ×3 (11:34→19:55)
[2022-08-24] MEDS: methocarbamoL 750 MG TAB PO SCH ×3 (11:34→19:55)
[2022-08-24] MEDS: HYDROmorphone 1 MG/ML 1 ML SYRINGE IVP PRN ×3 (11:38→19:56)
[2022-08-24] MEDS: HYDROcodone/APAP 10-325MG 1 EACH TAB PO PRN ×2 (13:03→22:05)
--- NOTE | 2022-08-24 16:28 | P.PN ---
Subjective Progress Note Date: 08/24/22 Hospital course: Patient is a very pleasant 66-year-old male with a past medical history of chronic back pain status post surgeries, gastric sleeve, obstructive sleep apnea, venous insufficiency, and recent left total hip arthroplasty completed on 08/05/22. He presented to the emergency department with a chief complaint of redness, swelling, and pain to left hip surgical site accompanied by reports of fevers and chills beginning 08/18/22. Patient initially presented to orthopedic surgery office where he underwent full evaluation and imaging prior to being se nt to the emergency department for admission. Currently oral temp 100.8F with heart rate of 82. Patient denies any drainage from postsurgical site or experiencing any noted bleeding, chest pain, palpitations, shortness of breath, abdominal pain, nausea, vomiting, or experiencing any groin pain or difficulties with urination. He underwent full evaluation in the emergency department. Labs were completed and reviewed. CBC revealing acute normocytic anemia with hemoglobin of 9.9. BMP revealing mild hyponatremia with sodium of 134. ESR elevated at 114 and CRP elevated at 23.6. Patient was admitted under orthopedic surgery team and we were consulted for continued medical management throughout hospitalization. Patient underwent incision and irrigation of left hip with polyethylene acetabular liner/femoral head exchange and antibiotic bead placement today with Dr. Barahona. Physical exam: Pt seen and evaluated upon return from surgery. He is currently eating lunch and reports controlled post operative pain at this time. Pt denies any needs or complaints. Vital signs reviewed and stable. General: Nontoxic, no distress and appears stated age. Derm: Skin warm and dry, normal coloration for ethnicity. Head: Atraumatic, normocephalic and symmetric. Eyes: EOMs intact, no lid lag, and anicteric sclera Mouth: no lip lesions, mucus membranes moist Cardiovascular: regular rate and rhythm with normal S1S2, no murmur, positive posterior tibial pulses bilaterally, and cap refill < 2 seconds. Lungs: Respirations even, regular, and unlabored on room air. Lungs CTA bilaterally, no rhonchi, no rales, no wheezing, and no accessory muscle usage. Abdominal: soft, nontender to palpation, no guarding, no appreciable organomegaly Ext: Movement and sensation intact. Postsurgical dressing clean, dry, and intact to left hip. Neuro: Speech clear, face symmetrical and CN II-XII grossly intact with no noted focal neuro deficits Psych: Alert and oriented to person, place, time, and situation. Appropriate and pleasant affect. Assessment and Plan of Care: Labs were completed and reviewed. CBC revealing stable normocytic anemia with hemoglobin of 9.4. BMP revealing resolution of hyponatremia with sodium of 137. Periprosthetic Deep Infection Status post incision and irrigation of left hip with polyethylene acetabular liner/femoral head exchange and antibiotic bead placement Normocytic anemia -Patient underwent initial left total hip arthroplasty on 08/05/22 and presented to the hospital on 08/23/22 secondary to concerns of infection.. -Patient underwent incision and irrigation of left hip with polyethylene acetabular liner/femoral head exchange and antibiotic bead placement with Dr. Barahona on 08/24/22. -Deep wound cultures obtained at this time. -Pending blood and wound culture results, continue IV antibiotics: Cefepime 2 g every 8 hours and vancomycin 2000 mg every 8 hours. -Orders placed for morning BMP and vancomycin trough to monitor renal function closely for any signs vancomycin associated renal toxicity. -Orders placed for repeat morning CBC to follow-up on acute anemia of unclear etiology. Patient's baseline hemoglobin is 15 with postoperative hemoglobin of 11.6. Hemoglobin currently 9.4. -Blood cultures showing no growth to date. -Infectious disease following and reviewed documentation in chart. -Reordered patient's home medications gabapentin 300 mg 3 times daily and Robaxin 750 mg 3 times daily, -DVT prophylaxis, pain management, weightbearing, wound care, and PT/OT per primary admitting orthopedic surgery team. -Currently patient on DVT prophylaxis with Lovenox Thank you for allowing us to participate in the care of this pleasant patient. Do not hesitate to contact us with questions. Someone can be reached from the [facility] hospitalist group all hours of the day at [phone] or via [employer]. Objective - Vital Signs Vital signs: Vital Signs Temp 98.7 F 08/24/22 07:10 Pulse 83 08/24/22 07:10 Resp 18 08/24/22 07:10 BP 132/68 08/24/22 07:10 Pulse Ox 95 08/24/22 07:10 FiO2 Intake & Output 08/23/22 08/24/22 08/24/22 18:59 06:59 18:59 Intake Total 100 Output Total 500 Balance -400 Weight 145.15 kg Intake: IV 100 Output: Urine 500 Other: Voiding Method Urinal # Voids 1 3 - Labs CBC & Chem 7: 08/24/22 06:28 08/24/22 06:28 Labs: Abnormal Lab Results - Last 24 Hours (Table) 08/23/22 08/23/22 08/24/22 Range/Units 12:40 12:40 06:28 RBC 3.41 L 3.35 L (4.30-5.90) m/uL Hgb 9.9 L 9.4 L (13.0-17.5) gm/dL Hct 29.0 L 29.1 L (39.0-53.0) % RDW 14.6 H (11.5-14.5) % MPV 8.9 L (9.5-12.2) fL Lymphocytes # 0.5 L 0.53 L (1.0-4.8) k/uL ESR 114 H (0-15) mm/hr Sodium 134 L (137-145) mmol/L Creatinine 0.53 L (0.66-1.25) mg/dL Glucose 107 H (74-99) mg/dL C-Reactive Protein 23.6 H (<1.0) mg/dL Total Protein 6.2 L (6.3-8.2) g/dL Albumin 3.4 L (3.5-5.0) g/dL
[2022-08-24] MEDS: SENNOSIDES-DOCUSATE SODIUM 1 EACH TAB PO SCH (19:55)
--- NOTE | 2022-08-24 23:14 | P.PN ---
Subjective Progress Note Date: 08/24/22 Principal diagnosis: Left Hip Infection Patient is a 66-year-old male with a past medical history taken for osteoarthritis sleep apnea chronic back pain in this patient who recently did have left total hip arthroplasty done on 08/05/2022, subsequently presented to hospital on 08/23/2022 with increasing pain swelling to the left hip area along with fever and chills. Patient was taken to the OR 08/24/2022 with concern for left hip deep periprosthetic infection the patient is status post left hip prosthetic polyethylene acetabular liner exchange and femoral head exchange irrigation of the left hip periprosthetic infection and implantation of vancomycin antibiotic beads. On today's evaluation that is 08/24/2022, the patient denies having any fever or any chills has been complaining of pain to the left hip area somewhat controlled with the pain medication the patient denies having any chest pain or shortness of breath or cough no nausea no vomiting no abdominal pain no diarrhea Objective - Vital Signs Vital signs: Vital Signs Temp 98.0 F 08/24/22 11:41 Pulse 86 08/24/22 11:41 Resp 16 08/24/22 11:15 BP 154/81 08/24/22 11:41 Pulse Ox 94 L 08/24/22 11:41 FiO2 Intake & Output 08/23/22 08/24/22 08/24/22 18:59 06:59 18:59 Intake Total 952 Output Total 520 Balance 432 Weight 145.15 kg Intake: IV 952 Output: Urine 500 Estimated Blood Loss 20 Other: Voiding Method Urinal # Voids 1 3 - Exam GENERAL DESCRIPTION: Elderly male lying in bed in no distress RESPIRATORY SYSTEM: Unlabored breathing , decreased breath sounds at bases HEART: S1 S2 regular rate and rhythm ,no loud murmurs ABDOMEN: Soft , no tenderness EXTREMITIES: Left hip incision is currently dressed no drainage on the dressing - Labs CBC & Chem 7: 08/24/22 06:28 08/24/22 06:28 Labs: Abnormal Lab Results - Last 24 Hours (Table) 08/23/22 08/24/22 08/24/22 Range/Units 12:40 06:28 06:28 RBC 3.35 L (4.40-5.60) X 10*6/uL Hgb 9.4 L (13.0-17.0) g/dL Hct 29.1 L (39.6-50.0) % RDW 14.6 H (11.5-14.5) % MPV 8.9 L (9.5-12.2) fL Lymphocytes # 0.53 L (0.90-5.00) X 10*3/uL ESR 114 H (0-15) mm/hr Glucose 121 H (70-110) mg/dL Calcium 8.6 L (8.7-10.3) mg/dL Assessment and Plan (1) Left hip prosthetic joint infection Current Visit: Yes Status: Acute Code(s): T84.52XA - INFECT/INFLM REACTION DUE TO INTERNAL LEFT HIP PROSTH, INIT SNOMED Code(s): 26340695383617990 Plan: 1patient presented to hospital with left hip pain swelling and redness fever in this patient who recently did have left hip arthroplasty concerning for left hip cellulitis possible deep infection likely from gram-positive skin sarah less likely gram-negative but not entirely excluded 2-pt is s/p surgical debridement and deep culture 3-Pt to continue with the vancomycin and cefepime while waiting for cultures to finalize sister at bedside multiple questions were answered Time with Patient: Less than 30
[2022-08-25] MEDS: HYDROmorphone 1 MG/ML 1 ML SYRINGE IVP PRN ×6 (01:36→22:20)
[2022-08-25] MEDS: CEFEPIME 2 GM in SODIUM CHLORIDE 0.9% 100 ML IVPB SCH ×4 (03:00→19:55)
[2022-08-25] MEDS: HYDROcodone/APAP 10-325MG 1 EACH TAB PO PRN ×3 (04:47→19:46)
[2022-08-25] MEDS ORDERED: VANCOMYCIN TROUGH DUE 1 EACH MISC MISCELLANE ONE (05:00)
[2022-08-25] MEDS: LACTATED RINGERS 1,000 ML IV SCH ×2 (07:31→11:37)
--- NOTE | 2022-08-25 09:00 | P.PN ---
Subjective Progress Note Date: 08/25/22 Principal diagnosis: Left hip deep periprosthetic infection Patient was seen at bedside this morning lying semirecumbent position with dressing over left anterior hip. Patient says he is in a fair amount of pain currently. Patient states most of the pain is located at the front of the left hip. Patient denies any radiation of pain. Patient says he has gotten up since surgery yesterday to use bathroom. Patient says he has urinated several times since surgery. Patient says he has not had bowel movement yet, however, patient says he has been passing gas. Patient denies chest pain, fever, shortness of breath, nausea, vomiting, change in vision, loss of/bladder control. Objective - Vital Signs Vital signs: Vital Signs Temp 98.6 F 08/25/22 07:53 Pulse 87 08/25/22 07:53 Resp 16 08/25/22 07:53 BP 132/74 08/25/22 07:53 Pulse Ox 95 08/25/22 07:53 FiO2 Intake & Output 08/24/22 08/25/22 08/25/22 18:59 06:59 18:59 Intake Total 952 Output Total 520 1500 500 Balance 432 -1500 -500 Intake: IV 952 Output: Urine 500 1500 500 Estimated Blood Loss 20 Other: Voiding Method Urinal Urinal # Voids 5 - Exam Inspection: Dressing present over left anterior hip. Dressing appears to be holding well at this time. Negative for any spotting/drainage. Maintain dressing at this time. Plan for dressing change tomorrow. Sensation: Sensation is equal, symmetric, bilaterally intact throughout exam Palpation: Fair amount of tenderness patient anteriorly over the left hip. Nontender to palpation throughout rest of exam Range of motion: Patient has full range of motion bilateral upper extremity is in right lower extremity exam. There is some limited range of motion in left knee/left hip in flexion/extension secondary to pain/weakness from left hip. Motor: 5/5 in all major motor groups bilateral upper extremities and right lower extremity on exam. 4+/5 in resisted left hip flexion extension and left knee flexion extension. 5/5 in left ankle dorsi/plantar flexion. Neurovascular status: Radial pulse intact, 2+ bilaterally. Cap refill under 3 seconds in digits upper extremities. DP pulses palpable bilaterally Special tests: Negative Homans bilaterally. - Labs CBC & Chem 7: 08/24/22 06:28 08/24/22 06:28 Labs: Abnormal Lab Results - Last 24 Hours (Table) 08/24/22 08/24/22 Range/Units 06:28 06:28 RBC 3.35 L (4.40-5.60) X 10*6/uL Hgb 9.4 L (13.0-17.0) g/dL Hct 29.1 L (39.6-50.0) % RDW 14.6 H (11.5-14.5) % MPV 8.9 L (9.5-12.2) fL Lymphocytes # 0.53 L (0.90-5.00) X 10*3/uL Glucose 121 H (70-110) mg/dL Calcium 8.6 L (8.7-10.3) mg/dL Microbiology - Last 24 Hours (Table) 08/24/22 09:00 Gram Stain - Preliminary Hip - Left Wound Culture - Preliminary 08/24/22 09:00 Fungal Culture - Preliminary Hip - Left 08/24/22 09:00 Anaerobic Culture - Preliminary Hip - Left 08/23/22 12:20 Blood Culture - Preliminary Blood No Growth after 24 hours 08/23/22 12:40 Blood Culture - Preliminary Blood No Growth after 24 hours Assessment and Plan Assessment: 1. Left hip deep periprosthetic infection - Postoperative day 1 status post 1. Left hip prosthetic polyethylene acetabular liner exchange and femoral head exchange 2. Incision with irrigation left hip periprosthetic deep infection 3. Implantation dissolvable vancomycin antibiotic beads Plan: 1. Left hip deep periprosthetic infection - patient stable at bedside this morning. Surgery was performed yesterday, 08/24/2022 - left hip prosthetic polyethylene acetabular liner exchange and femoral head exchange; incision irrigation with left hip. Prosthetic deep infection; implantation dissolvable vancomycin antibiotic beads. Pain medication as needed. Patient to be weightbearing as tolerated with walker. Physical therapy and OT daily. Continue IV antibiotics for now. Medicine and ID following. Await cultures to finalize. We'll continue to follow patient during his stay in hospital. 2. Appreciate medical and ID management 3. Pain management - [place]; gabapentin; Dilaudid 4. GI prophylaxis - senna 5. DVT prophylaxis - Lovenox 6. PT/OT - weightbearing as tolerated with walker and assistance as needed 7. Encourage incentive spirometer use 8. Discharge planning - plan for discharge home with health services versus [facility] Time with Patient: Less than 30
[2022-08-25 09:16] LABS: Basophils # (A) 0.04 X 10*3/uL (0.00-0.10); Basophils % (A) 0.5 %; Eosinophils # (A) 0.23 X 10*3/uL (0.04-0.35); Eosinophils % (A) 2.7 %; HCT 26.4 % (39.6-50.0); HGB 8.4 g/dL (13.0-17.0); Immature Grans, Automated 0.7 %; Lymphocytes # (A) 0.67 X 10*3/uL (0.90-5.00); Lymphocytes % (A) 7.9 %; MCH 27.7 pg (27.0-32.0); MCHC 31.8 g/dL (32.0-37.0); MCV 87.1 fL (80.0-97.0); Mean Platelet Volume 9.5 fL (9.5-12.2); Monocytes # (A) 0.83 X 10*3/uL (0.20-1.00); Monocytes % (A) 9.8 %; NRBC Per 100 WBC 0 /100 WBCS (0.0-0.0); Neutrophils % (A) 78.4 %; Platelet Count 260 X 10*3/uL (140-440); RBC 3.03 X 10*6/uL (4.40-5.60); RDW 14.5 % (11.5-14.5); WBC 8.43 X 10*3/uL (4.50-10.00)
[2022-08-25 09:24] LABS: African American GFR (CKD) 119.3 (60.0-200.0)
[2022-08-25] MEDS: VANCOMYCIN 2,000 MG in SODIUM CHLORIDE 0.9% 500 ML 500 ML IVPB SCH (09:37)
[2022-08-25] MEDS: GABAPENTIN 300 MG CAP PO SCH ×3 (09:42→22:20)
[2022-08-25] MEDS: methocarbamoL 750 MG TAB PO SCH ×3 (09:42→22:20)
[2022-08-25] MEDS: VANCOMYCIN 2,250 MG in SODIUM CHLORIDE 0.9% 500 ML 500 ML IVPB SCH ×2 (09:42→22:19)
[2022-08-25] MEDS: ENOXAPARIN 40 MG/0.4 ML SYRINGE SQ SCH (09:42)
--- NOTE | 2022-08-25 10:58 | P.PN ---
Subjective Progress Note Date: 08/25/22 Hospital course: Patient is a very pleasant 66-year-old male with a past medical history of chronic back pain status post surgeries, gastric sleeve, obstructive sleep apnea, venous insufficiency, and recent left total hip arthroplasty completed on 08/05/22. He presented to the emergency department with a chief complaint of redness, swelling, and pain to left hip surgical site accompanied by reports of fevers and chills beginning 08/18/22. Patient initially presented to orthopedic surgery office where he underwent full evaluation and imaging prior to being se nt to the emergency department for admission. Currently oral temp 100.8F with heart rate of 82. Patient denies any drainage from postsurgical site or experiencing any noted bleeding, chest pain, palpitations, shortness of breath, abdominal pain, nausea, vomiting, or experiencing any groin pain or difficulties with urination. He underwent full evaluation in the emergency department. Labs were completed and reviewed. CBC revealing acute normocytic anemia with hemoglobin of 9.9. BMP revealing mild hyponatremia with sodium of 134. ESR elevated at 114 and CRP elevated at 23.6. Patient was admitted under orthopedic surgery team and we were consulted for continued medical management throughout hospitalization. Patient underwent incision and irrigation of left hip with polyethylene acetabular liner/femoral head exchange and antibiotic bead placement today with Dr. Barahona. Physical exam: Pt seen and evaluated this morning. He is postoperative day 1 and appears to be doing well. Patient reports mild pain left anterior hip otherwise denies having any complaints or needs at this time. Patient's sister is visiting at bedside at this time. Vital signs reviewed and stable. General: Nontoxic, no distress and appears stated age. Derm: Skin warm and dry, normal coloration for ethnicity. Head: Atraumatic, normocephalic and symmetric. Eyes: EOMs intact, no lid lag, and anicteric sclera Mouth: no lip lesions, mucus membranes moist Cardiovascular: regular rate and rhythm with normal S1S2, no murmur, positive posterior tibial pulses bilaterally, and cap refill < 2 seconds. Lungs: Respirations even, regular, and unlabored on room air. Lungs CTA bilaterally, no rhonchi, no rales, no wheezing, and no accessory muscle usage. Abdominal: soft, nontender to palpation, no guarding, no appreciable organomegaly Ext: Movement and sensation intact. Postsurgical dressing clean, dry, and intact to left hip. Neuro: Speech clear, face symmetrical and CN II-XII grossly intact with no noted focal neuro deficits Psych: Alert and oriented to person, place, time, and situation. Appropriate and pleasant affect. Assessment and Plan of Care: Labs were completed and reviewed. CBC showing slightly worsening normocytic anemia with hemoglobin dropping down to 8.4 from 9.4 yesterday morning. Renal function stable with creatinine 0.6 and GFR of 103. Vancomycin trough was slightly elevated at 21.8 and vancomycin dosage change 2 2250 mg every 12 hours from previous 2000 mg every 8 hours to prevent vancomycin associated renal toxicity. Periprosthetic Deep Infection Status post incision and irrigation of left hip with polyethylene acetabular liner/femoral head exchange and antibiotic bead placement Normocytic anemia -Patient underwent initial left total hip arthroplasty on 08/05/22 and presented to the hospital on 08/23/22 secondary to concerns of infection.. -Patient underwent incision and irrigation of left hip with polyethylene acetabular liner/femoral head exchange and antibiotic bead placement with Dr. Barahona on 08/24/22. -Pending blood and wound culture results, continue IV antibiotics: Cefepime 2 g every 8 hours and vancomycin dose decreased to 2250 mg every 12 hours secondary to slightly elevated vancomycin trough of 21.8. -Orders placed for morning BMP and vancomycin trough to monitor renal function closely for any signs vancomycin associated renal toxicity. -Orders placed for repeat morning CBC to follow-up on acute anemia of unclear etiology. Patient's baseline hemoglobin is 15 with postoperative hemoglobin of 11.6. Hemoglobin currently 8.4. -Blood cultures showing no growth to date. -Infectious disease following and discussed plan of care with physician. -Continue home medication regimen with gabapentin 300 mg 3 times daily and Robaxin 750 mg 3 times daily, -DVT prophylaxis, pain management, weightbearing, wound care, and PT/OT per primary admitting orthopedic surgery team. -Currently patient on DVT prophylaxis with Lovenox Thank you for allowing us to participate in the care of this pleasant patient. Do not hesitate to contact us with questions. Someone can be reached from the [facility] hospitalist group all hours of the day at [phone] or via [employer]. Objective - Vital Signs Vital signs: Vital Signs Temp 98.6 F 08/25/22 07:53 Pulse 87 08/25/22 07:53 Resp 16 08/25/22 07:53 BP 132/74 08/25/22 07:53 Pulse Ox 95 08/25/22 07:53 FiO2 Intake & Output 08/24/22 08/25/22 08/25/22 18:59 06:59 18:59 Intake Total 952 Output Total 520 1500 500 Balance 432 -1500 -500 Intake: IV 952 Output: Urine 500 1500 500 Estimated Blood Loss 20 Other: Voiding Method Urinal Urinal # Voids 5 - Labs CBC & Chem 7: 08/25/22 04:57 08/25/22 04:57 Labs: Abnormal Lab Results - Last 24 Hours (Table) 08/24/22 08/24/22 Range/Units 06:28 06:28 RBC 3.35 L (4.40-5.60) X 10*6/uL Hgb 9.4 L (13.0-17.0) g/dL Hct 29.1 L (39.6-50.0) % RDW 14.6 H (11.5-14.5) % MPV 8.9 L (9.5-12.2) fL Lymphocytes # 0.53 L (0.90-5.00) X 10*3/uL Glucose 121 H (70-110) mg/dL Calcium 8.6 L (8.7-10.3) mg/dL Microbiology - Last 24 Hours (Table) 08/24/22 09:00 Gram Stain - Preliminary Hip - Left Wound Culture - Preliminary 08/24/22 09:00 Fungal Culture - Preliminary Hip - Left 08/24/22 09:00 Anaerobic Culture - Preliminary Hip - Left 08/23/22 12:20 Blood Culture - Preliminary Blood No Growth after 24 hours 08/23/22 12:40 Blood Culture - Preliminary Blood No Growth after 24 hours
[2022-08-25] MEDS: SENNOSIDES-DOCUSATE SODIUM 1 EACH TAB PO SCH (22:20)
--- NOTE | 2022-08-25 23:04 | P.PN ---
Subjective Progress Note Date: 08/25/22 Principal diagnosis: Left Hip Infection Patient is a 66-year-old male with a past medical history taken for osteoarthritis sleep apnea chronic back pain in this patient who recently did have left total hip arthroplasty done on 08/05/2022, subsequently presented to hospital on 08/23/2022 with increasing pain swelling to the left hip area along with fever and chills. Patient was taken to the OR 08/24/2022 with concern for left hip deep periprosthetic infection the patient is status post left hip prosthetic polyethylene acetabular liner exchange and femoral head exchange irrigation of the left hip periprosthetic infection and implantation of vancomycin antibiotic beads. On today's evaluation that is 08/25/2022, the patient is afebrile , the pt pain to the left hip area is controlled with the pain medication the patient denies having any chest pain or shortness of breath or cough no nausea no vomiting no abdominal pain no diarrhea Objective - Vital Signs Vital signs: Vital Signs Temp 98.6 F 08/25/22 07:53 Pulse 87 08/25/22 07:53 Resp 16 08/25/22 07:53 BP 132/74 08/25/22 07:53 Pulse Ox 95 08/25/22 07:53 FiO2 Intake & Output 08/24/22 08/25/22 08/25/22 18:59 06:59 18:59 Intake Total 952 Output Total 520 1500 500 Balance 432 -1500 -500 Intake: IV 952 Output: Urine 500 1500 500 Estimated Blood Loss 20 Other: Voiding Method Urinal Urinal Urinal # Voids 5 - Exam GENERAL DESCRIPTION: Elderly male lying in bed in no distress RESPIRATORY SYSTEM: Unlabored breathing , decreased breath sounds at bases HEART: S1 S2 regular rate and rhythm ,no loud murmurs ABDOMEN: Soft , no tenderness EXTREMITIES: Left hip incision is currently dressed no drainage on the dressing - Labs CBC & Chem 7: 08/25/22 04:57 08/25/22 04:57 Labs: Abnormal Lab Results - Last 24 Hours (Table) 08/25/22 Range/Units 04:57 RBC 3.03 L (4.40-5.60) X 10*6/uL Hgb 8.4 L (13.0-17.0) g/dL Hct 26.4 L (39.6-50.0) % MCHC 31.8 L (32.0-37.0) g/dL Immature Gran # 0.06 H (0.00-0.04) X 10*3/uL Lymphocytes # 0.67 L (0.90-5.00) X 10*3/uL Microbiology - Last 24 Hours (Table) 08/24/22 09:00 Gram Stain - Preliminary Hip - Left Wound Culture - Preliminary 08/24/22 09:00 Fungal Culture - Preliminary Hip - Left 08/24/22 09:00 Anaerobic Culture - Preliminary Hip - Left 08/23/22 12:20 Blood Culture - Preliminary Blood No Growth after 24 hours 08/23/22 12:40 Blood Culture - Preliminary Blood No Growth after 24 hours Assessment and Plan (1) Left hip prosthetic joint infection Current Visit: Yes Status: Acute Code(s): T84.52XA - INFECT/INFLM REACTION DUE TO INTERNAL LEFT HIP PROSTH, INIT SNOMED Code(s): 96026751362775751 Plan: 1patient presented to hospital with left hip pain swelling and redness fever in this patient who recently did have left hip arthroplasty concerning for left hip cellulitis possible deep infection likely from gram-positive skin sarah less lik elba gram-negative but not entirely excluded 2-pt is s/p surgical debridement and deep culture which are growing gram negative with ID pending 3-Pt to continue with the vancomycin and cefepime while waiting for cultures to finalize , PICC ordered Time with Patient: Less than 30
[2022-08-26] MEDS: HYDROmorphone 1 MG/ML 1 ML SYRINGE IVP PRN ×4 (01:47→20:09)
[2022-08-26] MEDS: HYDROcodone/APAP 10-325MG 1 EACH TAB PO PRN ×3 (04:38→22:52)
[2022-08-26] MEDS: CEFEPIME 2 GM in SODIUM CHLORIDE 0.9% 100 ML IVPB SCH ×2 (04:39→14:00)
[2022-08-26] MEDS: GABAPENTIN 300 MG CAP PO SCH ×3 (08:20→20:09)
[2022-08-26] MEDS: methocarbamoL 750 MG TAB PO SCH ×3 (08:20→22:52)
[2022-08-26 09:28] LABS: African American GFR (CKD) 130.9 (60.0-200.0); Albumin 2.8 g/dL (3.8-4.9); Albumin/Globulin Ratio 1.27 (1.60-3.17); Anion Gap 8.8 mmol/L (10.00-18.00); BUN/Creat Ratio 12.4 Ratio (12.00-20.00); Blood Urea Nitrogen 6.2 mg/dL (9.0-27.0); Calcium 8.5 mg/dL (8.7-10.3); Carbon Dioxide 26.2 mmol/L (20.0-27.5); Globulin 2.2 g/dL (1.6-3.3); Non-African American GFR(CKD) 112.9 (60.0-200.0); Total Bilirubin 0.3 mg/dL (0.30-1.20)
[2022-08-26 09:38] LABS: INR 1.09 (0.90-1.11); Prothrombin Time 12.3 sec (9.9-11.9)
--- NOTE | 2022-08-26 11:34 | P.PN ---
Subjective Progress Note Date: 08/26/22 Principal diagnosis: Left hip deep periprosthetic infection Patient was seen at bedside this morning lying semirecumbent position with ice over her left hip. Patient's sister is present during encounter. Patient says he has urinated several times since surgery was performed. Patient says he has not had bowel movement yet, however, patient says he has been passing gas. Patient is looking forward to working with physical therapy later this morning. Patient says he does live alone at home and has 2 flights of stairs into his house and is hoping he will be able to go to rehab upon discharge. Patient says he has been ambulating with a walker and it has been somewhat difficult getting around the room on his own. Patient says he has been using incentive spirometer. Patient denies chest pain, fever, shortness of breath, nausea, vomiting, change in vision, loss of bowel/bladder control. Objective - Vital Signs Vital signs: Vital Signs Temp 98.7 F 08/26/22 07:08 Pulse 74 08/26/22 07:08 Resp 15 08/26/22 07:08 BP 111/65 08/26/22 07:08 Pulse Ox 95 08/26/22 07:08 FiO2 Intake & Output 08/25/22 08/26/22 08/26/22 18:59 06:59 18:59 Output Total 1700 Balance -1700 Output: Urine 1700 Other: Voiding Method Urinal Urinal # Voids 4 - Exam Inspection: Dressing present over left anterior hip. Dressing appears to be holding well at this time. Dressing appears to be saturated. Dressing removed at bedside. Some brown-serous drainage present. Minimal erythema. fair amount of swelling near incision. telfa, 4x4s and ABDs placed over incision. Sensation: Sensation is equal, symmetric, bilaterally intact throughout exam Palpation: Fair amount of tenderness to palpation anteriorly over the left hip. Nontender to palpation throughout rest of exam Range of motion: Patient has full range of motion bilateral upper extremity is in right lower extremity exam. There is some limited range of motion in left knee/left hip in flexion/extension secondary to pain/weakness from left hip. Motor: 5/5 in all major motor groups bilateral upper extremities and right lower extremity on exam. 4+/5 in resisted left hip flexion extension and left knee flexion extension. 5/5 in left ankle dorsi/plantar flexion. Neurovascular status: Radial pulse intact, 2+ bilaterally. Cap refill under 3 seconds in digits upper extremities. DP pulses palpable bilaterally Special tests: Negative Homans bilaterally. - Labs CBC & Chem 7: 08/25/22 04:57 08/26/22 05:13 Labs: Abnormal Lab Results - Last 24 Hours (Table) 08/26/22 08/26/22 Range/Units 05:13 05:13 PT 12.3 H (9.9-11.9) sec Anion Gap 8.80 L (10.00-18.00) mmol/L BUN 6.2 L (9.0-27.0) mg/dL Creatinine 0.5 L (0.6-1.5) mg/dL Glucose 119 H (70-110) mg/dL Calcium 8.5 L (8.7-10.3) mg/dL AST 42 H (14-35) U/L Total Protein 5.0 L (6.2-8.2) g/dL Albumin 2.8 L (3.8-4.9) g/dL Albumin/Globulin Ratio 1.27 L (1.60-3.17) g/dL Microbiology - Last 24 Hours (Table) 08/23/22 12:40 Blood Culture - Preliminary Blood No Growth after 48 hours 08/23/22 12:20 Blood Culture - Preliminary Blood No Growth after 48 hours 08/24/22 09:00 Gram Stain - Preliminary Hip - Left Wound Culture - Preliminary Gram Neg Bacilli Assessment and Plan Assessment: 1. Left hip deep periprosthetic infection - Postoperative day 2 status post 1. Left hip prosthetic polyethylene acetabular liner exchange and femoral head exchange 2. Incision with irrigation left hip periprosthetic deep infection 3. Implantation dissolvable vancomycin antibiotic beads Plan: 1. Left hip deep periprosthetic infection - patient stable at bedside this morning. Surgery was performed 08/24/2022 - left hip prosthetic polyethylene acetabular liner exchange and femoral head exchange; incision irrigation with left hip. Prosthetic deep infection; implantation dissolvable vancomycin antibiotic beads. Pain medication as needed. Patient to be weightbearing as tolerated with walker. Physical therapy and OT daily. Continue IV antibiotics for now. Medicine and ID following. Prelim cultures showing gram negative bacilli. Await cultures to finalize. PICC line placement. We'll continue to follow patient during his stay in hospital. plan for discharge to [facility] tmrw vs Friday 2. Appreciate medical and ID management 3. Pain management - [place]; gabapentin; Dilaudid 4. GI prophylaxis - senna 5. DVT prophylaxis - Lovenox 6. PT/OT - weightbearing as tolerated with walker and assistance as needed 7. Encourage incentive spirometer use 8. Discharge planning - plan for discharge to [facility] tmrw vs Friday Time with Patient: Less than 30
[2022-08-26] MEDS ORDERED: ONDANSETRON 4 MG/2 ML VIAL IVP PRN (12:13)
--- NOTE | 2022-08-26 12:40 | P.PN ---
Subjective Progress Note Date: 08/26/22 Hospital course: Patient is a very pleasant 66-year-old male with a past medical history of chronic back pain status post surgeries, gastric sleeve, obstructive sleep apnea, venous insufficiency, and recent left total hip arthroplasty completed on 08/05/22. He presented to the emergency department with a chief complaint of redness, swelling, and pain to left hip surgical site accompanied by reports of fevers and chills beginning 08/18/22. Patient initially presented to orthopedic surgery office where he underwent full evaluation and imaging prior to being se nt to the emergency department for admission. Currently oral temp 100.8F with heart rate of 82. Patient denies any drainage from postsurgical site or experiencing any noted bleeding, chest pain, palpitations, shortness of breath, abdominal pain, nausea, vomiting, or experiencing any groin pain or difficulties with urination. He underwent full evaluation in the emergency department. Labs were completed and reviewed. CBC revealing acute normocytic anemia with hemoglobin of 9.9. BMP revealing mild hyponatremia with sodium of 134. ESR elevated at 114 and CRP elevated at 23.6. Patient was admitted under orthopedic surgery team and we were consulted for continued medical management throughout hospitalization. Patient underwent incision and irrigation of left hip with polyethylene acetabular liner/femoral head exchange and antibiotic bead placement 08/24/[address] Barahona. Physical exam: Pt seen and evaluated this morning. He is postoperative day 2 and appears to be doing well. Patient reports mild pain left anterior hip otherwise denies having any complaints or needs at this time. Patient's sister is visiting at bedside. Patient expressing concerns regarding difficulties with ambulation and pain he is experiencing to his left anterior hip and requesting possible placement in rehab. Vital signs reviewed and stable. General: Nontoxic, no distress and appears stated age. Derm: Skin warm and dry, normal coloration for ethnicity. Head: Atraumatic, normocephalic and symmetric. Eyes: EOMs intact, no lid lag, and anicteric sclera Mouth: no lip lesions, mucus membranes moist Cardiovascular: regular rate and rhythm with normal S1S2, no murmur, positive posterior tibial pulses bilaterally, and cap refill < 2 seconds. Lungs: Respirations even, regular, and unlabored on room air. Lungs CTA bilaterally, no rhonchi, no rales, no wheezing, and no accessory muscle usage. Abdominal: soft, nontender to palpation, no guarding, no appreciable organomegaly Ext: Movement and sensation intact. Postsurgical dressing clean, dry, and intact to left hip. Neuro: Speech clear, face symmetrical and CN II-XII grossly intact with no noted focal neuro deficits Psych: Alert and oriented to person, place, time, and situation. Appropriate and pleasant affect. Assessment and Plan of Care: Labs were completed and reviewed. BMP showing no significant abnormalities with stable renal function with BUN of 6.2, creatinine 0.5, and GFR of 112.9. Next Vancomycin trough to 08/27/22 at 7:01 AM. Periprosthetic Deep Infection Status post incision and irrigation of left hip with polyethylene acetabular liner/femoral head exchange and antibiotic bead placement Normocytic anemia -Patient underwent incision and irrigation of left hip with polyethylene acetabular liner/femoral head exchange and antibiotic bead placement with Dr. Barahona on 08/24/22. -Blood cultures showing no growth to date. Left hip wound culture preliminarily positive for gram-negative organism. -Patient currently remains on IV antibiotics with cefepime 2 g every 8 hours and vancomycin 2250 mg every 12 hours. Next vancomycin trough is due to be drawn 08/27/22 at 7:01 AM. -PT/OT consulted secondary to concerns regarding difficulties with ambulation due to left hip pain. -Orders placed for morning BMP and vancomycin trough to monitor renal function closely for any signs vancomycin associated renal toxicity. -Orders placed for repeat morning CBC to follow-up on acute anemia of unclear etiology. Patient's baseline hemoglobin is 15 with postoperative hemoglobin of 11.6. Hemoglobin currently 8.4. -Infectious disease following and review documentation in chart. -Continue home medication regimen with gabapentin 300 mg 3 times daily and Robaxin 750 mg 3 times daily, -DVT prophylaxis, pain management, weightbearing, wound care, and PT/OT per primary admitting orthopedic surgery team. -Currently patient on DVT prophylaxis with Lovenox Thank you for allowing us to participate in the care of this pleasant patient. Do not hesitate to contact us with questions. Someone can be reached from the [facility] hospitalist group all hours of the day at [phone] or via perfect serve. Objective - Vital Signs Vital signs: Vital Signs Temp 97.5 F L 08/26/22 06:14 Pulse 55 L 08/26/22 06:14 Resp 20 08/26/22 06:14 BP 153/62 08/26/22 06:14 Pulse Ox 98 08/26/22 06:14 FiO2 Intake & Output 08/25/22 08/26/22 08/26/22 18:59 06:59 18:59 Output Total 1700 Balance -1700 Output: Urine 1700 Other: Voiding Method Urinal Urinal # Voids 4 - Labs CBC & Chem 7: 08/25/22 04:57 08/26/22 05:13 Labs: Abnormal Lab Results - Last 24 Hours (Table) 08/25/22 Range/Units 04:57 RBC 3.03 L (4.40-5.60) X 10*6/uL Hgb 8.4 L (13.0-17.0) g/dL Hct 26.4 L (39.6-50.0) % MCHC 31.8 L (32.0-37.0) g/dL Immature Gran # 0.06 H (0.00-0.04) X 10*3/uL Lymphocytes # 0.67 L (0.90-5.00) X 10*3/uL Microbiology - Last 24 Hours (Table) 08/23/22 12:40 Blood Culture - Preliminary Blood No Growth after 48 hours 08/23/22 12:20 Blood Culture - Preliminary Blood No Growth after 48 hours 08/24/22 09:00 Gram Stain - Preliminary Hip - Left Wound Culture - Preliminary Gram Neg Bacilli
[2022-08-26] MEDS ORDERED: LIDOCAINE 1% INJ 10MG/ML (5 ML VIAL-PF) SQ ONE (13:22)
[2022-08-26] MEDS: VANCOMYCIN 2,250 MG in SODIUM CHLORIDE 0.9% 500 ML 500 ML IVPB SCH (13:47)
[2022-08-26] MEDS: ENOXAPARIN 40 MG/0.4 ML SYRINGE SQ SCH (13:59)
--- NOTE | 2022-08-26 13:59 | IR ---
PICC LINE PLACEMENT: HISTORY: Infection requiring long-term antibiotic therapy PROCEDURE: Ultrasound and fluoroscopic guidance of PICC line placement. COMPLICATIONS: None ANESTHESIA: 1. 1% Lidocaine locally. FINDINGS/TECHNIQUE: The procedure was explained to the patient. The risks, complications, benefits and alternatives were discussed and any questions were answered. Informed consent was obtained. The patient was placed supine on the fluoroscopic table and prepped and draped in the usual sterile fash ion. Utilizing a 21 gauge needle and sonographic and fluoroscopic guidance, access in the right bas ilic vein was achieved and there is placement of a 0.018 guidewire. The vein is patent. A 4-F sheat h was placed over the guidewire. The guidewire and dilator were removed and a 4-F. PICC line was oliva shaun through the sheath with the tip at the level of the SVC. The sheath was removed, the catheter wa s flushed and sutured into position. The patient was stable throughout the procedure and remained st able upon discharge from the Department of Radiology. The vein puncture was patent under ultrasound. A vasquez scale image was obtained to document patency of the vein punctured. All elements of the maximal barrier technique were utilized. FLUOROSCOPY TIME: DAP 0.203Gy cm2 IMPRESSION: Successful PICC line placement under ultrasound and fluoroscopic guidance.
[2022-08-26] MEDS: LACTATED RINGERS 1,000 ML IV SCH ×2 (14:00→14:09)
--- NOTE | 2022-08-26 19:44 | P.PN ---
Subjective Progress Note Date: 08/26/22 Principal diagnosis: Left Hip Infection Patient is a 66-year-old male with a past medical history taken for osteoarthritis sleep apnea chronic back pain in this patient who recently did have left total hip arthroplasty done on 08/05/2022, subsequently presented to hospital on 08/23/2022 with increasing pain swelling to the left hip area along with fever and chills. Patient was taken to the OR 08/24/2022 with concern for left hip deep periprosthetic infection the patient is status post left hip prosthetic polyethylene acetabular liner exchange and femoral head exchange irrigation of the left hip periprosthetic infection and implantation of vancomycin antibiotic beads. On today's evaluation that is 08/26/2022, the patient remains to be afebrile , the patient is complaining of more pain to the left hip area today, the patient denies having any chest pain or shortness of breath or cough no nausea no vomiting no abdominal pain no diarrhea Objective - Vital Signs Vital signs: Vital Signs Temp 98.7 F 08/26/22 07:08 Pulse 74 08/26/22 07:08 Resp 15 08/26/22 07:08 BP 111/65 08/26/22 07:08 Pulse Ox 95 08/26/22 07:08 FiO2 Intake & Output 08/25/22 08/26/22 08/26/22 18:59 06:59 18:59 Output Total 1700 Balance -1700 Output: Urine 1700 Other: Voiding Method Urinal Urinal # Voids 4 - Exam GENERAL DESCRIPTION: Elderly male lying in bed in no distress RESPIRATORY SYSTEM: Unlabored breathing , decreased breath sounds at bases HEART: S1 S2 regular rate and rhythm ,no loud murmurs ABDOMEN: Soft , no tenderness EXTREMITIES: Left hip incision is currently dressed no drainage on the dressing - Labs CBC & Chem 7: 08/25/22 04:57 08/26/22 05:13 Labs: Abnormal Lab Results - Last 24 Hours (Table) 08/26/22 08/26/22 Range/Units 05:13 05:13 PT 12.3 H (9.9-11.9) sec Anion Gap 8.80 L (10.00-18.00) mmol/L BUN 6.2 L (9.0-27.0) mg/dL Creatinine 0.5 L (0.6-1.5) mg/dL Glucose 119 H (70-110) mg/dL Calcium 8.5 L (8.7-10.3) mg/dL AST 42 H (14-35) U/L Total Protein 5.0 L (6.2-8.2) g/dL Albumin 2.8 L (3.8-4.9) g/dL Albumin/Globulin Ratio 1.27 L (1.60-3.17) g/dL Microbiology - Last 24 Hours (Table) 08/24/22 09:00 Gram Stain - Final Hip - Left Wound Culture - Final Escherichia coli 08/23/22 12:40 Blood Culture - Preliminary Blood No Growth after 48 hours 08/23/22 12:20 Blood Culture - Preliminary Blood No Growth after 48 hours Assessment and Plan (1) Left hip prosthetic joint infection Current Visit: Yes Status: Acute Code(s): T84.52XA - INFECT/INFLM REACTION DUE TO INTERNAL LEFT HIP PROSTH, INIT SNOMED Code(s): 04285381487452584 Plan: 1patient presented to hospital with left hip pain swelling and redness fever in this patient who recently did have left hip arthroplasty concerning for left hip cellulitis possible deep infection likely from gram-positive skin sarah less likely gram-negative but not entirely excluded 2Patient is s/p surgical debridement and deep culture which are growing E. coli that is a sensitive pathogen 3-we will discontinue vancomycin and cefepime start the patient on Rocephin PICC line to be placed today Time with Patient: Less than 30
[2022-08-26] MEDS: SENNOSIDES-DOCUSATE SODIUM 1 EACH TAB PO SCH (20:09)
[2022-08-27] MEDS ORDERED: VANCOMYCIN 2,250 MG in SODIUM CHLORIDE 0.9% 500 ML 500 ML IVPB SCH (01:00)
[2022-08-27] MEDS: HYDROmorphone 1 MG/ML 1 ML SYRINGE IVP PRN ×4 (01:14→15:45)
[2022-08-27] MEDS: LACTATED RINGERS 1,000 ML IV SCH ×2 (01:22→13:37)
[2022-08-27] MEDS: HYDROcodone/APAP 10-325MG 1 EACH TAB PO PRN ×3 (03:48→21:14)
[2022-08-27] MEDS: methocarbamoL 750 MG TAB PO SCH ×3 (09:28→21:14)
[2022-08-27] MEDS: GABAPENTIN 300 MG CAP PO SCH ×3 (09:28→21:14)
[2022-08-27] MEDS: ENOXAPARIN 40 MG/0.4 ML SYRINGE SQ SCH (09:28)
[2022-08-27] MEDS ORDERED: VANCOMYCIN TROUGH DUE 1 EACH MISC MISCELLANE ONE (12:00)
--- NOTE | 2022-08-27 12:18 | P.PN ---
Subjective Progress Note Date: 08/27/22 Principal diagnosis: Left hip deep periprosthetic infection Patient was seen at bedside this morning with both the sisters present during the encounter. Patient is lying in the semirecumbent position with a dressing present over left hip. There appears there is some saturation to the dressing. Dressing was changed at bedside and new dressing was applied. Hip Cultures finalize showing E. coli Patient says he did get up with physical therapy yesterday using his walker and walked around the room a little bit. Patient says his hip is in some pain during ambulation. Patient says he is looking forward to going to rehab on discharge. Patient does talk about and discussed the reason why he has infection in his left hip. 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 Patient says he has urinated every day since surgery. Patient denies chest pain, fever, shortness of breath, nausea, vomiting, change in vision, loss of bowel/bladder control Objective - Vital Signs Vital signs: Vital Signs Temp 97.2 F L 08/27/22 07:10 Pulse 99 08/27/22 07:10 Resp 17 08/27/22 07:20 BP 137/67 08/27/22 07:10 Pulse Ox 96 08/27/22 07:10 FiO2 Intake & Output 08/26/22 08/27/22 08/27/22 18:59 06:59 18:59 Intake Total 50 2640 Output Total 2900 Balance 50 -260 Intake: Intake, IV Titration 50 960 Amount Lactated Ringers 1,000 ml 960 @ 80 mls/hr IV .[id number] [facility] Rx#:[id number] cefTRIAXone 2 gm In 50 Sodium Chloride 0.9% 50 ml @ 100 mls/hr IVPB Q24HR [facility] Rx#:[id number] Oral 1680 Output: Urine 2900 Other: Voiding Method Urinal Urinal # Voids 1 # Bowel Movements 1 - Exam Inspection: Dressing present over left anterior hip. Dressing appears to be holding well at this time. Dressing appears to be saturated. Dressing removed at bedside. Some brown-serous drainage present. Negative for erythema. fair amount of swelling near incision. telfa, 4x4s and ABDs placed over incision. Sensation: Sensation is equal, symmetric, bilaterally intact throughout exam Palpation: Fair amount of tenderness to palpation anteriorly over the left hip. Nontender to palpation throughout rest of exam Range of motion: Patient has full range of motion bilateral upper extremity is in right lower extremity exam. There is some limited range of motion in left knee/left hip in flexion/extension secondary to pain/weakness from left hip. Motor: 5/5 in all major motor groups bilateral upper extremities and right lower extremity on exam. 4+/5 in resisted left hip flexion extension and left knee flexion extension. 5/5 in left ankle dorsi/plantar flexion. Neurovascular status: Radial pulse intact, 2+ bilaterally. Cap refill under 3 seconds in digits upper extremities. DP pulses palpable bilaterally Special tests: Negative Homans bilaterally. - Labs CBC & Chem 7: 08/25/22 04:57 08/26/22 05:13 Labs: Microbiology - Last 24 Hours (Table) 08/24/22 09:00 Anaerobic Culture - Preliminary Hip - Left 08/23/22 12:20 Blood Culture - Preliminary Blood No Growth after 72 hours 08/23/22 12:40 Blood Culture - Preliminary Blood No Growth after 72 hours 08/24/22 09:00 Gram Stain - Final Hip - Left Wound Culture - Final Escherichia coli Assessment and Plan Assessment: 1. Left hip deep periprosthetic infection - Postoperative day 3 status post 1. Left hip prosthetic polyethylene acetabular liner exchange and femoral head exchange 2. Incision with irrigation left hip periprosthetic deep infection 3. Implantation dissolvable vancomycin antibiotic beads Plan: 1. Left hip deep periprosthetic infection - patient stable at bedside this morning. Surgery was performed 08/24/2022 - left hip prosthetic polyethylene acetabular liner exchange and femoral head exchange; incision irrigation with left hip. Prosthetic deep infection; implantation dissolvable vancomycin antibiotic beads. Pain medication as needed. Patient to be weightbearing as tolerated with walker. Physical therapy and OT daily. Continue IV antibiotics for now. Medicine and ID following. PICC line placed yesterday. Cultures finalized - E coli. Patient hemoglobin 8.4 yesterday. We are waiting CBC from today. At this time we'll start patient on iron daily. We'll continue to follow patient during his stay in hospital. plan for discharge to [facility], 08/28/22. 2. Appreciate medical and ID management 3. Pain management - [place]; gabapentin; Dilaudid 4. GI prophylaxis - senna 5. DVT prophylaxis - Lovenox 6. PT/OT - weightbearing as tolerated with walker and assistance as needed 7. Encourage incentive spirometer use 8. Discharge planning - plan for discharge to [facility] tmrw, 08/28/22. Time with Patient: Less than 30
[2022-08-27 13:04] LABS: ALT 43 U/L (4-49); AST 46 U/L (17-59); African American GFR (CKD) >90 (>60 ml/min/1.73 sqM); Albumin/Globulin Ratio 1.1; Alkaline Phosphatase 68 U/L (38-126); Anion Gap 9 mmol/L; Blood Urea Nitrogen 7 mg/dL (9-20); Calcium 8.5 mg/dL (8.4-10.2); Carbon Dioxide 29 mmol/L (22-30); Chloride 100 mmol/L (98-107); Globulin 2.8 g/dL; Glucose 114 mg/dL (74-99); Non-African American GFR(CKD) >90 (>60 ml/min/1.73 sqM); Sodium 138 mmol/L (137-145); Total Bilirubin 0.4 mg/dL (0.2-1.3); Total Protein 5.8 g/dL (6.3-8.2)
[2022-08-27 13:20] VITALS: BMI 36.9
[2022-08-27] MEDS: FERROUS SULFATE 325 MG TAB PO SCH (13:25)
--- NOTE | 2022-08-27 15:15 | P.PN ---
Subjective Progress Note Date: 08/27/22 Hospital course: Patient is a very pleasant 66-year-old male with a past medical history of chronic back pain status post surgeries, gastric sleeve, obstructive sleep apnea, venous insufficiency, and recent left total hip arthroplasty completed on 08/05/22. He presented to the emergency department with a chief complaint of redness, swelling, and pain to left hip surgical site accompanied by reports of fevers and chills beginning 08/18/22. Patient initially presented to orthopedic surgery office where he underwent full evaluation and imaging prior to being se nt to the emergency department for admission. Currently oral temp 100.8F with heart rate of 82. Patient denies any drainage from postsurgical site or experiencing any noted bleeding, chest pain, palpitations, shortness of breath, abdominal pain, nausea, vomiting, or experiencing any groin pain or difficulties with urination. He underwent full evaluation in the emergency department. Labs were completed and reviewed. CBC revealing acute normocytic anemia with hemoglobin of 9.9. BMP revealing mild hyponatremia with sodium of 134. ESR elevated at 114 and CRP elevated at 23.6. Patient was admitted under orthopedic surgery team and we were consulted for continued medical management throughout hospitalization. Patient underwent incision and irrigation of left hip with polyethylene acetabular liner/femoral head exchange and antibiotic bead placement 08/24/[address] Barahona. Physical exam: Pt seen and evaluated this morning. He is postoperative day 3. Patient has 2 family members at bedside. He reports overall feeling okay today and denies having any complaints with the exception of continued pain to left lateral hip. Vital signs reviewed and stable. General: Nontoxic, no distress and appears stated age. Derm: Skin warm and dry, normal coloration for ethnicity. Head: Atraumatic, normocephalic and symmetric. Eyes: EOMs intact, no lid lag, and anicteric sclera Mouth: no lip lesions, mucus membranes moist Cardiovascular: regular rate and rhythm with normal S1S2, no murmur, positive posterior tibial pulses bilaterally, and cap refill < 2 seconds. Lungs: Respirations even, regular, and unlabored on room air. Lungs CTA bilaterally, no rhonchi, no rales, no wheezing, and no accessory muscle usage. Abdominal: soft, nontender to palpation, no guarding, no appreciable organomegaly Ext: Movement and sensation intact. Postsurgical dressing clean, dry, and intact to left hip. Neuro: Speech clear, face symmetrical and CN II-XII grossly intact with no noted focal neuro deficits Psych: Alert and oriented to person, place, time, and situation. Appropriate and pleasant affect. Assessment and Plan of Care: Labs were completed and reviewed. CBC results remain pending at 3:10 PM. BMP unremarkable. Covid PCR was positive. Periprosthetic Deep Infection Status post incision and irrigation of left hip with polyethylene acetabular liner/femoral head exchange and antibiotic bead placement Normocytic anemia Coronavirus detected, patient asymptomatic -Patient asymptomatic positive Covid PCR -Patient underwent incision and irrigation of left hip with polyethylene acetabular liner/femoral head exchange and antibiotic bead placement with Dr. Barahona on 08/24/22. -Blood cultures showing no growth to date. Left hip wound culture positive for E. coli -Discussed with infectious disease physician, patient to be discharged to [facility] on Rocephin 2 g every 24 hours. PICC line was placed in right upper extremity. -PT/OT evaluated recommending discharge to rehab to build strength and endurance to enable him to return to previous living situation. -Continue home medication regimen with gabapentin 300 mg 3 times daily and Robaxin 750 mg 3 times daily, -DVT prophylaxis, pain management, weightbearing, wound care, and PT/OT per primary admitting orthopedic surgery team. -Currently patient on DVT prophylaxis with Lovenox Thank you for allowing us to participate in the care of this pleasant patient. Do not hesitate to contact us with questions. Someone can be reached from the [facility] hospitalist group all hours of the day at [phone] or via perfect serve. Objective - Vital Signs Vital signs: Vital Signs Temp 97.2 F L 08/27/22 07:10 Pulse 99 08/27/22 07:10 Resp 18 08/27/22 07:10 BP 137/67 08/27/22 07:10 Pulse Ox 96 08/27/22 07:10 FiO2 Intake & Output 08/26/22 08/27/22 08/27/22 18:59 06:59 18:59 Intake Total 50 2640 Output Total 2900 Balance 50 -260 Intake: Intake, IV Titration 50 960 Amount Lactated Ringers 1,000 ml 960 @ 80 mls/hr IV .[id number] [facility] Rx#:[id number] cefTRIAXone 2 gm In 50 Sodium Chloride 0.9% 50 ml @ 100 mls/hr IVPB Q24HR [facility] Rx#:[id number] Oral 1680 Output: Urine 2900 Other: Voiding Method Urinal Urinal # Voids 1 # Bowel Movements 1 - Labs CBC & Chem 7: 08/25/22 04:57 08/27/22 11:58 Labs: Abnormal Lab Results - Last 24 Hours (Table) 08/26/22 08/26/22 Range/Units 05:13 05:13 PT 12.3 H (9.9-11.9) sec Anion Gap 8.80 L (10.00-18.00) mmol/L BUN 6.2 L (9.0-27.0) mg/dL Creatinine 0.5 L (0.6-1.5) mg/dL Glucose 119 H (70-110) mg/dL Calcium 8.5 L (8.7-10.3) mg/dL AST 42 H (14-35) U/L Total Protein 5.0 L (6.2-8.2) g/dL Albumin 2.8 L (3.8-4.9) g/dL Albumin/Globulin Ratio 1.27 L (1.60-3.17) g/dL Microbiology - Last 24 Hours (Table) 08/24/22 09:00 Anaerobic Culture - Preliminary Hip - Left 08/23/22 12:20 Blood Culture - Preliminary Blood No Growth after 72 hours 08/23/22 12:40 Blood Culture - Preliminary Blood No Growth after 72 hours 08/24/22 09:00 Gram Stain - Final Hip - Left Wound Culture - Final Escherichia coli
[2022-08-27 18:14] LABS: Basophils # (A) 0.04 X 10*3/uL (0.00-0.10); Basophils % (A) 0.5 %; Eosinophils % (A) 2.4 %; HGB 8.4 g/dL (13.0-17.0); Immature Grans, Automated 1.1 %; Lymphocytes % (A) 8.3 %; MCH 27.5 pg (27.0-32.0); MCHC 31.1 g/dL (32.0-37.0); MCV 88.5 fL (80.0-97.0); Mean Platelet Volume 9.3 fL (9.5-12.2); Monocytes # (A) 0.54 X 10*3/uL (0.20-1.00); Monocytes % (A) 6.4 %; NRBC Per 100 WBC 0 /100 WBCS (0.0-0.0); Neutrophils # (A) 6.86 X 10*3/uL (1.80-7.70); Neutrophils % (A) 81.3 %; Platelet Count 346 X 10*3/uL (140-440); RBC 3.05 X 10*6/uL (4.40-5.60); RDW 14.4 % (11.5-14.5); WBC 8.43 X 10*3/uL (4.50-10.00)
[2022-08-27] MEDS: SENNOSIDES-DOCUSATE SODIUM 1 EACH TAB PO SCH (21:14)
--- NOTE | 2022-08-27 21:14 | P.PN ---
Subjective Progress Note Date: 08/27/22 Principal diagnosis: Left Hip Infection Patient is a 66-year-old male with a past medical history taken for osteoarthritis sleep apnea chronic back pain in this patient who recently did have left total hip arthroplasty done on 08/05/2022, subsequently presented to hospital on 08/23/2022 with increasing pain swelling to the left hip area along with fever and chills. Patient was taken to the OR 08/24/2022 with concern for left hip deep periprosthetic infection the patient is status post left hip prosthetic polyethylene acetabular liner exchange and femoral head exchange irrigation of the left hip periprosthetic infection and implantation of vancomycin antibiotic beads. On today's evaluation that is 08/27/2022, the patient continues to be afebrile , the patient pain to the left hip area is currently controlled , the patient denies having any chest pain or shortness of breath or cough no nausea no vomiting no abdominal pain no diarrhea Objective - Vital Signs Vital signs: Vital Signs Temp 97.2 F L 08/27/22 07:10 Pulse 99 08/27/22 07:10 Resp 17 08/27/22 07:20 BP 137/67 08/27/22 07:10 Pulse Ox 96 08/27/22 07:10 FiO2 Intake & Output 08/26/22 08/27/22 08/27/22 18:59 06:59 18:59 Intake Total 50 2640 Output Total 2900 Balance 50 -260 Weight 145.15 kg Intake: Intake, IV Titration 50 960 Amount Lactated Ringers 1,000 ml 960 @ 80 mls/hr IV .[id number] [facility] Rx#:[id number] cefTRIAXone 2 gm In 50 Sodium Chloride 0.9% 50 ml @ 100 mls/hr IVPB Q24HR [facility] Rx#:[id number] Oral 1680 Output: Urine 2900 Other: Voiding Method Urinal Urinal # Voids 1 # Bowel Movements 1 - Exam GENERAL DESCRIPTION: Elderly male lying in bed in no distress RESPIRATORY SYSTEM: Unlabored breathing , decreased breath sounds at bases HEART: S1 S2 regular rate and rhythm ,no loud murmurs ABDOMEN: Soft , no tenderness EXTREMITIES: Left hip incision is currently dressed no drainage on the dressing - Labs CBC & Chem 7: 08/27/22 11:58 08/27/22 11:58 Labs: Abnormal Lab Results - Last 24 Hours (Table) 08/27/22 08/27/22 Range/Units 11:06 11:58 BUN 7 L (9-20) mg/dL Creatinine 0.44 L (0.66-1.25) mg/dL Glucose 114 H (74-99) mg/dL Total Protein 5.8 L (6.3-8.2) g/dL Albumin 3.0 L (3.5-5.0) g/dL Coronavirus (PCR) Detected A (Not Detectd) Microbiology - Last 24 Hours (Table) 08/24/22 09:00 Anaerobic Culture - Preliminary Hip - Left 08/23/22 12:20 Blood Culture - Preliminary Blood No Growth after 72 hours 08/23/22 12:40 Blood Culture - Preliminary Blood No Growth after 72 hours 08/24/22 09:00 Gram Stain - Final Hip - Left Wound Culture - Final Escherichia coli Assessment and Plan (1) Left hip prosthetic joint infection Current Visit: Yes Status: Acute Code(s): T84.52XA - INFECT/INFLM REACTION DUE TO INTERNAL LEFT HIP PROSTH, INIT SNOMED Code(s): 29828812448594931 Plan: 1patient presented to hospital with left hip pain swelling and redness fever in this patient who recently did have left hip arthroplasty concerning for left hip cellulitis possible deep infection likely from gram-positive skin sarah less likely gram-negative but not entirely excluded 2Patient is s/p surgical debridement and deep culture which are growing E. coli that is a sensitive pathogen 3-patient did get a PICC line and continue with Rocephin 2 g daily 6 weeks and close outpatient follow-up Family the bedside questions were answered Time with Patient: Less than 30
[2022-08-28] MEDS: HYDROmorphone 1 MG/ML 1 ML SYRINGE IVP PRN (02:20)
[2022-08-28] MEDS: HYDROcodone/APAP 10-325MG 1 EACH TAB PO PRN ×2 (06:16→14:48)
[2022-08-28 06:40] LABS: African American GFR (CKD) >90 (>60 ml/min/1.73 sqM); Non-African American GFR(CKD) >90 (>60 ml/min/1.73 sqM)
[2022-08-28 07:34] VITALS: RESP 18
[2022-08-28 07:41] LABS: Basophils % (A) 0 %; Eosinophils # (A) 0.3 k/uL (0-0.7); Eosinophils % (A) 4 %; HCT 26.4 % (39.0-53.0); HGB 8.5 gm/dL (13.0-17.5); Hypochromasia Slight; Lymphocytes # (A) 0.6 k/uL (1.0-4.8); Lymphocytes % (A) 10 %; MCH 28.4 pg (25.0-35.0); MCHC 32.3 g/dL (31.0-37.0); MCV 87.8 fL (80.0-100.0); Mean Platelet Volume 7.4; Monocytes # (A) 0.3 k/uL (0-1.0); Monocytes % (A) 5 %; Neutrophils # (A) 5.1 k/uL (1.3-7.7); Neutrophils % (A) 79 %; Platelet Count 372 k/uL (150-450); Poikilocytosis Slight; RBC 3.01 m/uL (4.30-5.90); RDW 14.8 % (11.5-15.5); WBC 6.4 k/uL (3.8-10.6)
[2022-08-28 07:54] LABS: African American GFR (CKD) >90 (>60 ml/min/1.73 sqM); Anion Gap 8 mmol/L; Blood Urea Nitrogen 9 mg/dL (9-20); Calcium 8.6 mg/dL (8.4-10.2); Carbon Dioxide 27 mmol/L (22-30); Chloride 100 mmol/L (98-107); Glucose 111 mg/dL (74-99); Non-African American GFR(CKD) >90 (>60 ml/min/1.73 sqM); Potassium 4.1 mmol/L (3.5-5.1); Sodium 135 mmol/L (137-145)
[2022-08-28] MEDS: GABAPENTIN 300 MG CAP PO SCH ×2 (09:32→14:48)
[2022-08-28] MEDS: ENOXAPARIN 40 MG/0.4 ML SYRINGE SQ SCH (09:32)
[2022-08-28] MEDS: methocarbamoL 750 MG TAB PO SCH ×2 (09:32→14:48)
[2022-08-28] MEDS: FERROUS SULFATE 325 MG TAB PO SCH (09:32)
--- NOTE | 2022-08-28 11:33 | P.PN ---
Subjective Progress Note Date: 08/28/22 Subjective: Patient examined at bedside. No acute events overnight. He denies any chest pain, shortness of breath, abdominal pain, nausea, vomiting, diarrhea, constipation. He has mild tenderness in the left hip area. Pertinent positives and negatives as discussed above, a complete review of systems was performed and all other systems are negative. Vitals Signs Reviewed. General: nontoxic, no distress, appears at stated age Derm: warm, dry, dressing clean, dry, intact Head: atraumatic, normocephalic, symmetric Eyes: EOMI, no lid lag, anicteric sclera Mouth: no lip lesion, mucus membranes moist Cardiovascular: S1S2 reg, no murmur Lungs: CTA bilateral, no rhonchi, no rales , no accessory muscle use Abdominal: soft, nontender to palpation, no guarding, no appreciable org anomegaly Ext: no gross muscle atrophy, no edema, no contractures Neuro: CN II-XI grossly intact, no focal neuro deficits Psych: Alert, oriented, appropriate affect Data Reviewed Today: Pertinent Labs: WBC 6.4, hemoglobin 8.5, platelet count 372, sodium 135, creatinine 0.51 Assessment and Plan: Periprosthetic Deep Infection Status post incision and irrigation of left hip with polyethylene acetabular liner/femoral head exchange and antibiotic bead placement Chronic Normocytic anemia Coronavirus detected, patient asymptomatic -Blood cultures showing no growth to date. Left hip wound culture positive for E. coli , pansensitive -Patient to be discharged to SNF with IV Rocephin 2 g every 24 hours for 6 weeks -Pain management with oral Tylenol, oral [place], and IV Dilaudid, currently man aged by orthopedic surgery -Continue home medication regimen with gabapentin 300 mg 3 times daily and Robaxin 750 mg 3 times daily, -Currently patient on DVT prophylaxis with Lovenox -No active bleeding, hemoglobin stable, anemia possibly in the setting of recent surgery, acute infection. Needs further workup as an outpatient -Asymptomatic COVID-19 infection Patient medically optimized for discharge, pending SNF bed availability. Objective - Vital Signs Vital signs: Vital Signs Temp 98.5 F 08/28/22 07:03 Pulse 78 08/28/22 07:03 Resp 18 08/28/22 07:03 BP 144/71 08/28/22 07:03 Pulse Ox 95 08/28/22 07:03 FiO2 Intake & Output 08/27/22 08/28/22 08/28/22 18:59 06:59 18:59 Output Total 900 925 Balance -900 -925 Weight 145.15 kg Output: Urine 900 925 Other: Voiding Method Urinal Urinal Urinal # Voids 1 3 # Bowel Movements 1 - Labs CBC & Chem 7: 08/28/22 05:20 08/28/22 05:20 Labs: Abnormal Lab Results - Last 24 Hours (Table) 08/27/22 08/27/22 08/27/22 Range/Units 11:06 11:58 11:58 RBC 3.05 L (4.40-5.60) X 10*6/uL Hgb 8.4 L (13.0-17.0) g/dL Hct 27.0 L (39.6-50.0) % MCHC 31.1 L (32.0-37.0) g/dL MPV 9.3 L (9.5-12.2) fL Immature Gran # 0.09 H (0.00-0.04) X 10*3/uL Lymphocytes # 0.70 L (0.90-5.00) X 10*3/uL Sodium (137-145) mmol/L BUN 7 L (9-20) mg/dL Creatinine 0.44 L (0.66-1.25) mg/dL Glucose 114 H (74-99) mg/dL Total Protein 5.8 L (6.3-8.2) g/dL Albumin 3.0 L (3.5-5.0) g/dL Coronavirus (PCR) Detected A (Not Detectd) 08/28/22 08/28/22 08/28/22 Range/Units 05:20 05:20 05:20 RBC 3.01 L (4.40-5.60) X 10*6/uL Hgb 8.5 L (13.0-17.0) g/dL Hct 26.4 L (39.6-50.0) % MCHC (32.0-37.0) g/dL MPV (9.5-12.2) fL Immature Gran # (0.00-0.04) X 10*3/uL Lymphocytes # 0.6 L (0.90-5.00) X 10*3/uL Sodium 135 L (137-145) mmol/L BUN (9-20) mg/dL Creatinine 0.50 L 0.51 L (0.66-1.25) mg/dL Glucose 111 H (74-99) mg/dL Total Protein (6.3-8.2) g/dL Albumin (3.5-5.0) g/dL Coronavirus (PCR) (Not Detectd) Microbiology - Last 24 Hours (Table) 08/23/22 12:20 Blood Culture - Preliminary Blood No Growth after 96 hours 08/23/22 12:40 Blood Culture - Preliminary Blood No Growth after 96 hours
--- NOTE | 2022-08-28 12:37 | P.DS ---
Providers Date of admission: 08/23/22 12:44 Expected date of discharge: 08/28/22 Attending physician: Krish Barahona Consults: 08/23/22 12:42 Consult Physician Urgent Consulting Provider: Larry Arango Consult Reason/Comments: medical management Do you want consulting provider notified?: Yes 08/23/22 12:46 Consult Physician Urgent Consulting Provider: Toney Jay Consult Reason/Comments: left hip infection, s/p replacement Do you want consulting provider notified?: Yes Primary care physician: [facility] Hospital Course: Date of admission: 08/23/2022 Date of discharge: 08/28/2022 Admission diagnosis: Left hip deep periprosthetic infection Discharge diagnosis: same Attending physician: Dr. Barahona Surgical procedures: 1. Left hip prosthetic polyethylene acetabular liner exchange and femoral head exchange 2. Incision with irrigation left hip periprosthetic deep infection 3. Implantation dissolvable vancomycin antibiotic beads Brief history: Patient is a 66-year-old male with a history of left hip infection. At this point patient has failed conservative treatment measures and has opted to proceed with a elective left hip prosthetic polyethylene acetabular liner exchange and femoral head exchange; the incision with irrigation left hip periprosthetic deep infection. Hospital course: Details of patient's surgery can be found in operative report. Patient tolerated the procedure well and was subsequently transported to orthopedic floor. Patient's orthopeidc and medical care was provided daily. Patient had daily laboratory tests performed for evaluation of overall blood counts. Patient had daily physical therapy to include strengthening range of motion as well as education with walker ambulation. Patient was treated with Lovenox for their postoperative DVT prophylaxis during their inpatient stay. Patient was noted to have a relatively uneventful postoperative course. Patient reported satisfactory pain control with oral pain medications by postoperative day 4. Patient showed satisfactory progress with physical therapy. Patient moved steadily through the program and had no difficulty meeting the goals by postoperative day 4. Given patient's otherwise satisfactory course and having met physical therapy goals, plan is to discharge patient to rehab on postoperative day 4. Discharge condition/disposition: Patient will be discharged to rehab in stable condition. Discharge medications: Instructions are given on resumption of patient's normal daily medications per primary care recommendation, in addition patient will be prescribed Neptune; gabapentin; ferrous sulfate; senna, aspirin. Assessment: Left hip deep periprosthetic infection Procedures: 1. Left hip prosthetic polyethylene acetabular liner exchange and femoral head exchange 2. Incision with irrigation left hip periprosthetic deep infection 3. Implantation dissolvable vancomycin antibiotic beads Patient Condition at Discharge: Good Plan - Discharge Summary Discharge Rx Participant: Yes New Discharge Prescriptions: New HYDROcodone/APAP 10-325MG [Neptune 10-325] 1 tab PO Q6HR PRN #21 tab PRN Reason: Pain Sennosides/Docusate Sodium [Senna Plus 8.6-50 mg Softgel] 1 each PO DAILY #20 capsule Gabapentin 300 mg PO TID #21 cap Ferrous Sulfate [Feosol] 325 mg PO DAILY #21 tab Aspirin 325 mg PO DAILY #28 tab No Action methocarbamoL [Robaxin-750] 750 mg PO TID Multivitamins, Thera [Multivitamin (formulary)] 1 tab PO DAILY Ubidecarenone [Co Q-10] 100 mg PO DAILY [place]-3 Fatty Acids [[place]-3] 1,000 mg PO DAILY Magnesium 400 mg PO DAILY Gabapentin 300 mg PO TID Meloxicam [Mobic] 15 mg PO DAILY Aspirin 325 mg PO DAILY #30 tab HYDROcodone/APAP 10-325MG [[place]une 10-325] 1 tab PO Q4HR PRN 7 Days #42 tab PRN Reason: Pain Cholecalciferol (Vitamin D3) [Vitamin D3 (3000 Iu)] 75 mcg PO DAILY Ascorbic Acid [Vitamin C] 1,000 mg PO DAILY Vitamin E (Dl,Tocopheryl Acet) [Vitamin E (400 Iu = 180 mg)] 400 unit PO DAILY Discharge Medication List Magnesium 400 mg PO DAILY 09/16/19 [History] Multivitamins, Thera [Multivitamin (formulary)] 1 tab PO DAILY 09/16/19 [History] [place]-3 Fatty Acids [[place]-3] 1,000 mg PO DAILY 09/16/19 [History] Ubidecarenone [Co Q-10] 100 mg PO DAILY 09/16/19 [History] methocarbamoL [Robaxin-750] 750 mg PO TID 09/16/19 [History] Gabapentin 300 mg PO TID 03/08/20 [History] Meloxicam [Mobic] 15 mg PO DAILY 03/09/21 [History] Vitamin E (Dl,Tocopheryl Acet) [Vitamin E (400 Iu = 180 mg)] 400 unit PO DAILY 04/18/22 [History] Aspirin 325 mg PO DAILY #30 tab 08/06/22 [Rx] HYDROcodone/APAP 10-325MG [Neptune 10-325] 1 tab PO Q4HR PRN 7 Days #42 tab 08/06/22 [Rx] Ascorbic Acid [Vitamin C] 1,000 mg PO DAILY 08/23/22 [History] Cholecalciferol (Vitamin D3) [Vitamin D3 (3000 Iu)] 75 mcg PO DAILY 08/23/22 [History] Gabapentin 300 mg PO TID #21 cap 08/27/22 [Rx] HYDROcodone/APAP 10-325MG [Neptune 10-325] 1 tab PO Q6HR PRN #21 tab 08/27/22 [Rx] Aspirin 325 mg PO DAILY #28 tab 08/28/22 [Rx] Ferrous Sulfate [Feosol] 325 mg PO DAILY #21 tab 08/28/22 [Rx] Sennosides/Docusate Sodium [Senna Plus 8.6-50 mg Softgel] 1 each PO DAILY #20 capsule 08/28/22 [Rx] Follow up Appointment(s)/Referral(s): Hawk Banuelos, PAC [PHYSICIAN SHIPPING SPECIALIST] - 2 Weeks [facility] [Primary Care Provider] - 1-2 days Activity/Diet/Wound Care/Special Instructions: Orthopedic discharge instructions: 1. Monitor dressing, change daily. Utilize a nonadhesive pad over the incision with ABDs as necessary 2. Weight-bear as tolerated with walker 3. Ferrous sulfate 325 mg once daily for anemia 4. Pain medication as needed 5. Ice the lower extremity to help with discomfort and swelling 6. Aspirin 325 mg daily for DVT prophylaxis Discharge Disposition: TRANSFER TO SNF/ECF
--- NOTE | 2022-08-28 12:41 | P.PN ---
Subjective Progress Note Date: 08/28/22 Principal diagnosis: Left hip deep periprosthetic infection Patient was seen at bedside this morning lying semirecumbent position. Patient says he is looking forward to going to rehab today. Patient says he is still having some left hip and this time but it has decreased over the past couple days. Patient says he has gotten up with physical therapy daily and walk around the room but using a walker. Patient says he has urinated every day since surgery. Patient denies chest pain, fever, shortness of breath, nausea, vomiting, change in vision, loss of bowel/bladder control Objective - Vital Signs Vital signs: Vital Signs Temp 98.5 F 08/28/22 07:03 Pulse 78 08/28/22 07:03 Resp 18 08/28/22 07:03 BP 144/71 08/28/22 07:03 Pulse Ox 95 08/28/22 07:03 FiO2 Intake & Output 08/27/22 08/28/22 08/28/22 18:59 06:59 18:59 Output Total 900 925 Balance -900 -925 Weight 145.15 kg Output: Urine 900 925 Other: Voiding Method Urinal Urinal Urinal # Voids 1 3 # Bowel Movements 1 - Exam Inspection: Dressing present over left anterior hip. Dressing appears to be holding well at this time. Nurse just changed dressing this morning. Negative for erythema. fair amount of swelling near incision. Sensation: Sensation is equal, symmetric, bilaterally intact throughout exam Palpation: Fair amount of tenderness to palpation anteriorly over the left hip. Nontender to palpation throughout rest of exam Range of motion: Patient has full range of motion bilateral upper extremity is in right lower extremity exam. There is some limited range of motion in left knee/left hip in flexion/extension secondary to pain/weakness from left hip. Motor: 5/5 in all major motor groups bilateral upper extremities and right lower extremity on exam. 4+/5 in resisted left hip flexion extension and left knee flexion extension. 5/5 in left ankle dorsi/plantar flexion. Neurovascular status: Radial pulse intact, 2+ bilaterally. Cap refill under 3 seconds in digits upper extremities. DP pulses palpable bilaterally Special tests: Negative [place] bilaterally. - Labs CBC & Chem 7: 08/28/22 05:20 08/28/22 05:20 Labs: Abnormal Lab Results - Last 24 Hours (Table) 08/27/22 08/27/22 08/27/22 Range/Units 11:06 11:58 11:58 RBC 3.05 L (4.40-5.60) X 10*6/uL Hgb 8.4 L (13.0-17.0) g/dL Hct 27.0 L (39.6-50.0) % MCHC 31.1 L (32.0-37.0) g/dL MPV 9.3 L (9.5-12.2) fL Immature Gran # 0.09 H (0.00-0.04) X 10*3/uL Lymphocytes # 0.70 L (0.90-5.00) X 10*3/uL Sodium (137-145) mmol/L BUN 7 L (9-20) mg/dL Creatinine 0.44 L (0.66-1.25) mg/dL Glucose 114 H (74-99) mg/dL Total Protein 5.8 L (6.3-8.2) g/dL Albumin 3.0 L (3.5-5.0) g/dL Coronavirus (PCR) Detected A (Not Detectd) 08/28/22 08/28/22 08/28/22 Range/Units 05:20 05:20 05:20 RBC 3.01 L (4.40-5.60) X 10*6/uL Hgb 8.5 L (13.0-17.0) g/dL Hct 26.4 L (39.6-50.0) % MCHC (32.0-37.0) g/dL MPV (9.5-12.2) fL Immature Gran # (0.00-0.04) X 10*3/uL Lymphocytes # 0.6 L (0.90-5.00) X 10*3/uL Sodium 135 L (137-145) mmol/L BUN (9-20) mg/dL Creatinine 0.50 L 0.51 L (0.66-1.25) mg/dL Glucose 111 H (74-99) mg/dL Total Protein (6.3-8.2) g/dL Albumin (3.5-5.0) g/dL Coronavirus (PCR) (Not Detectd) Microbiology - Last 24 Hours (Table) 08/23/22 12:20 Blood Culture - Preliminary Blood No Growth after 96 hours 08/23/22 12:40 Blood Culture - Preliminary Blood No Growth after 96 hours Assessment and Plan Assessment: 1. Left hip deep periprosthetic infection - Postoperative day 4 status post 1. Left hip prosthetic polyethylene acetabular liner exchange and femoral head exchange 2. Incision with irrigation left hip periprosthetic deep infection 3. Implantation dissolvable vancomycin antibiotic beads Plan: 1. Left hip deep periprosthetic infection - patient stable at bedside this morning. Surgery was performed 08/24/2022 - left hip prosthetic polyethylene acetabular liner exchange and femoral head exchange; incision irrigation with left hip. Prosthetic deep infection; implantation dissolvable vancomycin antibiotic beads. Pain medication as needed. Patient to be weightbearing as tolerated with walker. Physical therapy and OT daily. Continue IV antibiotics. Medicine and ID following. PICC line in place. Cultures finalized - Continue iron daily. Hemoglobin stabilized. plan for discharge to [facility] , 08/28/22. 2. Appreciate medical and ID management 3. Pain management - [place]; gabapentin; Dilaudid 4. GI prophylaxis - senna 5. DVT prophylaxis - Lovenox in hospital. Going to rehab with aspirin 325 mg daily. 6. PT/OT - weightbearing as tolerated with walker and assistance as needed 7. Encourage incentive spirometer use 8. Discharge planning - plan for discharge to [facility] , 08/28/22. Time with Patient: Less than 30
[2022-08-28 13:26] VITALS: BP 141/59; PULSE 99; TEMP 98.3
--- NOTE | 2022-08-28 14:49 | P.PN ---
Subjective Progress Note Date: 08/28/22 Principal diagnosis: Left Hip Infection Patient is a 66-year-old male with a past medical history taken for osteoarthritis sleep apnea chronic back pain in this patient who recently did have left total hip arthroplasty done on 08/05/2022, subsequently presented to hospital on 08/23/2022 with increasing pain swelling to the left hip area along with fever and chills. Patient was taken to the OR 08/24/2022 with concern for left hip deep periprosthetic infection the patient is status post left hip prosthetic polyethylene acetabular liner exchange and femoral head exchange irrigation of the left hip periprosthetic infection and implantation of vancomycin antibiotic beads. On today's evaluation that is 08/28/2022, the patient remains to be afebrile , the patient pain to the left hip area is currently controlled , the patient denies having any chest pain or shortness of breath or cough no nausea no vomiting no abdominal pain no diarrhea, no new symptoms Objective - Vital Signs Vital signs: Vital Signs Temp 98.5 F 08/28/22 07:03 Pulse 78 08/28/22 07:03 Resp 18 08/28/22 07:03 BP 144/71 08/28/22 07:03 Pulse Ox 95 08/28/22 07:03 FiO2 Intake & Output 08/27/22 08/28/22 08/28/22 18:59 06:59 18:59 Output Total 900 925 Balance -900 -925 Weight 145.15 kg Output: Urine 900 925 Other: Voiding Method Urinal Urinal Urinal # Voids 1 3 # Bowel Movements 1 - Exam GENERAL DESCRIPTION: Elderly male lying in bed in no distress RESPIRATORY SYSTEM: Unlabored breathing , decreased breath sounds at bases HEART: S1 S2 regular rate and rhythm ,no loud murmurs ABDOMEN: Soft , no tenderness EXTREMITIES: Left hip incision is currently dressed no drainage on the dressing - Labs CBC & Chem 7: 08/28/22 05:20 08/28/22 05:20 Labs: Abnormal Lab Results - Last 24 Hours (Table) 08/27/22 08/28/22 08/28/22 Range/Units 11:58 05:20 05:20 RBC 3.05 L 3.01 L (4.40-5.60) X 10*6/uL Hgb 8.4 L 8.5 L (13.0-17.0) g/dL Hct 27.0 L 26.4 L (39.6-50.0) % MCHC 31.1 L (32.0-37.0) g/dL MPV 9.3 L (9.5-12.2) fL Immature Gran # 0.09 H (0.00-0.04) X 10*3/uL Lymphocytes # 0.70 L 0.6 L (0.90-5.00) X 10*3/uL Sodium (137-145) mmol/L Creatinine 0.50 L (0.66-1.25) mg/dL Glucose (74-99) mg/dL 08/28/22 Range/Units 05:20 RBC (4.40-5.60) X 10*6/uL Hgb (13.0-17.0) g/dL Hct (39.6-50.0) % MCHC (32.0-37.0) g/dL MPV (9.5-12.2) fL Immature Gran # (0.00-0.04) X 10*3/uL Lymphocytes # (0.90-5.00) X 10*3/uL Sodium 135 L (137-145) mmol/L Creatinine 0.51 L (0.66-1.25) mg/dL Glucose 111 H (74-99) mg/dL Microbiology - Last 24 Hours (Table) 08/23/22 12:20 Blood Culture - Preliminary Blood No Growth after 96 hours 08/23/22 12:40 Blood Culture - Preliminary Blood No Growth after 96 hours Assessment and Plan (1) Left hip prosthetic joint infection Current Visit: Yes Status: Acute Code(s): T84.52XA - INFECT/INFLM REACTION DUE TO INTERNAL LEFT HIP PROSTH, INIT SNOMED Code(s): [id number] Plan: 1patient presented to hospital with left hip pain swelling and redness fever in this patient who recently did have left hip arthroplasty concerning for left hip cellulitis possible deep infection likely from gram-positive skin sarah less likely gram-negative but not entirely excluded 2Patient is s/p surgical debridement and deep culture which are growing E. coli that is a sensitive pathogen 3-patient did get a PICC line and continue with Rocephin 2 g daily 6 weeks and close outpatient follow-up 4patient did test positive for covid however do not have any respiratory symptoms and is on room air treatment is supportive Time with Patient: Less than 30
== END 2022-08-28 15:05 | DRG 466 ==
LOC: OR 11:01 → 4SSUR 12:44
PROVIDERS: ADMIT Orthopaedic Surgery; ATTEND Orthopaedic Surgery
PROC: 0SUE09Z Supplement Left Hip Joint, Acetabular Surface with Liner, Open Approach (ICD-10-PCS; principal; 2022-08-24 08:00)
PROC: 0SPS0JZ Removal of Synthetic Substitute from Left Hip Joint, Femoral Surface, Open Approach (ICD-10-PCS; principal; 2022-08-24 08:00)
PROC: 3E0U029 Introduction of Other Anti-infective into Joints, Open Approach (ICD-10-PCS; principal; 2022-08-24 08:00)
PROC: 0SPB09Z Removal of Liner from Left Hip Joint, Open Approach (ICD-10-PCS; principal; 2022-08-24 08:00)
PROC: 0SRS0JZ Replacement of Left Hip Joint, Femoral Surface with Synthetic Substitute, Open Approach (ICD-10-PCS; principal; 2022-08-24 08:00)
PROC: 02HV33Z Insertion of Infusion Device into Superior Vena Cava, Percutaneous Approach (ICD-10-PCS; 2022-08-26)
DX: T84.52XA Infection and inflammatory reaction due to internal left hip prosthesis, initial encounter (principal); U07.1 COVID-19; E87.1 Hypo-osmolality and hyponatremia; L03.116 Cellulitis of left lower limb; Y83.1 Surgical operation with implant of artificial internal device as the cause of abnormal reaction of the patient, or of later complication, without mention of misadventure at the time of the procedure; B96.20 Unspecified Escherichia coli [E. coli] as the cause of diseases classified elsewhere; D64.9 Anemia, unspecified; Z79.1 Long term (current) use of non-steroidal anti-inflammatories (NSAID); Z79.82 Long term (current) use of aspirin; Z79.899 Other long term (current) drug therapy; G47.33 Obstructive sleep apnea (adult) (pediatric); I87.2 Venous insufficiency (chronic) (peripheral); G89.29 Other chronic pain; M54.9 Dorsalgia, unspecified
CPT/HCPCS: 36573; 80048; 80053; 80202; 82565; 83605; 85025; 85610; 85652; 86140; 87040; 87070; 87075; 87077; 87102; 87186; 87205; 87635; 96365; 96366; 96367; 96375; 99285

== ENCOUNTER 2024-02-26 07:36 | Day surgery (SDC) | payer MEDICARE, OTHER ==
[2024-02-26] MEDS: IV FLUID CONTINUATION 1,000 ML IV ONE (07:56)
[2024-02-26] MEDS ORDERED: LIDOCAINE 1% (10MG/ML) FOR IV START INTRADERMA PRN (07:57)
[2024-02-26] MEDS ORDERED: LACTATED RINGERS 1,000 ML IV SCH (07:57)
[2024-02-26 08:07] VITALS: TEMP 97.5
--- NOTE | 2024-02-26 08:20 | P.GSHP ---
History of Present Illness H&P Date: 02/26/24 CHIEF COMPLAINT: Colon screen HISTORY OF PRESENT ILLNESS: The patient is a 68-year-old male who presents for colon screen. Lower endoscopy was offered for further evaluation and management. PAST MEDICAL HISTORY: Please see list. PAST SURGICAL HISTORY: Please see list. MEDICATIONS: Please see list. ALLERGIES: Please see list. SOCIAL HISTORY: No illicit drug use FAMILY HISTORY: No reports of Crohn disease or ulcerative colitis. REVIEW OF ORGAN SYSTEMS: CONSTITUTIONAL: No reports of fevers or chills. PHYSICAL EXAM: VITAL SIGNS: Stable GENERAL: Well-developed pleasant in no acute distress. HEENT: No scleral icterus. Extraocular movements grossly intact. Moist buccal mucosa. NECK: Supple without lymphadenopathy. CHEST: Unlabored respirations. Equal bilateral excursions. CARDIOVASCULAR: Regular rate and rhythm. Distal 2+ pulses. ABDOMEN: Soft, nontender, nondistended. MUSCULOSKELETAL: No clubbing, cyanosis, or edema. ASSESSMENT: 1. Colon screen. PLAN: 1. Recommend proceeding with a lower endoscopy Past Medical History Past Medical History: Hearing Disorder / Deafness, Osteoarthritis (OA), Sleep Apnea/CPAP/BIPAP Additional Past Medical History / Comment(s): Chronic back pain, bilateral leg swelling, sciatica pain, pinched nerves in L4-L5 no more back pain since pain procedures, uses CPAP. Has hearing aids but doesn't wear. History of Any Multi-Drug Resistant Organisms: None Reported Past Surgical History: Appendectomy, Back Surgery, Bariatric Surgery, Joint Replacement, Orthopedic Surgery Additional Past Surgical History / Comment(s): EGD, colonoscopy, pain clinic procedure for pinched nerves in back, Gastric Sleeve 02/22/19, neck surgery, back surgery-titanium silas, left hip replacement 2022, post op infection left hip, prosthesis removed, 2nd left hip replacement 2023, pt states left leg 3/4 inch shorter than right Past Anesthesia/Blood Transfusion Reactions: No Reported Reaction Smoking Status: Never smoker - Past Family History Mother Family Medical History: CVA/TIA Additional Family Medical History / Comment(s): of massive CVA 2012. Medications and Allergies Home Medications Medication Instructions Recorded Confirmed Type Magnesium 400 mg PO DAILY 09/16/19 02/24/24 History Multivitamins, Thera [Multivitamin 1 tab PO DAILY 09/16/19 02/24/24 History (formulary)] Ubidecarenone [Co Q-10] 100 mg PO DAILY 09/16/19 02/24/24 History Vitamin E (Dl,Tocopheryl Acet) 400 unit PO DAILY 04/18/22 02/24/24 History [Vitamin E (400 Iu = 180 mg)] Ascorbic Acid [Vitamin C] 1,000 mg PO DAILY 08/23/22 02/24/24 History Cholecalciferol (Vitamin D3) 75 mcg PO DAILY 08/23/22 02/24/24 History [Vitamin D3 (3000 Iu)] Ferrous Sulfate [Feosol] 325 mg PO DAILY #21 tab 08/28/22 02/24/24 Rx HYDROcodone/APAP 5-325MG [[place] 0.5 tab PO Q4HR PRN 02/24/24 02/26/24 History 5-325] Meloxicam [Mobic] 15 mg PO DAILY 02/24/24 02/24/24 History [place]-3/Dha/Epa/Fish Oil [Fish Oil 1 each PO DAILY 02/24/24 02/24/24 History 1,000 mg Softgel] Omeprazole [PriLOSEC] 1 dose PO DAILY 02/24/24 02/24/24 History bisacodyL [Dulcolax] 1 dose PO DAILY 02/24/24 02/24/24 History methocarbamoL [Robaxin-750] 750 mg PO DAILY 02/24/24 02/24/24 History Allergies Allergy/AdvReac Type Severity Reaction Status Date / Time strawberry Allergy Severe Rash/Hives Verified 02/24/24 12:25 Surgical - Exam Vital Signs Temp Pulse Resp BP Pulse Ox 97.5 F L 68 20 158/73 96 02/26/24 08:06 02/26/24 08:06 02/26/24 08:06 02/26/24 08:06 02/26/24 08:06
[2024-02-26] MEDS ORDERED: PROPOFOL 10 MG/ML 20 ML VIAL IV ONE (09:01)
[2024-02-26] MEDS ORDERED: LIDOCAINE 1% INJ 10MG/ML (20 ML MDV) ONE (09:01)
[2024-02-26 09:31] VITALS: RESP 18
--- NOTE | 2024-02-26 09:34 | P.PCN ---
Date of Procedure: 02/26/24 Description of Procedure: PREOPERATIVE DIAGNOSIS: Personal history of colon polyps Family history of colon polyps Colonoscopy screening. POSTOPERATIVE DIAGNOSIS: Personal history of colon polyps Colonoscopy screening. Diverticulosis, scattered. OPERATION: Colonoscopy to the cecum, ileocecal valve and appendiceal orifice. SURGEON: Karena Winters MD. ANESTHESIA: MAC. INDICATIONS: The patient is a 68-year-old female who presents for colonoscopy screening. Last colonoscopy 5 years. Benefits and risks were described and informed consent was obtained. DESCRIPTION OF PROCEDURE: The patient had undergone GoLytely prep. The patient had been brought into the operating room and laid in the left lateral decubitus position. After adequate intravenous sedation, the rectum was examined with 2% lidocaine jelly. Prostate was unremarkable. External hemorrhoids were encountered. The rectal tone was within normal limits. No lesions were palpated in the rectal vault. An Olympus colonoscope was advanced until the cecum, ileocecal valve and appendiceal orifice were clearly viewed. The prep was fair. Scattered diverticulosis was encountered. No colonic polyps were found. No evidence of focal colitis was found. Retroflexion of the scope demonstrated grade 2 internal hemorrhoids without active bleeding or inflammation. The colon was desufflated. The patient had tolerated the procedure well. Withdrawal time was over 6 minutes. FINDINGS: Aronchick preparation quality scale 2+ (1-5) Internal hemorrhoids, grade 2 External prolapsed hemorrhoids, grade 2 No arteriovenous malformations. No adenomatous polyps. No focal colitis. RECOMMENDATIONS: Lower endoscopy in 5 years, 2028 Plan - Discharge Summary Discharge Rx Participant: No New Discharge Prescriptions: Continue Multivitamins, Thera [Multivitamin (formulary)] 1 tab PO DAILY Ubidecarenone [Co Q-10] 100 mg PO DAILY Magnesium 400 mg PO DAILY Cholecalciferol (Vitamin D3) [Vitamin D3 (3000 Iu)] 75 mcg PO DAILY Ascorbic Acid [Vitamin C] 1,000 mg PO DAILY Meloxicam [Mobic] 15 mg PO DAILY HYDROcodone/APAP 5-325MG [[place] 5-325] 0.5 tab PO Q4HR PRN PRN Reason: Pain bisacodyL [Dulcolax] 1 dose PO DAILY [place]-3/Dha/Epa/Fish Oil [Fish Oil 1,000 mg Softgel] 1 each PO DAILY methocarbamoL [Robaxin-750] 750 mg PO DAILY Omeprazole [PriLOSEC] 1 dose PO DAILY Vitamin E (Dl,Tocopheryl Acet) [Vitamin E (400 Iu = 180 mg)] 400 unit PO ANJU Y Ferrous Sulfate [Feosol] 325 mg PO DAILY #21 tab Discharge Medication List Magnesium 400 mg PO DAILY 09/16/19 [History] Multivitamins, Thera [Multivitamin (formulary)] 1 tab PO DAILY 09/16/19 [History] Ubidecarenone [Co Q-10] 100 mg PO DAILY 09/16/19 [History] Vitamin E (Dl,Tocopheryl Acet) [Vitamin E (400 Iu = 180 mg)] 400 unit PO DAILY 04/18/22 [History] Ascorbic Acid [Vitamin C] 1,000 mg PO DAILY 08/23/22 [History] Cholecalciferol (Vitamin D3) [Vitamin D3 (3000 Iu)] 75 mcg PO DAILY 08/23/22 [History] Ferrous Sulfate [Feosol] 325 mg PO DAILY #21 tab 08/28/22 [Rx] HYDROcodone/APAP 5-325MG [[place] 5-325] 0.5 tab PO Q4HR PRN 02/24/24 [History] Meloxicam [Mobic] 15 mg PO DAILY 02/24/24 [History] [place]-3/Dha/Epa/Fish Oil [Fish Oil 1,000 mg Softgel] 1 each PO DAILY 02/24/24 [History] Omeprazole [PriLOSEC] 1 dose PO DAILY 02/24/24 [History] bisacodyL [Dulcolax] 1 dose PO DAILY 02/24/24 [History] methocarbamoL [Robaxin-750] 750 mg PO DAILY 02/24/24 [History] Follow up Appointment(s)/Referral(s): Karena Winters MD [STAFF PHYSICIAN] - As Needed Patient Instructions/Handouts: Diverticulosis (DC), Diverticulosis Diet (GEN) Activity/Diet/Wound Care/Special Instructions: Repeat colonoscopy 5 years, 2028 Discharge Disposition: HOME SELF-CARE
[2024-02-26 09:42] VITALS: BP 122/68; PULSE 61
== END 2024-02-26 10:00 | disposition home or self-care (01) ==
LOC: ORWHC2ENDO 07:36
PROVIDERS: ATTEND Surgery Plastic and Reconstructive Surgery
DX: D12.6 Benign neoplasm of colon, unspecified
CPT/HCPCS: 45378

== ENCOUNTER → 2024-03-17 | Outpatient (CLI) | payer MEDICARE, OTHER ==
[2024-03-17 13:37] VITALS: BP 153/78; PULSE 84; RESP 16; TEMP 98.1; BMI 41.9
--- NOTE | 2024-03-17 14:13 | P.HPBAR ---
Bariatric H&P - History & Physicial H&P Date: 03/17/24 History & Physicial: Visit/CC: f/u Patient initial contact: Initial weight: 167.149 kg Initial weight in pounds: 368.50 Height: 6 ft 4 in Initial BMI: 44.8 Last weight: Current weight: 156.263 kg Current weight in pounds: 344.50 Current BMI: 41.9 [place] body weight (based on NIH guidelines): 91.626 kg Excess body weight loss: 14.4% The patient is a 68 year-old M who presents for Bariatric Assessment. Lowest weigh was 300 pounds. Highest weight 550 pounds. He is up 319 to 344 pounds. Lowest here is 305 pounds. He is having problems with eating with abdominal pain. He is taking Meloxicam since 2019. Food journal. Bkfast protein shake with yogurt, spinach, broccoli, greens, blue berries. Apple and orange. 1/2 scope oatmeal. No lunch. 2pm shake, then soup at dinner time. 1.5 cups. 45 grams protein. Goal 120 gram of protein or more.Nutritional panel. Homework food naren. Past Medical History Past Medical History: Hearing Disorder / Deafness, Osteoarthritis (OA), Sleep Apnea/CPAP/BIPAP Additional Past Medical History / Comment(s): Chronic back pain, bilateral leg swelling, sciatica pain, pinched nerves in L4-L5 no more back pain since pain procedures, uses CPAP. Has hearing aids but doesn't wear. History of Any Multi-Drug Resistant Organisms: None Reported Past Surgical History: Appendectomy, Back Surgery, Bariatric Surgery, Joint Replacement, Orthopedic Surgery Additional Past Surgical History / Comment(s): EGD, colonoscopy, pain clinic procedure for pinched nerves in back, Gastric Sleeve 02/22/19, neck surgery, back surgery-titanium silas, left hip replacement 2022, post op infection left hip, prosthesis removed, 2nd left hip replacement 2023, pt states left leg 3/4 inch shorter than right, Past Anesthesia/Blood Transfusion Reactions: No Reported Reaction Past Psychological History: No Psychological Hx Reported Smoking Status: Never smoker Past Alcohol Use History: None Reported Past Drug Use History: None Reported - Past Family History Mother Family Medical History: CVA/TIA Additional Family Medical History / Comment(s): of massive CVA 2012. Surgical - Exam Vital Signs Temp Pulse Resp BP 98.1 F 84 16 153/78 03/17/24 13:30 03/17/24 13:30 03/17/24 13:30 03/17/24 13:30 Bariatric Checklist Checklist: Plan: Checklist: EGD: 1. Hiatal hernia: 2. H. Pylori: HgbA1c: Vitamin D: Smoking: Never smoker Primary care physician referral: Cassandra [facility] Psychiatry clearance: Cardiology clearance: Sleep study: Diet journal: VTE risk score: VTE risk level: Rehab needs at discharge:
[2024-03-17 16:20] LABS: Partial Thromboplastin Time 24.7 sec (22.0-30.0); Prothrombin Time 11.2 sec (10.0-12.5)
[2024-03-17 18:27] LABS: MCHC 32.7 g/dL (32.0-37.0); MCV 85.7 FL (80.0-97.0); Mean Platelet Volume 9.9 FL (9.5-12.2); NRBC Per 100 WBC 0 X 10*3/uL (0.00-0.01); Platelet Count 200 X 10*3/uL (140-440); RBC 5.72 X 10*6/uL (4.40-5.60); RDW 15.6 % (11.5-14.5)
[2024-03-17 23:22] LABS: Prealbumin 24.3 mg/dL (18.0-42.0)
[2024-03-17 23:47] LABS: % Iron Saturation 19.27 (15.00-50.00); ALT 19 U/L (10-49); AST 24 U/L (14-35); Albumin 4.8 g/dL (3.8-4.9); Albumin/Globulin Ratio 1.55 Ratio (1.60-3.17); Alkaline Phosphatase 122 U/L (41-126); BUN/Creat Ratio 32.88 Ratio (12.00-20.00); Blood Urea Nitrogen 26.3 mg/dL (9.0-27.0); Calcium 9.7 mg/dL (8.7-10.3); Carbon Dioxide 20.9 mmol/L (21.6-31.8); Chloride 102 mmol/L (96-109); Chol/HDL Ratio 3.21 Ratio; Globulin 3.1 g/dL (1.6-3.3); Glucose 96 mg/dL (70-110); Iron 69 UG/DL (65-175); LDL Cholesterol,Calculated 76.6 mg/dL (0.0-131.0); Magnesium 2.2 mg/dL (1.5-2.4); Phosphorus 3.7 mg/dL (2.4-5.1); Potassium 4.5 mmol/L (3.5-5.5); Sodium 140 mmol/L (135-145); Total Bilirubin 0.8 mg/dL (0.3-1.2); Total Iron Binding Capacity 358 UG/DL (228-460); Total Protein 7.9 g/dL (6.2-8.2)
[2024-03-18 15:49] LABS: Zinc, Serum 73 ug/dL (60-130)
[2024-03-19 07:47] LABS: Vitamin A 67 ug/dL (38-106)
[2024-03-19 15:08] LABS: Vit B1(Thiamine) 103 ug/L (38-122)
[2024-03-28 13:40] LABS: Selenium 117 mcg/L (63-160)
== END ==
LOC: BARWHC3 12:46
PROVIDERS: ATTEND Surgery Plastic and Reconstructive Surgery
DX: E66.01 Morbid (severe) obesity due to excess calories (principal); Z71.3 Dietary counseling and surveillance; Z68.42 Body mass index [BMI] 45.0-49.9, adult
CPT/HCPCS: 84255; 84134; 84425; 80061; 80053; 82607; 82728; 82525; 82746; 83540; 83550; 83735; 84100; 84443; 84590; 84630; 85027; 85610; 85730; 82306; 83970; 83036; G0463; 99211

== ENCOUNTER → 2024-07-05 | Outpatient (CLI) | payer OTHER ==
[2024-07-05 13:41] VITALS: BP 149/85; PULSE 65; RESP 18; TEMP 97.4
--- NOTE | 2024-07-05 16:19 | P.PAINPG ---
PQRS Measure Charge Sheet Comment: A 68 yr old wheelchair bound male with a history of severe and chronic LBP x yrs secondary to radiculopathy, spondylosis with facet arthropathy without myelopathy presents today for evaluation. Pain level is provoked at 6 /10 in intensity, constant, localized in the lower lumbar spine, sore in character w s hooting towards the BL buttocks, L groin, L thigh. Pain is provoked by sitting/ walking/ standing for periods of 15 mi or more. Pain is alleviated with PT (15 sessions) in Dec 2021, heat, ice, medications, topicals, repositioning and rest. Interventional pain procedures completed include L SI x2 Patient is currently on [place], [place] IR Patient denies any side effects of the medication(s), denies excessive drowsiness or sleepiness, denies suicidal ideation and reports that the current pain medication is helping to control the pain and improve activities of daily living. Patient denies any motor or sensory deficits. Patient denies any fever or night sweats, denies any change in the bowel movements or urination. Physical Examination: -Constitutional: Cooperative. Not in acute distress . - Neurologic: Cranial nerve II to XII intact. No focal neurological deficits. - Psychatric: Alert & oriented x 3. Matching mood & appropriate affect. Judgment and insight intact. - Musculoskeletal: Cervical spine: Muscle bulk/ tone/ strength in the bilateral upper extremities normal Vertebral body tenderness to palpation over Sp[place]ling test positive Distraction test positive Facet loading test positive Thoracic spine Muscle bulk / tone/ strength in the bilateral paraspinal muscles normal Vertebral body tender to palpation over Facet loading test positive Lumbar spine: Motor bulk/ tone/ strength lower extremities , thigh and legs : 5/5 Deep tendon reflexes : Normal Knee Jerk. Normal Ankle Jerk . Vertebral body tenderness to palpation over Lumbar Facet Loading Test positive Straight Leg Raise: positive at 30 degrees right side/ left side Gaenslen's Test positive Sacral spine : Severe tenderness over the Sacroiliac joint: right side / left side Range of motion: Flexion of the lumbar spine <60 degrees Range of motion: Extension of the lumbar spine <20 degrees Gaenslen's Test positive L> R Gonzalo test: positive right side < left side Thigh Thrust Test BL Sacral Thrust Test positive Assessment and plan: Chronic LBP secondary to radiculopathy, spondylosis with facet arthropathy without myelopathy Recommendation of BL SI injection. Risks, benefits of procedure discussed and pt verbalized understanding. [facility]ceives [facility] medications from the [facility]. All questions answered. I have spent less than 30 minutes on patient care today. Dr Tobar was available by phone for the evaluation of this patient. The time was used to review the medical records including relevant urine studies and Prescription history (MAPs), review of the available imaging, evaluation and examination of the patient, coordination of care with the medical staff and if applicable referring physicians, as well as creation of the medical record PQRS Narrative: Smoking Status Never smoker Narcotic Agreement Date Signed 05/01/22 Hx Alcohol Use (MH) No Home Medications: Ambulatory Orders Magnesium 400 mg PO HS 09/16/19 Multivitamins, Thera [Multivitamin (formulary)] 1 tab PO DAILY 09/16/19 Ubidecarenone [Co Q-10] 100 mg PO DAILY 09/16/19 Vitamin E (Dl,Tocopheryl Acet) [Vitamin E (400 Iu = 180 mg)] 400 unit PO BID 04/18/22 Ascorbic Acid [Vitamin C] 1,000 mg PO BID 08/23/22 Cholecalciferol (Vitamin D3) [Vitamin D3 (3000 Iu)] 75 mcg PO BID 08/23/22 HYDROcodone/APAP 5-325MG [[place] 5-325] 0.5 tab PO Q4HR PRN 02/24/24 Meloxicam [Mobic] 15 mg PO DAILY 02/24/24 [place]-3/Dha/Epa/Fish Oil [Fish Oil 1,000 mg Softgel] 1 each PO DAILY 02/24/24 Omeprazole [PriLOSEC] 1 dose PO DAILY 02/24/24 methocarbamoL [Robaxin-750] 750 mg PO DAILY 02/24/24 Ferrous Sulfate [Feosol] 65 mg PO DAILY 03/17/24 Controlled Substance Measures - Controlled Substance Measures Is patient prescribed a controlled substance at discharge?: No
== END ==
LOC: PNWHC3 12:28
PROVIDERS: ATTEND Specialist
DX: M54.16 Radiculopathy, lumbar region (principal); M47.816 Spondylosis without myelopathy or radiculopathy, lumbar region; G89.29 Other chronic pain
CPT/HCPCS: 99211

== ENCOUNTER → 2024-08-11 | Outpatient (CLI) | payer OTHER ==
[2024-08-11 13:54] VITALS: BP 132/78; PULSE 70; RESP 14; TEMP 97.9
--- NOTE | 2024-08-11 15:49 | P.PAINPG ---
PQRS Measure Charge Sheet Comment: A 68 yr old wheelchair bound male with a history of severe and chronic LBP x yrs secondary to radiculopathy, spondylosis with facet arthropathy without myelopathy, BL Sacroiliitis presents today for evaluation s/p BL SI injection #1. Pt states he experienced 80% pain relief x 3 wks s/p procedure. Pain level is provoked at 4 /10 in intensity, constant, localized in the lower lumbar spine, sore in character without shooting pain. Pain is provoked by sitting/ walking/ standing for periods of 15 mi or more. Pain is alleviated with PT (15 sessions) in Dec 2021, heat, ice, medications, topicals, repositioning and rest. Interventional pain procedures completed include L SI x2, BL SI x1 Patient is currently on [place], [place] IR Patient denies any side effects of the medication(s), denies excessive drowsiness or sleepiness, denies suicidal ideation and reports that the current pain medication is helping to control the pain and improve activities of daily living. Patient denies any motor or sensory deficits. Patient denies any fever or night sweats, denies any change in the bowel movements or urination. Physical Examination: -Constitutional: Cooperative. Not in acute distress . - Neurologic: Cranial nerve II to XII intact. No focal neurological deficits. - Psychatric: Alert & oriented x 3. Matching mood & appropriate affect. Judgment and insight intact. - Musculoskeletal: Cervical spine: Muscle bulk/ tone/ strength in the bilateral upper extremities normal Vertebral body tenderness to palpation over Spurling test positive Distraction test positive Facet loading test positive Thoracic spine Muscle bulk / tone/ strength in the bilateral paraspinal muscles normal Vertebral body tender to palpation over Facet loading test positive Lumbar spine: Motor bulk/ tone/ strength lower extremities , thigh and legs : 5/5 Deep tendon reflexes : Normal Knee Jerk. Normal Ankle Jerk . Vertebral body tenderness to palpation over Lumbar Facet Loading Test positive Straight Leg Raise: positive at 30 degrees right side/ left side Gaenslen's Test positive Sacral spine : Severe tenderness over the Sacroiliac joint: right side / left side Range of motion: Flexion of the lumbar spine <60 degrees Range of motion: Extension of the lumbar spine <20 degrees Gaenslen's Test positive L> R Gonzalo test: positive right side < left side Thigh Thrust Test BL Sacral Thrust Test positive Assessment and plan: Chronic LBP secondary to radiculopathy, spondylosis with facet arthropathy without myelopathy, BL Sacroiliitis HAVEN form completed to be faxed to [facility] in [place] for MRI and CT results. Receives pain medications from the [facility]. All questions answered. I have spent less than 30 minutes on patient care today. Dr Tobar was available by phone for the evaluation of this patient. The time was used to review the medical records including relevant urine studies and Prescription history (MAPs), review of the available imaging, evaluation and examination of the patient, coordination of care with the medical staff and if applicable referring physicians, as well as creation of the medical record PQRS Narrative: Smoking Status Never smoker Narcotic Agreement Date Signed 05/01/22 Hx Alcohol Use (MH) No Home Medications: Ambulatory Orders Magnesium 400 mg PO HS 09/16/19 Multivitamins, Thera [Multivitamin (formulary)] 1 tab PO DAILY 09/16/19 Ubidecarenone [Co Q-10] 100 mg PO DAILY 09/16/19 Vitamin E (Dl,Tocopheryl Acet) [Vitamin E (400 Iu = 180 mg)] 400 unit PO BID 04/18/22 Ascorbic Acid [Vitamin C] 1,000 mg PO BID 08/23/22 Cholecalciferol (Vitamin D3) [Vitamin D3 (3000 Iu)] 75 mcg PO BID 08/23/22 HYDROcodone/APAP 5-325MG [[place] 5-325] 0.5 tab PO Q4HR PRN 02/24/24 Meloxicam [Mobic] 15 mg PO DAILY 02/24/24 [place]-3/Dha/Epa/Fish Oil [Fish Oil 1,000 mg Softgel] 1 each PO DAILY 02/24/24 Omeprazole [PriLOSEC] 1 dose PO DAILY 02/24/24 methocarbamoL [Robaxin-750] 750 mg PO DAILY 02/24/24 Ferrous Sulfate [Feosol] 65 mg PO DAILY 03/17/24 Controlled Substance Measures - Controlled Substance Measures Is patient prescribed a controlled substance at discharge?: No
== END ==
LOC: PNWHC3 13:36
PROVIDERS: ATTEND Specialist
DX: M47.26 Other spondylosis with radiculopathy, lumbar region (principal); M46.1 Sacroiliitis, not elsewhere classified; G89.29 Other chronic pain
CPT/HCPCS: 99212